=== PATIENT | female | born 1935 | race Caucasian/White ===

== ENCOUNTER 2017-08-22 09:41 | Emergency (ER) | payer MEDICARE, MEDICAID ==
[~2017-08-22] VITALS: Ht 167.6 cm; Wt 59.9 kg
[~2017-08-22 09:41] MED LIST: AZAT50TA PO; CALCIUM PO; CYCL30DR EACHEYE; ESCI10TA PO; LEVO88TA5 PO; OMEGA 3 PO; PRED2.5T PO; SIMV10TA6 PO; VITAMIN B12 PO
[2017-08-22] MEDS ORDERED: ACETAMINOPHEN ES 500 MG TABLET PO ONE (10:15)
[2017-08-22] MEDS ORDERED: IV NORMAL SALINE 1000 ML BAG IV ONE (10:15)
[2017-08-22] MEDS ORDERED: CEFTRIAXONE 1 G in IV DEXTROSE 5% 50 ML IV ONE (10:15)
[2017-08-22] MEDS ORDERED: ALBUTEROL SULFATE 2.5 MG/3 ML NEBU NEB ONE (10:15)
[2017-08-22] MEDS ORDERED: ALBUTEROL SULFATE 2.5 MG/3 ML NEBU ONE (10:31)
[2017-08-22 10:34] LABS: BASOPHILS % (AUTO) 0.8 % (0.0-2.0); EOSINOPHILS % (AUTO) 0.2 % (0.0-7.0); HEMOGLOBIN 13.2 g/dL (10.9-14.3); LYMPHOCYTES # (AUTO) 0.8 K/uL (20.0-40.0); LYMPHOCYTES % (AUTO) 13.6 % (20.5-51.5); MEAN CORPUSCULAR HEMOGLOBIN 31.9 uug (24.7-32.8); MEAN CORPUSCULAR HGB CONC 34 g/dL (32.3-35.6); MEAN CORPUSCULAR VOLUME 94.5 fL (75.5-95.3); MONOCYTES # (AUTO) 0.5 K/uL (2.0-10.0); MONOCYTES % (AUTO) 7.8 % (0.0-11.0); NEUTROPHILS # (AUTO) 4.7 K/uL (1.8-8.9); NEUTROPHILS % (AUTO) 77.6 % (38.5-71.5); PLATELET COUNT (AUTO) 195 K/uL (179-408); RED BLOOD CELL COUNT(AUTO) 4.12 MIL/uL (3.63-4.92)
[2017-08-22] MEDS ORDERED: CEFTRIAXONE 1 G VIAL ONE (10:48)
[2017-08-22] MEDS ORDERED: ACETAMINOPHEN ES 500 MG TABLET ONE (10:48)
[2017-08-22 10:50] LABS: CARBON DIOXIDE 25 mmol/L (21-32); CHLORIDE 107 mmol/L (98-107); CREATININE 1.4 mg/dL (0.6-1.3); GLUCOSE 103 mg/dL (74-106); POTASSIUM 4.1 mmol/L (3.5-5.1); UREA NITROGEN, BLOOD 24 mg/dL (7-18)
[2017-08-22 11:00] LABS: *BILIRUBIN,URIN NEGATIVE (NEGATIVE); *BLOOD, URINE 2+ (NEGATIVE); *COLOR,URINE YELLOW (YELLOW); *KETONES,URINE NEGATIVE (NEGATIVE); *PROTEIN,URINE NEGATIVE (NEGATIVE); *UROBILINOGEN,URINE 0.2 E.U./dl (NORMAL); LEUKOCYTE ESTERASE ,URINE NEGATIVE (NEGATIVE); NITRITE, URINE NEGATIVE (NEGATIVE); UGLUCOSE NEGATIVE (NEGATIVE)
[2017-08-22 11:03] LABS: ALANINE AMINOTRANSFERASE 16 U/L (14-59); ALKALINE PHOSPHATASE 52 U/L (50-136); ASPARTATE AMINOTRANSFERASE 17 U/L (15-37); BILIRUBIN,DIRECT 0.2 mg/dL (0.0-0.2); BILIRUBIN,TOTAL 0.7 mg/dL (0.2-1.0); TOTAL PROTEIN, SERUM 7.3 g/dL (6.4-8.2)
[2017-08-22 11:06] LABS: *CLARITY,URINE SLIGHTLY HAZY (CLEAR)
[2017-08-22 11:09] LABS: WBC,URINE 0-3 /HPF (0-3)
[2017-08-22 11:10] LABS: BACTERIA,URINE NONE SEEN /HPF (NONE SEEN); SQUAMOUS EPITHELIAL CELL,UR FEW /HPF (NONE SEEN)
[2017-08-22] MEDS ORDERED: LEVOFLOXACIN 500 MG TABLET PO ONE (13:30)
--- NOTE | 2017-08-22 13:40 | NUR ---
[facility] PROVIDED FOR PT AND PER PT REQUEST. PT EATING WITH GOOD APETITE.
[2017-08-22] MEDS ORDERED: LEVOFLOXACIN 500 MG TABLET ONE (13:44)
--- NOTE | 2017-08-22 14:26 | NUR ---
PT GRANDSON AT BEDSIDE TO TAKE THE PT HOME. PT SAYS FEELS BETTER.NO SIGN OF DISTRESS, BREATHING NORMALLY.
[2017-08-22 14:30] VITALS: BP 111/55
== END 2017-08-22 14:31 | disposition home or self-care (01) ==
LOC: ER 09:41
DX: R50.9 Fever, unspecified (principal); I10 Essential (primary) hypertension; I70.0 Atherosclerosis of aorta; E78.00 Pure hypercholesterolemia, unspecified; Z88.0 Allergy status to penicillin; Z88.2 Allergy status to sulfonamides; E03.9 Hypothyroidism, unspecified; M31.30 Wegener's granulomatosis without renal involvement
CPT/HCPCS: 36415; 70030-TC; 71045; 83605; 85025; 85730; 87040; 87086; 87400; 93005; A4663; J0696; J3490; J7030

== ENCOUNTER 2018-10-12 01:02 | Emergency (ER) | payer MEDICARE, MEDICAID ==
[~2018-10-12] VITALS: Ht 162.6 cm; Wt 54.4 kg
--- NOTE | 2018-10-12 01:14 | NUR ---
Pt bib [id number] from home with c/o intermittent cough x 6 months w weight loss. Pt placed to room 1B.
[2018-10-12 02:24] LABS: BASOPHILS # (AUTO) 0.1 K/uL (0.0-8.0); BASOPHILS % (AUTO) 1.2 % (0.0-2.0); EOSINOPHILS # (AUTO) 0.2 K/uL (0.0-0.7); EOSINOPHILS % (AUTO) 3.9 % (0.0-7.0); HEMATOCRIT 35.3 % (31.2-41.9); HEMOGLOBIN 12.1 g/dL (10.9-14.3); MEAN CORPUSCULAR HEMOGLOBIN 31.3 uug (24.7-32.8); MEAN CORPUSCULAR HGB CONC 34 g/dL (32.3-35.6); MEAN CORPUSCULAR VOLUME 91.4 fL (75.5-95.3); MONOCYTES # (AUTO) 0.4 K/uL (2.0-10.0); MONOCYTES % (AUTO) 7.5 % (0.0-11.0); NEUTROPHILS # (AUTO) 2.8 K/uL (1.8-8.9); NEUTROPHILS % (AUTO) 51.4 % (38.5-71.5); PLATELET COUNT (AUTO) 221 K/uL (179-408); RED BLOOD CELL COUNT(AUTO) 3.86 MIL/uL (3.63-4.92); WHITE BLOOD COUNT (AUTO) 5.5 K/uL (3.8-11.8)
--- NOTE | 2018-10-12 02:33 | NUR ---
Xray at bedside.
[2018-10-12 02:35] LABS: CARBON DIOXIDE 24 mmol/L (21-32); CHLORIDE 109 mmol/L (98-107); CREATININE 1.1 mg/dL (0.6-1.3); GLUCOSE 95 mg/dL (74-106); POTASSIUM 3.8 mmol/L (3.5-5.1); UREA NITROGEN, BLOOD 26 mg/dL (7-18)
[2018-10-12 02:41] LABS: ALANINE AMINOTRANSFERASE 8 U/L (14-59); ALKALINE PHOSPHATASE 45 U/L (50-136); ASPARTATE AMINOTRANSFERASE 14 U/L (15-37); BILIRUBIN,DIRECT 0.1 mg/dL (0.0-0.2); BILIRUBIN,TOTAL 0.5 mg/dL (0.2-1.0); TOTAL PROTEIN, SERUM 6.4 g/dL (6.4-8.2)
[2018-10-12 02:48] LABS: THYROID STIMULATING HORMONE 0.915 mIU/mL (0.358-3.740)
--- NOTE | 2018-10-12 03:30 | NUR ---
Placed multiple calls & left message to pt's emergency contact regarding pt pickup after discharge. Per pt, grandchild contact info ([facility]) [phone]
[2018-10-12] MEDS ORDERED: LORAZEPAM 2 MG/1 ML VIAL ONE (04:03)
[2018-10-12] MEDS ORDERED: LORAZEPAM 2 MG/1 ML VIAL IV ONE (04:15)
--- NOTE | 2018-10-12 04:26 | NUR ---
Pt is sleeping comfortably in bed. Pt is ready to be d/c per MD. Waiting for pickup by family member.
--- NOTE | 2018-10-12 06:26 | NUR ---
IV removed. Catheter intact and site benign. Pressure and 4x4 gauze applied to site. No bleeding noted.
--- NOTE | 2018-10-12 06:52 | NUR ---
Report given to day shift nurse.
--- NOTE | 2018-10-12 08:00 | NUR ---
called pt grandson at [phone], left a message.
--- NOTE | 2018-10-12 09:00 | NUR ---
pt awake, pt alert to name only. does not know the date and where she is and why she is here. pt provided name that is elizabeth echols.
--- NOTE | 2018-10-12 10:02 | NUR ---
left another message for grace tucker. pt awake, does not have another number to call and no lainez to enter the house.
--- NOTE | 2018-10-12 10:40 | NUR ---
called 2 numbers found in the previous visit and pt visit. [phone], disconnectd, [phone] belonged to some one else.
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
--- NOTE | 2018-10-12 12:00 | NUR ---
[facility] provided. pt eating with good apetite
--- NOTE | 2018-10-12 12:08 | NUR ---
APS report completed by this SW. Report ID # [id number].
--- NOTE | 2018-10-12 12:30 | NUR ---
pt caitlin edwards at bedside to take the pt home.Patient discharged to home in stable conditon. Written and verbal after care instructions given to grace.
[2018-10-12 12:52] VITALS: BP 131/70
[2018-11-09] MEDS ORDERED: FLUT1BLS INH (13:34)
[2018-11-09] MEDS ORDERED: IPRA0.2S6 NEB (13:34)
[2018-11-09] MEDS ORDERED: PANT40TA2 PO (13:34)
[2018-11-09] MEDS ORDERED: ALBU1.25 NEB (13:34)
[2018-11-09] MEDS ORDERED: Levofloxacin PO (13:34)
[2018-11-09] MEDS ORDERED: PRED20TA PO (13:34)
[2018-11-09] MEDS ORDERED: ALBU2.5V7 NEB (13:34)
[2018-11-09] MEDS ORDERED: LEVO100T10 PO (13:34)
[2018-11-09] MEDS ORDERED: ACET100V5 NEB (13:34)
[2018-11-09] MEDS ORDERED: QUET25TA PO (15:30)
== END 2018-10-12 12:30 | disposition home or self-care (01) ==
LOC: ER 01:04
DX: R63.4 Abnormal weight loss (principal); R05 Cough; I10 Essential (primary) hypertension; E78.00 Pure hypercholesterolemia, unspecified; G89.29 Other chronic pain; M54.9 Dorsalgia, unspecified; E03.9 Hypothyroidism, unspecified; Z88.0 Allergy status to penicillin; Z88.2 Allergy status to sulfonamides; Z88.8 Allergy status to other drugs, medicaments and biological substances; Z79.899 Other long term (current) drug therapy
CPT/HCPCS: 36415; 70450; 71045; 80048; 80076; 83605; 84443; 84484; 85025; 85730; 87040 ×2; 93005; 96374; 99284; J2060; 70030-TC; A4663

== ENCOUNTER 2019-02-15 14:34 | Inpatient (IN) | payer MEDICARE, MEDICAID ==
[~2019-02-15] VITALS: Ht 162.6 cm; Wt 59.0 kg
[~2019-02-15 14:34] MED LIST changes: +ACET100V5 NEB; +ALBU1.25 NEB; +ALBU2.5V7 NEB; -CALCIUM PO; +FLUT1BLS INH; +IPRA0.2S6 NEB; +LEVO100T10 PO; +Levofloxacin PO; +PANT40TA2 PO; -PRED2.5T PO; +PRED20TA PO; +QUET25TA PO
[2019-02-15] MEDS ORDERED: ONDA4TAB5 PO (14:58)
[2019-02-15] MEDS ORDERED: MULT-213 PO (14:58)
[2019-02-15] MEDS ORDERED: OMEG1CAP PO (14:58)
[2019-02-15 15:21] LABS: BASOPHILS # (AUTO) 0.1 K/uL (0.0-8.0); BASOPHILS % (AUTO) 1.4 % (0.0-2.0); EOSINOPHILS # (AUTO) 0.4 K/uL (0.0-0.7); EOSINOPHILS % (AUTO) 6.7 % (0.0-7.0); HEMATOCRIT 28.6 % (31.2-41.9); HEMOGLOBIN 9.5 g/dL (10.9-14.3); LYMPHOCYTES # (AUTO) 1.4 K/uL (20.0-40.0); LYMPHOCYTES % (AUTO) 24.9 % (20.5-51.5); MEAN CORPUSCULAR HGB CONC 33 g/dL (32.3-35.6); MEAN CORPUSCULAR VOLUME 90.4 fL (75.5-95.3); MONOCYTES # (AUTO) 0.5 K/uL (2.0-10.0); MONOCYTES % (AUTO) 8.3 % (0.0-11.0); NEUTROPHILS # (AUTO) 3.3 K/uL (1.8-8.9); NEUTROPHILS % (AUTO) 58.7 % (38.5-71.5); PLATELET COUNT (AUTO) 217 K/uL (179-408); RED BLOOD CELL COUNT(AUTO) 3.17 MIL/uL (3.63-4.92); WHITE BLOOD COUNT (AUTO) 5.6 K/uL (3.8-11.8)
[2019-02-15] MEDS ORDERED: DEXT15DR6 EACHEYE (15:26)
[2019-02-15] MEDS ORDERED: FLUT1BLS IH (15:26)
[2019-02-15] MEDS ORDERED: GUAI120L56 PO (15:26)
[2019-02-15] MEDS ORDERED: LACT-214 PO (15:26)
[2019-02-15 15:28] LABS: CARBON DIOXIDE 22 mmol/L (21-32); CHLORIDE 106 mmol/L (98-107); GLUCOSE 108 mg/dL (74-106); POTASSIUM 3.7 mmol/L (3.5-5.1); UREA NITROGEN, BLOOD 49 mg/dL (7-18)
[2019-02-15 15:41] LABS: ALANINE AMINOTRANSFERASE 15 U/L (14-59); ALKALINE PHOSPHATASE 49 U/L (50-136); ASPARTATE AMINOTRANSFERASE 14 U/L (15-37); BILIRUBIN,DIRECT 0.1 mg/dL (0.0-0.2); BILIRUBIN,TOTAL 0.2 mg/dL (0.2-1.0); TOTAL PROTEIN, SERUM 6.6 g/dL (6.4-8.2)
[2019-02-15 16:31] LABS: *BILIRUBIN,URIN NEGATIVE (NEGATIVE); *BLOOD, URINE 3+ (NEGATIVE); *COLOR,URINE YELLOW (YELLOW); *KETONES,URINE NEGATIVE (NEGATIVE); *UROBILINOGEN,URINE 0.2 E.U./dl (NORMAL); LEUKOCYTE ESTERASE ,URINE NEGATIVE (NEGATIVE); NITRITE, URINE NEGATIVE (NEGATIVE); UGLUCOSE NEGATIVE (NEGATIVE)
[2019-02-15 16:39] LABS: *CLARITY,URINE HAZY (CLEAR)
[2019-02-15 16:41] LABS: RBC,URINE 50-80 /HPF (0-3)
[2019-02-15 16:42] LABS: MUCUS,URINE MODERATE /LPF (0-FEW); SQUAMOUS EPITHELIAL CELL,UR FEW /HPF (NONE SEEN)
[2019-02-15 18:00] VITALS: BP 153/67
[2019-02-15] MEDS ORDERED: ALBUTEROL SULFATE 2.5 MG/ 0.5 ML NEBU NEB PRN (18:45)
[2019-02-15] MEDS ORDERED: TEMAZEPAM 15 MG CAPSULE PO PRN (18:45)
[2019-02-15 20:17] VITALS: BP 154/61
[2019-02-15] MEDS: SIMVASTATIN 10 MG TABLET PO SCH (20:29)
[2019-02-15] MEDS: DOCUSATE SODIUM 100 MG CAPSULE PO SCH (20:29)
[2019-02-15] MEDS: ACETAMINOPHEN 325 MG TABLET PO PRN (21:15)
[2019-02-16 00:05] VITALS: BP 140/71
[2019-02-16 04:35] VITALS: BP 153/71
[2019-02-16] MEDS: LEVOTHYROXINE SODIUM 88 MCG TABLET PO SCH (06:50)
[2019-02-16] MEDS: PANTOPRAZOLE SODIUM 40 MG TABLET.DR PO SCH (06:50)
[2019-02-16] MEDS ORDERED: LACTOSE FREE FOOD PO SCH (08:00)
[2019-02-16] MEDS ORDERED: TEMAZEPAM 7.5 MG CAPSULE PO PRN (08:30)
[2019-02-16] MEDS ORDERED: Medication Not On Formulary EA (Multivitamins W-Minerals (Multivitamin With Minerals) 1 PO SCH (09:00)
[2019-02-16] MEDS: FLUTICASONE/VILANTEROL 1 EACH BLST.W.DEV IH SCH (09:00)
[2019-02-16 09:06] LABS: ALANINE AMINOTRANSFERASE 13 U/L (14-59); ALKALINE PHOSPHATASE 48 U/L (50-136); ASPARTATE AMINOTRANSFERASE 16 U/L (15-37); BILIRUBIN,TOTAL 0.5 mg/dL (0.2-1.0); CARBON DIOXIDE 23 mmol/L (21-32); CHLORIDE 110 mmol/L (98-107); CHOLESTEROL 207 mg/dL (<200); CREATININE 1.9 mg/dL (0.6-1.3); GLUCOSE 123 mg/dL (74-106); HDL CHOLESTEROL 77 mg/dL (40-60); MAGNESIUM 1.8 mg/dL (1.8-2.4); PHOSPHOROUS 4.5 mg/dL (2.5-4.9); POTASSIUM 4.2 mmol/L (3.5-5.1); TOTAL PROTEIN, SERUM 6.6 g/dL (6.4-8.2); TRIGLYCERIDES 56 MG/DL (30-150); UREA NITROGEN, BLOOD 45 mg/dL (7-18)
[2019-02-16 09:07] LABS: IRON, SERUM 56 ug/dL (50-175)
[2019-02-16 09:16] LABS: BASOPHILS # (AUTO) 0.1 K/uL (0.0-8.0); BASOPHILS % (AUTO) 1.5 % (0.0-2.0); EOSINOPHILS # (AUTO) 0.3 K/uL (0.0-0.7); EOSINOPHILS % (AUTO) 7.7 % (0.0-7.0); HEMATOCRIT 29.5 % (31.2-41.9); HEMOGLOBIN 9.9 g/dL (10.9-14.3); LYMPHOCYTES # (AUTO) 1.4 K/uL (20.0-40.0); LYMPHOCYTES % (AUTO) 31.4 % (20.5-51.5); MEAN CORPUSCULAR HEMOGLOBIN 30.5 uug (24.7-32.8); MEAN CORPUSCULAR HGB CONC 34 g/dL (32.3-35.6); MEAN CORPUSCULAR VOLUME 90.5 fL (75.5-95.3); MONOCYTES # (AUTO) 0.3 K/uL (2.0-10.0); MONOCYTES % (AUTO) 6.4 % (0.0-11.0); NEUTROPHILS # (AUTO) 2.4 K/uL (1.8-8.9); PLATELET COUNT (AUTO) 251 K/uL (179-408); RED BLOOD CELL COUNT(AUTO) 3.26 MIL/uL (3.63-4.92); WHITE BLOOD COUNT (AUTO) 4.5 K/uL (3.8-11.8)
[2019-02-16] MEDS: MULTIVIT, IRON, MIN NO. 8, FA TABLET PO SCH (09:30)
[2019-02-16] MEDS: OMEGA-3 FATTY ACIDS/FISH OIL CAPSULE PO SCH (09:30)
[2019-02-16] MEDS: ESCITALOPRAM OXALATE 10 MG TABLET PO SCH (09:30)
[2019-02-16] MEDS: AZATHIOPRINE 50 MG TABLET PO SCH (09:32)
[2019-02-16] MEDS: BOOST GLUCOSE CONTROL 237 ML LIQUID (VANILLA) PO SCH ×3 (09:48→17:29)
[2019-02-16 11:16] LABS: *BILIRUBIN,URIN NEGATIVE (NEGATIVE); *BLOOD, URINE 3+ (NEGATIVE); *CLARITY,URINE CLEAR (CLEAR); *COLOR,URINE YELLOW (YELLOW); *KETONES,URINE NEGATIVE (NEGATIVE); *UROBILINOGEN,URINE 0.2 E.U./dl (NORMAL); LEUKOCYTE ESTERASE ,URINE NEGATIVE (NEGATIVE); NITRITE, URINE NEGATIVE (NEGATIVE); UGLUCOSE NEGATIVE (NEGATIVE)
[2019-02-16 11:19] LABS: *CREATININE,URINE 39.6 mg/dL (30-125); *URINE TOTAL PROTEIN RANDOM 69.4 mg/dL (<150/24HR)
[2019-02-16 11:28] LABS: RBC,URINE 20-50 /HPF (0-3)
[2019-02-16 11:30] VITALS: BP 143/63
[2019-02-16 11:30] LABS: BACTERIA,URINE NONE SEEN /HPF (NONE SEEN)
[2019-02-16 11:32] LABS: MUCUS,URINE FEW /LPF (0-FEW)
[2019-02-16] MEDS: ACETAMINOPHEN 325 MG TABLET PO PRN (11:46)
[2019-02-16] MEDS ORDERED: POLYVINYL ALCOHOL OPHT DROPS 15 ML BOTTLE EACHEYE PRN (14:00)
[2019-02-16 15:56] VITALS: BP 151/73
[2019-02-16 20:39] VITALS: BP 153/58
[2019-02-16] MEDS: DOCUSATE SODIUM 100 MG CAPSULE PO SCH (21:07)
[2019-02-16] MEDS: SIMVASTATIN 10 MG TABLET PO SCH (21:07)
[2019-02-17] MEDS ORDERED: CLONIDINE HCL 0.1 MG TABLET PO PRN
[2019-02-17 00:07] VITALS: BP 166/75
[2019-02-17 04:23] VITALS: BP 152/69
[2019-02-17] MEDS: LEVOTHYROXINE SODIUM 88 MCG TABLET PO SCH (06:49)
[2019-02-17] MEDS: PANTOPRAZOLE SODIUM 40 MG TABLET.DR PO SCH (06:50)
[2019-02-17 07:56] LABS: BASOPHILS # (AUTO) 0.1 K/uL (0.0-8.0); BASOPHILS % (AUTO) 1.4 % (0.0-2.0); EOSINOPHILS # (AUTO) 0.4 K/uL (0.0-0.7); EOSINOPHILS % (AUTO) 7.3 % (0.0-7.0); HEMATOCRIT 27.3 % (31.2-41.9); HEMOGLOBIN 9.4 g/dL (10.9-14.3); LYMPHOCYTES # (AUTO) 1.6 K/uL (20.0-40.0); LYMPHOCYTES % (AUTO) 29.5 % (20.5-51.5); MEAN CORPUSCULAR HEMOGLOBIN 30.6 uug (24.7-32.8); MEAN CORPUSCULAR HGB CONC 35 g/dL (32.3-35.6); MEAN CORPUSCULAR VOLUME 88.8 fL (75.5-95.3); MONOCYTES # (AUTO) 0.3 K/uL (2.0-10.0); MONOCYTES % (AUTO) 6.5 % (0.0-11.0); NEUTROPHILS # (AUTO) 2.9 K/uL (1.8-8.9); NEUTROPHILS % (AUTO) 55.3 % (38.5-71.5); PLATELET COUNT (AUTO) 258 K/uL (179-408); RED BLOOD CELL COUNT(AUTO) 3.08 MIL/uL (3.63-4.92); WHITE BLOOD COUNT (AUTO) 5.3 K/uL (3.8-11.8)
[2019-02-17 08:08] LABS: ALANINE AMINOTRANSFERASE 14 U/L (14-59); ALKALINE PHOSPHATASE 43 U/L (50-136); ASPARTATE AMINOTRANSFERASE 24 U/L (15-37); BILIRUBIN,TOTAL 0.5 mg/dL (0.2-1.0); CARBON DIOXIDE 26 mmol/L (21-32); CHLORIDE 107 mmol/L (98-107); CREATINE KINASE, TOTAL 65 U/L (26-192); CREATININE 1.8 mg/dL (0.6-1.3); GLUCOSE 87 mg/dL (74-106); MAGNESIUM 1.7 mg/dL (1.8-2.4); PHOSPHOROUS 3.5 mg/dL (2.5-4.9); POTASSIUM 4.5 mmol/L (3.5-5.1); TOTAL PROTEIN, SERUM 6.4 g/dL (6.4-8.2); UREA NITROGEN, BLOOD 48 mg/dL (7-18)
[2019-02-17] MEDS: OMEGA-3 FATTY ACIDS/FISH OIL CAPSULE PO SCH (08:37)
[2019-02-17] MEDS: FLUTICASONE/VILANTEROL 1 EACH BLST.W.DEV IH SCH (08:38)
[2019-02-17] MEDS: BOOST GLUCOSE CONTROL 237 ML LIQUID (VANILLA) PO SCH ×3 (08:38→17:46)
[2019-02-17] MEDS: ESCITALOPRAM OXALATE 10 MG TABLET PO SCH (08:38)
[2019-02-17] MEDS: MULTIVIT, IRON, MIN NO. 8, FA TABLET PO SCH (08:38)
[2019-02-17] MEDS: AZATHIOPRINE 50 MG TABLET PO SCH (08:38)
[2019-02-17] MEDS: ONDANSETRON 4 MG/2 ML VIAL IV PRN (10:17)
[2019-02-17 11:14] VITALS: BP 168/66
[2019-02-17] MEDS ORDERED: MAGNESIUM SULFATE/D5W 100 ML IV SCH (12:00)
[2019-02-17] MEDS: IV 1/2NS 1000 ML 1,000 ML IV PRN (14:41)
[2019-02-17 15:06] VITALS: BP 140/57
[2019-02-17 17:15] LABS: *BILIRUBIN,URIN NEGATIVE (NEGATIVE); *BLOOD, URINE 3+ (NEGATIVE); *COLOR,URINE YELLOW (YELLOW); *KETONES,URINE NEGATIVE (NEGATIVE); *UROBILINOGEN,URINE 0.2 E.U./dl (NORMAL); LEUKOCYTE ESTERASE ,URINE NEGATIVE (NEGATIVE); NITRITE, URINE NEGATIVE (NEGATIVE); UGLUCOSE NEGATIVE (NEGATIVE)
[2019-02-17 17:55] LABS: *CLARITY,URINE HAZY (CLEAR)
[2019-02-17 17:56] LABS: RBC,URINE 50-80 /HPF (0-3)
[2019-02-17 17:57] LABS: MUCUS,URINE MODERATE /LPF (0-FEW); SQUAMOUS EPITHELIAL CELL,UR FEW /HPF (NONE SEEN)
[2019-02-17] MEDS: SIMVASTATIN 10 MG TABLET PO SCH (20:22)
[2019-02-17] MEDS: DOCUSATE SODIUM 100 MG CAPSULE PO SCH (20:22)
[2019-02-17 20:23] VITALS: BP 139/61
[2019-02-18 04:59] VITALS: BP 145/66
[2019-02-18] MEDS: LEVOTHYROXINE SODIUM 88 MCG TABLET PO SCH (06:23)
[2019-02-18] MEDS: PANTOPRAZOLE SODIUM 40 MG TABLET.DR PO SCH (06:23)
[2019-02-18] MEDS: IV 1/2NS 1000 ML 1,000 ML IV PRN (06:24)
[2019-02-18] MEDS: BOOST GLUCOSE CONTROL 237 ML LIQUID (VANILLA) PO SCH ×3 (08:00→18:44)
[2019-02-18] MEDS: FLUTICASONE/VILANTEROL 1 EACH BLST.W.DEV IH SCH (09:00)
[2019-02-18] MEDS: AZATHIOPRINE 50 MG TABLET PO SCH (09:00)
[2019-02-18] MEDS: ESCITALOPRAM OXALATE 10 MG TABLET PO SCH (09:27)
[2019-02-18] MEDS: OMEGA-3 FATTY ACIDS/FISH OIL CAPSULE PO SCH (09:28)
[2019-02-18] MEDS: MULTIVIT, IRON, MIN NO. 8, FA TABLET PO SCH (09:29)
[2019-02-18] MEDS: ONDANSETRON 4 MG/2 ML VIAL IV PRN ×2 (09:39→10:53)
[2019-02-18 11:17] VITALS: BP 127/43
[2019-02-18] MEDS ORDERED: DOCU100C36 PO (14:47)
[2019-02-18] MEDS ORDERED: ACET325T53 PO (14:47)
[2019-02-18] MEDS ORDERED: TEMA7.5C PO (14:47)
[2019-02-18] MEDS ORDERED: METO25TA6 PO (14:47)
[2019-02-18] MEDS ORDERED: ALBU2.5V13 NEB (14:47)
[2019-02-18] MEDS ORDERED: MAG30ORA PO (14:59)
[2019-02-18 15:16] VITALS: BP 132/48
[2019-02-18 15:51] LABS: *CREATININE,URINE 52.3 mg/dL (30-125); *URINE TOTAL PROTEIN RANDOM 92.4 mg/dL (<150/24HR)
[2019-02-19 18:08] LABS: A/G RATIO 0.9 (0.7-1.7); ALBUMIN 2.9 g/dL (2.9-4.4); ALPHA-1-GLOBULIN 0.3 g/dL (0.0-0.4); ALPHA-2-GLOBULIN 0.7 g/dL (0.4-1.0); BETA GLOBULIN 0.8 g/dL (0.7-1.3); GAMMA GLOBULIN 1.3 g/dL (0.4-1.8); GLOBULIN, TOTAL 3.1 g/dL (2.2-3.9); M-SPIKE Not Observed g/dL (Not Observed)
== END 2019-02-18 18:45 | DRG 682 ==
LOC: ER 14:34 → TELE3 17:18 → MEDSURG3 02-17 16:24
PROVIDERS: ADMIT Internal Medicine; ATTEND Internal Medicine
PROC: 05HB33Z Insertion of Infusion Device into Right Basilic Vein, Percutaneous Approach (ICD-10-PCS; principal; 2019-02-16)
DX: N17.0 Acute kidney failure with tubular necrosis (principal); G92 Toxic encephalopathy; M31.31 Wegener's granulomatosis with renal involvement; I13.0 Hypertensive heart and chronic kidney disease with heart failure and stage 1 through stage 4 chronic kidney disease, or unspecified chronic kidney disease; I50.32 Chronic diastolic (congestive) heart failure; Z68.1 Body mass index [BMI] 19.9 or less, adult; E44.0 Moderate protein-calorie malnutrition; D68.59 Other primary thrombophilia; N18.9 Chronic kidney disease, unspecified; E03.9 Hypothyroidism, unspecified; Z79.890 Hormone replacement therapy; Z88.6 Allergy status to analgesic agent; Z88.0 Allergy status to penicillin; Z88.2 Allergy status to sulfonamides; Z79.899 Other long term (current) drug therapy; M89.8X9 Other specified disorders of bone, unspecified site; M19.90 Unspecified osteoarthritis, unspecified site; K73.9 Chronic hepatitis, unspecified; G20 Parkinson's disease; Z91.81 History of falling; Z87.81 Personal history of (healed) traumatic fracture; E78.5 Hyperlipidemia, unspecified; Z74.09 Other reduced mobility; D63.1 Anemia in chronic kidney disease; J45.909 Unspecified asthma, uncomplicated; Z79.51 Long term (current) use of inhaled steroids; F03.90 Unspecified dementia, unspecified severity, without behavioral disturbance, psychotic disturbance, mood disturbance, and anxiety; G89.29 Other chronic pain; M54.9 Dorsalgia, unspecified; F32.9 Major depressive disorder, single episode, unspecified; K29.00 Acute gastritis without bleeding
CPT/HCPCS: 36415; 36569; 70030-TC; 71045; 83550; 83605; 83735; 83970; 84100; 84155; 84156; 84165; 84300; 84443; 85025; 85730; 87040; 87086; 93005; 97116; 97530; A4663; G0378; J2405; J3475; J3490; J7500

== ENCOUNTER 2019-04-16 18:52 | Emergency (ER) | payer MEDICARE, MEDICAID ==
[~2019-04-16] VITALS: Ht 165.1 cm; Wt 65.8 kg
[~2019-04-16 18:52] MED LIST changes: -ACET100V5 NEB; +ACET325T53 PO; -ALBU1.25 NEB; +ALBU2.5V13 NEB; -ALBU2.5V7 NEB; +DEXT15DR6 EACHEYE; +DOCU100C36 PO; +FLUT1BLS IH; -FLUT1BLS INH; -IPRA0.2S6 NEB; +LACT-214 PO; -LEVO100T10 PO; -Levofloxacin PO; +MAG30ORA PO; +METO25TA6 PO; +MULT-213 PO; +OMEG1CAP PO; -OMEGA 3 PO; +ONDA4TAB5 PO; -PRED20TA PO; -QUET25TA PO; +TEMA7.5C PO; -VITAMIN B12 PO
--- NOTE | 2019-04-16 19:03 | NUR ---
in room 1a.
--- NOTE | 2019-04-16 19:12 | NUR ---
report given to Shaun
--- NOTE | 2019-04-16 19:15 | NUR ---
Report received. Patient BIB private ambulance for cough x 9 months.
[2019-04-16] MEDS ORDERED: BENZONATATE 100 MG CAPSULE PO ONE (19:30)
[2019-04-16] MEDS ORDERED: ALBUTEROL SULFATE 2.5 MG/3 ML NEBU NEB ONE (19:30)
[2019-04-16] MEDS ORDERED: ALBUTEROL SULFATE 2.5 MG/3 ML NEBU ONE (19:33)
[2019-04-16] MEDS ORDERED: ASCO250T23 PO (19:35)
[2019-04-16] MEDS ORDERED: SIMV10TA6 PO (19:35)
[2019-04-16] MEDS ORDERED: CHOL100045 PO (19:35)
[2019-04-16] MEDS ORDERED: BROM1.7D9 OP (19:35)
[2019-04-16] MEDS ORDERED: VIT1CAPS44 PO (19:35)
[2019-04-16] MEDS ORDERED: METO25TA6 PO (19:35)
[2019-04-16] MEDS ORDERED: DOCU100C36 PO (19:35)
[2019-04-16] MEDS ORDERED: CALC500T88 PO (19:35)
[2019-04-16 19:45] LABS: BASOPHILS # (AUTO) 0.1 K/uL (0.0-8.0); BASOPHILS % (AUTO) 1.2 % (0.0-2.0); EOSINOPHILS # (AUTO) 0.3 K/uL (0.0-0.7); EOSINOPHILS % (AUTO) 5.6 % (0.0-7.0); HEMATOCRIT 33.1 % (31.2-41.9); HEMOGLOBIN 11.1 g/dL (10.9-14.3); LYMPHOCYTES # (AUTO) 1.4 K/uL (20.0-40.0); LYMPHOCYTES % (AUTO) 23.1 % (20.5-51.5); MEAN CORPUSCULAR HGB CONC 33 g/dL (32.3-35.6); MEAN CORPUSCULAR VOLUME 89.8 fL (75.5-95.3); MONOCYTES # (AUTO) 0.6 K/uL (2.0-10.0); MONOCYTES % (AUTO) 9.3 % (0.0-11.0); NEUTROPHILS # (AUTO) 3.6 K/uL (1.8-8.9); NEUTROPHILS % (AUTO) 60.8 % (38.5-71.5); PLATELET COUNT (AUTO) 227 K/uL (179-408); RED BLOOD CELL COUNT(AUTO) 3.68 MIL/uL (3.63-4.92)
[2019-04-16 20:00] LABS: CARBON DIOXIDE 23 mmol/L (21-32); CHLORIDE 108 mmol/L (98-107); CREATININE 2.1 mg/dL (0.6-1.3); GLUCOSE 123 mg/dL (74-106); POTASSIUM 5.1 mmol/L (3.5-5.1); UREA NITROGEN, BLOOD 69 mg/dL (7-18)
[2019-04-16 20:12] LABS: ALANINE AMINOTRANSFERASE 18 U/L (14-59); ALKALINE PHOSPHATASE 63 U/L (50-136); ASPARTATE AMINOTRANSFERASE 16 U/L (15-37); BILIRUBIN,DIRECT 0.1 mg/dL (0.0-0.2); BILIRUBIN,TOTAL 0.4 mg/dL (0.2-1.0); TOTAL PROTEIN, SERUM 6.9 g/dL (6.4-8.2)
[2019-04-16] MEDS ORDERED: BENZONATATE 100 MG CAPSULE ONE (20:17)
[2019-04-16 20:35] LABS: *BILIRUBIN,URIN NEGATIVE (NEGATIVE); *BLOOD, URINE 2+ (NEGATIVE); *CLARITY,URINE CLEAR (CLEAR); *COLOR,URINE YELLOW (YELLOW); *KETONES,URINE NEGATIVE (NEGATIVE); *UROBILINOGEN,URINE 0.2 E.U./dl (NORMAL); LEUKOCYTE ESTERASE ,URINE 2+ (NEGATIVE); NITRITE, URINE NEGATIVE (NEGATIVE); UGLUCOSE TRACE (NEGATIVE)
[2019-04-16 20:47] LABS: BACTERIA,URINE FEW /HPF (NONE SEEN); SQUAMOUS EPITHELIAL CELL,UR FEW /HPF (NONE SEEN)
[2019-04-16] MEDS ORDERED: AZITHROMYCIN 250 MG TABLET PO ONE (21:00)
[2019-04-16] MEDS ORDERED: AZITHROMYCIN 250 MG TABLET ONE (21:02)
--- NOTE | 2019-04-16 21:32 | NUR ---
Called [facility] to transfer back patient to SNF. ETA is [phone] with trip # [id number].
[2019-04-16] MEDS ORDERED: GUAIFENESIN/DEXTROMETHORPHAN 5 ML UDC PO ONE (21:45)
[2019-04-16] MEDS ORDERED: GUAIFENESIN/DEXTROMETHORPHAN 5 ML UDC ONE (22:06)
--- NOTE | 2019-04-16 22:25 | NUR ---
Private ambulance here. Report given to Jordan FLORES at [facility].
--- NOTE | 2019-04-16 22:30 | NUR ---
Patient stable; NAD noted. Patient discharged to [facility]. Prescription and copy of CXR provided to transport ambulance personnel Chela.
[2019-04-16 23:04] VITALS: BP 130/66
== END 2019-04-16 22:35 | disposition home or self-care (01) ==
LOC: ER 19:00
DX: J20.9 Acute bronchitis, unspecified (principal); I10 Essential (primary) hypertension; E78.00 Pure hypercholesterolemia, unspecified; E03.9 Hypothyroidism, unspecified; Z88.0 Allergy status to penicillin; Z88.2 Allergy status to sulfonamides; Z88.6 Allergy status to analgesic agent; Z79.899 Other long term (current) drug therapy
CPT/HCPCS: 36415; 70030-TC; 71045; 83605; 85025; 85730; 87040; 87086; 93005; A4663; Q0144

== ENCOUNTER 2019-04-30 12:47 | Inpatient (IN) | payer MEDICARE, MEDICAID ==
[~2019-04-30] VITALS: Ht 165.1 cm; Wt 65.9 kg
[~2019-04-30 12:47] MED LIST changes: +ASCO250T23 PO; +BROM1.7D9 OP; +CALC500T88 PO; +CHOL100045 PO; -TEMA7.5C PO; +VIT1CAPS44 PO
[2019-04-30 13:59] LABS: BASOPHILS % (AUTO) 0.8 % (0.0-2.0); EOSINOPHILS # (AUTO) 0.3 K/uL (0.0-0.7); EOSINOPHILS % (AUTO) 5.1 % (0.0-7.0); HEMATOCRIT 37.6 % (31.2-41.9); HEMOGLOBIN 12.3 g/dL (10.9-14.3); LYMPHOCYTES # (AUTO) 1.8 K/uL (20.0-40.0); LYMPHOCYTES % (AUTO) 31.8 % (20.5-51.5); MEAN CORPUSCULAR HEMOGLOBIN 29.9 uug (24.7-32.8); MEAN CORPUSCULAR HGB CONC 33 g/dL (32.3-35.6); MEAN CORPUSCULAR VOLUME 91.5 fL (75.5-95.3); MONOCYTES # (AUTO) 0.5 K/uL (2.0-10.0); NEUTROPHILS % (AUTO) 53.3 % (38.5-71.5); PLATELET COUNT (AUTO) 238 K/uL (179-408); RED BLOOD CELL COUNT(AUTO) 4.11 MIL/uL (3.63-4.92); WHITE BLOOD COUNT (AUTO) 5.7 K/uL (3.8-11.8)
[2019-04-30 14:04] LABS: CARBON DIOXIDE 23 mmol/L (21-32); CHLORIDE 108 mmol/L (98-107); CREATININE 1.6 mg/dL (0.6-1.3); GLUCOSE 98 mg/dL (74-106); POTASSIUM 4.6 mmol/L (3.5-5.1); UREA NITROGEN, BLOOD 58 mg/dL (7-18)
[2019-04-30 14:06] LABS: *BILIRUBIN,URIN NEGATIVE (NEGATIVE); *BLOOD, URINE 2+ (NEGATIVE); *CLARITY,URINE CLEAR (CLEAR); *COLOR,URINE YELLOW (YELLOW); *KETONES,URINE NEGATIVE (NEGATIVE); *UROBILINOGEN,URINE 0.2 E.U./dl (NORMAL); LEUKOCYTE ESTERASE ,URINE NEGATIVE (NEGATIVE); NITRITE, URINE NEGATIVE (NEGATIVE); UGLUCOSE NEGATIVE (NEGATIVE)
[2019-04-30 14:10] LABS: BACTERIA,URINE NONE SEEN /HPF (NONE SEEN)
[2019-04-30 14:11] LABS: MUCUS,URINE FEW /LPF (0-FEW)
[2019-04-30 14:17] LABS: ALANINE AMINOTRANSFERASE 17 U/L (14-59); ALKALINE PHOSPHATASE 59 U/L (50-136); ASPARTATE AMINOTRANSFERASE 19 U/L (15-37); BILIRUBIN,DIRECT 0.1 mg/dL (0.0-0.2); BILIRUBIN,TOTAL 0.3 mg/dL (0.2-1.0); LIPASE 429 U/L (73-393); TOTAL PROTEIN, SERUM 7.4 g/dL (6.4-8.2)
--- NOTE | 2019-04-30 14:18 | NUR ---
[facility] PROVIDED FOR PT PER REQUEST NE MERA. PT EATING WITH GOOD APETITE.
[2019-04-30] MEDS ORDERED: ONDANSETRON HCL 4 MG TABLET PO PRN (15:45)
[2019-04-30] MEDS ORDERED: ACETAMINOPHEN 325 MG TABLET PO PRN ×2 (15:45→16:15)
[2019-04-30] MEDS ORDERED: MAG HYDROX/AL HYDROX/SIMETH 30 ML LIQUID UDC PO PRN (15:45)
[2019-04-30] MEDS ORDERED: ALBUTEROL SULFATE 2.5 MG/ 0.5 ML NEBU NEB PRN (15:45)
[2019-04-30] MEDS ORDERED: ALBUTEROL SULFATE 2.5 MG/3 ML NEBU NEB PRN (16:00)
--- NOTE | 2019-04-30 16:05 | NUR ---
PT TRANSFERED TO FLOOR IN STABLE CONDITION. PT REMAINED CALM THE WHOLE ER STAY
[2019-04-30] MEDS ORDERED: ZOLPIDEM 5 MG TABLET PO PRN (16:15)
[2019-04-30] MEDS ORDERED: MAGNESIUM HYDROXIDE 30 ML LIQUID UDC PO PRN (16:15)
[2019-04-30] MEDS ORDERED: Z GUARD REMEDY PASTE 57 GM TUBE TOP PRN (16:15)
[2019-04-30] MEDS ORDERED: ONDANSETRON 4 MG/2 ML VIAL IV PRN (16:15)
[2019-04-30] MEDS ORDERED: HYDROCODONE/APAP 5-325MG TABLET PO PRN (16:15)
[2019-04-30 16:29] VITALS: BP 148/67
--- NOTE | 2019-04-30 16:30 | NUR ---
Received this 84 yo female from ER per liliana, with the chief complaint of cough for months with vomiting with the diagnosis of Pancreatitis; cough. Transferred to bed comfortably. Routine admission care rendered. Placed on tele, SR 65. Awake, alert, oriented x 2, able to verbalized needs appropriately, able to move all extremities on purpose, ambulated to the bathroom with assistance. Dr. Roy aware of admission with orders.
[2019-04-30] MEDS ORDERED: CEFTRIAXONE 1 G in IV DEXTROSE 5% 50 ML IV SCH (17:00)
[2019-04-30] MEDS: ENSURE WITH FIBER 237 ML LIQUID (CHOCOLATE) PO SCH (17:00)
[2019-04-30] MEDS ORDERED: BOOST PLUS 237 ML LIQUID (VERY VANILLA) PO SCH (17:00)
[2019-04-30] MEDS: IV NS 1000 ML 1,000 ML IV PRN (17:03)
--- NOTE | 2019-04-30 17:25 | NUR ---
IVF started, IV antibiotics started, infusing well.
[2019-04-30 20:01] VITALS: BP 130/65
[2019-04-30] MEDS: SIMVASTATIN 10 MG TABLET PO SCH (21:39)
[2019-04-30] MEDS: ENOXAPARIN SODIUM 30 MG/0.3 ML DISP.SYRIN SQ SCH (21:40)
[2019-04-30] MEDS: METOPROLOL TARTRATE 25 MG TABLET PO SCH (21:44)
[2019-05-01 00:54] VITALS: BP 133/62
[2019-05-01] MEDS ORDERED: ALBUTEROL SULFATE 2.5 MG/3 ML NEBU NEB PRN (01:15)
[2019-05-01] MEDS ORDERED: IPRATROPIUM BROMIDE 0.5 MG/2.5 ML NEBU NEB PRN (01:15)
[2019-05-01 04:00] VITALS: BP 138/66
--- NOTE | 2019-05-01 05:35 | NUR ---
END OF SHIFT REPORT Patient rested well in between care; seen by Dr Cohen last night; no acute distress; denies any pain; continue to monitor; continue plan of care.
[2019-05-01] MEDS: IV NS 1000 ML 1,000 ML IV PRN ×2 (05:52→22:16)
[2019-05-01] MEDS: LEVOTHYROXINE SODIUM 88 MCG TABLET PO SCH (05:54)
[2019-05-01] MEDS: PANTOPRAZOLE SODIUM 40 MG TABLET.DR PO SCH (05:54)
--- NOTE | 2019-05-01 07:50 | NUR ---
Sleeping, appears comfortable. IVF infusing.
[2019-05-01] MEDS: ENSURE WITH FIBER 237 ML LIQUID (CHOCOLATE) PO SCH ×3 (08:00→17:51)
[2019-05-01] MEDS ORDERED: PANTOPRAZOLE SODIUM 40 MG VIAL IV SCH (09:00)
--- NOTE | 2019-05-01 09:00 | NUR ---
Patient is hungry and wants regular food. No nausea/vomiting noted. Called Dr. Carpenter with orders, diet advanced from clear liquid. Patient tolerated
[2019-05-01] MEDS: OMEGA-3 FATTY ACIDS/FISH OIL CAPSULE PO SCH (09:47)
[2019-05-01] MEDS: DOCUSATE SODIUM 100 MG CAPSULE PO SCH (09:47)
[2019-05-01] MEDS: AZATHIOPRINE 50 MG TABLET PO SCH (09:48)
[2019-05-01] MEDS: GUAIFENESIN LA 600 MG TABLET.SA PO SCH ×2 (09:48→20:23)
[2019-05-01] MEDS: METOPROLOL TARTRATE 25 MG TABLET PO SCH ×2 (09:48→20:24)
[2019-05-01] MEDS: ESCITALOPRAM OXALATE 10 MG TABLET PO SCH (09:48)
[2019-05-01] MEDS: FLUTICASONE/VILANTEROL 1 EACH BLST.W.DEV IH SCH (09:49)
[2019-05-01] MEDS: CHOLECALCIFEROL 1,000 UNIT TABLET PO SCH (09:49)
[2019-05-01] MEDS: CALCIUM CARBONATE 500 MG TABLET PO SCH (09:49)
[2019-05-01] MEDS: MULTIVITAMINS,THERAPEUTIC TABLET PO SCH (09:49)
[2019-05-01 11:00] VITALS: BP 129/59
[2019-05-01] MEDS ORDERED: HYDROCODONE BIT/HOMATROPINE 5 ML UDC PO PRN (12:30)
[2019-05-01] MEDS ORDERED: MULT-647 PO (12:36)
[2019-05-01 12:56] LABS: BASOPHILS % (AUTO) 0.7 % (0.0-2.0); EOSINOPHILS # (AUTO) 0.2 K/uL (0.0-0.7); EOSINOPHILS % (AUTO) 4.3 % (0.0-7.0); HEMATOCRIT 33.2 % (31.2-41.9); HEMOGLOBIN 11.1 g/dL (10.9-14.3); LYMPHOCYTES % (AUTO) 18.6 % (20.5-51.5); MEAN CORPUSCULAR HEMOGLOBIN 30.5 uug (24.7-32.8); MEAN CORPUSCULAR HGB CONC 33 g/dL (32.3-35.6); MEAN CORPUSCULAR VOLUME 91.6 fL (75.5-95.3); MONOCYTES # (AUTO) 0.5 K/uL (2.0-10.0); MONOCYTES % (AUTO) 8.9 % (0.0-11.0); NEUTROPHILS # (AUTO) 3.6 K/uL (1.8-8.9); NEUTROPHILS % (AUTO) 67.5 % (38.5-71.5); PLATELET COUNT (AUTO) 208 K/uL (179-408); RED BLOOD CELL COUNT(AUTO) 3.63 MIL/uL (3.63-4.92); WHITE BLOOD COUNT (AUTO) 5.3 K/uL (3.8-11.8)
[2019-05-01 12:58] LABS: ALANINE AMINOTRANSFERASE 12 U/L (14-59); ALKALINE PHOSPHATASE 49 U/L (50-136); ASPARTATE AMINOTRANSFERASE 15 U/L (15-37); BILIRUBIN,TOTAL 0.4 mg/dL (0.2-1.0); CARBON DIOXIDE 21 mmol/L (21-32); CHLORIDE 109 mmol/L (98-107); CREATININE 1.3 mg/dL (0.6-1.3); GLUCOSE 121 mg/dL (74-106); PHOSPHOROUS 3.1 mg/dL (2.5-4.9); POTASSIUM 4.1 mmol/L (3.5-5.1); TOTAL PROTEIN, SERUM 6.2 g/dL (6.4-8.2); UREA NITROGEN, BLOOD 41 mg/dL (7-18)
[2019-05-01 13:06] LABS: THYROID STIMULATING HORMONE 7.248 mIU/mL (0.358-3.740)
[2019-05-01 13:19] LABS: CHOLESTEROL 189 mg/dL (<200); HDL CHOLESTEROL 77 mg/dL (40-60); TRIGLYCERIDES 127 MG/DL (30-150)
--- NOTE | 2019-05-01 13:46 | NUR ---
CT chest and sinuses done
[2019-05-01] MEDS ORDERED: methylPREDNISolone SOD SUCC 125 MG/2 ML VIAL IV SCH (14:00)
--- NOTE | 2019-05-01 15:00 | NUR ---
With wheezing, Solumedrol and HHN started.
[2019-05-01] MEDS: ALBUTEROL SULFATE 2.5 MG/3 ML NEBU NEB SCH ×2 (15:13→20:44)
[2019-05-01] MEDS: IPRATROPIUM BROMIDE 0.5 MG/2.5 ML NEBU NEB SCH ×2 (15:13→20:44)
[2019-05-01 15:23] VITALS: BP 132/63
--- NOTE | 2019-05-01 19:30 | NUR ---
Received patient in bed. No signs of acute distress noted. No complaints of pain or SOB. IVF running on the left hand. Patient able to ambulate to restroom with assistance. Safety measures initiated. Bed is low and locked, call light within reach. Will continue to monitor.
[2019-05-01 20:11] VITALS: BP 142/68
[2019-05-01] MEDS: methylPREDNISolone SOD SUCC 40 MG/ML VIAL IV SCH (20:23)
[2019-05-01] MEDS: SIMVASTATIN 10 MG TABLET PO SCH (20:23)
[2019-05-01] MEDS: ENOXAPARIN SODIUM 30 MG/0.3 ML DISP.SYRIN SQ SCH (20:27)
[2019-05-02] VITALS: BP 140/63
--- NOTE | 2019-05-02 01:49 | NUR ---
Around 2229, IV on the left hand dislodged. Attempted to insert 3 times, even using US and was not successful. Notified clinical account liaison Dr. Menon and received order for Midline insertion in the AM. Notified control room supervisor.
[2019-05-02 04:00] VITALS: BP 133/62
[2019-05-02] MEDS: PANTOPRAZOLE SODIUM 40 MG TABLET.DR PO SCH (06:28)
[2019-05-02] MEDS: LEVOTHYROXINE SODIUM 88 MCG TABLET PO SCH (06:28)
[2019-05-02] MEDS: ALBUTEROL SULFATE 2.5 MG/3 ML NEBU NEB SCH ×4 (07:54→19:22)
[2019-05-02] MEDS: IPRATROPIUM BROMIDE 0.5 MG/2.5 ML NEBU NEB SCH ×4 (07:54→19:22)
[2019-05-02] MEDS: ENSURE WITH FIBER 237 ML LIQUID (CHOCOLATE) PO SCH ×3 (09:25→18:51)
[2019-05-02] MEDS: DOCUSATE SODIUM 100 MG CAPSULE PO SCH (09:41)
[2019-05-02] MEDS: FLUTICASONE/VILANTEROL 1 EACH BLST.W.DEV IH SCH (09:41)
[2019-05-02] MEDS: GUAIFENESIN LA 600 MG TABLET.SA PO SCH ×2 (09:41→20:52)
[2019-05-02] MEDS: CHOLECALCIFEROL 1,000 UNIT TABLET PO SCH (09:41)
[2019-05-02] MEDS: OMEGA-3 FATTY ACIDS/FISH OIL CAPSULE PO SCH (09:41)
[2019-05-02] MEDS: MULTIVITAMINS,THERAPEUTIC TABLET PO SCH (09:41)
[2019-05-02] MEDS: CALCIUM CARBONATE 500 MG TABLET PO SCH (09:41)
[2019-05-02] MEDS: ESCITALOPRAM OXALATE 10 MG TABLET PO SCH (09:41)
[2019-05-02] MEDS: METOPROLOL TARTRATE 25 MG TABLET PO SCH ×2 (09:44→20:53)
[2019-05-02] MEDS: AZATHIOPRINE 50 MG TABLET PO SCH (09:46)
[2019-05-02] MEDS ORDERED: ALBUTEROL SULFATE 2.5 MG/3 ML NEBU NEB PRN (10:30)
[2019-05-02 11:11] VITALS: BP 133/61
[2019-05-02] MEDS: methylPREDNISolone SOD SUCC 40 MG/ML VIAL IV SCH ×2 (12:29→20:50)
[2019-05-02 13:00] LABS: BASOPHILS % (AUTO) 0.2 % (0.0-2.0); HEMATOCRIT 31.4 % (31.2-41.9); HEMOGLOBIN 10.3 g/dL (10.9-14.3); LYMPHOCYTES # (AUTO) 0.5 K/uL (20.0-40.0); LYMPHOCYTES % (AUTO) 4.8 % (20.5-51.5); MEAN CORPUSCULAR HEMOGLOBIN 30.2 uug (24.7-32.8); MEAN CORPUSCULAR HGB CONC 33 g/dL (32.3-35.6); MEAN CORPUSCULAR VOLUME 91.9 fL (75.5-95.3); MONOCYTES # (AUTO) 0.8 K/uL (2.0-10.0); MONOCYTES % (AUTO) 7.5 % (0.0-11.0); NEUTROPHILS # (AUTO) 9.1 K/uL (1.8-8.9); NEUTROPHILS % (AUTO) 87.5 % (38.5-71.5); PLATELET COUNT (AUTO) 197 K/uL (179-408); RED BLOOD CELL COUNT(AUTO) 3.42 MIL/uL (3.63-4.92); WHITE BLOOD COUNT (AUTO) 10.4 K/uL (3.8-11.8)
[2019-05-02 13:10] LABS: ALANINE AMINOTRANSFERASE 11 U/L (14-59); ALKALINE PHOSPHATASE 53 U/L (50-136); ASPARTATE AMINOTRANSFERASE 16 U/L (15-37); BILIRUBIN,TOTAL 0.4 mg/dL (0.2-1.0); CARBON DIOXIDE 22 mmol/L (21-32); CHLORIDE 107 mmol/L (98-107); CREATININE 1.6 mg/dL (0.6-1.3); GLUCOSE 183 mg/dL (74-106); MAGNESIUM 1.9 mg/dL (1.8-2.4); PHOSPHOROUS 1.8 mg/dL (2.5-4.9); POTASSIUM 4.1 mmol/L (3.5-5.1); TOTAL PROTEIN, SERUM 6.1 g/dL (6.4-8.2); UREA NITROGEN, BLOOD 55 mg/dL (7-18)
[2019-05-02] MEDS ORDERED: NEUTRA PHOS PACKET PO ONE (16:00)
--- NOTE | 2019-05-02 18:55 | NUR ---
patient in bed resting, midline intact and patent, no c/o pain at this time. no s/s of acute distress noted will continue to monitor call light within reached. all needs attended.
--- NOTE | 2019-05-02 19:00 | NUR ---
patient received in bed alert and awake. she is very cooperative, in no distress at this time. patient appears comfortable,. midline in place, intact and patent. bed is locked with bed alarm on, call light within reach. patient requesting for sleep aid for tonight. will continue to monitor.
[2019-05-02] MEDS ORDERED: GUAIFENESIN/CODEINE 5 ML LIQUID UDC PO PRN (19:15)
[2019-05-02 20:12] VITALS: BP 134/68
[2019-05-02] MEDS: SIMVASTATIN 10 MG TABLET PO SCH (20:52)
[2019-05-02] MEDS: ENOXAPARIN SODIUM 30 MG/0.3 ML DISP.SYRIN SQ SCH (20:55)
[2019-05-02] MEDS: MUPIROCIN 2% OINT 22 GM TUBE NS SCH (20:57)
[2019-05-03 05:15] VITALS: BP 145/71
[2019-05-03] MEDS: IV NS 1000 ML 1,000 ML IV PRN (05:20)
[2019-05-03] MEDS: LEVOTHYROXINE SODIUM 88 MCG TABLET PO SCH (06:04)
[2019-05-03] MEDS: PANTOPRAZOLE SODIUM 40 MG TABLET.DR PO SCH (06:04)
[2019-05-03 06:44] LABS: CARBON DIOXIDE 22 mmol/L (21-32); CHLORIDE 108 mmol/L (98-107); CREATININE 1.7 mg/dL (0.6-1.3); GLUCOSE 141 mg/dL (74-106); PHOSPHOROUS 3.5 mg/dL (2.5-4.9); POTASSIUM 5.4 mmol/L (3.5-5.1); UREA NITROGEN, BLOOD 60 mg/dL (7-18)
--- NOTE | 2019-05-03 07:10 | NUR ---
RECEIVED PATIENT LAYING IN BED SLEEPING. NO ACUTE DISTRESS NOTED AT THIS TIME. BED IN LOWEST POSITION, SIDE RAILS UP X2, CALL LIGHT WITHIN REACH. WILL CONTINUE TO MONITOR.
[2019-05-03] MEDS: IPRATROPIUM BROMIDE 0.5 MG/2.5 ML NEBU NEB SCH ×4 (07:46→19:12)
[2019-05-03] MEDS: ALBUTEROL SULFATE 2.5 MG/3 ML NEBU NEB SCH ×4 (07:46→19:12)
[2019-05-03] MEDS: MUPIROCIN 2% OINT 22 GM TUBE NS SCH (08:18)
[2019-05-03] MEDS: methylPREDNISolone SOD SUCC 40 MG/ML VIAL IV SCH (08:18)
[2019-05-03] MEDS: FLUTICASONE/VILANTEROL 1 EACH BLST.W.DEV IH SCH (08:18)
[2019-05-03] MEDS: CHOLECALCIFEROL 1,000 UNIT TABLET PO SCH (08:19)
[2019-05-03] MEDS: CALCIUM CARBONATE 500 MG TABLET PO SCH (08:19)
[2019-05-03] MEDS: MULTIVITAMINS,THERAPEUTIC TABLET PO SCH (08:19)
[2019-05-03] MEDS: DOCUSATE SODIUM 100 MG CAPSULE PO SCH (08:19)
[2019-05-03] MEDS: GUAIFENESIN LA 600 MG TABLET.SA PO SCH (08:19)
[2019-05-03] MEDS: ESCITALOPRAM OXALATE 10 MG TABLET PO SCH (08:20)
[2019-05-03] MEDS: AZATHIOPRINE 50 MG TABLET PO SCH (08:20)
[2019-05-03] MEDS: OMEGA-3 FATTY ACIDS/FISH OIL CAPSULE PO SCH (08:26)
[2019-05-03] MEDS: ENSURE WITH FIBER 237 ML LIQUID (CHOCOLATE) PO SCH ×3 (08:28→17:32)
[2019-05-03] MEDS: METOPROLOL TARTRATE 25 MG TABLET PO SCH (08:29)
[2019-05-03 09:09] LABS: COMPLEMENT, C3 SERUM 87 mg/dL (82-167); COMPLEMENT, C4 SERUM 22 mg/dL (14-44)
[2019-05-03] MEDS ORDERED: SODIUM POLYSTYRENE SULFONATE 15 G/60 ML LIQUID UDC PO ONE (09:15)
[2019-05-03 11:57] VITALS: BP 138/66
[2019-05-03 15:41] VITALS: BP 135/64
[2019-05-03] MEDS ORDERED: GUAI600T53 PO (18:07)
[2019-05-03] MEDS ORDERED: METH4TAB3 PO (18:07)
[2019-05-03] MEDS ORDERED: GUAI5SYR4 PO (18:07)
[2019-05-03] MEDS ORDERED: ZOLP5TAB8 PO (18:07)
--- NOTE | 2019-05-03 18:13 | NUR ---
PATIENT SLEPT INTERMITTENTLY THROUGHOUT DAY. NO ACUTE DISTRESS NOTED. PATIENT DENIES PAIN AND DISCOMFORT. PATIENT ALERT AND ORIENTED X2-3. BED IN LOWEST POSITION, CALL LIGHT WITHIN REACH. PATIENT SAFETY MONITORED.
--- NOTE | 2019-05-03 18:39 | NUR ---
PATIENT BEING DISCHARGED TO [facility]. REPORT GIVING TO NURSE AWILDA.
--- NOTE | 2019-05-03 19:20 | NUR ---
Received pt awake, alert and orientedx3. Pt shows no signs of acute distress. Safety and comfort provided. Awaiting for Ambulanz. Will continue to monitor.
--- NOTE | 2019-05-03 20:15 | NUR ---
PT WAS WHEELED OUT BY Grace ALMAGUER BY [facility] [address] UN[address]. REPORT GIVEN TO GRECIA Perdomo. DISCHARGE INSTRUCTIONS GIVEN. PT UNDERSTAND IT WELL. DISCHARGE PAPERS GIVEN TO GRECIA. PT VITAL JOVANA SIGNS WITHIN NORMAL LIMIT. PT STABLE AND IN NO ACUTE DISTRESS.BELONGINGS GIVEN. ID BRACELET AND IV TAKEN OFF .
[2019-05-03 20:22] VITALS: BP 121/56
[2019-05-03] MEDS ORDERED: methylPREDNISolone SOD SUCC 40 MG/ML VIAL IV SCH (21:00)
== END 2019-05-03 20:48 | DRG 438 ==
LOC: ER 12:47 → TELE3 15:51 → MEDSURG3 05-02 11:30
PROC: 05HC33Z Insertion of Infusion Device into Left Basilic Vein, Percutaneous Approach (ICD-10-PCS; principal; 2019-05-02)
DX: K85.90 Acute pancreatitis without necrosis or infection, unspecified (principal); N17.0 Acute kidney failure with tubular necrosis; I13.0 Hypertensive heart and chronic kidney disease with heart failure and stage 1 through stage 4 chronic kidney disease, or unspecified chronic kidney disease; N39.0 Urinary tract infection, site not specified; M31.31 Wegener's granulomatosis with renal involvement; I50.32 Chronic diastolic (congestive) heart failure; J45.901 Unspecified asthma with (acute) exacerbation; D68.59 Other primary thrombophilia; M48.54XA Collapsed vertebra, not elsewhere classified, thoracic region, initial encounter for fracture; E03.9 Hypothyroidism, unspecified; K21.9 Gastro-esophageal reflux disease without esophagitis; Z88.6 Allergy status to analgesic agent; Z88.0 Allergy status to penicillin; Z88.2 Allergy status to sulfonamides; Z79.899 Other long term (current) drug therapy; E78.5 Hyperlipidemia, unspecified; G89.29 Other chronic pain; R91.8 Other nonspecific abnormal finding of lung field; K80.20 Calculus of gallbladder without cholecystitis without obstruction; M19.90 Unspecified osteoarthritis, unspecified site; Z74.09 Other reduced mobility; G20 Parkinson's disease; F02.80 Dementia in other diseases classified elsewhere, unspecified severity, without behavioral disturbance, psychotic disturbance, mood disturbance, and anxiety; E78.00 Pure hypercholesterolemia, unspecified; K57.30 Diverticulosis of large intestine without perforation or abscess without bleeding; K42.9 Umbilical hernia without obstruction or gangrene; J32.0 Chronic maxillary sinusitis; I70.0 Atherosclerosis of aorta; F41.9 Anxiety disorder, unspecified; Z91.81 History of falling; Z79.890 Hormone replacement therapy; Z79.51 Long term (current) use of inhaled steroids
CPT/HCPCS: 36415; 70030-TC; 70486; 71045; 71250; 82785; 83520; 83605; 83690; 83735; 84100; 84443; 85025; 85651; 86160; 86256; 87086; 93005; 94640; 94664; A4663; G0378; J0696; J1650; J2920; J2930; J3590; J7030; J7060; J7500

== ENCOUNTER 2019-07-11 11:56 | Inpatient (IN) | payer MEDICARE, MEDICAID ==
[~2019-07-11] VITALS: Ht 165.1 cm; Wt 65.8 kg
[~2019-07-11 11:56] MED LIST changes: +BROM1.7D9 EACHEYE; -BROM1.7D9 OP; +GUAI5SYR4 PO; +GUAI600T53 PO; +METH4TAB3 PO; -MULT-213 PO; +MULT-647 PO; -SIMV10TA6 PO; +SIMV10TA98 PO; +ZOLP5TAB8 PO
[2019-07-11] MEDS ORDERED: NA P133E RC (12:13)
[2019-07-11] MEDS ORDERED: SENN-168 PO (12:13)
[2019-07-11] MEDS ORDERED: BISA10SU61 RC (12:13)
[2019-07-11] MEDS ORDERED: LEVO100T10 PO (12:13)
[2019-07-11] MEDS ORDERED: OMEP40CA13 PO (12:13)
[2019-07-11] MEDS ORDERED: MAGN400O6 PO (12:13)
[2019-07-11 12:44] LABS: BASOPHILS # (AUTO) 0.1 K/uL (0.0-8.0); BASOPHILS % (AUTO) 1.1 % (0.0-2.0); EOSINOPHILS # (AUTO) 0.3 K/uL (0.0-0.7); HEMATOCRIT 37.5 % (31.2-41.9); HEMOGLOBIN 12.5 g/dL (10.9-14.3); LYMPHOCYTES # (AUTO) 1.3 K/uL (20.0-40.0); LYMPHOCYTES % (AUTO) 19.2 % (20.5-51.5); MEAN CORPUSCULAR HEMOGLOBIN 30.5 uug (24.7-32.8); MEAN CORPUSCULAR HGB CONC 33 g/dL (32.3-35.6); MEAN CORPUSCULAR VOLUME 91.7 fL (75.5-95.3); MONOCYTES # (AUTO) 0.6 K/uL (2.0-10.0); MONOCYTES % (AUTO) 8.7 % (0.0-11.0); NEUTROPHILS # (AUTO) 4.6 K/uL (1.8-8.9); PLATELET COUNT (AUTO) 228 K/uL (179-408); RED BLOOD CELL COUNT(AUTO) 4.09 MIL/uL (3.63-4.92)
[2019-07-11 12:50] LABS: CARBON DIOXIDE 24 mmol/L (21-32); CHLORIDE 105 mmol/L (98-107); CREATININE 1.2 mg/dL (0.6-1.3); GLUCOSE 87 mg/dL (74-106); POTASSIUM 4.3 mmol/L (3.5-5.1); UREA NITROGEN, BLOOD 44 mg/dL (7-18)
[2019-07-11 13:01] LABS: ALANINE AMINOTRANSFERASE 13 U/L (14-59); ALKALINE PHOSPHATASE 65 U/L (50-136); ASPARTATE AMINOTRANSFERASE 14 U/L (15-37); BILIRUBIN,DIRECT 0.1 mg/dL (0.0-0.2); BILIRUBIN,TOTAL 0.4 mg/dL (0.2-1.0); TOTAL PROTEIN, SERUM 6.8 g/dL (6.4-8.2)
[2019-07-11] MEDS ORDERED: LEVOFLOXACIN 750 MG TABLET PO ONE (13:15)
[2019-07-11] MEDS ORDERED: LORAZEPAM 2 MG/1 ML VIAL ONE (14:14)
[2019-07-11] MEDS ORDERED: LORAZEPAM 2 MG/1 ML VIAL IV ONE (14:15)
[2019-07-11] MEDS ORDERED: ACETAMINOPHEN 325 MG TABLET PO PRN (15:00)
[2019-07-11] MEDS ORDERED: ONDANSETRON 4 MG/2 ML VIAL IV PRN (15:00)
[2019-07-11] MEDS ORDERED: MAGNESIUM HYDROXIDE 30 ML LIQUID UDC PO PRN (15:00)
[2019-07-11] MEDS ORDERED: Z GUARD REMEDY PASTE 57 GM TUBE TOP PRN (15:00)
[2019-07-11] MEDS ORDERED: HYDROCODONE/APAP 5-325MG TABLET PO PRN (15:00)
[2019-07-11] MEDS ORDERED: BISACODYL 10 MG SUPP.RECT RC PRN (15:00)
[2019-07-11 15:29] VITALS: BP 135/63
[2019-07-11] MEDS: methylPREDNISolone SOD SUCC 40 MG/ML VIAL IV SCH ×2 (15:53→21:30)
[2019-07-11] MEDS: BETA CAROTENE/VIT C & E/MIN TABLET PO SCH (16:01)
[2019-07-11] MEDS ORDERED: Medication Not On Formulary EA (Vit C/E/Zn/Coppr/Lutein/Zeaxan (Preservision Areds 2 Sof PO SCH (17:00)
[2019-07-11] MEDS: ALBUTEROL SULFATE 2.5 MG/ 0.5 ML NEBU NEB SCH (19:09)
[2019-07-11] MEDS: IPRATROPIUM BROMIDE 0.5 MG/2.5 ML NEBU NEB SCH (19:09)
[2019-07-11] MEDS: SIMVASTATIN 10 MG TABLET PO SCH (20:21)
[2019-07-11] MEDS: SENNOSIDES 1 TABLET PO SCH (20:21)
[2019-07-11 20:47] VITALS: BP 157/81
[2019-07-11] MEDS ORDERED: ENOXAPARIN SODIUM 40 MG/0.4 ML DISP.SYRIN SQ SCH (21:00)
[2019-07-12 00:25] VITALS: BP 155/71
[2019-07-12 05:04] VITALS: BP 150/73
[2019-07-12] MEDS: methylPREDNISolone SOD SUCC 40 MG/ML VIAL IV SCH ×3 (05:28→21:22)
[2019-07-12 06:17] LABS: BASOPHILS % (AUTO) 0.2 % (0.0-2.0); HEMATOCRIT 37.9 % (31.2-41.9); HEMOGLOBIN 12.7 g/dL (10.9-14.3); LYMPHOCYTES # (AUTO) 0.6 K/uL (20.0-40.0); LYMPHOCYTES % (AUTO) 14.9 % (20.5-51.5); MEAN CORPUSCULAR HEMOGLOBIN 29.9 uug (24.7-32.8); MEAN CORPUSCULAR HGB CONC 33 g/dL (32.3-35.6); MEAN CORPUSCULAR VOLUME 89.7 fL (75.5-95.3); MONOCYTES % (AUTO) 0.9 % (0.0-11.0); NEUTROPHILS # (AUTO) 3.3 K/uL (1.8-8.9); PLATELET COUNT (AUTO) 244 K/uL (179-408); RED BLOOD CELL COUNT(AUTO) 4.23 MIL/uL (3.63-4.92)
[2019-07-12] MEDS: LEVOTHYROXINE SODIUM 100 MCG TABLET PO SCH (06:24)
[2019-07-12] MEDS: PANTOPRAZOLE SODIUM 40 MG TABLET.DR PO SCH (06:24)
[2019-07-12 06:40] LABS: CREATININE 1.3 mg/dL (0.6-1.3); MAGNESIUM 2.1 mg/dL (1.8-2.4); POTASSIUM 4.4 mmol/L (3.5-5.1)
[2019-07-12 07:16] LABS: THYROID STIMULATING HORMONE 1.363 mIU/mL (0.358-3.740)
[2019-07-12] MEDS: IPRATROPIUM BROMIDE 0.5 MG/2.5 ML NEBU NEB SCH ×3 (08:10→19:18)
[2019-07-12] MEDS: ALBUTEROL SULFATE 2.5 MG/ 0.5 ML NEBU NEB SCH ×3 (08:10→19:18)
[2019-07-12] MEDS ORDERED: ASCORBIC ACID 250 MG PO SCH (09:00)
[2019-07-12] MEDS ORDERED: MULTIVITAMINS THERAPEUTIC PO SCH (09:00)
[2019-07-12] MEDS ORDERED: Medication Not On Formulary EA (Omeprazole 40 MG) PO SCH (09:00)
[2019-07-12] MEDS: AZATHIOPRINE 50 MG TABLET PO SCH (09:11)
[2019-07-12] MEDS: DOCUSATE SODIUM 100 MG CAPSULE PO SCH (09:11)
[2019-07-12] MEDS: OMEGA-3 FATTY ACIDS/FISH OIL CAPSULE PO SCH (09:11)
[2019-07-12] MEDS: CHOLECALCIFEROL 1,000 UNIT TABLET PO SCH (09:12)
[2019-07-12] MEDS: MULTIVITAMINS,THERAPEUTIC TABLET PO SCH (09:12)
[2019-07-12] MEDS: CALCIUM CARBONATE 500 MG TABLET PO SCH (09:12)
[2019-07-12] MEDS: ESCITALOPRAM OXALATE 10 MG TABLET PO SCH (09:12)
[2019-07-12] MEDS: ASCORBIC ACID 250 MG TABLET PO SCH (09:12)
[2019-07-12] MEDS: BETA CAROTENE/VIT C & E/MIN TABLET PO SCH ×2 (09:12→16:50)
[2019-07-12 12:05] VITALS: BP 143/61
[2019-07-12] MEDS ORDERED: LEVOFLOXACIN 500 MG/D5W 500 MG in PREMIXED 1 EACH IV SCH (13:30)
[2019-07-12] MEDS: POLYVINYL ALCOHOL OPHT DROPS 15 ML BOTTLE EACHEYE SCH ×2 (14:38→16:51)
[2019-07-12] MEDS: LEVOFLOXACIN/D5W 250 MG in PREMIX 1 EA IV SCH ×2 (14:38→15:19)
[2019-07-12 16:10] VITALS: BP 132/56
[2019-07-12 20:03] VITALS: BP 123/56
[2019-07-12] MEDS: SENNOSIDES 1 TABLET PO SCH (20:15)
[2019-07-12] MEDS: MUPIROCIN 2% OINT 22 GM TUBE NS SCH (20:16)
[2019-07-12] MEDS: SIMVASTATIN 10 MG TABLET PO SCH (20:16)
[2019-07-12] MEDS: ENOXAPARIN SODIUM 30 MG/0.3 ML DISP.SYRIN SUBCUT SCH (20:25)
[2019-07-13] VITALS: BP 125/62
[2019-07-13 04:43] VITALS: BP 130/72
[2019-07-13] MEDS: methylPREDNISolone SOD SUCC 40 MG/ML VIAL IV SCH ×3 (06:22→21:04)
[2019-07-13] MEDS: LEVOTHYROXINE SODIUM 100 MCG TABLET PO SCH (06:23)
[2019-07-13] MEDS: PANTOPRAZOLE SODIUM 40 MG TABLET.DR PO SCH (06:23)
[2019-07-13 06:45] LABS: CHLORIDE 106 mmol/L (98-107); CREATININE 1.8 mg/dL (0.6-1.3); POTASSIUM 4.4 mmol/L (3.5-5.1)
[2019-07-13 06:46] LABS: CARBON DIOXIDE 23 mmol/L (21-32); GLUCOSE 131 mg/dL (74-106)
[2019-07-13 06:47] LABS: UREA NITROGEN, BLOOD 57 mg/dL (7-18)
[2019-07-13] MEDS: IPRATROPIUM BROMIDE 0.5 MG/2.5 ML NEBU NEB SCH ×3 (07:36→23:15)
[2019-07-13] MEDS: ALBUTEROL SULFATE 2.5 MG/ 0.5 ML NEBU NEB SCH ×3 (07:36→23:15)
[2019-07-13 08:41] LABS: HEMATOCRIT 36.8 % (37-47); HEMOGLOBIN 12.1 G/DL (12.0-16.0); RED BLOOD CELL COUNT(AUTO) 4.01 MIL/UL (4.2-5.4); WHITE BLOOD COUNT (AUTO) 7.9 K/UL (4.0-11.2)
[2019-07-13 08:42] LABS: LYMPHOCYTES # (AUTO) 0.6 K/UL (0.8-4.8); LYMPHOCYTES % (AUTO) 7.8 % (20.5-51.5); MEAN CORPUSCULAR HEMOGLOBIN 30.1 UUG (27.0-31.0); MEAN CORPUSCULAR HGB CONC 33 g/dL (32.0-37.0); MEAN CORPUSCULAR VOLUME 91.7 FL (81.0-99.0); MONOCYTES % (AUTO) 3.4 % (0.0-11.0); NEUTROPHILS % (AUTO) 88.8 % (38.5-71.5); PLATELET COUNT (AUTO) 234 K/UL (150-450)
[2019-07-13 08:43] LABS: MONOCYTES # (AUTO) 0.3 K/UL (0.1-1.30)
[2019-07-13] MEDS: DOCUSATE SODIUM 100 MG CAPSULE PO SCH (09:00)
[2019-07-13] MEDS: OMEGA-3 FATTY ACIDS/FISH OIL CAPSULE PO SCH (09:07)
[2019-07-13] MEDS: ESCITALOPRAM OXALATE 10 MG TABLET PO SCH (09:07)
[2019-07-13] MEDS: CHOLECALCIFEROL 1,000 UNIT TABLET PO SCH (09:07)
[2019-07-13] MEDS: CALCIUM CARBONATE 500 MG TABLET PO SCH (09:07)
[2019-07-13] MEDS: MULTIVITAMINS,THERAPEUTIC TABLET PO SCH (09:07)
[2019-07-13] MEDS: BETA CAROTENE/VIT C & E/MIN TABLET PO SCH ×2 (09:07→17:47)
[2019-07-13] MEDS: ASCORBIC ACID 250 MG TABLET PO SCH (09:07)
[2019-07-13] MEDS: MUPIROCIN 2% OINT 22 GM TUBE NS SCH ×2 (09:08→20:02)
[2019-07-13] MEDS: POLYVINYL ALCOHOL OPHT DROPS 15 ML BOTTLE EACHEYE SCH ×3 (09:08→17:48)
[2019-07-13] MEDS: AZATHIOPRINE 50 MG TABLET PO SCH (09:09)
[2019-07-13 11:04] VITALS: BP 132/51
[2019-07-13] MEDS: LEVOFLOXACIN/D5W 250 MG in PREMIX 1 EA IV SCH (14:50)
[2019-07-13 15:14] VITALS: BP 131/58
[2019-07-13 18:21] LABS: *CREATININE,URINE 70.2 mg/dL (30-125); *URINE TOTAL PROTEIN RANDOM 29.2 mg/dL (<150/24HR)
[2019-07-13 18:33] LABS: *BILIRUBIN,URIN NEGATIVE (NEGATIVE); *BLOOD, URINE 1+ (NEGATIVE); *CLARITY,URINE CLEAR (CLEAR); *COLOR,URINE YELLOW (YELLOW); *KETONES,URINE NEGATIVE (NEGATIVE); *UROBILINOGEN,URINE 0.2 E.U./dl (NORMAL); LEUKOCYTE ESTERASE ,URINE NEGATIVE (NEGATIVE); NITRITE, URINE NEGATIVE (NEGATIVE); PH,URINE 5.5 (5.0-8.0); UGLUCOSE NEGATIVE (NEGATIVE)
[2019-07-13 18:34] LABS: MUCUS,URINE MODERATE /LPF (0-FEW); SQUAMOUS EPITHELIAL CELL,UR FEW /HPF (NONE SEEN)
[2019-07-13] MEDS: SIMVASTATIN 10 MG TABLET PO SCH (20:00)
[2019-07-13] MEDS: SENNOSIDES 1 TABLET PO SCH (20:00)
[2019-07-13] MEDS: ENOXAPARIN SODIUM 30 MG/0.3 ML DISP.SYRIN SUBCUT SCH (20:01)
[2019-07-13 20:05] VITALS: BP 136/64
[2019-07-14 00:22] VITALS: BP 124/63
[2019-07-14 04:23] VITALS: BP 147/71
[2019-07-14] MEDS: methylPREDNISolone SOD SUCC 40 MG/ML VIAL IV SCH ×3 (05:45→21:05)
[2019-07-14] MEDS: PANTOPRAZOLE SODIUM 40 MG TABLET.DR PO SCH (06:05)
[2019-07-14] MEDS: LEVOTHYROXINE SODIUM 100 MCG TABLET PO SCH (06:05)
[2019-07-14] MEDS: ALBUTEROL SULFATE 2.5 MG/ 0.5 ML NEBU NEB SCH ×4 (07:36→21:20)
[2019-07-14] MEDS: IPRATROPIUM BROMIDE 0.5 MG/2.5 ML NEBU NEB SCH ×4 (07:36→21:20)
[2019-07-14] MEDS: POLYVINYL ALCOHOL OPHT DROPS 15 ML BOTTLE EACHEYE SCH ×3 (08:18→16:54)
[2019-07-14] MEDS: MUPIROCIN 2% OINT 22 GM TUBE NS SCH ×2 (08:18→20:53)
[2019-07-14] MEDS: DOCUSATE SODIUM 100 MG CAPSULE PO SCH (08:18)
[2019-07-14] MEDS: ESCITALOPRAM OXALATE 10 MG TABLET PO SCH (08:19)
[2019-07-14] MEDS: AZATHIOPRINE 50 MG TABLET PO SCH (08:19)
[2019-07-14] MEDS: ASCORBIC ACID 250 MG TABLET PO SCH (08:19)
[2019-07-14] MEDS: CALCIUM CARBONATE 500 MG TABLET PO SCH (08:19)
[2019-07-14] MEDS: MULTIVITAMINS,THERAPEUTIC TABLET PO SCH (08:19)
[2019-07-14] MEDS: BETA CAROTENE/VIT C & E/MIN TABLET PO SCH ×2 (08:19→16:56)
[2019-07-14] MEDS: CHOLECALCIFEROL 1,000 UNIT TABLET PO SCH (08:19)
[2019-07-14] MEDS: OMEGA-3 FATTY ACIDS/FISH OIL CAPSULE PO SCH (08:34)
[2019-07-14 10:49] LABS: LYMPHOCYTES # (AUTO) 0.2 K/uL (20.0-40.0); MONOCYTES # (AUTO) 0.2 K/uL (2.0-10.0)
[2019-07-14 10:50] LABS: BASOPHILS % (AUTO) 0.1 % (0.0-2.0); HEMATOCRIT 35.5 % (31.2-41.9); HEMOGLOBIN 11.8 g/dL (10.9-14.3); LYMPHOCYTES % (AUTO) 2.7 % (20.5-51.5); MEAN CORPUSCULAR HEMOGLOBIN 30.4 uug (24.7-32.8); MEAN CORPUSCULAR HGB CONC 33 g/dL (32.3-35.6); MEAN CORPUSCULAR VOLUME 91.6 fL (75.5-95.3); MONOCYTES % (AUTO) 2.5 % (0.0-11.0); NEUTROPHILS # (AUTO) 6.3 K/uL (1.8-8.9); NEUTROPHILS % (AUTO) 94.7 % (38.5-71.5); PLATELET COUNT (AUTO) 220 K/uL (179-408); RED BLOOD CELL COUNT(AUTO) 3.87 MIL/uL (3.63-4.92); WHITE BLOOD COUNT (AUTO) 6.7 K/uL (3.8-11.8)
[2019-07-14 10:52] LABS: CARBON DIOXIDE 23 mmol/L (21-32); CHLORIDE 105 mmol/L (98-107); GLUCOSE 211 mg/dL (74-106); POTASSIUM 3.8 mmol/L (3.5-5.1); UREA NITROGEN, BLOOD 58 mg/dL (7-18)
[2019-07-14 10:53] LABS: CREATININE 1.6 mg/dL (0.6-1.3)
[2019-07-14 11:08] VITALS: BP 144/66
[2019-07-14 15:11] VITALS: BP 134/62
[2019-07-14 20:43] VITALS: BP 147/71
[2019-07-14] MEDS: SENNOSIDES 1 TABLET PO SCH (20:53)
[2019-07-14] MEDS: SIMVASTATIN 10 MG TABLET PO SCH (20:53)
[2019-07-14] MEDS: ENOXAPARIN SODIUM 30 MG/0.3 ML DISP.SYRIN SUBCUT SCH (20:57)
[2019-07-15 01:09] VITALS: BP 155/60
[2019-07-15] MEDS: methylPREDNISolone SOD SUCC 40 MG/ML VIAL IV SCH ×2 (06:06→13:38)
[2019-07-15 06:14] VITALS: BP 97/40
[2019-07-15] MEDS: PANTOPRAZOLE SODIUM 40 MG TABLET.DR PO SCH (06:24)
[2019-07-15] MEDS: LEVOTHYROXINE SODIUM 100 MCG TABLET PO SCH (06:28)
[2019-07-15 07:19] LABS: CARBON DIOXIDE 27 mmol/L (21-32); CHLORIDE 108 mmol/L (98-107); CREATININE 1.4 mg/dL (0.6-1.3); GLUCOSE 114 mg/dL (74-106); POTASSIUM 4.3 mmol/L (3.5-5.1); UREA NITROGEN, BLOOD 49 mg/dL (7-20)
[2019-07-15 07:21] LABS: MAGNESIUM 2.5 mg/dL (1.8-2.4)
[2019-07-15] MEDS: IPRATROPIUM BROMIDE 0.5 MG/2.5 ML NEBU NEB SCH ×2 (07:53→13:24)
[2019-07-15] MEDS: ALBUTEROL SULFATE 2.5 MG/ 0.5 ML NEBU NEB SCH ×2 (07:53→13:24)
[2019-07-15 08:08] LABS: HEMATOCRIT 36.9 % (37-47); HEMOGLOBIN 12.2 G/DL (12.0-16.0); MEAN CORPUSCULAR HEMOGLOBIN 30.4 UUG (27.0-31.0); MEAN CORPUSCULAR HGB CONC 33 g/dL (32.0-37.0); MEAN CORPUSCULAR VOLUME 91.7 FL (81.0-99.0); PLATELET COUNT (AUTO) 225 K/UL (150-450); RED BLOOD CELL COUNT(AUTO) 4.02 MIL/UL (4.2-5.4); WHITE BLOOD COUNT (AUTO) 5.8 K/UL (4.0-11.2)
[2019-07-15 08:09] LABS: BASOPHILS % (AUTO) 0.2 % (0.0-2.0); LYMPHOCYTES # (AUTO) 0.6 K/UL (0.8-4.8); LYMPHOCYTES % (AUTO) 10.4 % (20.5-51.5); MONOCYTES # (AUTO) 0.2 K/UL (0.1-1.30); MONOCYTES % (AUTO) 3.2 % (0.0-11.0); NEUTROPHILS % (AUTO) 86.2 % (38.5-71.5)
[2019-07-15] MEDS: MUPIROCIN 2% OINT 22 GM TUBE NS SCH (08:40)
[2019-07-15] MEDS: POLYVINYL ALCOHOL OPHT DROPS 15 ML BOTTLE EACHEYE SCH ×2 (08:40→13:32)
[2019-07-15] MEDS: DOCUSATE SODIUM 100 MG CAPSULE PO SCH (08:41)
[2019-07-15] MEDS: BETA CAROTENE/VIT C & E/MIN TABLET PO SCH (08:41)
[2019-07-15] MEDS: ASCORBIC ACID 250 MG TABLET PO SCH (08:41)
[2019-07-15] MEDS: MULTIVITAMINS,THERAPEUTIC TABLET PO SCH (08:41)
[2019-07-15] MEDS: OMEGA-3 FATTY ACIDS/FISH OIL CAPSULE PO SCH (08:41)
[2019-07-15] MEDS: ESCITALOPRAM OXALATE 10 MG TABLET PO SCH (08:41)
[2019-07-15] MEDS: CALCIUM CARBONATE 500 MG TABLET PO SCH (08:41)
[2019-07-15] MEDS: AZATHIOPRINE 50 MG TABLET PO SCH (08:41)
[2019-07-15] MEDS: CHOLECALCIFEROL 1,000 UNIT TABLET PO SCH (08:41)
[2019-07-15 10:07] LABS: COMPLEMENT, C3 SERUM 107 mg/dL (82-167); COMPLEMENT, C4 SERUM 26 mg/dL (14-44)
[2019-07-15 11:02] VITALS: BP 155/72
[2019-07-15] MEDS ORDERED: METH4TAB3 PO (12:00)
[2019-07-17 18:10] LABS: *ANTI-SCLERODERMA-70 AB <0.2 AI (0.0-0.9); *SJOGREN'S ANTI-SS-A 0.6 AI (0.0-0.9); *SJOGREN'S ANTI-SS-B <0.2 AI (0.0-0.9); *SMITH ANTIBODIES 0.2 AI (0.0-0.9); ANTI-DNA(DS) AB, QN 1 IU/mL (0-9)
== END 2019-07-15 16:00 | DRG 202 ==
LOC: ER 11:56 → TELE3 13:45
PROVIDERS: ADMIT Nurse Practitioner Acute Care; ATTEND Nurse Practitioner Acute Care
DX: J20.9 Acute bronchitis, unspecified (principal); N17.0 Acute kidney failure with tubular necrosis; J45.901 Unspecified asthma with (acute) exacerbation; I13.0 Hypertensive heart and chronic kidney disease with heart failure and stage 1 through stage 4 chronic kidney disease, or unspecified chronic kidney disease; M31.31 Wegener's granulomatosis with renal involvement; E44.0 Moderate protein-calorie malnutrition; I50.32 Chronic diastolic (congestive) heart failure; N18.9 Chronic kidney disease, unspecified; G89.29 Other chronic pain; F03.90 Unspecified dementia, unspecified severity, without behavioral disturbance, psychotic disturbance, mood disturbance, and anxiety; E78.5 Hyperlipidemia, unspecified; E03.9 Hypothyroidism, unspecified; Z79.890 Hormone replacement therapy; Z68.24 Body mass index [BMI] 24.0-24.9, adult; Z88.2 Allergy status to sulfonamides; Z88.0 Allergy status to penicillin; Z22.322 Carrier or suspected carrier of Methicillin resistant Staphylococcus aureus; Z79.899 Other long term (current) drug therapy; F32.9 Major depressive disorder, single episode, unspecified; I70.0 Atherosclerosis of aorta
CPT/HCPCS: 36415; 70030-TC; 71045; 83520; 83605; 83735; 84100; 84156; 84300; 84443; 85025; 85651; 86038; 86160; 86256; 87040; 87400; 93005; 94640; 94664; A4663; C1758; G0378; J1650; J1956; J2060; J2920; J3590; J7030; J7040; J7500

== ENCOUNTER 2020-03-26 12:05 | Inpatient (IN) | payer MEDICARE, OTHER ==
[~2020-03-26] VITALS: Ht 177.8 cm; Wt 63.6 kg
[~2020-03-26 12:05] MED LIST changes: +BISA10SU61 RC; -FLUT1BLS IH; -GUAI5SYR4 PO; -GUAI600T53 PO; -LACT-214 PO; +LEVO100T10 PO; -LEVO88TA5 PO; +MAGN400O6 PO; +NA P133E RC; +OMEP40CA13 PO; -PANT40TA2 PO; +SENN-261 PO; -ZOLP5TAB8 PO
[2020-03-26] MEDS ORDERED: IV NORMAL SALINE 1000 ML BAG IV ONE (12:15)
--- NOTE | 2020-03-26 12:30 | NUR ---
Per [place] nurse to nurse report, Pt had 2 neg COVID 19 test last test on 02/17/20.
[2020-03-26] MEDS ORDERED: MIRT15TA PO (12:49)
[2020-03-26 12:57] LABS: BILIRUBIN,DIRECT 0.1 mg/dL (0.0-0.2); BILIRUBIN,TOTAL 0.3 mg/dL (0.2-1.0); TOTAL PROTEIN, SERUM 7.6 g/dL (6.4-8.2)
[2020-03-26 13:13] LABS: *BILIRUBIN,URIN NEGATIVE (NEGATIVE); *BLOOD, URINE 3+ (NEGATIVE); *CLARITY,URINE CLOUDY (CLEAR); *COLOR,URINE YELLOW (YELLOW); *KETONES,URINE NEGATIVE (NEGATIVE); *UROBILINOGEN,URINE 0.2 E.U./dl (NORMAL); LEUKOCYTE ESTERASE ,URINE 3+ (NEGATIVE); NITRITE, URINE NEGATIVE (NEGATIVE); UGLUCOSE NEGATIVE (NEGATIVE)
[2020-03-26 13:56] LABS: BASOPHILS % (AUTO) 0.6 % (0.0-2.0); EOSINOPHILS # (AUTO) 0.3 K/uL (0.0-0.7); EOSINOPHILS % (AUTO) 3.2 % (0.0-7.0); HEMATOCRIT 25.9 % (31.2-41.9); HEMOGLOBIN 8.8 g/dL (10.9-14.3); LYMPHOCYTES # (AUTO) 0.9 K/uL (20.0-40.0); LYMPHOCYTES % (AUTO) 11.8 % (20.5-51.5); MEAN CORPUSCULAR HEMOGLOBIN 31.7 uug (24.7-32.8); MEAN CORPUSCULAR HGB CONC 34 g/dL (32.3-35.6); MEAN CORPUSCULAR VOLUME 93.7 fL (75.5-95.3); MONOCYTES # (AUTO) 0.4 K/uL (2.0-10.0); MONOCYTES % (AUTO) 5.8 % (0.0-11.0); NEUTROPHILS # (AUTO) 6.1 K/uL (1.8-8.9); NEUTROPHILS % (AUTO) 78.6 % (38.5-71.5); PLATELET COUNT (AUTO) 368 K/uL (179-408); RED BLOOD CELL COUNT(AUTO) 2.77 MIL/uL (3.63-4.92); WHITE BLOOD COUNT (AUTO) 7.7 K/uL (3.8-11.8)
[2020-03-26 14:03] LABS: CARBON DIOXIDE 18 mmol/L (21-32); CHLORIDE 106 mmol/L (98-107); CREATININE 5.2 mg/dL (0.6-1.3); GLUCOSE 168 mg/dL (74-106)
[2020-03-26 14:09] LABS: UREA NITROGEN, BLOOD 133 mg/dL (7-18)
[2020-03-26] MEDS ORDERED: levoFLOXacin 500 MG/D5W 100ML PIGGYBACK IV ONE (14:15)
--- NOTE | 2020-03-26 14:15 | NUR ---
called [facility] for panel placement
[2020-03-26] MEDS ORDERED: levoFLOXacin 500 MG/D5W 100 ML ONE (14:23)
[2020-03-26 14:38] LABS: BACTERIA,URINE MODERATE /HPF (NONE SEEN); RBC,URINE 80-100 /HPF (0-3); SQUAMOUS EPITHELIAL CELL,UR FEW /HPF (NONE SEEN); WBC,URINE TNTC /HPF (0-3)
[2020-03-26] MEDS ORDERED: BISACODYL 10 MG SUPP.RECT RC PRN (14:45)
[2020-03-26] MEDS ORDERED: MAGNESIUM HYDROXIDE 30 ML LIQUID UDC PO PRN (14:45)
[2020-03-26] MEDS ORDERED: ONDANSETRON 4 MG/2 ML VIAL IV PRN (14:45)
[2020-03-26] MEDS ORDERED: Z GUARD REMEDY PASTE 57 GM TUBE TOP PRN (14:45)
[2020-03-26] MEDS ORDERED: ALBUTEROL SULFATE 2.5 MG/ 0.5 ML NEBU NEB PRN (14:45)
[2020-03-26] MEDS: IV NS 1000 ML 1,000 ML IV PRN (15:57)
[2020-03-26 16:17] VITALS: BP 96/57
[2020-03-26] MEDS: BETA CAROTENE/VIT C & E/MIN TABLET PO SCH (16:53)
[2020-03-26] MEDS: METOPROLOL TARTRATE 25 MG TABLET PO SCH (16:54)
--- NOTE | 2020-03-26 17:00 | NUR ---
levaquin, and IV hydration once given in ER. continue hydration and other meds as ordered
--- NOTE | 2020-03-26 18:20 | NUR ---
patient admitted from ER, alert to self only, history of dementia, no sob, resp even nonlabored,skin warm and dry to touch, upon skin assessment, no skin issues found, patient tries to get up constantly without calling for executive sales assistant, monitored closely for safety, safety precautions are in place, bed exist alarm is on, bed is in locked and low position, no edema noted, lungs clear upon auscultation, oriented patient to call light, call light with in reach, patient noted noncompliant at times with care, on droplet precautions for now. no distress noted at this time.
--- NOTE | 2020-03-26 19:20 | NUR ---
PATIENT ALERT BUT FORGETFUL, NO SOB NO CHEST PAIN, TELE MONITOR SINUS RHYTHM AT TIME. PATIENT SPEAK FARSI BUT UNDERSTAND SOME ARMENIAN. PATIENT HAS NO S/S OF PAIN. PATIENT IS HARD TO START IV LINE, PREVIOUS IV LINE WAS RED, AND NOT WORKING ANYMORE. AM RN TRIED TO RESTART IV LINE BUT UNSUCCESSFUL, PATIENT WAS YELLING AND SCREAMING UNCOOPERATIVE, WILL TRY AGAIN WITH JAVA WEB APPLICATION DEVELOPERAIR HOSE COUPLER. PATIENT DRINK WATER ADEQUATELY, CONT TO MONITOR.
[2020-03-26 20:09] VITALS: BP 100/58
[2020-03-26] MEDS: ASCORBIC ACID 250 MG TABLET PO SCH (21:24)
[2020-03-26] MEDS: SENNOSIDES 1 TABLET PO SCH (21:24)
[2020-03-26] MEDS: SIMVASTATIN 10 MG TABLET PO SCH (21:24)
[2020-03-26] MEDS: MIRTAZAPINE 15 MG TABLET PO SCH (21:24)
--- NOTE | 2020-03-26 22:10 | NUR ---
DUST BRUSH ASSEMBLERSTEAM FITTER HELPER TRIED TO REINSERT IV LINE BUT UNSUCCESSFUL, WILL GET AN ORDER FOR MIDLINE. IV FLUIDS ON HOLD AT THIS TIME.
--- NOTE | 2020-03-26 23:00 | NUR ---
PATIENT IS HARD STICK, ATTEMPT MULTIPLE TIMES UNSUCCESSFUL, OBTAIN AN ORDER FOR MIDLINE FROM DR. LANDON SZYMANSKI.
[2020-03-27] VITALS: BP 120/58
[2020-03-27 00:08] LABS: ABG BASE EXCESS -10.9 mmol/L; ABG HCO3 13.4 mmol/L; ABG PCO2 24.8 mmHg (35.0-45.0); ABG PO2 94.6 mmHg (75.0-100.0); ABG SITE RIGHT RADIAL; ABG TOTAL HEMOGLOBIN 9.1 G/dL (12.0-16.0); COHb 0.5 % (0.5-1.5); MetHb 0.3 % (0.0-1.5); O2Hb 96.6 % (94.0-97.0); VENT MODE room air
[2020-03-27 04:00] VITALS: BP 119/41
[2020-03-27] MEDS: IV NS 1000 ML 1,000 ML IV PRN ×2 (04:00→23:52)
[2020-03-27] MEDS: PANTOPRAZOLE SODIUM 40 MG TABLET.DR PO SCH (06:03)
--- NOTE | 2020-03-27 06:26 | NUR ---
PATIENT SLEPT MOST OF THE NIGHT NO SOB NO CHEST PAIN. PATIENT ON TELE MONITOR SINUS RHYTHM, RENDERED GOOD MARVIN CARE DUE BLADDER INCONTINENT. PATIENT HAS EPISODE OF RESISTIVE TO CARE, AND EASILY REDIRECTABLE. PATIENT REMAIN ON DROPLET PRECAUTION, CONT TO MONITOR.
--- NOTE | 2020-03-27 08:00 | NUR ---
Received patient in bed, Farsi Speaking. No signs of distress noted. Afebrile. No signs of Pain or discomfort. awaiting for midline Insertion. kept clean and comfortable. Will continue to monitor.
[2020-03-27] MEDS: DOCUSATE SODIUM 100 MG CAPSULE PO SCH (08:54)
[2020-03-27] MEDS: CHOLECALCIFEROL 1,000 UNIT TABLET PO SCH (08:54)
[2020-03-27] MEDS: BETA CAROTENE/VIT C & E/MIN TABLET PO SCH ×2 (08:54→16:40)
[2020-03-27] MEDS: METOPROLOL TARTRATE 25 MG TABLET PO SCH ×2 (08:54→16:41)
[2020-03-27] MEDS: OMEGA-3 FATTY ACIDS/FISH OIL CAPSULE PO SCH (08:54)
[2020-03-27] MEDS: CALCIUM CARBONATE 500 MG TABLET PO SCH (08:54)
[2020-03-27] MEDS: ASCORBIC ACID 250 MG TABLET PO SCH ×2 (08:54→20:46)
[2020-03-27] MEDS: AZATHIOPRINE 50 MG TABLET PO SCH (09:17)
[2020-03-27] MEDS: LEVOTHYROXINE SODIUM 100 MCG TABLET PO SCH (09:25)
[2020-03-27 11:40] VITALS: BP 135/60
--- NOTE | 2020-03-27 12:30 | NUR ---
Called [facility]IN[facility] Holley and got a phone consent for CT Biopsy Renal.
[2020-03-27] MEDS: CITRIC ACID/SODIUM CITRATE 30 ML SOLUTION PO SCH ×2 (13:32→16:40)
[2020-03-27 16:00] VITALS: BP 130/36
--- NOTE | 2020-03-27 17:28 | NUR ---
Called radiology, they said CT Biopsy will be Schedule on Tuesday.
--- NOTE | 2020-03-27 18:22 | NUR ---
Patient in bed. No signs of distress noted. No SOB. No signs of Pain or discomfort. MACY PICC intact and patent. IVF infusing well. Kept clean and comfortable. Kept the call light within easy reach. Will endorse to Oncoming Nurse.
--- NOTE | 2020-03-27 18:35 | NUR ---
jovanny gomes np notified of patients covid negative results. Addendum: 03/27/20 at 2227 by MARIS FLYNN RN correction on time. 2034
--- NOTE | 2020-03-27 19:30 | NUR ---
patient received in bed sleeping. PIV intact and patent. NSR on tele monitor running at 79bpm. on RA sat at 96%. v/s stable. no s/s of acute distress at this time. safety measures in place. will administer due medications and continue to monitor and assess.
[2020-03-27 20:14] VITALS: BP 128/54
[2020-03-27] MEDS: SIMVASTATIN 10 MG TABLET PO SCH (20:46)
[2020-03-27] MEDS: SENNOSIDES 1 TABLET PO SCH (20:46)
[2020-03-27] MEDS: ACETAMINOPHEN 325 MG TABLET PO PRN (20:47)
[2020-03-27] MEDS: MIRTAZAPINE 15 MG TABLET PO SCH (20:47)
--- NOTE | 2020-03-27 22:27 | NUR ---
patient administered all due medications. sleeping in bed. all needs attended to.
[2020-03-28 00:08] VITALS: BP 132/75
[2020-03-28 04:08] VITALS: BP 141/65
--- NOTE | 2020-03-28 04:12 | NUR ---
patient resting comfortably with soft music playing. no s/s of acute distress. v/s stable. IVF NS running. safety measures in place. all medications administered with no ASE. Mid line in tact and patent. safety measures in place. all needs attended to. will continue to monitor and assess.
[2020-03-28] MEDS: PANTOPRAZOLE SODIUM 40 MG TABLET.DR PO SCH (06:08)
[2020-03-28 07:34] LABS: *OCCULT BLOOD STOOL NEGATIVE (NEGATIVE)
--- NOTE | 2020-03-28 08:00 | NUR ---
Patient in bed, awake. No signs of distress noted. afebrile. No complain of Pain or discomfort. IVf infusing well on MACY midline. Patient was covid19 Negative, will be moved to Regular Room. Kept clean and comfortable. Will continue to monitor.
[2020-03-28] MEDS: AZATHIOPRINE 50 MG TABLET PO SCH (08:16)
[2020-03-28] MEDS: CHOLECALCIFEROL 1,000 UNIT TABLET PO SCH (08:16)
[2020-03-28] MEDS: METOPROLOL TARTRATE 25 MG TABLET PO SCH ×2 (08:16→17:07)
[2020-03-28] MEDS: BETA CAROTENE/VIT C & E/MIN TABLET PO SCH ×2 (08:16→17:07)
[2020-03-28] MEDS: ASCORBIC ACID 250 MG TABLET PO SCH ×2 (08:16→20:44)
[2020-03-28] MEDS: CALCIUM CARBONATE 500 MG TABLET PO SCH (08:16)
[2020-03-28] MEDS: OMEGA-3 FATTY ACIDS/FISH OIL CAPSULE PO SCH (08:16)
[2020-03-28] MEDS: DOCUSATE SODIUM 100 MG CAPSULE PO SCH (08:16)
[2020-03-28] MEDS: CITRIC ACID/SODIUM CITRATE 30 ML SOLUTION PO SCH ×3 (08:17→17:07)
[2020-03-28] MEDS: LEVOTHYROXINE SODIUM 100 MCG TABLET PO SCH (08:17)
[2020-03-28] MEDS: HEPARIN SODIUM,PORCINE 5,000 UNITS/ML VIAL SQ SCH ×2 (08:34→20:46)
[2020-03-28 09:25] LABS: BASOPHILS % (AUTO) 0.6 % (0.0-2.0); EOSINOPHILS # (AUTO) 0.1 K/uL (0.0-0.7); EOSINOPHILS % (AUTO) 0.9 % (0.0-7.0); HEMOGLOBIN 8.7 g/dL (10.9-14.3); LYMPHOCYTES # (AUTO) 0.7 K/uL (20.0-40.0); LYMPHOCYTES % (AUTO) 9.2 % (20.5-51.5); MEAN CORPUSCULAR HEMOGLOBIN 32.3 uug (24.7-32.8); MEAN CORPUSCULAR HGB CONC 35 g/dL (32.3-35.6); MEAN CORPUSCULAR VOLUME 93.1 fL (75.5-95.3); MONOCYTES # (AUTO) 0.4 K/uL (2.0-10.0); MONOCYTES % (AUTO) 4.4 % (0.0-11.0); NEUTROPHILS # (AUTO) 6.8 K/uL (1.8-8.9); NEUTROPHILS % (AUTO) 84.9 % (38.5-71.5); PLATELET COUNT (AUTO) 327 K/uL (179-408); RED BLOOD CELL COUNT(AUTO) 2.69 MIL/uL (3.63-4.92); WHITE BLOOD COUNT (AUTO) 8.1 K/uL (3.8-11.8)
[2020-03-28 09:34] LABS: ALANINE AMINOTRANSFERASE 8 U/L (14-59); ALKALINE PHOSPHATASE 53 U/L (50-136); ASPARTATE AMINOTRANSFERASE 12 U/L (15-37); BILIRUBIN,TOTAL 0.4 mg/dL (0.2-1.0); CARBON DIOXIDE 14 mmol/L (21-32); CHLORIDE 112 mmol/L (98-107); CREATINE KINASE, TOTAL 73 U/L (26-192); CREATININE 5.4 mg/dL (0.6-1.3); GLUCOSE 130 mg/dL (74-106); LIPASE 455 U/L (73-393); MAGNESIUM 2.5 mg/dL (1.8-2.4); PHOSPHOROUS 4.8 mg/dL (2.5-4.9); POTASSIUM 4.6 mmol/L (3.5-5.1); TOTAL PROTEIN, SERUM 6.9 g/dL (6.4-8.2)
[2020-03-28 09:43] LABS: UREA NITROGEN, BLOOD 117 mg/dL (7-18)
[2020-03-28 10:18] LABS: IRON, SERUM 24 ug/dL (50-175)
[2020-03-28 11:07] LABS: FERRITIN 814 ng/mL (8-252)
[2020-03-28 11:30] VITALS: BP 123/54
[2020-03-28] MEDS ORDERED: methylPREDNISolone SOD SUCC 125 MG/2 ML VIAL IV SCH (11:45)
[2020-03-28] MEDS: METHYLPREDNISOLONE SOD SUCC IV SCH (12:35)
[2020-03-28] MEDS: DEXTROSE 5% IV SCH (12:35)
[2020-03-28 16:28] VITALS: BP 131/65
--- NOTE | 2020-03-28 18:04 | NUR ---
Patient in bed. No signs of distress noted. No cough. No SOB. Afebrile. No complain of Pain or discomfort. IVF infusing well on MACY midline. kept clean and comfortable. Will endorse to Oncoming Nurse.
--- NOTE | 2020-03-28 19:30 | NUR ---
Received patient in bed, sleeping, easy to arouse. Pt has no s/s of acute distress or pain at this time. NSR 73 on tele monitor. V/S stable, on room air. Afebrile, no cough. MACY midline is patent with NS running at 50cc. Safety measures in place, bed low and locked in position. Call light within reach. Will continue with the plan of care.
[2020-03-28 20:27] VITALS: BP 127/60
[2020-03-28] MEDS: SENNOSIDES 1 TABLET PO SCH (20:44)
[2020-03-28] MEDS: SIMVASTATIN 10 MG TABLET PO SCH (20:44)
[2020-03-28] MEDS: MIRTAZAPINE 15 MG TABLET PO SCH (20:44)
[2020-03-29 00:20] VITALS: BP 130/70
[2020-03-29 05:34] VITALS: BP 128/70
--- NOTE | 2020-03-29 06:34 | NUR ---
Pt slept throughout the night. Pt has no s/s of acute distress or pain at this time. V/S stable, on room air. NSR 77 on tele monitor. Comfort care and needs attended. Incontinence care provided. Safety measures in place. Bed low and locked in position. Call light within reach. Will endorse to the oncoming nurse accordingly.
[2020-03-29 06:36] LABS: ALANINE AMINOTRANSFERASE 9 U/L (14-59); ALKALINE PHOSPHATASE 54 U/L (50-136); ASPARTATE AMINOTRANSFERASE 14 U/L (15-37); BILIRUBIN,TOTAL 0.3 mg/dL (0.2-1.0); CARBON DIOXIDE 12 mmol/L (21-32); CHLORIDE 113 mmol/L (98-107); CREATININE 5.2 mg/dL (0.6-1.3); GLUCOSE 140 mg/dL (74-106); MAGNESIUM 2.3 mg/dL (1.8-2.4); PHOSPHOROUS 4.5 mg/dL (2.5-4.9); POTASSIUM 4.7 mmol/L (3.5-5.1); TOTAL PROTEIN, SERUM 6.5 g/dL (6.4-8.2)
[2020-03-29] MEDS: PANTOPRAZOLE SODIUM 40 MG TABLET.DR PO SCH (06:51)
[2020-03-29] MEDS: IV NS 1000 ML 1,000 ML IV PRN (06:51)
[2020-03-29 06:52] LABS: UREA NITROGEN, BLOOD 107 mg/dL (7-18)
[2020-03-29] MEDS: CHOLECALCIFEROL 1,000 UNIT TABLET PO SCH (08:04)
[2020-03-29] MEDS: CITRIC ACID/SODIUM CITRATE 30 ML SOLUTION PO SCH ×5 (08:04→20:12)
[2020-03-29] MEDS: DOCUSATE SODIUM 100 MG CAPSULE PO SCH (08:04)
[2020-03-29] MEDS: ASCORBIC ACID 250 MG TABLET PO SCH ×2 (08:04→20:12)
[2020-03-29] MEDS: AZATHIOPRINE 50 MG TABLET PO SCH (08:04)
[2020-03-29] MEDS: LEVOTHYROXINE SODIUM 100 MCG TABLET PO SCH (08:05)
[2020-03-29] MEDS: METOPROLOL TARTRATE 25 MG TABLET PO SCH ×2 (08:08→17:00)
[2020-03-29] MEDS: HEPARIN SODIUM,PORCINE 5,000 UNITS/ML VIAL SQ SCH ×2 (08:18→20:14)
[2020-03-29 08:22] LABS: COMPLEMENT, C3 SERUM 109 mg/dL (82-167); COMPLEMENT, C4 SERUM 29 mg/dL (14-44); HEPATITIS B SURFACE AB Reactive (.); HEPATITIS B SURFACE AG Negative (Negative)
[2020-03-29] MEDS: OMEGA-3 FATTY ACIDS/FISH OIL CAPSULE PO SCH (08:25)
[2020-03-29] MEDS: BETA CAROTENE/VIT C & E/MIN TABLET PO SCH ×2 (08:25→17:00)
[2020-03-29] MEDS: CALCIUM CARBONATE 500 MG TABLET PO SCH (08:25)
--- NOTE | 2020-03-29 08:30 | NUR ---
Patient in bed, awake. No signs of distress noted. No SOB. No complain of Pain or discomfort. Poor PO intake, Lime Kiln Operator Chopra made aware. Refused some of AM medications. kept clean and comfortable. Will continue to monitor.
[2020-03-29 12:03] VITALS: BP 146/70
[2020-03-29] MEDS: METHYLPREDNISOLONE SOD SUCC IV SCH (12:14)
[2020-03-29] MEDS: DEXTROSE 5% IV SCH (12:14)
[2020-03-29 14:40] LABS: *BILIRUBIN,URIN NEGATIVE (NEGATIVE); *BLOOD, URINE 3+ (NEGATIVE); *CLARITY,URINE TURBID (CLEAR); *COLOR,URINE LIGHT YELLOW (YELLOW); *KETONES,URINE NEGATIVE (NEGATIVE); *UROBILINOGEN,URINE 0.2 E.U./dl (NORMAL); LEUKOCYTE ESTERASE ,URINE 3+ (NEGATIVE); NITRITE, URINE NEGATIVE (NEGATIVE); UGLUCOSE NEGATIVE (NEGATIVE)
[2020-03-29 17:00] VITALS: BP 137/64
--- NOTE | 2020-03-29 17:10 | NUR ---
Patient refused all 5PM medications.
[2020-03-29 17:18] LABS: *ANTI-SCLERODERMA-70 AB <0.2 AI (0.0-0.9); *SJOGREN'S ANTI-SS-A 0.4 AI (0.0-0.9); *SJOGREN'S ANTI-SS-B <0.2 AI (0.0-0.9); *SMITH ANTIBODIES <0.2 AI (0.0-0.9); ANTI-DNA(DS) AB, QN <1 IU/mL (0-9)
--- NOTE | 2020-03-29 18:04 | NUR ---
Patient in bed, awake and verbally responsive. Farsi Speaking. No signs of distress noted. Afebrile. No complain of pain or discomfort. Refused 5PM medications. Poor PO Intake, Nav PHOTOLETTERING MACHINE OPERATOR and Dr. Gonzales is aware. IVF infusing well on MACY midline. Kept clean and comfortable. Will endorse to Oncoming Nurse.
[2020-03-29 18:27] LABS: BACTERIA,URINE MANY /HPF (NONE SEEN); RBC,URINE 20-50 /HPF (0-3); SQUAMOUS EPITHELIAL CELL,UR FEW /HPF (NONE SEEN); WBC,URINE TNTC /HPF (0-3)
[2020-03-29 19:02] LABS: *CREATININE,URINE 46.3 mg/dL (30-125); *URINE TOTAL PROTEIN RANDOM 82.3 mg/dL (<150/24HR)
--- NOTE | 2020-03-29 19:15 | NUR ---
Patient in bed, sleeping, easy to arouse. Pt. has no s/s of acute distress or pain at this time. V/S stable on room air. NSR 88 on tele monitor. MACY midline is intact with NS running at 50cc. Safety measures in place. Call light within reach. Will continue with the plan of care.
[2020-03-29 19:31] LABS: BASOPHILS % (AUTO) 0.1 % (0.0-2.0); MEAN CORPUSCULAR HGB CONC 34 g/dL (32.3-35.6); MONOCYTES % (AUTO) 0.7 % (0.0-11.0); NEUTROPHILS # (AUTO) 4.1 K/uL (1.8-8.9); WHITE BLOOD COUNT (AUTO) 4.5 K/uL (3.8-11.8)
[2020-03-29 19:43] LABS: HEMATOCRIT 22.1 % (31.2-41.9); HEMOGLOBIN 7.5 g/dL (10.9-14.3); MEAN CORPUSCULAR HEMOGLOBIN 31.7 uug (24.7-32.8); MEAN CORPUSCULAR VOLUME 92.9 fL (75.5-95.3); NEUTROPHILS % (AUTO) 91.2 % (38.5-71.5); PLATELET COUNT (AUTO) 275 K/uL (179-408); RED BLOOD CELL COUNT(AUTO) 2.38 MIL/uL (3.63-4.92)
[2020-03-29 19:44] LABS: LYMPHOCYTES # (AUTO) 0.4 K/uL (20.0-40.0)
[2020-03-29] MEDS: MIRTAZAPINE 15 MG TABLET PO SCH (20:12)
[2020-03-29] MEDS: SENNOSIDES 1 TABLET PO SCH (20:12)
[2020-03-29] MEDS: SIMVASTATIN 10 MG TABLET PO SCH (20:12)
[2020-03-29 20:16] VITALS: BP 145/67
--- NOTE | 2020-03-29 20:24 | NUR ---
Patient refused 2100 medications except Heparin. Charge nurse aware.
[2020-03-30 00:04] VITALS: BP 145/60
[2020-03-30] MEDS: IV NS 1000 ML 1,000 ML IV PRN (03:23)
[2020-03-30 04:44] VITALS: BP 146/70
[2020-03-30 06:07] LABS: BASOPHILS % (AUTO) 0.1 % (0.0-2.0); HEMATOCRIT 21.4 % (31.2-41.9); LYMPHOCYTES # (AUTO) 0.4 K/uL (20.0-40.0); LYMPHOCYTES % (AUTO) 9.8 % (20.5-51.5); MEAN CORPUSCULAR HEMOGLOBIN 32.2 uug (24.7-32.8); MEAN CORPUSCULAR HGB CONC 35 g/dL (32.3-35.6); MEAN CORPUSCULAR VOLUME 93.4 fL (75.5-95.3); MONOCYTES # (AUTO) 0.1 K/uL (2.0-10.0); MONOCYTES % (AUTO) 1.3 % (0.0-11.0); NEUTROPHILS % (AUTO) 88.8 % (38.5-71.5); PLATELET COUNT (AUTO) 261 K/uL (179-408); WHITE BLOOD COUNT (AUTO) 4.5 K/uL (3.8-11.8)
[2020-03-30 06:14] LABS: CARBON DIOXIDE 16 mmol/L (21-32); CHLORIDE 111 mmol/L (98-107); CREATININE 4.7 mg/dL (0.6-1.3); GLUCOSE 143 mg/dL (74-106); POTASSIUM 4.2 mmol/L (3.5-5.1)
[2020-03-30] MEDS: PANTOPRAZOLE SODIUM 40 MG TABLET.DR PO SCH (06:18)
[2020-03-30 06:34] LABS: UREA NITROGEN, BLOOD 101 mg/dL (7-18)
[2020-03-30 06:35] LABS: RED BLOOD CELL COUNT(AUTO) 2.29 MIL/uL (3.63-4.92)
[2020-03-30 06:36] LABS: HEMOGLOBIN 7.4 g/dL (10.9-14.3)
--- NOTE | 2020-03-30 06:39 | NUR ---
Patient slept through the night. Patient in bed, sleeping, easy to arouse. Pt has no s/s of acute distress or pain at this time. V/S stable, on room air. NSR 65 on tele monitor. Patient refused her 0700 medication. Comfort care and needs attended. Incontinence care provided. Fall precaution maintained. Safety measures in place. Bed low and locked in position. Call light within reach. Will endorse to the oncoming nurse accordingly.
[2020-03-30] MEDS: METOPROLOL TARTRATE 25 MG TABLET PO SCH ×2 (07:43→16:27)
[2020-03-30] MEDS: LEVOTHYROXINE SODIUM 100 MCG TABLET PO SCH (07:43)
[2020-03-30] MEDS: HEPARIN SODIUM,PORCINE 5,000 UNITS/ML VIAL SQ SCH (08:00)
[2020-03-30] MEDS: CALCIUM CARBONATE 500 MG TABLET PO SCH (08:03)
[2020-03-30] MEDS: ASCORBIC ACID 250 MG TABLET PO SCH ×3 (08:03→21:13)
[2020-03-30] MEDS: CHOLECALCIFEROL 1,000 UNIT TABLET PO SCH (08:03)
[2020-03-30] MEDS: BETA CAROTENE/VIT C & E/MIN TABLET PO SCH ×2 (08:03→16:35)
[2020-03-30] MEDS: DOCUSATE SODIUM 100 MG CAPSULE PO SCH (08:03)
[2020-03-30] MEDS: OMEGA-3 FATTY ACIDS/FISH OIL CAPSULE PO SCH (08:03)
[2020-03-30] MEDS: AZATHIOPRINE 50 MG TABLET PO SCH (08:05)
[2020-03-30] MEDS: CITRIC ACID/SODIUM CITRATE 30 ML SOLUTION PO SCH ×5 (08:10→21:13)
[2020-03-30 12:00] VITALS: BP 158/70
[2020-03-30] MEDS: METHYLPREDNISOLONE SOD SUCC IV SCH (12:42)
[2020-03-30] MEDS: DEXTROSE 5% IV SCH (12:42)
[2020-03-30] MEDS: CALCITRIOL 0.25 MCG CAPSULE PO SCH (12:47)
[2020-03-30] MEDS: SOD FERRIC GLUC COMPLX/SUCROSE 125 MG in IV NORMAL SALINE 100 ML IV SCH (14:02)
[2020-03-30 16:30] VITALS: BP 145/67
--- NOTE | 2020-03-30 20:00 | NUR ---
Received patient asleep. Patient shows no signs or symptoms of distress at this time. Vital signs stable. NSR on tele monitor. Patient will be NPO after midnight tonight. Bed set to lowest position. Call light within reach. Side rails x2 are up. Will continue to monitor patient.
[2020-03-30 20:09] VITALS: BP 146/67
[2020-03-30] MEDS: MIRTAZAPINE 15 MG TABLET PO SCH ×2 (21:00→21:13)
[2020-03-30] MEDS: SENNOSIDES 1 TABLET PO SCH ×2 (21:00→21:13)
[2020-03-30] MEDS: SIMVASTATIN 10 MG TABLET PO SCH ×2 (21:00→21:13)
--- NOTE | 2020-03-30 22:49 | NUR ---
Attempted multiple times to administer medication but patient strongly refuses at this time. Will continue to monitor patient.
[2020-03-31] VITALS: BP 140/60
[2020-03-31] MEDS: IV NS 1000 ML 1,000 ML IV PRN (02:10)
[2020-03-31 04:00] VITALS: BP 140/68
[2020-03-31] MEDS: PANTOPRAZOLE SODIUM 40 MG TABLET.DR PO SCH (06:07)
--- NOTE | 2020-03-31 06:29 | NUR ---
Patient shows no signs or symptoms of distress at this time. Vital signs stable. Sinus rhythm on tele monitor. Pt has been NPO since midnight. Will endorse patient to day shift nurse in stable condition.
[2020-03-31 07:26] LABS: BASOPHILS % (AUTO) 0.1 % (0.0-2.0); LYMPHOCYTES # (AUTO) 0.4 K/uL (20.0-40.0); LYMPHOCYTES % (AUTO) 9.2 % (20.5-51.5); MEAN CORPUSCULAR HEMOGLOBIN 31.7 uug (24.7-32.8); MEAN CORPUSCULAR HGB CONC 34 g/dL (32.3-35.6); MEAN CORPUSCULAR VOLUME 92.2 fL (75.5-95.3); MONOCYTES # (AUTO) 0.1 K/uL (2.0-10.0); MONOCYTES % (AUTO) 1.7 % (0.0-11.0); NEUTROPHILS # (AUTO) 3.9 K/uL (1.8-8.9); PLATELET COUNT (AUTO) 267 K/uL (179-408); WHITE BLOOD COUNT (AUTO) 4.4 K/uL (3.8-11.8)
[2020-03-31 07:34] LABS: RED BLOOD CELL COUNT(AUTO) 2.23 MIL/uL (3.63-4.92)
[2020-03-31 07:35] LABS: HEMATOCRIT 20.5 % (31.2-41.9); HEMOGLOBIN 7.1 g/dL (10.9-14.3)
[2020-03-31 07:42] LABS: ALANINE AMINOTRANSFERASE 8 U/L (14-59); ALKALINE PHOSPHATASE 48 U/L (50-136); ASPARTATE AMINOTRANSFERASE 15 U/L (15-37); BILIRUBIN,TOTAL 0.3 mg/dL (0.2-1.0); CARBON DIOXIDE 15 mmol/L (21-32); CHLORIDE 111 mmol/L (98-107); CREATININE 4.1 mg/dL (0.6-1.3); GLUCOSE 141 mg/dL (74-106); POTASSIUM 3.8 mmol/L (3.5-5.1)
[2020-03-31 07:57] LABS: UREA NITROGEN, BLOOD 95 mg/dL (7-18)
[2020-03-31] MEDS: METOPROLOL TARTRATE 25 MG TABLET PO SCH ×2 (08:25→16:37)
[2020-03-31] MEDS: CITRIC ACID/SODIUM CITRATE 30 ML SOLUTION PO SCH ×4 (08:26→20:40)
[2020-03-31] MEDS: AZATHIOPRINE 50 MG TABLET PO SCH (08:26)
[2020-03-31] MEDS: DOCUSATE SODIUM 100 MG CAPSULE PO SCH (08:26)
[2020-03-31] MEDS: LEVOTHYROXINE SODIUM 100 MCG TABLET PO SCH (08:26)
[2020-03-31] MEDS: OMEGA-3 FATTY ACIDS/FISH OIL CAPSULE PO SCH (08:26)
[2020-03-31] MEDS: BETA CAROTENE/VIT C & E/MIN TABLET PO SCH ×2 (08:35→16:37)
[2020-03-31] MEDS: CALCIUM CARBONATE 500 MG TABLET PO SCH (08:35)
[2020-03-31] MEDS: CALCITRIOL 0.25 MCG CAPSULE PO SCH (08:36)
[2020-03-31] MEDS: CHOLECALCIFEROL 1,000 UNIT TABLET PO SCH (08:36)
[2020-03-31] MEDS: ASCORBIC ACID 250 MG TABLET PO SCH ×2 (08:36→20:37)
[2020-03-31] MEDS ORDERED: NALOXONE 2 MG/2 ML SYRINGE IV PRN (10:30)
[2020-03-31] MEDS ORDERED: MIDAZOLAM HCL 10 MG/2 ML VIAL IV PRN (10:30)
[2020-03-31] MEDS ORDERED: FENTANYL CITRATE 250 MCG/5 ML AMPUL IV PRN (10:30)
[2020-03-31 11:44] VITALS: BP 151/71
[2020-03-31] MEDS: DEXTROSE 5% IV SCH (12:06)
[2020-03-31] MEDS: METHYLPREDNISOLONE SOD SUCC IV SCH (12:06)
[2020-03-31] MEDS ORDERED: LIDOCAINE HCL 1% 20 ML VIAL ONE (12:29)
[2020-03-31] MEDS ORDERED: LORAZEPAM 2 MG/1 ML VIAL IV ONE (13:00)
[2020-03-31] MEDS: SOD FERRIC GLUC COMPLX/SUCROSE 125 MG in IV NORMAL SALINE 100 ML IV SCH (13:07)
[2020-03-31 16:00] VITALS: BP 134/86
--- NOTE | 2020-03-31 16:00 | NUR ---
pt received from recovery room via bed in stable condition
[2020-03-31] MEDS: MEROPENEM 500 MG in IV NORMAL SALINE 50 ML IV SCH (16:07)
[2020-03-31 18:54] LABS: HEMATOCRIT 22.5 % (31.2-41.9); HEMOGLOBIN 7.6 g/dL (10.9-14.3)
--- NOTE | 2020-03-31 19:45 | NUR ---
Received patient awake but confused. Patient shows no signs or symptoms of distress at this time. Vital signs stable. NSR on tele monitor. No bleeding noted from Biopsy site. Bed set to lowest position. Bed set to lowest position. Call light within reach. Side rails X2 are up. Will continue to monitor patient.
[2020-03-31 20:23] VITALS: BP 127/63
[2020-03-31] MEDS: MIRTAZAPINE 15 MG TABLET PO SCH (20:33)
[2020-03-31] MEDS: SIMVASTATIN 10 MG TABLET PO SCH (20:33)
[2020-03-31] MEDS: SENNOSIDES 1 TABLET PO SCH (20:37)
[2020-03-31] MEDS: HEPARIN SODIUM,PORCINE 5,000 UNITS/ML VIAL SQ SCH (21:16)
[2020-04-01] VITALS (7 sets, daily range): BP systolic 130–164; BP diastolic 58–83
[2020-04-01] MEDS: IV NS 1000 ML 1,000 ML IV PRN (02:00)
[2020-04-01] MEDS: PANTOPRAZOLE SODIUM 40 MG TABLET.DR PO SCH (06:27)
--- NOTE | 2020-04-01 06:30 | NUR ---
Patient shows no signs or symptoms of distress at this time. NSR on tele monitor. Vital signs stable. No bleeding noted from biopsy site. Will endorse patient to day shift nurse in stable condition
[2020-04-01 06:35] LABS: CARBON DIOXIDE 19 mmol/L (21-32); CHLORIDE 115 mmol/L (98-107); CREATININE 3.9 mg/dL (0.6-1.3); GLUCOSE 138 mg/dL (74-106); POTASSIUM 3.8 mmol/L (3.5-5.1)
[2020-04-01 06:53] LABS: UREA NITROGEN, BLOOD 91 mg/dL (7-18)
[2020-04-01 07:16] LABS: LYMPHOCYTES # (AUTO) 0.3 K/uL (20.0-40.0); LYMPHOCYTES % (AUTO) 7.8 % (20.5-51.5); MONOCYTES # (AUTO) 0.1 K/uL (2.0-10.0); NEUTROPHILS # (AUTO) 3.5 K/uL (1.8-8.9); WHITE BLOOD COUNT (AUTO) 3.9 K/uL (3.8-11.8)
[2020-04-01 07:18] LABS: MEAN CORPUSCULAR HEMOGLOBIN 31.9 uug (24.7-32.8); MEAN CORPUSCULAR HGB CONC 35 g/dL (32.3-35.6); MEAN CORPUSCULAR VOLUME 92.5 fL (75.5-95.3); MONOCYTES % (AUTO) 3.2 % (0.0-11.0); PLATELET COUNT (AUTO) 231 K/uL (179-408)
[2020-04-01 07:21] LABS: HEMATOCRIT 20.4 % (31.2-41.9); HEMOGLOBIN 7.1 g/dL (10.9-14.3); RED BLOOD CELL COUNT(AUTO) 2.21 MIL/uL (3.63-4.92)
--- NOTE | 2020-04-01 07:30 | NUR ---
Received patient resting in bed. No sign of respiratory distress noted at this time, patient is saturating well on room air. Patient speaks only Farsi but tries to make request known. IV is left upper arm midline that is patent and intact. Safety precautions in place, bed in lowest position, and locked with alarm activated. Patient call light and personal belongings are within reach. Will continue to monitor and observe.
[2020-04-01] MEDS: CITRIC ACID/SODIUM CITRATE 30 ML SOLUTION PO SCH ×5 (08:25→21:00)
[2020-04-01] MEDS: ASCORBIC ACID 250 MG TABLET PO SCH ×3 (08:26→21:08)
[2020-04-01] MEDS: OMEGA-3 FATTY ACIDS/FISH OIL CAPSULE PO SCH (08:26)
[2020-04-01] MEDS: DOCUSATE SODIUM 100 MG CAPSULE PO SCH (08:26)
[2020-04-01] MEDS: CHOLECALCIFEROL 1,000 UNIT TABLET PO SCH (08:26)
[2020-04-01] MEDS: BETA CAROTENE/VIT C & E/MIN TABLET PO SCH ×3 (08:26→17:31)
[2020-04-01] MEDS: CALCIUM CARBONATE 500 MG TABLET PO SCH (08:27)
[2020-04-01] MEDS: CALCITRIOL 0.25 MCG CAPSULE PO SCH (08:27)
[2020-04-01] MEDS: AZATHIOPRINE 50 MG TABLET PO SCH (08:27)
[2020-04-01] MEDS: METOPROLOL TARTRATE 25 MG TABLET PO SCH ×3 (08:31→17:32)
[2020-04-01] MEDS: HEPARIN SODIUM,PORCINE 5,000 UNITS/ML VIAL SQ SCH ×2 (08:37→21:12)
[2020-04-01] MEDS ORDERED: LEVOTHYROXINE SODIUM 88 MCG TABLET PO SCH (09:00)
--- NOTE | 2020-04-01 09:40 | NUR ---
Patient had a hard time taking liquid medication Bacitra, she kept repeating no and says it was "salty". Will continue to monitor.
[2020-04-01] MEDS: DEXTROSE 5% IV SCH (13:08)
[2020-04-01] MEDS: METHYLPREDNISOLONE SOD SUCC IV SCH (13:08)
--- NOTE | 2020-04-01 14:00 | NUR ---
Informed consent signed and placed in patient's file awaiting physicians signature. Spoke with [facility] and he gave consent over the phone.
[2020-04-01] MEDS: SOD FERRIC GLUC COMPLX/SUCROSE 125 MG in IV NORMAL SALINE 100 ML IV SCH (14:20)
[2020-04-01] MEDS: MEROPENEM 500 MG in IV NORMAL SALINE 50 ML IV SCH (16:05)
[2020-04-01] MEDS: ACETAMINOPHEN 325 MG TABLET PO PRN (16:58)
--- NOTE | 2020-04-01 18:30 | NUR ---
Patient is resting comfortably in bed. There is no sign of respiratory distress at this time, patient is saturating well on room air. Patient has not been compliant with all medication and i have reinforced education on each medication. IV is left upper arm midline that is intact and patent running NS at 50 ml/hr. Informed consent sign and in patient's file awaiting MD signature. Safety precautions are in place. Will endorse to the oncoming nurse
--- NOTE | 2020-04-01 19:45 | NUR ---
Received patient asleep. Patient shows no signs or symptoms of distress at this time. BP elevated but patient refuses to take PO meds. Dr. Dotson notified. Sinus rhythm on tele monitor. Bed set to lowest position. Call light within reach. Side rails x2 are up. Will continue to monitor patient.
[2020-04-01] MEDS ORDERED: CLONIDINE-TTS 1 PATCH TD SCH (21:00)
[2020-04-01] MEDS: SENNOSIDES 1 TABLET PO SCH ×2 (21:00→21:09)
[2020-04-01] MEDS: SIMVASTATIN 10 MG TABLET PO SCH (21:08)
[2020-04-01] MEDS: MIRTAZAPINE 15 MG TABLET PO SCH (21:08)
[2020-04-01] MEDS ORDERED: CLONIDINE-TTS 1 PATCH TD ONE (21:31)
--- NOTE | 2020-04-01 21:45 | NUR ---
Blood transfusion ordered initially during day shift. Followed up this evening and unable to place orders for blood transfusion. Spoke to Wiliam from Lab. Bypass form sent to lab to request for 1 unit of blood.
--- NOTE | 2020-04-01 23:24 | NUR ---
Received blood from lab. Patient verified with Dimitrios Charge Nurse. Blood started. Will continue to monitor patient.
[2020-04-02] VITALS (10 sets, daily range): BP systolic 154–176; BP diastolic 74–89
--- NOTE | 2020-04-02 02:39 | NUR ---
Blood transfusion completed. Patient shows no signs or symptoms of an allergic reaction. NSR on tele monitor. Will continue to monitor patient.
[2020-04-02] MEDS: IV NS 1000 ML 1,000 ML IV PRN (04:32)
[2020-04-02 05:22] LABS: A/G RATIO 0.7 (0.7-1.7); ALBUMIN 2.4 g/dL (2.9-4.4); ALPHA-1-GLOBULIN 0.4 g/dL (0.0-0.4); ALPHA-2-GLOBULIN 1.4 g/dL (0.4-1.0); BETA GLOBULIN 0.7 g/dL (0.7-1.3); GAMMA GLOBULIN 0.8 g/dL (0.4-1.8); GLOBULIN, TOTAL 3.3 g/dL (2.2-3.9); M-SPIKE Not Observed g/dL (Not Observed)
[2020-04-02] MEDS: LEVOTHYROXINE SODIUM 50 MCG TABLET PO SCH (06:17)
[2020-04-02] MEDS: PANTOPRAZOLE SODIUM 40 MG TABLET.DR PO SCH (06:17)
--- NOTE | 2020-04-02 06:41 | NUR ---
Patient shows no signs or symptoms of distress at this time. NSR / Sinus Aristides on tele monitor. Will endorse patient to day shift nurse in stable condition.
[2020-04-02 07:12] LABS: BASOPHILS % (AUTO) 0.2 % (0.0-2.0); HEMATOCRIT 28.4 % (31.2-41.9); HEMOGLOBIN 9.9 g/dL (10.9-14.3); LYMPHOCYTES # (AUTO) 0.4 K/uL (20.0-40.0); LYMPHOCYTES % (AUTO) 5.3 % (20.5-51.5); MEAN CORPUSCULAR HEMOGLOBIN 31.6 uug (24.7-32.8); MEAN CORPUSCULAR HGB CONC 35 g/dL (32.3-35.6); MEAN CORPUSCULAR VOLUME 90.8 fL (75.5-95.3); MONOCYTES # (AUTO) 0.3 K/uL (2.0-10.0); MONOCYTES % (AUTO) 4.7 % (0.0-11.0); NEUTROPHILS # (AUTO) 6.1 K/uL (1.8-8.9); NEUTROPHILS % (AUTO) 89.8 % (38.5-71.5); PLATELET COUNT (AUTO) 217 K/uL (179-408); RED BLOOD CELL COUNT(AUTO) 3.12 MIL/uL (3.63-4.92); WHITE BLOOD COUNT (AUTO) 6.8 K/uL (3.8-11.8)
[2020-04-02 07:25] LABS: ALANINE AMINOTRANSFERASE 11 U/L (14-59); ALKALINE PHOSPHATASE 49 U/L (50-136); ASPARTATE AMINOTRANSFERASE 10 U/L (15-37); BILIRUBIN,TOTAL 0.7 mg/dL (0.2-1.0); CARBON DIOXIDE 18 mmol/L (21-32); CHLORIDE 114 mmol/L (98-107); CHOLESTEROL 187 mg/dL (<200); CREATININE 3.5 mg/dL (0.6-1.3); GLUCOSE 157 mg/dL (74-106); HDL CHOLESTEROL 35 mg/dL (40-60); MAGNESIUM 1.8 mg/dL (1.8-2.4); PHOSPHOROUS 4.3 mg/dL (2.5-4.9); POTASSIUM 3.8 mmol/L (3.5-5.1); TRIGLYCERIDES 138 MG/DL (30-150)
[2020-04-02 07:36] LABS: UREA NITROGEN, BLOOD 93 mg/dL (7-18)
--- NOTE | 2020-04-02 08:00 | NUR ---
Received patient in bed, no sign of respiratory distress noted, patient saturating well on room air. IV is left upper arm midline running NS at 50 ml/hr. Safety precautions in place, bed in the lowest position and locked with alarm activated. Will continue to monitor.
[2020-04-02] MEDS: HEPARIN SODIUM,PORCINE 5,000 UNITS/ML VIAL SQ SCH ×2 (08:11→20:12)
[2020-04-02] MEDS: METOPROLOL TARTRATE 25 MG TABLET PO SCH ×2 (08:20→17:17)
[2020-04-02] MEDS: ASCORBIC ACID 250 MG TABLET PO SCH ×2 (09:00→20:17)
[2020-04-02] MEDS: CALCITRIOL 0.25 MCG CAPSULE PO SCH (09:00)
[2020-04-02] MEDS: AZATHIOPRINE 50 MG TABLET PO SCH (09:00)
[2020-04-02] MEDS: OMEGA-3 FATTY ACIDS/FISH OIL CAPSULE PO SCH (09:00)
[2020-04-02] MEDS: DOCUSATE SODIUM 100 MG CAPSULE PO SCH (09:00)
[2020-04-02] MEDS: BETA CAROTENE/VIT C & E/MIN TABLET PO SCH ×2 (09:00→17:00)
[2020-04-02] MEDS: CALCIUM CARBONATE 500 MG TABLET PO SCH (09:00)
[2020-04-02] MEDS: CITRIC ACID/SODIUM CITRATE 30 ML SOLUTION PO SCH ×4 (09:00→20:17)
[2020-04-02] MEDS: CHOLECALCIFEROL 1,000 UNIT TABLET PO SCH (09:00)
[2020-04-02] MEDS ORDERED: CLONIDINE TTS 2 PATCH TD SCH (09:30)
--- NOTE | 2020-04-02 12:29 | NUR ---
Patient's blood pressure is elevated BP is 176/88. Retook BP several times. Will make MD aware
--- NOTE | 2020-04-02 12:31 | NUR ---
Dr Dotson made aware of patient elevated blood pressure. Requesting an order for PRN blood pressure medication.
--- NOTE | 2020-04-02 13:25 | NUR ---
Order given by Dr Dotson for Hydralazin 25mg PO PRN for SBP over 150. Will administer and continue to monitor.
[2020-04-02] MEDS: hydrALAZINE HCL 25 MG TABLET PO PRN ×2 (13:43→20:10)
[2020-04-02] MEDS: MEROPENEM 500 MG in IV NORMAL SALINE 50 ML IV SCH (16:12)
--- NOTE | 2020-04-02 16:13 | NUR ---
Patient's blood pressure still elevated. BP taken on both arms R: 175/87 L:173/89. Will make MD aware
--- NOTE | 2020-04-02 16:24 | NUR ---
MD made aware awaiting response, will continue to monitor.
[2020-04-02] MEDS: NEPRO (VANILLA) 237 ML CAN PO SCH (17:11)
--- NOTE | 2020-04-02 18:16 | NUR ---
Patient is resting comfortably in bed. There is no sign of respiratory distress at this time, patient is saturating well on room air. Patient has not been compliant with all medication and i have reinforced education on each medication. . IV is left upper arm midline that is intact and patent running NS at 50 ml/hr. Patient's intact has been less than adequate and is being supplemented with Nephro Vanilla. Patient' BUN is still elevated. Patients blood pressure as been elevated through out shift, gave BP medications as ordered. Safety precautions are in place. Will endorse to the oncoming nurse
--- NOTE | 2020-04-02 19:30 | NUR ---
Received patient lying in bed asleep. In no acute distress. No signs or symptoms of pain or SOB. NSR on tele at 84/min. Left upper arm midline intact and patent. IVF infusing. Safety measure initiated and call zuniga within reached.
[2020-04-02] MEDS: MIRTAZAPINE 15 MG TABLET PO SCH (20:09)
[2020-04-02] MEDS: ACETAMINOPHEN 325 MG TABLET PO PRN (20:10)
[2020-04-02] MEDS: SENNOSIDES 1 TABLET PO SCH (20:17)
[2020-04-02] MEDS: SIMVASTATIN 10 MG TABLET PO SCH (20:17)
[2020-04-03 00:03] VITALS: BP 153/87
[2020-04-03] MEDS: IV NS 1000 ML 1,000 ML IV PRN (01:46)
[2020-04-03 04:06] VITALS: BP 177/89
[2020-04-03] MEDS: hydrALAZINE HCL 25 MG TABLET PO PRN ×2 (05:12→11:39)
[2020-04-03] MEDS: LEVOTHYROXINE SODIUM 50 MCG TABLET PO SCH (06:11)
[2020-04-03] MEDS: PANTOPRAZOLE SODIUM 40 MG TABLET.DR PO SCH (06:11)
--- NOTE | 2020-04-03 06:40 | NUR ---
AOx1-2. In no acute distress. No signs or symptoms of pain or SOB. NSR on tele at 91/min. Left upper arm midline intact and patent. IVF infusing. Needs assessed and attended to. Safety measure maintained and call zuniga within reached.
[2020-04-03 07:10] LABS: BASOPHILS % (AUTO) 0.3 % (0.0-2.0); EOSINOPHILS % (AUTO) 0.1 % (0.0-7.0); HEMATOCRIT 32.3 % (31.2-41.9); HEMOGLOBIN 11.1 g/dL (10.9-14.3); LYMPHOCYTES # (AUTO) 0.7 K/uL (20.0-40.0); LYMPHOCYTES % (AUTO) 5.9 % (20.5-51.5); MEAN CORPUSCULAR HEMOGLOBIN 30.8 uug (24.7-32.8); MEAN CORPUSCULAR HGB CONC 34 g/dL (32.3-35.6); MEAN CORPUSCULAR VOLUME 89.5 fL (75.5-95.3); MONOCYTES # (AUTO) 0.6 K/uL (2.0-10.0); MONOCYTES % (AUTO) 5.5 % (0.0-11.0); NEUTROPHILS # (AUTO) 10.5 K/uL (1.8-8.9); NEUTROPHILS % (AUTO) 88.2 % (38.5-71.5); PLATELET COUNT (AUTO) 203 K/uL (179-408); RED BLOOD CELL COUNT(AUTO) 3.61 MIL/uL (3.63-4.92); WHITE BLOOD COUNT (AUTO) 11.9 K/uL (3.8-11.8)
[2020-04-03 07:29] LABS: ALANINE AMINOTRANSFERASE 11 U/L (14-59); ALKALINE PHOSPHATASE 56 U/L (50-136); ASPARTATE AMINOTRANSFERASE 12 U/L (15-37); BILIRUBIN,TOTAL 0.8 mg/dL (0.2-1.0); CARBON DIOXIDE 19 mmol/L (21-32); CHLORIDE 115 mmol/L (98-107); GLUCOSE 123 mg/dL (74-106); MAGNESIUM 1.8 mg/dL (1.8-2.4); PHOSPHOROUS 3.9 mg/dL (2.5-4.9); POTASSIUM 3.2 mmol/L (3.5-5.1); TOTAL PROTEIN, SERUM 5.7 g/dL (6.4-8.2)
[2020-04-03 07:51] LABS: UREA NITROGEN, BLOOD 93 mg/dL (7-18)
[2020-04-03] MEDS: AZATHIOPRINE 50 MG TABLET PO SCH (08:21)
[2020-04-03] MEDS: CALCIUM CARBONATE 500 MG TABLET PO SCH (08:22)
[2020-04-03] MEDS: ASCORBIC ACID 250 MG TABLET PO SCH (08:22)
[2020-04-03] MEDS: BETA CAROTENE/VIT C & E/MIN TABLET PO SCH (08:22)
[2020-04-03] MEDS: CHOLECALCIFEROL 1,000 UNIT TABLET PO SCH (08:22)
[2020-04-03] MEDS: CALCITRIOL 0.25 MCG CAPSULE PO SCH (08:22)
[2020-04-03] MEDS: METOPROLOL TARTRATE 25 MG TABLET PO SCH (08:23)
[2020-04-03] MEDS: NEPRO (VANILLA) 237 ML CAN PO SCH (08:23)
[2020-04-03] MEDS: DOCUSATE SODIUM 100 MG CAPSULE PO SCH (08:33)
[2020-04-03] MEDS: OMEGA-3 FATTY ACIDS/FISH OIL CAPSULE PO SCH (08:33)
[2020-04-03] MEDS: HEPARIN SODIUM,PORCINE 5,000 UNITS/ML VIAL SQ SCH (08:35)
[2020-04-03] MEDS: CITRIC ACID/SODIUM CITRATE 30 ML SOLUTION PO SCH ×2 (08:36→13:00)
--- NOTE | 2020-04-03 09:00 | NUR ---
Received patient in bed, awake, farsi Speaking. No signs of distress noted. No SOB. saturating 95% on Room air. No complain of Pain or discomfort, able to take some medications, refused Fish Oil and Stool Softener this AM. Explained benefits and consequences by a tool maintenance worker, still refused. kept clean and comfortable. Will continue to monitor.
[2020-04-03] MEDS ORDERED: CLONIDINE-TTS 3 PATCH TD SCH (09:30)
[2020-04-03 12:00] VITALS: BP 169/76
[2020-04-03] MEDS ORDERED: LEVO50TA8 PO (12:56)
[2020-04-03] MEDS ORDERED: CALC0.254 PO (12:56)
[2020-04-03] MEDS ORDERED: MENT71OI TOP (12:56)
[2020-04-03] MEDS ORDERED: MERO500V21 IV (12:56)
[2020-04-03] MEDS ORDERED: HYDR-894 PO (12:56)
[2020-04-03] MEDS ORDERED: Citric Acid/Sodium Citrate PO (12:56)
[2020-04-03] MEDS ORDERED: CLON0.3P TD (12:56)
[2020-04-03] MEDS ORDERED: Nepro PO (12:56)
[2020-04-03] MEDS ORDERED: METOPROLOL TARTRATE 25 MG TABLET PO ONE (13:28)
[2020-04-03] MEDS ORDERED: POTASSIUM CHLORIDE 20 MEQ POWDER PACKET PO ONE (13:30)
[2020-04-03] MEDS: MEROPENEM 500 MG in IV NORMAL SALINE 50 ML IV SCH (15:03)
[2020-04-03 16:00] VITALS: BP 162/89
--- NOTE | 2020-04-03 16:15 | NUR ---
Patient in bed, awake. No signs of distress noted. No SOB. No complain of Pain or discomfort noted. Patient with Order to be discharge back to [facility], Called [facility] spoke with TAVO FLORES and endorsed accordingly. All belongings was sent with Patient. Removed Wrist Band, will be discharge with MACY ramsey. Patient was picked up by [facility] via gurney in stable condition.
== END 2020-04-03 16:20 | DRG 682 ==
LOC: ER 12:09 → TELE3 15:13 → MEDSURG3 04-03 08:43
PROVIDERS: ADMIT Nurse Practitioner Acute Care; ATTEND Internal Medicine
PROC: 05HY33Z Insertion of Infusion Device into Upper Vein, Percutaneous Approach (ICD-10-PCS; principal; 2020-03-27)
PROC: 0TB13ZX Excision of Left Kidney, Percutaneous Approach, Diagnostic (ICD-10-PCS; 2020-03-31)
PROC: 30233N1 Transfusion of Nonautologous Red Blood Cells into Peripheral Vein, Percutaneous Approach (ICD-10-PCS; 2020-04-01)
DX: N17.0 Acute kidney failure with tubular necrosis (principal); K85.90 Acute pancreatitis without necrosis or infection, unspecified; G92 Toxic encephalopathy; I13.0 Hypertensive heart and chronic kidney disease with heart failure and stage 1 through stage 4 chronic kidney disease, or unspecified chronic kidney disease; I50.32 Chronic diastolic (congestive) heart failure; M31.31 Wegener's granulomatosis with renal involvement; D68.69 Other thrombophilia; E87.2 Acidosis; N39.0 Urinary tract infection, site not specified; Z16.12 Extended spectrum beta lactamase (ESBL) resistance; E87.0 Hyperosmolality and hypernatremia; K86.1 Other chronic pancreatitis; D63.8 Anemia in other chronic diseases classified elsewhere; B96.20 Unspecified Escherichia coli [E. coli] as the cause of diseases classified elsewhere; E03.9 Hypothyroidism, unspecified; E78.5 Hyperlipidemia, unspecified; G89.29 Other chronic pain; K21.9 Gastro-esophageal reflux disease without esophagitis; J44.9 Chronic obstructive pulmonary disease, unspecified; N18.9 Chronic kidney disease, unspecified; M19.90 Unspecified osteoarthritis, unspecified site; Z88.0 Allergy status to penicillin; Z88.2 Allergy status to sulfonamides; F32.9 Major depressive disorder, single episode, unspecified; F03.90 Unspecified dementia, unspecified severity, without behavioral disturbance, psychotic disturbance, mood disturbance, and anxiety; N25.0 Renal osteodystrophy; E05.90 Thyrotoxicosis, unspecified without thyrotoxic crisis or storm; N05.1 Unspecified nephritic syndrome with focal and segmental glomerular lesions; Z91.81 History of falling
CPT/HCPCS: 36415; 36600; 70030-TC; 71045; 74150; 76700; 83520; 83550; 83605; 83690; 83735; 83970; 84100; 84155; 84156; 84165; 84300; 84443; 85018; 85025; 85651; 85730; 86038; 86160; 86256; 86706; 86803; 86850; 86900; 86901; 86920; 87040; 87077; 87086; 87340; 93005; A4663; G0378; J1644; J1956; J2060; J2185; J2250; J2310; J2916; J2930; J3010; J3490; J7030; J7040; J7060; J7500; P9016-BL; P9021; U0003-CS

== ENCOUNTER 2020-04-22 20:44 | Emergency (ER) | payer MEDICARE, OTHER ==
[~2020-04-22] VITALS: Ht 165.1 cm; Wt 63.5 kg
[~2020-04-22 20:44] MED LIST changes: +CALC0.254 PO; +CLON0.3P TD; +Citric Acid/Sodium Citrate PO; -ESCI10TA PO; +HYDR-894 PO; -LEVO100T10 PO; +LEVO50TA8 PO; -MAG30ORA PO; -MAGN400O6 PO; +MENT71OI TOP; +MERO500V21 IV; -METH4TAB3 PO; +MIRT15TA PO; -MULT-647 PO; +Nepro PO
--- NOTE | 2020-04-22 20:54 | NUR ---
Dr. Hinkle at bedside for MSE
[2020-04-22] MEDS ORDERED: DEXAMETHASONE SOD PHOSPHATE 10 MG INJ ONE (21:05)
[2020-04-22] MEDS: DEXAMETHASONE SOD PHOSPHATE 4 MG INJ IM ONE (21:08)
--- NOTE | 2020-04-22 21:16 | NUR ---
Called [facility], spoke with Chayito. ETA [id number]
--- NOTE | 2020-04-22 22:25 | NUR ---
Patient discharged to [facility] in stable condition. Written and verbal after care instructions given. aa/ox2. respirations even and unlabored no s/s of distress all belongings with pt Report given to MARK Beth from [facility] pt picked up by [facility] [address]. Report given to Vamsi Seals
[2020-04-22 22:33] VITALS: BP 141/82
== END 2020-04-22 22:27 ==
LOC: ER 20:47
DX: T78.1XXA Other adverse food reactions, not elsewhere classified, initial encounter (principal); T78.3XXA Angioneurotic edema, initial encounter; X58.XXXA Exposure to other specified factors, initial encounter; G89.29 Other chronic pain; M54.9 Dorsalgia, unspecified; E03.9 Hypothyroidism, unspecified; Z88.6 Allergy status to analgesic agent; Z88.0 Allergy status to penicillin; Z88.2 Allergy status to sulfonamides; J44.9 Chronic obstructive pulmonary disease, unspecified; I13.0 Hypertensive heart and chronic kidney disease with heart failure and stage 1 through stage 4 chronic kidney disease, or unspecified chronic kidney disease; N18.9 Chronic kidney disease, unspecified; I50.9 Heart failure, unspecified; M31.31 Wegener's granulomatosis with renal involvement; E78.00 Pure hypercholesterolemia, unspecified; F03.90 Unspecified dementia, unspecified severity, without behavioral disturbance, psychotic disturbance, mood disturbance, and anxiety; E78.5 Hyperlipidemia, unspecified
CPT/HCPCS: 96372; 99283; J1100; A4663

== ENCOUNTER 2020-04-27 20:31 | Inpatient (IN) | payer MEDICARE, OTHER ==
[~2020-04-27] VITALS: Ht 165.1 cm; Wt 59.4 kg
--- NOTE | 2020-04-27 20:35 | NUR ---
at bedside for MSE
--- NOTE | 2020-04-27 21:00 | NUR ---
EKG taken, IV placed in left forearm, 1 liter of NS being given, tylenol rectal suppository given
[2020-04-27] MEDS ORDERED: PANTOPRAZOLE SODIUM 40 MG VIAL IV ONE (21:15)
[2020-04-27] MEDS ORDERED: ONDANSETRON 4 MG/2 ML VIAL IV ONE (21:15)
[2020-04-27] MEDS ORDERED: MORPHINE SULFATE 2 MG/1 ML DISP.SYRIN IV ONE (21:15)
[2020-04-27] MEDS ORDERED: IV NORMAL SALINE 1000 ML BAG IV ONE (21:15)
[2020-04-27] MEDS ORDERED: ACETAMINOPHEN 650 MG SUPP.RECT RC ONE ×2 (21:15→21:31)
[2020-04-27] MEDS ORDERED: ACETAMINOPHEN 325 MG SUPP RC ONE (21:15)
[2020-04-27] MEDS ORDERED: levoFLOXacin 750 MG/D5W 150 ML PIGGYBACK IV ONE (21:15)
[2020-04-27] MEDS ORDERED: PANTOPRAZOLE SODIUM 40 MG VIAL ONE (21:31)
[2020-04-27] MEDS ORDERED: ONDANSETRON 4 MG/2 ML VIAL ONE (21:31)
[2020-04-27] MEDS ORDERED: levoFLOXacin 750MG/D5W 150 ML IV ONE (21:32)
[2020-04-27 21:35] LABS: BASOPHILS # (AUTO) 0.1 K/uL (0.0-8.0); BASOPHILS % (AUTO) 1.1 % (0.0-2.0); EOSINOPHILS # (AUTO) 0.3 K/uL (0.0-0.7); EOSINOPHILS % (AUTO) 2.8 % (0.0-7.0); HEMATOCRIT 22.8 % (31.2-41.9); HEMOGLOBIN 7.7 g/dL (10.9-14.3); LYMPHOCYTES # (AUTO) 1.6 K/uL (20.0-40.0); LYMPHOCYTES % (AUTO) 14.5 % (20.5-51.5); MEAN CORPUSCULAR HEMOGLOBIN 30.6 uug (24.7-32.8); MEAN CORPUSCULAR HGB CONC 34 g/dL (32.3-35.6); MEAN CORPUSCULAR VOLUME 90.7 fL (75.5-95.3); MONOCYTES # (AUTO) 0.6 K/uL (2.0-10.0); MONOCYTES % (AUTO) 5.7 % (0.0-11.0); NEUTROPHILS # (AUTO) 8.5 K/uL (1.8-8.9); NEUTROPHILS % (AUTO) 75.9 % (38.5-71.5); PLATELET COUNT (AUTO) 270 K/uL (179-408); RED BLOOD CELL COUNT(AUTO) 2.52 MIL/uL (3.63-4.92); WHITE BLOOD COUNT (AUTO) 11.1 K/uL (3.8-11.8)
[2020-04-27] MEDS ORDERED: MORPHINE SULFATE 2 MG/1 ML DISP.SYRIN ONE (21:35)
[2020-04-27 21:43] LABS: CARBON DIOXIDE 19 mmol/L (21-32); CHLORIDE 105 mmol/L (98-107); CREATININE 4.4 mg/dL (0.6-1.3); GLUCOSE 109 mg/dL (74-106); POTASSIUM 4.5 mmol/L (3.5-5.1); UREA NITROGEN, BLOOD 74 mg/dL (7-18)
[2020-04-27 21:51] LABS: CREATINE KINASE, TOTAL 48 U/L (26-192)
[2020-04-27 21:58] LABS: *BILIRUBIN,URIN NEGATIVE (NEGATIVE); *BLOOD, URINE 3+ (NEGATIVE); *CLARITY,URINE CLOUDY (CLEAR); *COLOR,URINE YELLOW (YELLOW); *KETONES,URINE NEGATIVE (NEGATIVE); *UROBILINOGEN,URINE 0.2 E.U./dl (NORMAL); LEUKOCYTE ESTERASE ,URINE TRACE (NEGATIVE); NITRITE, URINE NEGATIVE (NEGATIVE); UGLUCOSE NEGATIVE (NEGATIVE)
[2020-04-27 22:01] LABS: ALANINE AMINOTRANSFERASE 9 U/L (14-59); ALKALINE PHOSPHATASE 53 U/L (50-136); ASPARTATE AMINOTRANSFERASE 13 U/L (15-37); BILIRUBIN,TOTAL 0.4 mg/dL (0.2-1.0)
[2020-04-27 22:02] LABS: LACTATE DEHYDROGENASE 242 U/L (81-234); TOTAL PROTEIN, SERUM 6.9 g/dL (6.4-8.2)
[2020-04-27 22:21] LABS: FERRITIN 1828 ng/mL (8-252)
[2020-04-27 22:29] LABS: RBC,URINE 80-100 /HPF (0-3)
[2020-04-27 22:30] LABS: BACTERIA,URINE MODERATE /HPF (NONE SEEN); SQUAMOUS EPITHELIAL CELL,UR MANY /HPF (NONE SEEN); URINE AMORPHOUS URATE MANY /HPF
--- NOTE | 2020-04-27 23:28 | NUR ---
Patient noted resting in bed, easily arouses, no signs of distress, no compalints of pain at this time
--- NOTE | 2020-04-28 01:34 | NUR ---
Patient noted resing in bed, no signs of distress at this time
[2020-04-28] MEDS ORDERED: HYDR-894 PO (01:42)
--- NOTE | 2020-04-28 01:53 | NUR ---
DR Anderson spoke to Gideon Vasquez NP hematologist oncologist for [facility] panel for inpatient admission.
[2020-04-28] MEDS ORDERED: ONDANSETRON 4 MG/2 ML VIAL IV PRN (02:00)
[2020-04-28] MEDS ORDERED: ONDANSETRON HCL 4 MG TABLET PO PRN (02:00)
[2020-04-28] MEDS ORDERED: Z GUARD REMEDY PASTE 57 GM TUBE TOP PRN ×2 (02:00)
[2020-04-28] MEDS ORDERED: MORPHINE SULFATE 2 MG/1 ML DISP.SYRIN IV PRN (02:00)
[2020-04-28] MEDS ORDERED: ACETAMINOPHEN 325 MG TABLET PO PRN (02:00)
[2020-04-28] MEDS ORDERED: hydrALAZINE HCL 25 MG TABLET PO PRN (02:00)
[2020-04-28] MEDS ORDERED: CLONIDINE-TTS 3 PATCH TD SCH (02:00)
[2020-04-28] MEDS ORDERED: BISACODYL 10 MG SUPP.RECT RC PRN (02:00)
--- NOTE | 2020-04-28 03:01 | NUR ---
Patient noted resting in bed, no signs of distress, vitals are stable, all needs met at this time
--- NOTE | 2020-04-28 04:42 | NUR ---
Pt. admitted to [facility] , under care of GUILLERMINA Wadsworth Belongs List completed and sent with patient, receiving nurse Dimitrios FLORES
[2020-04-28] MEDS ORDERED: CLONIDINE-TTS 3 PATCH TD ONE (05:45)
[2020-04-28] MEDS: LEVOTHYROXINE SODIUM 50 MCG TABLET PO SCH (05:50)
[2020-04-28 06:10] VITALS: BP 130/75
--- NOTE | 2020-04-28 07:04 | NUR ---
PT PLACED IN ROOM 314 PUI; ADMISSION PROCEDURES DONE IVF STARTED; KEPT NPO; SAFETY MAINTAINED; REPORT GIVEN TO AM RN.
--- NOTE | 2020-04-28 07:30 | NUR ---
on bed , sleeping comfortable. no distress noted
--- NOTE | 2020-04-28 09:00 | NUR ---
sleeping comfortable. no distress noted
[2020-04-28] MEDS: DOCUSATE SODIUM 100 MG CAPSULE PO SCH (10:16)
[2020-04-28] MEDS: OMEGA-3 FATTY ACIDS/FISH OIL CAPSULE PO SCH (10:16)
[2020-04-28] MEDS: PANTOPRAZOLE SODIUM 40 MG VIAL IV SCH ×2 (10:16→20:53)
[2020-04-28] MEDS: CALCIUM CARBONATE 500 MG TABLET PO SCH (10:16)
[2020-04-28] MEDS: AZATHIOPRINE 50 MG TABLET PO SCH (10:16)
[2020-04-28] MEDS: CALCITRIOL 0.25 MCG CAPSULE PO SCH (10:17)
[2020-04-28] MEDS: METOPROLOL TARTRATE 25 MG TABLET PO SCH ×2 (10:41→18:03)
[2020-04-28 11:40] VITALS: BP 158/74
--- NOTE | 2020-04-28 12:00 | NUR ---
resting well, no respiratory distress noted , afebrile, no cough.
[2020-04-28 16:00] VITALS: BP 142/67
--- NOTE | 2020-04-28 18:06 | NUR ---
no distress noted. npo maintained, ivf infusing well
--- NOTE | 2020-04-28 18:08 | NUR ---
unable to obtain am blood draw, will try again in am
--- NOTE | 2020-04-28 18:58 | NUR ---
quiet, no distress noted. afebrile.
--- NOTE | 2020-04-28 19:30 | NUR ---
Received patient calm and lying in bed. No signs or symptoms of acute distress noted at this time. Patient is on RA and denies SOB at this time. NPO is maintained. Bed locked and in low position. Bed alarm on and safety measures in place. Will continue to monitor.
[2020-04-28] MEDS: MEROPENEM 500 MG in IV NORMAL SALINE 50 ML IV SCH (20:00)
[2020-04-28 20:25] VITALS: BP 140/60
[2020-04-28] MEDS: SENNOSIDES 1 TABLET PO SCH (20:53)
[2020-04-28] MEDS: SIMVASTATIN 10 MG TABLET PO SCH (20:53)
[2020-04-28] MEDS: MIRTAZAPINE 15 MG TABLET PO SCH (20:54)
--- NOTE | 2020-04-28 21:00 | NUR ---
16fr Stein placed per order. Patient tolerated it well. Stein draining via gravity.
--- NOTE | 2020-04-28 21:00 | NUR ---
Patient IV infiltrated. Attempted to replace IV twice and was unsuccessful. Will notify ED RN for assistance.
[2020-04-28] MEDS ORDERED: MEROPENEM 500MG/NS 50ML PB ***ER PYXIS ONLY IV ONE (22:02)
--- NOTE | 2020-04-29 01:32 | NUR ---
ED RN attempted IV placement. Unsuccessful, will notify .
--- NOTE | 2020-04-29 01:40 | NUR ---
Notified Dr. Wadsworth that the pt currently has no IV access. Made aware of missed Merrem infusion and NS fluids. Per Ananth placed order for midline insertion in the morning.
[2020-04-29 05:24] VITALS: BP 134/58
[2020-04-29] MEDS: LEVOTHYROXINE SODIUM 50 MCG TABLET PO SCH (06:12)
[2020-04-29] MEDS: PANTOPRAZOLE SODIUM 40 MG VIAL IV SCH (09:00)
[2020-04-29] MEDS: CALCIUM CARBONATE 500 MG TABLET PO SCH (09:03)
[2020-04-29] MEDS: METOPROLOL TARTRATE 25 MG TABLET PO SCH ×2 (09:04→16:58)
[2020-04-29] MEDS: OMEGA-3 FATTY ACIDS/FISH OIL CAPSULE PO SCH (09:04)
[2020-04-29] MEDS: AZATHIOPRINE 50 MG TABLET PO SCH (09:05)
[2020-04-29] MEDS: CALCITRIOL 0.25 MCG CAPSULE PO SCH (09:05)
[2020-04-29] MEDS: DOCUSATE SODIUM 100 MG CAPSULE PO SCH (09:05)
[2020-04-29] MEDS: PANTOPRAZOLE ORAL SUSPENSION 40 MG SUSPDR.PKT PO SCH ×2 (10:38→20:15)
[2020-04-29 11:40] VITALS: BP 119/79
--- NOTE | 2020-04-29 13:54 | NUR ---
Received patient awake in bed in stable condition. Patient seen and examined by NANCY Marmolejo with order clear liquid diet. tolerated well. not in distress. no complaint of pain/discomfort noted. Patient for US of kidney as per MD Diaz order. Patient ongoing with gomez catheter for monitoring of intake and output. Patient for stool collection for occult blood. will continue monitor
--- NOTE | 2020-04-29 14:17 | NUR ---
Patient vomited yellowish fluid. DNP Oneil notified. will continue monitor
[2020-04-29 16:00] VITALS: BP 151/82
[2020-04-29] MEDS: IV NS 1000 ML 1,000 ML IV PRN (17:09)
[2020-04-29 19:08] LABS: *BILIRUBIN,URIN NEGATIVE (NEGATIVE); *BLOOD, URINE 3+ (NEGATIVE); *CLARITY,URINE CLEAR (CLEAR); *COLOR,URINE YELLOW (YELLOW); *KETONES,URINE NEGATIVE (NEGATIVE); *UROBILINOGEN,URINE 0.2 E.U./dl (NORMAL); LEUKOCYTE ESTERASE ,URINE 1+ (NEGATIVE); NITRITE, URINE POSITIVE (NEGATIVE); UGLUCOSE NEGATIVE (NEGATIVE)
[2020-04-29 19:25] LABS: BACTERIA,URINE 2+ /HPF (NONE SEEN); RBC,URINE TNTC /HPF (0-3); SQUAMOUS EPITHELIAL CELL,UR MODERATE /HPF (NONE SEEN); WBC,URINE 20-50 /HPF (0-3)
[2020-04-29 19:37] LABS: *CREATININE,URINE 63.8 mg/dL (30-125); *URINE TOTAL PROTEIN RANDOM 147.5 mg/dL (<150/24HR)
[2020-04-29 20:11] VITALS: BP 134/76
[2020-04-29] MEDS: MEROPENEM 500 MG in IV NORMAL SALINE 50 ML IV SCH (20:15)
[2020-04-29] MEDS: SIMVASTATIN 10 MG TABLET PO SCH (20:15)
[2020-04-29] MEDS: MIRTAZAPINE 15 MG TABLET PO SCH (20:15)
[2020-04-29] MEDS: SENNOSIDES 1 TABLET PO SCH (20:16)
[2020-04-30] VITALS (10 sets, daily range): BP systolic 120–158; BP diastolic 58–80
[2020-04-30] MEDS: LEVOTHYROXINE SODIUM 50 MCG TABLET PO SCH (06:06)
[2020-04-30] MEDS: IV NS 1000 ML 1,000 ML IV PRN ×2 (06:12→19:30)
--- NOTE | 2020-04-30 07:02 | NUR ---
Patient is resting in bed. Patient is in stable condition with no sign of distress. Gave all medications as ordered. Safety precautions in place, bed is locked and in the lowest position with call light and belongings within reach. Will endorse to oncoming nurse.
[2020-04-30 07:56] LABS: ALANINE AMINOTRANSFERASE 10 U/L (14-59); ALKALINE PHOSPHATASE 46 U/L (50-136); ASPARTATE AMINOTRANSFERASE 9 U/L (15-37); BILIRUBIN,TOTAL 0.4 mg/dL (0.2-1.0); CARBON DIOXIDE 19 mmol/L (21-32); CHLORIDE 112 mmol/L (98-107); CREATININE 4.2 mg/dL (0.6-1.3); GLUCOSE 86 mg/dL (74-106); MAGNESIUM 1.3 mg/dL (1.8-2.4); PHOSPHOROUS 4.2 mg/dL (2.5-4.9); POTASSIUM 4.1 mmol/L (3.5-5.1); TOTAL PROTEIN, SERUM 5.7 g/dL (6.4-8.2); UREA NITROGEN, BLOOD 58 mg/dL (7-18)
[2020-04-30 08:27] LABS: BASOPHILS # (AUTO) 0.1 K/uL (0.0-8.0); BASOPHILS % (AUTO) 1.2 % (0.0-2.0); EOSINOPHILS # (AUTO) 0.3 K/uL (0.0-0.7); EOSINOPHILS % (AUTO) 3.5 % (0.0-7.0); LYMPHOCYTES % (AUTO) 12.9 % (20.5-51.5); MEAN CORPUSCULAR HEMOGLOBIN 31.5 uug (24.7-32.8); MEAN CORPUSCULAR HGB CONC 35 g/dL (32.3-35.6); MONOCYTES # (AUTO) 0.5 K/uL (2.0-10.0); MONOCYTES % (AUTO) 6.1 % (0.0-11.0); NEUTROPHILS % (AUTO) 76.3 % (38.5-71.5); PLATELET COUNT (AUTO) 169 K/uL (179-408); WHITE BLOOD COUNT (AUTO) 7.8 K/uL (3.8-11.8)
[2020-04-30 08:47] LABS: RED BLOOD CELL COUNT(AUTO) 2.15 MIL/uL (3.63-4.92)
[2020-04-30 08:48] LABS: HEMATOCRIT 19.6 % (31.2-41.9); HEMOGLOBIN 6.8 g/dL (10.9-14.3)
--- NOTE | 2020-04-30 10:30 | NUR ---
Received patient in bed, patient is AAO x 1, Farsi speaking. patient noted to be confused, trying to get out of bed at times. Able to communicate in Turkish at times. Bed alarm on for safety. Vital signs stable for patient. IV mid line on Left upper arm intact and patent. IV NS running at 75cc/hr at this time Patient was able to take due medications after trying several times. Patient labs reviewed by MD and with an order for patient to be transfused. . Safety needs in place and will continue with care.
[2020-04-30] MEDS: OMEGA-3 FATTY ACIDS/FISH OIL CAPSULE PO SCH (10:38)
[2020-04-30] MEDS: DOCUSATE SODIUM 100 MG CAPSULE PO SCH (10:38)
[2020-04-30] MEDS: CALCIUM CARBONATE 500 MG TABLET PO SCH (10:39)
[2020-04-30] MEDS: PANTOPRAZOLE ORAL SUSPENSION 40 MG SUSPDR.PKT PO SCH ×2 (10:39→20:02)
[2020-04-30] MEDS: CALCITRIOL 0.25 MCG CAPSULE PO SCH (10:39)
[2020-04-30] MEDS: AZATHIOPRINE 50 MG TABLET PO SCH (10:40)
[2020-04-30] MEDS: METOPROLOL TARTRATE 25 MG TABLET PO SCH ×2 (10:48→17:41)
[2020-04-30] MEDS: PROTEIN SUPPLEMENT (PROSTAT) 30 ML LIQUID PO SCH (10:49)
[2020-04-30] MEDS: MAGNESIUM SULFATE/D5W 100 ML IV SCH ×2 (10:54→12:15)
--- NOTE | 2020-04-30 13:50 | NUR ---
Patient in bed sitting up right, being transfused at this time, tolerating well. NO SOB noted. Vital signs stable. NO c/o pain. Write at bed side and monitoring will continue with care.
--- NOTE | 2020-04-30 14:35 | NUR ---
Tolerating blood transfusion. VS stable and will continue with care.
[2020-04-30 16:46] LABS: EOSINOPHILS % (MANUAL) 5 % (0-8); LYMPHOCYTES % (MANUAL) 9 % (20-40); MONOCYTES % (MANUAL) 6 % (2-10); NEUTROPHILS % (MANUAL) 80 % (42-75)
--- NOTE | 2020-04-30 16:50 | NUR ---
Vital signs stable. Transfusion tolerated. will continue with care.
--- NOTE | 2020-04-30 18:33 | NUR ---
Patient noted wheezing during assessment, all other VS stable. MD made aware with an order to give Lasix IV 20mg x 1. F/C draining well. Repositioned for comfort, HOB elevated, needs attended and will continue with care.
[2020-04-30] MEDS: MEROPENEM 500 MG in IV NORMAL SALINE 50 ML IV SCH (19:29)
--- NOTE | 2020-04-30 19:30 | NUR ---
RECEIVED PT AWAKE, ALERT AND ORIENTEDX2. PT IN NO ACUTE DISTRESS. OBSERVED WHEEZING ON THE PT. PT HAD TUTTLE CATHETER AND DRAINING WELL. IV INTACT. SAFETY AND COMFORT PROVIDED. WILL CONTINUE TO MONITOR.
--- NOTE | 2020-04-30 19:44 | NUR ---
Endorsed to PM nurse to f/up with med orders.
[2020-04-30] MEDS ORDERED: FUROSEMIDE 20 MG/2 ML VIAL IV ONE (19:45)
[2020-04-30] MEDS: SENNOSIDES 1 TABLET PO SCH (20:02)
[2020-04-30] MEDS: SIMVASTATIN 10 MG TABLET PO SCH (20:02)
[2020-04-30] MEDS: MIRTAZAPINE 15 MG TABLET PO SCH (20:02)
[2020-04-30] MEDS ORDERED: LORAZEPAM 2 MG/1 ML VIAL IV PRN (21:30)
--- NOTE | 2020-04-30 21:49 | NUR ---
PT OBSERVED SCREAMING AND TRYING TO GET OUT OF THE BED. SAFETY AND COMFORT PROVIDED. WILL CONTINUE TO MONITOR.
--- NOTE | 2020-05-01 00:44 | NUR ---
PT GIVEN ATIVAN AT 2314H FOR PT RESTLESSNESS, SCREAMING AND TRYING TO GET OUT OF THE BED. AFTER AN HOUR PT CALM. SAFETY AND COMFORT PROVIDED. WILL CONTINUE TO MONITOR.
[2020-05-01 04:00] VITALS: BP 148/66
[2020-05-01] MEDS: LEVOTHYROXINE SODIUM 50 MCG TABLET PO SCH (06:52)
--- NOTE | 2020-05-01 06:53 | NUR ---
PT SLEPT COMFORTABLY PT IN NO ACUTE DISTRESS. IV INTACT. TUTTLE INTACT AND DRAINING WELL. PRESCRIBED MEDICATION GIVEN AND PT TOLERATED IT WELL. MINIMAL WHEEZING NOTED. DOCTOR AWARE. SAFETY AND COMFORT PROVIDED. WILL ENDORSE TO INCOMING NURSE FOR CONTINUITY OF CARE.
[2020-05-01 07:29] LABS: BASOPHILS # (AUTO) 0.1 K/uL (0.0-8.0); BASOPHILS % (AUTO) 0.9 % (0.0-2.0); EOSINOPHILS # (AUTO) 0.2 K/uL (0.0-0.7); EOSINOPHILS % (AUTO) 1.6 % (0.0-7.0); HEMATOCRIT 26.3 % (31.2-41.9); HEMOGLOBIN 8.8 g/dL (10.9-14.3); LYMPHOCYTES # (AUTO) 0.8 K/uL (20.0-40.0); LYMPHOCYTES % (AUTO) 5.6 % (20.5-51.5); MEAN CORPUSCULAR HEMOGLOBIN 30.8 uug (24.7-32.8); MEAN CORPUSCULAR HGB CONC 34 g/dL (32.3-35.6); MONOCYTES # (AUTO) 0.8 K/uL (2.0-10.0); MONOCYTES % (AUTO) 5.5 % (0.0-11.0); NEUTROPHILS # (AUTO) 12.6 K/uL (1.8-8.9); NEUTROPHILS % (AUTO) 86.4 % (38.5-71.5); PLATELET COUNT (AUTO) 177 K/uL (179-408); RED BLOOD CELL COUNT(AUTO) 2.85 MIL/uL (3.63-4.92); WHITE BLOOD COUNT (AUTO) 14.6 K/uL (3.8-11.8)
[2020-05-01 07:30] LABS: ALANINE AMINOTRANSFERASE 6 U/L (14-59); ALKALINE PHOSPHATASE 47 U/L (50-136); ASPARTATE AMINOTRANSFERASE 12 U/L (15-37); BILIRUBIN,TOTAL 0.4 mg/dL (0.2-1.0); CARBON DIOXIDE 18 mmol/L (21-32); CHLORIDE 115 mmol/L (98-107); CREATININE 4.1 mg/dL (0.6-1.3); GLUCOSE 105 mg/dL (74-106); MAGNESIUM 2.2 mg/dL (1.8-2.4); PHOSPHOROUS 4.4 mg/dL (2.5-4.9); POTASSIUM 4.1 mmol/L (3.5-5.1); UREA NITROGEN, BLOOD 52 mg/dL (7-18)
[2020-05-01] MEDS: CALCITRIOL 0.25 MCG CAPSULE PO SCH (08:30)
[2020-05-01] MEDS: DOCUSATE SODIUM 100 MG CAPSULE PO SCH (08:30)
[2020-05-01] MEDS: OMEGA-3 FATTY ACIDS/FISH OIL CAPSULE PO SCH (08:30)
[2020-05-01] MEDS: PROTEIN SUPPLEMENT (PROSTAT) 30 ML LIQUID PO SCH (08:30)
[2020-05-01] MEDS: CALCIUM CARBONATE 500 MG TABLET PO SCH (08:30)
[2020-05-01] MEDS: AZATHIOPRINE 50 MG TABLET PO SCH (08:30)
[2020-05-01] MEDS: PANTOPRAZOLE ORAL SUSPENSION 40 MG SUSPDR.PKT PO SCH ×2 (08:30→22:03)
[2020-05-01] MEDS: METOPROLOL TARTRATE 25 MG TABLET PO SCH ×2 (08:31→17:14)
[2020-05-01 11:28] VITALS: BP 139/80
[2020-05-01] MEDS: MUPIROCIN 2% OINT 22 GM TUBE NS SCH ×2 (11:35→22:03)
[2020-05-01] MEDS ORDERED: FUROSEMIDE 20 MG/2 ML VIAL IV ONE (13:45)
[2020-05-01] MEDS ORDERED: methylPREDNISolone SOD SUCC 125 MG/2 ML VIAL IV ONE (14:00)
[2020-05-01 15:37] VITALS: BP 147/90
--- NOTE | 2020-05-01 17:09 | NUR ---
Patient resting comfortably in bed, skin precautions maintained throughout shift. Patient received scheduled meds and tolerated well. Patient wheezing, lasix and solumedrol given x1. Stein catheter remains in place. IV fluids infusing left upper arm. Continues on clear liquid diet. Will endorse care to oncoming shift.
[2020-05-01] MEDS: IV NS 1000 ML 1,000 ML IV PRN (17:24)
--- NOTE | 2020-05-01 19:30 | NUR ---
RECEIVED PT AWAKE, ALERT AN ORIENTEDX1. PT IN NO ACUTE DISTRESS. IV INTACT. TUTTLE CATHETER INTACT. PT OBSERVED WITH MINIMAL WHEEZING. SAFETY AND COMFORT PROVIDED. WILL CONTINUE TO MONITOR.
[2020-05-01] MEDS: MEROPENEM 500 MG in IV NORMAL SALINE 50 ML IV SCH (19:46)
[2020-05-01 20:00] VITALS: BP 139/98
--- NOTE | 2020-05-01 20:00 | NUR ---
DR. KELSEY DISCONTINUED THE IV FLUID OF THE PT. PT HAD MINIMAL WHEEZING. DR AWARE. PT IN NO ACUTE DISTRESS. WILL CONTINUE TO MONITOR.
[2020-05-01] MEDS: MIRTAZAPINE 15 MG TABLET PO SCH (22:02)
[2020-05-01] MEDS: SIMVASTATIN 10 MG TABLET PO SCH (22:03)
[2020-05-01] MEDS: SENNOSIDES 1 TABLET PO SCH (22:03)
[2020-05-02 04:00] VITALS: BP 144/98
--- NOTE | 2020-05-02 06:04 | NUR ---
PT SLEPT COMFORTABLY. PT IN NO ACUTE DISTRESS. PRESCRIBED MEDICATION GIVEN AND PT TOLERATED IT WELL. PT STILL CONFUSED BUT PLEASANT. IV INTACT. TUTTLE INTACT AND DRAINING WELL. PT TURNED AND REPOSITIONED. SAFETY AND COMFORT PROVIDED. WILL ENDORSE TO INCOMING NURSE FOR CONTINUITY OF CARE.
[2020-05-02] MEDS: LEVOTHYROXINE SODIUM 50 MCG TABLET PO SCH (06:15)
[2020-05-02 07:31] LABS: CARBON DIOXIDE 17 mmol/L (21-32); CHLORIDE 114 mmol/L (98-107); CREATININE 4.1 mg/dL (0.6-1.3); GLUCOSE 120 mg/dL (74-106); MAGNESIUM 2.1 mg/dL (1.8-2.4); POTASSIUM 4.6 mmol/L (3.5-5.1); UREA NITROGEN, BLOOD 60 mg/dL (7-18)
[2020-05-02 07:34] LABS: BASOPHILS % (AUTO) 0.4 % (0.0-2.0); HEMATOCRIT 29.8 % (31.2-41.9); HEMOGLOBIN 10.1 g/dL (10.9-14.3); LYMPHOCYTES # (AUTO) 0.7 K/uL (20.0-40.0); LYMPHOCYTES % (AUTO) 6.7 % (20.5-51.5); MEAN CORPUSCULAR HEMOGLOBIN 31.2 uug (24.7-32.8); MEAN CORPUSCULAR HGB CONC 34 g/dL (32.3-35.6); MEAN CORPUSCULAR VOLUME 92.6 fL (75.5-95.3); MONOCYTES # (AUTO) 0.1 K/uL (2.0-10.0); NEUTROPHILS # (AUTO) 9.6 K/uL (1.8-8.9); NEUTROPHILS % (AUTO) 91.9 % (38.5-71.5); PLATELET COUNT (AUTO) 189 K/uL (179-408); RED BLOOD CELL COUNT(AUTO) 3.22 MIL/uL (3.63-4.92); WHITE BLOOD COUNT (AUTO) 10.4 K/uL (3.8-11.8)
[2020-05-02] MEDS: PROTEIN SUPPLEMENT (PROSTAT) 30 ML LIQUID PO SCH (08:00)
[2020-05-02] MEDS: OMEGA-3 FATTY ACIDS/FISH OIL CAPSULE PO SCH (09:00)
[2020-05-02] MEDS: DOCUSATE SODIUM 100 MG CAPSULE PO SCH (09:00)
[2020-05-02] MEDS: CALCIUM CARBONATE 500 MG TABLET PO SCH (09:00)
[2020-05-02] MEDS: AZATHIOPRINE 50 MG TABLET PO SCH (09:00)
[2020-05-02] MEDS: PANTOPRAZOLE ORAL SUSPENSION 40 MG SUSPDR.PKT PO SCH (09:00)
[2020-05-02] MEDS: CALCITRIOL 0.25 MCG CAPSULE PO SCH (09:00)
[2020-05-02] MEDS: MUPIROCIN 2% OINT 22 GM TUBE NS SCH (09:41)
[2020-05-02] MEDS: METOPROLOL TARTRATE 25 MG TABLET PO SCH (09:52)
--- NOTE | 2020-05-02 10:14 | NUR ---
Pt confused. Pt noncompliant with routine morning medications, except BP medication crushed in applesauce. Stein catheter in place, draining clear yellow urine. No acute discomfort noted. Plan of care discussed with Dr. Dotson, including possible discharge. Call light within reach. Will continue to monitor and follow up accordingly.
[2020-05-02] MEDS ORDERED: MUPI22OI2 NS (11:11)
[2020-05-02] MEDS ORDERED: PROT30LI PO (11:11)
[2020-05-02] MEDS ORDERED: MERO500V21 IV (11:11)
[2020-05-02 11:32] VITALS: BP 154/81
--- NOTE | 2020-05-02 15:53 | NUR ---
Discharge order received. Discharge paperwork completed. Pt unable to sign for self due to advanced AMS from Dementia, 2 nurses signed paperwork, copies placed in chart. Report given to Brandi FLORES at [facility]. VSS, no acute distress. No belongings or home medications to return to Pt. Stein catheter removed. Pt refused skin integrity photos. ID bands removed. Pt self removed midline IV, tip intact, minimal bleeding, controlled. Report and paperwork given to preliminary school psychologist. Pt safely transferred to [facility] and escorted out of hospital. Will remove Pt from system shortly
== END 2020-05-02 15:30 | DRG 871 ==
LOC: ER 20:34 → MEDSURG3 04-28 04:03
PROVIDERS: ADMIT Registered Nurse; ATTEND Internal Medicine
PROC: 05HY33Z Insertion of Infusion Device into Upper Vein, Percutaneous Approach (ICD-10-PCS; 2020-04-29)
PROC: 30233N1 Transfusion of Nonautologous Red Blood Cells into Peripheral Vein, Percutaneous Approach (ICD-10-PCS; principal; 2020-04-30)
DX: A41.9 Sepsis, unspecified organism (principal); G92 Toxic encephalopathy; N17.0 Acute kidney failure with tubular necrosis; K85.90 Acute pancreatitis without necrosis or infection, unspecified; J69.0 Pneumonitis due to inhalation of food and vomit; N39.0 Urinary tract infection, site not specified; D68.69 Other thrombophilia; I13.0 Hypertensive heart and chronic kidney disease with heart failure and stage 1 through stage 4 chronic kidney disease, or unspecified chronic kidney disease; K86.1 Other chronic pancreatitis; I50.32 Chronic diastolic (congestive) heart failure; K92.2 Gastrointestinal hemorrhage, unspecified; M31.31 Wegener's granulomatosis with renal involvement; B96.20 Unspecified Escherichia coli [E. coli] as the cause of diseases classified elsewhere; E03.9 Hypothyroidism, unspecified; E78.5 Hyperlipidemia, unspecified; H35.30 Unspecified macular degeneration; J44.9 Chronic obstructive pulmonary disease, unspecified; N20.0 Calculus of kidney; N18.9 Chronic kidney disease, unspecified; Z88.0 Allergy status to penicillin; Z88.2 Allergy status to sulfonamides; N28.1 Cyst of kidney, acquired; K57.30 Diverticulosis of large intestine without perforation or abscess without bleeding; K21.9 Gastro-esophageal reflux disease without esophagitis; Z91.81 History of falling; F32.9 Major depressive disorder, single episode, unspecified; F41.9 Anxiety disorder, unspecified; K80.20 Calculus of gallbladder without cholecystitis without obstruction; N25.0 Renal osteodystrophy; Z22.322 Carrier or suspected carrier of Methicillin resistant Staphylococcus aureus; J45.909 Unspecified asthma, uncomplicated; D89.9 Disorder involving the immune mechanism, unspecified; M13.0 Polyarthritis, unspecified; R13.10 Dysphagia, unspecified; Z86.19 Personal history of other infectious and parasitic diseases; D63.8 Anemia in other chronic diseases classified elsewhere
CPT/HCPCS: 36415; 70030-TC; 71045; 76770; 83605; 83615; 83690; 83735; 84100; 84156; 84300; 85025; 85730; 86140; 86850; 86900; 86901; 86920; 87040; 87077; 87086; 93005; C9113; G0378; J1940; J1956; J2060; J2185; J2270; J2405; J2930; J3475; J3490; J7030; J7040; J7500; P9016-BL; P9021; U0003-CS

== ENCOUNTER 2020-05-13 13:41 | Inpatient (IN) | payer MEDICARE, OTHER ==
[~2020-05-13] VITALS: Ht 165.1 cm; Wt 62.1 kg
[~2020-05-13 13:41] MED LIST changes: -ASCO250T23 PO; +MUPI22OI2 NS; -NA P133E RC; +PROT30LI PO
--- NOTE | 2020-05-13 14:05 | NUR ---
PT IS IN ROOM #1A. DR BERNARD EVALUATED THE PT.
--- NOTE | 2020-05-13 15:13 | NUR ---
PT IS IN ROOM #1A. DR BERNARD EVALUATED THE PT.
[2020-05-13] MEDS ORDERED: ASCO500T10 PO (15:18)
[2020-05-13 15:25] LABS: BASOPHILS # (AUTO) 0.1 K/uL (0.0-8.0); BASOPHILS % (AUTO) 0.7 % (0.0-2.0); EOSINOPHILS # (AUTO) 0.6 K/uL (0.0-0.7); EOSINOPHILS % (AUTO) 8.4 % (0.0-7.0); HEMATOCRIT 25.8 % (31.2-41.9); HEMOGLOBIN 8.8 g/dL (10.9-14.3); LYMPHOCYTES # (AUTO) 1.3 K/uL (20.0-40.0); LYMPHOCYTES % (AUTO) 17.1 % (20.5-51.5); MEAN CORPUSCULAR HEMOGLOBIN 31.4 uug (24.7-32.8); MEAN CORPUSCULAR HGB CONC 34 g/dL (32.3-35.6); MEAN CORPUSCULAR VOLUME 92.1 fL (75.5-95.3); MONOCYTES # (AUTO) 0.4 K/uL (2.0-10.0); NEUTROPHILS % (AUTO) 67.8 % (38.5-71.5); PLATELET COUNT (AUTO) 284 K/uL (179-408); WHITE BLOOD COUNT (AUTO) 7.4 K/uL (3.8-11.8)
[2020-05-13 15:34] LABS: CARBON DIOXIDE 21 mmol/L (21-32); CHLORIDE 110 mmol/L (98-107); CREATININE 2.5 mg/dL (0.6-1.3); GLUCOSE 102 mg/dL (74-106); POTASSIUM 5.2 mmol/L (3.5-5.1); UREA NITROGEN, BLOOD 59 mg/dL (7-18)
[2020-05-13 15:45] LABS: ALANINE AMINOTRANSFERASE 11 U/L (14-59); ALKALINE PHOSPHATASE 57 U/L (50-136); ASPARTATE AMINOTRANSFERASE 13 U/L (15-37); BILIRUBIN,TOTAL 0.4 mg/dL (0.2-1.0); CREATINE KINASE, TOTAL 12 U/L (26-192); LACTATE DEHYDROGENASE 197 U/L (81-234); TOTAL PROTEIN, SERUM 6.6 g/dL (6.4-8.2)
[2020-05-13] MEDS ORDERED: CEFTRIAXONE 1 G in IV DEXTROSE 5% 50 ML IV ONE (15:45)
--- NOTE | 2020-05-13 15:45 | NUR ---
pt refusing foey cath, perineal hygiene provided, diaper rash on genitalia area and groin area noticed.
[2020-05-13] MEDS ORDERED: CEFTRIAXONE /D5W 50ML IVPB **ER PYXIS IV ONE (15:57)
--- NOTE | 2020-05-13 16:10 | NUR ---
PICC LINE RN WAS CALLED BY NURSING ACCIDENT EXAMINER. ROSEANNA IS 2 HRS.
[2020-05-13 16:33] LABS: FERRITIN 1739 ng/mL (8-252)
[2020-05-13] MEDS ORDERED: ALBUTEROL SULFATE 2.5 MG/ 0.5 ML NEBU NEB PRN (17:30)
[2020-05-13] MEDS ORDERED: ACETAMINOPHEN 325 MG TABLET PO PRN (17:30)
[2020-05-13] MEDS ORDERED: Z GUARD REMEDY PASTE 57 GM TUBE TOP PRN (17:30)
[2020-05-13] MEDS ORDERED: hydrALAZINE HCL 25 MG TABLET PO PRN (17:30)
[2020-05-13] MEDS ORDERED: BISACODYL 10 MG SUPP.RECT RC PRN (17:30)
--- NOTE | 2020-05-13 17:39 | NUR ---
REPORT WAS GIVEN TO LATHMAKER. PT WAS TRANSFERED TO ROOM #306.
--- NOTE | 2020-05-13 17:48 | NUR ---
Received patient from ER via stretcher in stable condition. Patient AOx1-2, Farsi speaking, Admitted to telemetry around 530pm. EKG monitoring started. Patient DX: Anemia, Renal Failure and Failure to thrive. Patient skin intact. Patient on room air with right AC G20 heplock. Incontinent to bowel and bladder. no signs/complaint of pain/discomfort noted. MD Dotson aware of admission. will continue monitor
[2020-05-13 18:15] VITALS: BP 155/79
[2020-05-13 20:06] VITALS: BP 133/85
[2020-05-13] MEDS ORDERED: CITRIC ACID/SODIUM CITRATE 30 ML SOLUTION PO SCH (21:00)
--- NOTE | 2020-05-13 21:00 | NUR ---
seen by PICC line Nurse; assisted with insertion; right upper arm midline gauge 20 inserted
[2020-05-13] MEDS: MIRTAZAPINE 15 MG TABLET PO SCH (21:49)
[2020-05-13] MEDS: SENNOSIDES 1 TABLET PO SCH (21:49)
[2020-05-13] MEDS: SIMVASTATIN 10 MG TABLET PO SCH (21:52)
[2020-05-13 23:21] LABS: *BILIRUBIN,URIN NEGATIVE (NEGATIVE); *BLOOD, URINE 3+ (NEGATIVE); *CLARITY,URINE CLOUDY (CLEAR); *COLOR,URINE YELLOW (YELLOW); *KETONES,URINE NEGATIVE (NEGATIVE); *UROBILINOGEN,URINE 0.2 E.U./dl (NORMAL); LEUKOCYTE ESTERASE ,URINE NEGATIVE (NEGATIVE); NITRITE, URINE NEGATIVE (NEGATIVE); UGLUCOSE NEGATIVE (NEGATIVE)
[2020-05-13 23:41] LABS: RBC,URINE 20-50 /HPF (0-3)
[2020-05-13 23:42] LABS: BACTERIA,URINE MANY /HPF (NONE SEEN); SQUAMOUS EPITHELIAL CELL,UR MODERATE /HPF (NONE SEEN); URINE AMORPHOUS URATE MANY /HPF
[2020-05-14] VITALS: BP 139/75
[2020-05-14 04:03] VITALS: BP 131/77
--- NOTE | 2020-05-14 04:22 | NUR ---
Pt rested well in between care; no acute distress; remains confused; anxious when care administered; reassurance given; safety maintained; passed bedside swallow; continue to monitor; continue plan of care
[2020-05-14] MEDS: LEVOTHYROXINE SODIUM 50 MCG TABLET PO SCH (06:47)
[2020-05-14 07:04] LABS: CARBON DIOXIDE 19 mmol/L (21-32); CHLORIDE 112 mmol/L (98-107); CREATININE 2.4 mg/dL (0.6-1.3); GLUCOSE 85 mg/dL (74-106); POTASSIUM 5.1 mmol/L (3.5-5.1); UREA NITROGEN, BLOOD 55 mg/dL (7-18)
[2020-05-14 07:05] LABS: ALANINE AMINOTRANSFERASE 10 U/L (14-59); ALKALINE PHOSPHATASE 54 U/L (50-136); ASPARTATE AMINOTRANSFERASE 13 U/L (15-37); BILIRUBIN,TOTAL 0.4 mg/dL (0.2-1.0); MAGNESIUM 1.7 mg/dL (1.8-2.4); TOTAL PROTEIN, SERUM 5.9 g/dL (6.4-8.2)
[2020-05-14 07:21] LABS: BASOPHILS # (AUTO) 0.1 K/uL (0.0-8.0); BASOPHILS % (AUTO) 1.2 % (0.0-2.0); EOSINOPHILS # (AUTO) 0.8 K/uL (0.0-0.7); EOSINOPHILS % (AUTO) 12.7 % (0.0-7.0); HEMATOCRIT 24.1 % (31.2-41.9); HEMOGLOBIN 8.2 g/dL (10.9-14.3); LYMPHOCYTES # (AUTO) 1.1 K/uL (20.0-40.0); LYMPHOCYTES % (AUTO) 17.3 % (20.5-51.5); MEAN CORPUSCULAR HEMOGLOBIN 31.4 uug (24.7-32.8); MEAN CORPUSCULAR HGB CONC 34 g/dL (32.3-35.6); MEAN CORPUSCULAR VOLUME 92.1 fL (75.5-95.3); MONOCYTES # (AUTO) 0.4 K/uL (2.0-10.0); MONOCYTES % (AUTO) 6.8 % (0.0-11.0); NEUTROPHILS # (AUTO) 3.9 K/uL (1.8-8.9); PLATELET COUNT (AUTO) 282 K/uL (179-408); RED BLOOD CELL COUNT(AUTO) 2.62 MIL/uL (3.63-4.92); WHITE BLOOD COUNT (AUTO) 6.3 K/uL (3.8-11.8)
--- NOTE | 2020-05-14 07:30 | NUR ---
Received patient resting in bed. No sign of respiratory distress noted at this time. Patient is Farsi speaking but is able to make some needs known. IV is left upper midline and right hand hep lock. Patient denies any pain at this time. Safety precautions are in place, bed in the lowest position, with alarm activated. Call light and belongings are within reach. Will continue to monitor.
[2020-05-14] MEDS: PROTEIN SUPPLEMENT (PROSTAT) 30 ML LIQUID PO SCH (08:00)
[2020-05-14] MEDS: METOPROLOL TARTRATE 25 MG TABLET PO SCH ×4 (08:49→18:00)
[2020-05-14] MEDS: DOCUSATE SODIUM 100 MG CAPSULE PO SCH (08:50)
[2020-05-14] MEDS: AZATHIOPRINE 50 MG TABLET PO SCH (08:50)
[2020-05-14] MEDS: ASCORBIC ACID 500 MG TABLET PO SCH (08:50)
[2020-05-14] MEDS: CALCITRIOL 0.25 MCG CAPSULE PO SCH (09:00)
[2020-05-14] MEDS: CALCIUM CARBONATE 500 MG TABLET PO SCH (09:00)
[2020-05-14] MEDS: NEPRO (VANILLA) 237 ML CAN PO SCH ×2 (09:00→17:00)
[2020-05-14] MEDS: OMEGA-3 FATTY ACIDS/FISH OIL CAPSULE PO SCH (09:00)
[2020-05-14] MEDS: CHOLECALCIFEROL 1,000 UNIT TABLET PO SCH (09:00)
[2020-05-14] MEDS ORDERED: MAGNESIUM SULFATE/D5W 100 ML IV SCH (09:59)
[2020-05-14 12:00] VITALS: BP 158/67
[2020-05-14 16:03] VITALS: BP 143/79
[2020-05-14] MEDS ORDERED: CLONIDINE-TTS 1 PATCH TD SCH (18:00)
--- NOTE | 2020-05-14 18:01 | NUR ---
Tried giving patient her BP medication and patient spat it at me. She is refusing to take her medications. Tried patient teaching but patient still refuses. Made MD aware and asked for a replacement BP medication that is not PO. Will continue to monitor.
[2020-05-14] MEDS: CEFTRIAXONE 1 G in IV DEXTROSE 5% 50 ML IV SCH (18:39)
--- NOTE | 2020-05-14 19:10 | NUR ---
received report from isha , patient is awake , confused on RA , mid line intact and hl on right upper arm and lower arm , incontinent , dr soares is here to see patient updates given
--- NOTE | 2020-05-14 19:33 | NUR ---
Patient is resting in bed. No sign of distress at this time. Gave all medications as ordered. Will endorse to oncoming nurse.
[2020-05-14 20:00] VITALS: BP 149/70
[2020-05-14] MEDS: SIMVASTATIN 10 MG TABLET PO SCH (20:51)
[2020-05-14] MEDS: SENNOSIDES 1 TABLET PO SCH (20:52)
[2020-05-14] MEDS: MIRTAZAPINE 15 MG TABLET PO SCH (20:52)
[2020-05-15] VITALS: BP 134/102
[2020-05-15 04:00] VITALS: BP 125/84
[2020-05-15] MEDS: LEVOTHYROXINE SODIUM 50 MCG TABLET PO SCH (06:08)
[2020-05-15 06:37] LABS: BASOPHILS # (AUTO) 0.1 K/uL (0.0-8.0); BASOPHILS % (AUTO) 1.7 % (0.0-2.0); EOSINOPHILS # (AUTO) 0.8 K/uL (0.0-0.7); EOSINOPHILS % (AUTO) 12.7 % (0.0-7.0); HEMATOCRIT 24.8 % (31.2-41.9); HEMOGLOBIN 8.5 g/dL (10.9-14.3); LYMPHOCYTES # (AUTO) 1.4 K/uL (20.0-40.0); LYMPHOCYTES % (AUTO) 21.7 % (20.5-51.5); MEAN CORPUSCULAR HEMOGLOBIN 31.7 uug (24.7-32.8); MEAN CORPUSCULAR HGB CONC 34 g/dL (32.3-35.6); MEAN CORPUSCULAR VOLUME 92.1 fL (75.5-95.3); MONOCYTES # (AUTO) 0.5 K/uL (2.0-10.0); MONOCYTES % (AUTO) 7.6 % (0.0-11.0); NEUTROPHILS # (AUTO) 3.7 K/uL (1.8-8.9); NEUTROPHILS % (AUTO) 56.3 % (38.5-71.5); PLATELET COUNT (AUTO) 292 K/uL (179-408); WHITE BLOOD COUNT (AUTO) 6.5 K/uL (3.8-11.8)
[2020-05-15 06:49] LABS: ALANINE AMINOTRANSFERASE 9 U/L (14-59); ALKALINE PHOSPHATASE 52 U/L (50-136); ASPARTATE AMINOTRANSFERASE 14 U/L (15-37); BILIRUBIN,TOTAL 0.3 mg/dL (0.2-1.0); CARBON DIOXIDE 21 mmol/L (21-32); CHLORIDE 112 mmol/L (98-107); CREATINE KINASE, TOTAL 14 U/L (26-192); CREATININE 2.4 mg/dL (0.6-1.3); GLUCOSE 88 mg/dL (74-106); LIPASE 1458 U/L (73-393); MAGNESIUM 2.3 mg/dL (1.8-2.4); PHOSPHOROUS 4.2 mg/dL (2.5-4.9); POTASSIUM 5.1 mmol/L (3.5-5.1); TOTAL PROTEIN, SERUM 6.1 g/dL (6.4-8.2); UREA NITROGEN, BLOOD 52 mg/dL (7-18)
[2020-05-15] MEDS ORDERED: SEVOFLURANE 250 ML BOTTLE IH ONE (07:35)
--- NOTE | 2020-05-15 08:00 | NUR ---
RECEIVED PATIENT IN BED, AWAKE AND ALERT BUT REMAINS VERY CONFUSE, RESTLESS. NO S/S OF RESPIRATORY DISTRESS - 98% ON RA. SR ON MONITOR.
[2020-05-15] MEDS: CALCIUM CARBONATE 500 MG TABLET PO SCH (09:02)
[2020-05-15] MEDS: ASCORBIC ACID 500 MG TABLET PO SCH (09:02)
[2020-05-15] MEDS: CHOLECALCIFEROL 1,000 UNIT TABLET PO SCH (09:02)
[2020-05-15] MEDS: CALCITRIOL 0.25 MCG CAPSULE PO SCH (09:03)
[2020-05-15] MEDS: AZATHIOPRINE 50 MG TABLET PO SCH (09:03)
[2020-05-15] MEDS: DOCUSATE SODIUM 100 MG CAPSULE PO SCH (09:03)
[2020-05-15] MEDS: OMEGA-3 FATTY ACIDS/FISH OIL CAPSULE PO SCH (09:03)
[2020-05-15] MEDS: METOPROLOL TARTRATE 25 MG TABLET PO SCH (09:08)
[2020-05-15] MEDS: NEPRO (VANILLA) 237 ML CAN PO SCH (09:12)
[2020-05-15] MEDS: PROTEIN SUPPLEMENT (PROSTAT) 30 ML LIQUID PO SCH (09:13)
--- NOTE | 2020-05-15 10:00 | NUR ---
SEEN BY CEO NA. CHANGES STATUS TO [facility]. ALSO SEEN BY DR. MERCHANT WITH ORDER FOR HEMODIALYSIS, PER DR. MERCHANT FOR DR. Andreina CRUM TO PLACE PERMACATH FOR DIALYSIS.
[2020-05-15] MEDS: ENALAPRILAT DIHYDRATE 1.25 MG/1 ML VIAL IV PRN ×2 (11:29→20:49)
[2020-05-15 12:00] VITALS: BP 156/65
[2020-05-15] MEDS: IV D5 1/2 NS 1000 ML 1,000 ML IV PRN (12:50)
--- NOTE | 2020-05-15 14:00 | NUR ---
DR KELSEY IN, NOTED ELEVATED LIPASE. GAVE ORDER FOR NPO AND D5W 1000 ML AT 60 ML/HR.
[2020-05-15 16:00] VITALS: BP 111/70
[2020-05-15] MEDS: MORPHINE SULFATE 2 MG/1 ML DISP.SYRIN IV PRN (16:22)
[2020-05-15] MEDS: CEFTRIAXONE 1 G in IV DEXTROSE 5% 50 ML IV SCH (17:37)
--- NOTE | 2020-05-15 18:16 | NUR ---
SEEN BY GARFIELD VALIDATION SOFTWARE FACILITATOR REGARDING LORENA CATH INSERTION. SEE VALIDATION SOFTWARE FACILITATOR NOTES.
[2020-05-15 20:03] VITALS: BP 121/56
--- NOTE | 2020-05-15 20:40 | NUR ---
adilson roth RN from surgery came and picked up patient for surgery.
[2020-05-15 21:01] VITALS: BP 153/47
[2020-05-15] MEDS ORDERED: BUPIVACAINE 0.25% 30 ML VIAL ONE (21:06)
[2020-05-15] MEDS ORDERED: HEPARIN SODIUM,PORCINE 1,000 UNITS/ML VIAL ONE (21:06)
[2020-05-15] MEDS ORDERED: HEPARIN/NS 500 ML ONE (21:06)
[2020-05-15] MEDS ORDERED: LIDOCAINE HCL 1% 20 ML VIAL ONE (21:06)
--- NOTE | 2020-05-15 21:13 | NUR ---
BP rechecked before administration of vasotec. different than PROPERTY MANAGEMENT SPECIALIST measurement. BP 153/43. vasotec wasted due. will continue to monitor. Addendum: 05/16/20 at 0037 by MARIS FLYNN RN incorrect notes. wrong patient.
[2020-05-15] MEDS ORDERED: HEPARIN SODIUM,PORCINE 5,000 UNITS/ML VIAL ONE (21:14)
--- NOTE | 2020-05-15 23:00 | NUR ---
Report received from Bouchra Cortez . Pt not yet on the floor still in PACU.
[2020-05-15] MEDS ORDERED: EPHEDRINE SULFATE 50 MG/ML AMPUL ONE (23:12)
--- NOTE | 2020-05-15 23:45 | NUR ---
care rendered to overnight babysitter nurse, MARK. patient still in surgery. Addendum: 05/16/20 at 0039 by MARIS FLYNN RN report given only. Addendum: 05/16/20 at 0322 by MARIS FLYNN RN correction on time: 0000
--- NOTE | 2020-05-16 00:05 | NUR ---
Received pt in no acute distress. Iv intact. Safety and comfort provided. will continue to monitor.
[2020-05-16 04:06] VITALS: BP 108/61
--- NOTE | 2020-05-16 06:04 | NUR ---
PT SLEPT COMFORTABLY. PT IN NO ACUTE DISTRESS. IV INTACT. PT STABLE. SAFETY AND COMFORT PROVIDED. WILL ENDORSE TO INCOMING NURSE FOR CONTINUITY OF CARE.
[2020-05-16 07:37] LABS: CARBON DIOXIDE 15 mmol/L (21-32); CHLORIDE 112 mmol/L (98-107); CREATININE 2.7 mg/dL (0.6-1.3); GLUCOSE 154 mg/dL (74-106); LIPASE 676 U/L (73-393); MAGNESIUM 2.1 mg/dL (1.8-2.4); PHOSPHOROUS 5.3 mg/dL (2.5-4.9); POTASSIUM 5.3 mmol/L (3.5-5.1); UREA NITROGEN, BLOOD 50 mg/dL (7-18)
[2020-05-16 07:44] LABS: BASOPHILS % (AUTO) 0.2 % (0.0-2.0); EOSINOPHILS % (AUTO) 0.1 % (0.0-7.0); HEMATOCRIT 23.6 % (31.2-41.9); HEMOGLOBIN 8.1 g/dL (10.9-14.3); LYMPHOCYTES # (AUTO) 0.5 K/uL (20.0-40.0); LYMPHOCYTES % (AUTO) 4.9 % (20.5-51.5); MEAN CORPUSCULAR HEMOGLOBIN 31.8 uug (24.7-32.8); MEAN CORPUSCULAR HGB CONC 34 g/dL (32.3-35.6); MEAN CORPUSCULAR VOLUME 92.7 fL (75.5-95.3); MONOCYTES # (AUTO) 0.4 K/uL (2.0-10.0); MONOCYTES % (AUTO) 3.7 % (0.0-11.0); NEUTROPHILS # (AUTO) 9.9 K/uL (1.8-8.9); NEUTROPHILS % (AUTO) 91.1 % (38.5-71.5); PLATELET COUNT (AUTO) 292 K/uL (179-408); RED BLOOD CELL COUNT(AUTO) 2.55 MIL/uL (3.63-4.92); WHITE BLOOD COUNT (AUTO) 10.8 K/uL (3.8-11.8)
--- NOTE | 2020-05-16 07:45 | NUR ---
Received patient in bed, No signs of distress noted. No SOB. No complain of Pain or discomfort. remains NPO. Right Upper chest PermCath intact. kept clean and comfortable. Will continue to monitor.
[2020-05-16 08:06] LABS: HEPATITIS B SURFACE AB Reactive (.); HEPATITIS B SURFACE AG Negative (Negative)
[2020-05-16] MEDS: IV D5 1/2 NS 1000 ML 1,000 ML IV PRN (09:55)
[2020-05-16 12:00] VITALS: BP 137/75
[2020-05-16 15:36] LABS: A/G RATIO 0.9 (0.7-1.7); ALBUMIN 2.6 g/dL (2.9-4.4); ALPHA-1-GLOBULIN 0.3 g/dL (0.0-0.4); ALPHA-2-GLOBULIN 0.7 g/dL (0.4-1.0); BETA GLOBULIN 0.8 g/dL (0.7-1.3); GAMMA GLOBULIN 1.1 g/dL (0.4-1.8); GLOBULIN, TOTAL 2.8 g/dL (2.2-3.9); M-SPIKE Not Observed g/dL (Not Observed)
[2020-05-16 16:20] VITALS: BP 132/65
[2020-05-16] MEDS: CEFTRIAXONE 1 G in IV DEXTROSE 5% 50 ML IV SCH (18:03)
--- NOTE | 2020-05-16 18:04 | NUR ---
Patient in bed, awake, No signs of distress noted. No SOB. No signs of Pain or discomfort. Right chest PermCath intact. patient is having dialysis at this time. kept clean and comfortable. Will endorse to Oncoming Nurse.
--- NOTE | 2020-05-16 18:21 | NUR ---
patient just finished Dialysis with 0 output.
--- NOTE | 2020-05-16 19:50 | NUR ---
Received Patient in bed awake and confused.On room air.No s/s of distress noted.Midline noted on right upper arm with D5 1/2 NS running well @ 60 cc/ml.Perma cath in place on Rt upper chest .Dressing clean and dry.Voided x1.Changed and repositioned pt.Will continue to monitor.
[2020-05-16 20:52] VITALS: BP 135/75
[2020-05-16] MEDS: MORPHINE SULFATE 2 MG/1 ML DISP.SYRIN IV PRN (21:20)
[2020-05-17] VITALS (7 sets, daily range): BP systolic 132–168; BP diastolic 53–89
[2020-05-17] MEDS: IV D5 1/2 NS 1000 ML 1,000 ML IV PRN ×2 (03:02→18:39)
--- NOTE | 2020-05-17 06:00 | NUR ---
Patient slept intermittently,remains confused.Anxious when care provided.Re-assurance rendered.No s/s of distress noted.All needs anticipated and met accordingly.keep Patient clean and dry.Safety measures in place.Will endorse to incoming shift.
--- NOTE | 2020-05-17 07:30 | NUR ---
Received patient in bed, No signs of distress noted. No SOB. No complain of pain or discomfort at this time. kept clean and comfortable. Will continue to monitor.
[2020-05-17 07:42] LABS: ALANINE AMINOTRANSFERASE 24 U/L (14-59); ALKALINE PHOSPHATASE 56 U/L (50-136); ASPARTATE AMINOTRANSFERASE 26 U/L (15-37); BILIRUBIN,TOTAL 0.2 mg/dL (0.2-1.0); CARBON DIOXIDE 27 mmol/L (21-32); CHLORIDE 110 mmol/L (98-107); CREATININE 1.8 mg/dL (0.6-1.3); GLUCOSE 90 mg/dL (74-106); MAGNESIUM 1.8 mg/dL (1.8-2.4); PHOSPHOROUS 3.1 mg/dL (2.5-4.9); POTASSIUM 4.7 mmol/L (3.5-5.1); TOTAL PROTEIN, SERUM 5.5 g/dL (6.4-8.2); UREA NITROGEN, BLOOD 19 mg/dL (7-18)
--- NOTE | 2020-05-17 08:58 | NUR ---
gave report to Facundo FLORES.
[2020-05-17 09:23] LABS: BASOPHILS # (AUTO) 0.1 K/uL (0.0-8.0); BASOPHILS % (AUTO) 1.4 % (0.0-2.0); EOSINOPHILS # (AUTO) 0.5 K/uL (0.0-0.7); EOSINOPHILS % (AUTO) 6.8 % (0.0-7.0); LYMPHOCYTES # (AUTO) 1.5 K/uL (20.0-40.0); LYMPHOCYTES % (AUTO) 21.5 % (20.5-51.5); MEAN CORPUSCULAR HEMOGLOBIN 31.4 uug (24.7-32.8); MEAN CORPUSCULAR HGB CONC 34 g/dL (32.3-35.6); MEAN CORPUSCULAR VOLUME 92.2 fL (75.5-95.3); MONOCYTES # (AUTO) 0.8 K/uL (2.0-10.0); MONOCYTES % (AUTO) 12.1 % (0.0-11.0); NEUTROPHILS % (AUTO) 58.2 % (38.5-71.5); PLATELET COUNT (AUTO) 220 K/uL (179-408); WHITE BLOOD COUNT (AUTO) 6.8 K/uL (3.8-11.8)
[2020-05-17 09:31] LABS: HEMOGLOBIN 6.8 g/dL (10.9-14.3); RED BLOOD CELL COUNT(AUTO) 2.17 MIL/uL (3.63-4.92)
--- NOTE | 2020-05-17 09:40 | NUR ---
Received a CL hgb of 6.8, Dr. Dotson made aware with Order of 1PRBC.
[2020-05-17] MEDS: MORPHINE SULFATE 2 MG/1 ML DISP.SYRIN IV PRN ×2 (11:31→22:15)
--- NOTE | 2020-05-17 12:45 | NUR ---
Blood transfusion will be given with Dialysis.
--- NOTE | 2020-05-17 13:02 | NUR ---
Blood Transfusion was given with Dialysis. No ASE noted. Afebrile. Will continue to monitor.
--- NOTE | 2020-05-17 15:04 | NUR ---
dialysis was done with 500ml output.
[2020-05-17] MEDS ORDERED: EPOETIN ALFA 10,000 UNITS/ML VIAL SQ ONE (16:15)
[2020-05-17] MEDS: CEFTRIAXONE 1 G in IV DEXTROSE 5% 50 ML IV SCH (17:05)
--- NOTE | 2020-05-17 18:09 | NUR ---
Patient in bed, no signs of distress noted. Cough/SOB. No complain of Pain or discomfort. Dialyze today with 500ml output. 1PRBC given for hgb of 6.8. Kept clean and comfortable. Will endorse to Oncoming Nurse.
--- NOTE | 2020-05-17 19:30 | NUR ---
Received patient lying in bed awake and confused. No s/s of distress noted at this time. Pt is on RA and shows no signs of SOB. Right upper midline patent and intact infusing ordered fluids. Bed low and locked. Bed alarm on and safety measures in place, will continue to monitor.
[2020-05-17] MEDS: ENALAPRILAT DIHYDRATE 1.25 MG/1 ML VIAL IV PRN (20:58)
[2020-05-18 04:59] VITALS: BP 177/84
[2020-05-18] MEDS: ENALAPRILAT DIHYDRATE 1.25 MG/1 ML VIAL IV PRN ×3 (05:03→17:45)
[2020-05-18 05:56] VITALS: BP 172/62
[2020-05-18 06:55] LABS: ALANINE AMINOTRANSFERASE 22 U/L (14-59); ALKALINE PHOSPHATASE 65 U/L (50-136); ASPARTATE AMINOTRANSFERASE 23 U/L (15-37); BILIRUBIN,TOTAL 0.5 mg/dL (0.2-1.0); CARBON DIOXIDE 27 mmol/L (21-32); CHLORIDE 109 mmol/L (98-107); CREATININE 1.8 mg/dL (0.6-1.3); GLUCOSE 89 mg/dL (74-106); MAGNESIUM 1.8 mg/dL (1.8-2.4); PHOSPHOROUS 2.5 mg/dL (2.5-4.9); POTASSIUM 4.1 mmol/L (3.5-5.1); TOTAL PROTEIN, SERUM 5.8 g/dL (6.4-8.2); UREA NITROGEN, BLOOD 11 mg/dL (7-18)
[2020-05-18 07:11] LABS: BASOPHILS # (AUTO) 0.1 K/uL (0.0-8.0); BASOPHILS % (AUTO) 1.5 % (0.0-2.0); EOSINOPHILS # (AUTO) 0.6 K/uL (0.0-0.7); EOSINOPHILS % (AUTO) 8.7 % (0.0-7.0); HEMATOCRIT 27.2 % (31.2-41.9); HEMOGLOBIN 9.5 g/dL (10.9-14.3); LYMPHOCYTES # (AUTO) 1.5 K/uL (20.0-40.0); LYMPHOCYTES % (AUTO) 20.3 % (20.5-51.5); MEAN CORPUSCULAR HEMOGLOBIN 31.4 uug (24.7-32.8); MEAN CORPUSCULAR HGB CONC 35 g/dL (32.3-35.6); MEAN CORPUSCULAR VOLUME 90.1 fL (75.5-95.3); MONOCYTES # (AUTO) 0.8 K/uL (2.0-10.0); MONOCYTES % (AUTO) 11.3 % (0.0-11.0); NEUTROPHILS # (AUTO) 4.2 K/uL (1.8-8.9); NEUTROPHILS % (AUTO) 58.2 % (38.5-71.5); PLATELET COUNT (AUTO) 188 K/uL (179-408); RED BLOOD CELL COUNT(AUTO) 3.02 MIL/uL (3.63-4.92); WHITE BLOOD COUNT (AUTO) 7.2 K/uL (3.8-11.8)
--- NOTE | 2020-05-18 07:15 | NUR ---
RECEIVED PATIENT AWAKE, ALERT BUT CONFUSED, FARSI SPEAKING. ON RA, NO S/S OF SOB OR DISTRESS. RIGHT UA MIDLINE, INFUSING D51/2NS @ 60CC/HR. PERMACATH IN PLACE ON RIGHT UPPER CHEST. BED RAILS X 3 UP. BED ALARM ON. WILL CONTINUE TO MONITOR.
[2020-05-18] MEDS ORDERED: AMLODIPINE 5 MG TABLET PO SCH (09:00)
[2020-05-18] MEDS: IV D5 1/2 NS 1000 ML 1,000 ML IV PRN (10:06)
[2020-05-18 11:19] VITALS: BP 157/71
[2020-05-18] MEDS ORDERED: AMLO5TAB9 PO (14:03)
[2020-05-18] MEDS ORDERED: CLONIDINE HCL 0.1 MG TABLET PO ONE (14:15)
[2020-05-18 15:04] VITALS: BP 156/73
[2020-05-18] MEDS: CEFTRIAXONE 1 G in IV DEXTROSE 5% 50 ML IV SCH (17:01)
[2020-05-18 18:15] VITALS: BP 163/87
--- NOTE | 2020-05-18 18:15 | NUR ---
PATIENT DISCHARGED VIA GURNEY. AWAKE AND CONFUSED. PATIENT COMBATIVE AND RESTLESS THROUGHOUT SHIFT. ENDORSEMENT GIVEN TO AWILDA FROM [facility]. BP WAS ELEVATED 166/79, ASYMPTOMATIC. PER SNF RN, PRN BP MED GIVEN BEFORE SCREEN PRINTING MACHINE LOADER UNLOADER. VASOTEC PRN 2.5 MG GIVEN. BP RECHECKED 163/87, REMAINS ASYMPTOMATIC. MARK [facility] MADE AWARE AND OKAYED FOR DISCHARGE. RIGHT UPPER MIDLINE DISCONTINUED. NO S/S OF BLEEDING, SOB. DISCHARGE INSTRUCTIONS GIVEN TO AMBULANCE PERSONNEL.
[2020-05-19] MEDS ORDERED: CLONIDINE-TTS 3 PATCH TD SCH (09:00)
== END 2020-05-18 18:15 | DRG 673 ==
LOC: ER 13:41 → TELE3 16:45 → MEDSURG3 05-15 08:13
PROVIDERS: ADMIT Internal Medicine; ATTEND Internal Medicine
PROC: 05H533Z Insertion of Infusion Device into Right Subclavian Vein, Percutaneous Approach (ICD-10-PCS; 2020-05-13)
PROC: B546ZZA Ultrasonography of Right Subclavian Vein, Guidance (ICD-10-PCS; 2020-05-13)
PROC: 02HV33Z Insertion of Infusion Device into Superior Vena Cava, Percutaneous Approach (ICD-10-PCS; principal; 2020-05-15)
PROC: 0JH63XZ Insertion of Tunneled Vascular Access Device into Chest Subcutaneous Tissue and Fascia, Percutaneous Approach (ICD-10-PCS; 2020-05-15)
PROC: B548ZZA Ultrasonography of Superior Vena Cava, Guidance (ICD-10-PCS; 2020-05-15)
PROC: 5A1D70Z Performance of Urinary Filtration, Intermittent, Less than 6 Hours Per Day (ICD-10-PCS; 2020-05-16)
PROC: 30233N1 Transfusion of Nonautologous Red Blood Cells into Peripheral Vein, Percutaneous Approach (ICD-10-PCS; 2020-05-17)
DX: N17.9 Acute kidney failure, unspecified (principal); G92 Toxic encephalopathy; K85.90 Acute pancreatitis without necrosis or infection, unspecified; M31.31 Wegener's granulomatosis with renal involvement; N39.0 Urinary tract infection, site not specified; D68.69 Other thrombophilia; I50.32 Chronic diastolic (congestive) heart failure; K86.1 Other chronic pancreatitis; I13.0 Hypertensive heart and chronic kidney disease with heart failure and stage 1 through stage 4 chronic kidney disease, or unspecified chronic kidney disease; R62.7 Adult failure to thrive; E87.5 Hyperkalemia; E03.9 Hypothyroidism, unspecified; F02.80 Dementia in other diseases classified elsewhere, unspecified severity, without behavioral disturbance, psychotic disturbance, mood disturbance, and anxiety; G20 Parkinson's disease; J44.9 Chronic obstructive pulmonary disease, unspecified; E78.5 Hyperlipidemia, unspecified; M19.90 Unspecified osteoarthritis, unspecified site; Z88.2 Allergy status to sulfonamides; Z88.0 Allergy status to penicillin; D63.1 Anemia in chronic kidney disease; F32.9 Major depressive disorder, single episode, unspecified; F41.9 Anxiety disorder, unspecified; N28.1 Cyst of kidney, acquired; E11.22 Type 2 diabetes mellitus with diabetic chronic kidney disease; N18.9 Chronic kidney disease, unspecified; Z68.22 Body mass index [BMI] 22.0-22.9, adult; N25.0 Renal osteodystrophy; J45.909 Unspecified asthma, uncomplicated; Z79.899 Other long term (current) drug therapy; Z91.81 History of falling; M84.48XS Pathological fracture, other site, sequela; K57.90 Diverticulosis of intestine, part unspecified, without perforation or abscess without bleeding; K80.20 Calculus of gallbladder without cholecystitis without obstruction
CPT/HCPCS: 36415; 70030-TC; 71045; 83605; 83615; 83690; 83735; 83970; 84100; 84155; 84165; 85025; 85730; 86140; 86706; 86850; 86900; 86901; 86920; 87040; 87086; 87340; 87400; 93005; 93307; A4649; A4663; C1758; G0378; J0696; J0885; J1644; J2270; J3475; J3490; J7030; J7040; J7050; J7060; J7500; P9016-BL; P9021; U0003-CS

== ENCOUNTER 2020-06-10 11:06 | Inpatient (IN) | payer MEDICARE, OTHER ==
[~2020-06-10] VITALS: Ht 162.6 cm; Wt 53.5 kg
[~2020-06-10 11:06] MED LIST changes: +AMLO5TAB9 PO; +ASCO500T10 PO; -DOCU100C36 PO; +DOCU100C36 PR; -MERO500V21 IV; -MUPI22OI2 NS
--- NOTE | 2020-06-10 11:13 | NUR ---
pt came via ambulance from [facility] facility, went to dialysis this morning and they reported that her chest port was clogged and could not complete dialysis. pt with dementia.
[2020-06-10 11:37] LABS: BASOPHILS % (AUTO) 0.4 % (0.0-2.0); EOSINOPHILS # (AUTO) 0.1 K/uL (0.0-0.7); EOSINOPHILS % (AUTO) 1.2 % (0.0-7.0); HEMATOCRIT 26.8 % (31.2-41.9); LYMPHOCYTES # (AUTO) 0.9 K/uL (20.0-40.0); LYMPHOCYTES % (AUTO) 14.8 % (20.5-51.5); MEAN CORPUSCULAR HEMOGLOBIN 31.5 uug (24.7-32.8); MEAN CORPUSCULAR HGB CONC 34 g/dL (32.3-35.6); MEAN CORPUSCULAR VOLUME 93.7 fL (75.5-95.3); MONOCYTES # (AUTO) 0.5 K/uL (2.0-10.0); MONOCYTES % (AUTO) 8.1 % (0.0-11.0); NEUTROPHILS # (AUTO) 4.7 K/uL (1.8-8.9); NEUTROPHILS % (AUTO) 75.5 % (38.5-71.5); PLATELET COUNT (AUTO) 231 K/uL (179-408); RED BLOOD CELL COUNT(AUTO) 2.86 MIL/uL (3.63-4.92); WHITE BLOOD COUNT (AUTO) 6.2 K/uL (3.8-11.8)
[2020-06-10 11:44] LABS: CARBON DIOXIDE 24 mmol/L (21-32); CHLORIDE 100 mmol/L (98-107); CREATININE 4.7 mg/dL (0.6-1.3); GLUCOSE 150 mg/dL (74-106); POTASSIUM 3.9 mmol/L (3.5-5.1); UREA NITROGEN, BLOOD 41 mg/dL (7-18)
[2020-06-10] MEDS ORDERED: AMLO2.5T4 PO (12:03)
[2020-06-10] MEDS ORDERED: vitamin D3 (12:03)
[2020-06-10] MEDS ORDERED: ALPR1TAB2 PO (12:14)
[2020-06-10] MEDS ORDERED: AMIN30LI24 PO (12:14)
[2020-06-10] MEDS ORDERED: ONDANSETRON 4 MG/2 ML VIAL IV PRN ×2 (13:15→14:15)
[2020-06-10] MEDS ORDERED: ALBUTEROL SULFATE 2.5 MG/ 0.5 ML NEBU NEB PRN ×2 (13:15→14:15)
[2020-06-10] MEDS ORDERED: CLONIDINE-TTS 3 PATCH TD SCH ×2 (13:15→15:30)
[2020-06-10] MEDS ORDERED: ONDANSETRON HCL 4 MG TABLET PO PRN ×2 (13:15→14:15)
[2020-06-10] MEDS ORDERED: DOCUSATE SODIUM 100 MG CAPSULE PO PRN ×2 (13:15→14:15)
[2020-06-10] MEDS ORDERED: HYDROCODONE/APAP 5-325MG TABLET PO PRN ×2 (13:15→14:15)
[2020-06-10] MEDS ORDERED: BISACODYL 10 MG SUPP.RECT RC PRN ×2 (13:15→14:15)
[2020-06-10] MEDS ORDERED: MAGNESIUM HYDROXIDE 30 ML LIQUID UDC PO PRN ×2 (13:15→14:15)
[2020-06-10] MEDS ORDERED: hydrALAZINE HCL 25 MG TABLET PO PRN ×2 (13:15→14:15)
[2020-06-10] MEDS ORDERED: ACETAMINOPHEN 325 MG TABLET PO PRN ×4 (13:15→14:15)
[2020-06-10] MEDS ORDERED: Z GUARD REMEDY PASTE 57 GM TUBE TOP PRN ×4 (13:15→14:15)
[2020-06-10 14:52] VITALS: BP 111/64
[2020-06-10 15:18] VITALS: BP 111/63
[2020-06-10] MEDS ORDERED: ALTEPLASE 2 MG VIAL XX ONE ×2 (15:30→20:30)
--- NOTE | 2020-06-10 16:26 | NUR ---
Patient is admitted to [facility] floor, transported by gurney by ER, no SOB, resp even nonlabored, skin warm and dry to touch, no skin issues noted, noted with pitting edema to both feet +2, patient is here for malfunction of port cath on her right chest.
[2020-06-10] MEDS: CITRIC ACID/SODIUM CITRATE 30 ML SOLUTION PO SCH ×2 (16:55→20:55)
[2020-06-10] MEDS: PROTEIN SUPPLEMENT (PROSTAT) 30 ML LIQUID PO SCH (16:58)
[2020-06-10] MEDS: NEPRO (VANILLA) 237 ML CAN PO SCH (16:58)
[2020-06-10] MEDS: METOPROLOL TARTRATE 25 MG TABLET PO SCH (16:58)
[2020-06-10] MEDS ORDERED: METOPROLOL TARTRATE 25 MG TABLET PO SCH (17:00)
[2020-06-10] MEDS ORDERED: Medication Not On Formulary EA (Vit C/E/Zn/Coppr/Lutein/Zeaxan (Preservision Areds 2 Sof PO SCH (17:00)
[2020-06-10] MEDS: MIRTAZAPINE 15 MG TABLET PO SCH (20:56)
[2020-06-10] MEDS: SIMVASTATIN 10 MG TABLET PO SCH (20:56)
[2020-06-10] MEDS: SENNOSIDES 1 TABLET PO SCH (20:56)
[2020-06-10] MEDS ORDERED: SIMVASTATIN 10 MG TABLET PO SCH (21:00)
[2020-06-10] MEDS ORDERED: SENNOSIDES 1 TABLET PO SCH (21:00)
[2020-06-10] MEDS ORDERED: MIRTAZAPINE 15 MG TABLET PO SCH (21:00)
[2020-06-10 21:04] VITALS: BP 116/46
--- NOTE | 2020-06-11 00:49 | NUR ---
Resting in bed upon initial rounds. AAOx 1. Confused and disoriented. VSS Needs attended. Fall precautions maintained. Call zuniga within reach. Incontinent of bowel and bladder. Kept clean and dry. No BM noted this shift. Will monitor patient.
[2020-06-11 04:20] VITALS: BP 129/45
[2020-06-11] MEDS: LEVOTHYROXINE SODIUM 50 MCG TABLET PO SCH (06:22)
--- NOTE | 2020-06-11 06:32 | NUR ---
End of shift notes: Slept most of the shift. Confused and disoriented. Tolerated po meds well. Incontinent of urine x2. Kept clean and dry. Right sided of the chest has double lumen portacath, flushed with Altiplase by active directory administrator. Will monitor patient.
[2020-06-11] MEDS ORDERED: LEVOTHYROXINE SODIUM 50 MCG TABLET PO SCH (07:00)
--- NOTE | 2020-06-11 07:30 | NUR ---
Receive patient resting in bed dozing off intermittently. Patient is confused at times and speech can be garbled. She reports being cold and i gave an extra warm blanket. IV is hep lock right AC 20 gauge. Patient is due for dialysis today. Safety precautions are in place with call light and belongings within reach. Will continue to monitor.
[2020-06-11] MEDS ORDERED: Medication Not On Formulary EA (Protein Supplement (Prosource) 30 ML) PO SCH (08:00)
[2020-06-11] MEDS: METOPROLOL TARTRATE 25 MG TABLET PO SCH ×2 (08:58→17:00)
[2020-06-11] MEDS: AMLODIPINE 2.5 MG TABLET PO SCH (08:59)
[2020-06-11] MEDS ORDERED: AMLODIPINE 2.5 MG TABLET PO SCH (09:00)
[2020-06-11] MEDS ORDERED: OMEGA-3 FATTY ACIDS/FISH OIL CAPSULE PO SCH (09:00)
[2020-06-11] MEDS ORDERED: CALCIUM CARBONATE 500 MG TABLET PO SCH (09:00)
[2020-06-11] MEDS: PROTEIN SUPPLEMENT (PROSTAT) 30 ML LIQUID PO SCH ×2 (09:00→17:00)
[2020-06-11] MEDS: PANTOPRAZOLE SODIUM 40 MG TABLET.DR PO SCH (09:00)
[2020-06-11] MEDS: AZATHIOPRINE 50 MG TABLET PO SCH (09:00)
[2020-06-11] MEDS: CALCIUM CARBONATE 500 MG TABLET PO SCH (09:00)
[2020-06-11] MEDS: CITRIC ACID/SODIUM CITRATE 30 ML SOLUTION PO SCH ×4 (09:00→20:21)
[2020-06-11] MEDS: OMEGA-3 FATTY ACIDS/FISH OIL CAPSULE PO SCH (09:00)
[2020-06-11] MEDS: CHOLECALCIFEROL 1,000 UNIT TABLET PO SCH (09:00)
[2020-06-11] MEDS ORDERED: ASCORBIC ACID 500 MG TABLET PO SCH (09:00)
[2020-06-11] MEDS: NEPRO (VANILLA) 237 ML CAN PO SCH ×2 (09:00→17:00)
[2020-06-11] MEDS ORDERED: CALCITRIOL 0.25 MCG CAPSULE PO SCH (09:00)
[2020-06-11] MEDS: CALCITRIOL 0.25 MCG CAPSULE PO SCH (09:00)
[2020-06-11] MEDS ORDERED: AZATHIOPRINE 50 MG TABLET PO SCH (09:00)
[2020-06-11] MEDS: ASCORBIC ACID 500 MG TABLET PO SCH (09:00)
[2020-06-11 09:20] LABS: HEPATITIS B SURFACE AB Reactive (.); HEPATITIS B SURFACE AG Negative (Negative)
--- NOTE | 2020-06-11 13:27 | NUR ---
Dialysis nurse just finished dialysis treatment. Patient tolerated well. 1L was taken out and blood pressure after the procedure was 112/57 with a HR of 76. Will continue to monitor.
[2020-06-11 15:25] VITALS: BP 124/60
--- NOTE | 2020-06-11 18:07 | NUR ---
Patient has slept most of the day but is easily arousable. She is non compliant refusing to take any of her medications. Patient is confused and combative at times. Made MD aware. Safety precautions are in place with call lights and belongings within reach. Will endorse to oncoming nurse.
[2020-06-11 20:10] VITALS: BP 101/61
--- NOTE | 2020-06-11 20:10 | NUR ---
Received patient in bed awake .ALOX1.ON RA.No s/s of distress at this time.Right upper chest CVC hemodialysis access intact.Dressing clean and dry.Patient c/o being cold.Extra blanket given.Denies pain or discomfort.Heplock on right AC [address]Due meds given.Call light with in reach.Continue safety measures.
[2020-06-11] MEDS: SIMVASTATIN 10 MG TABLET PO SCH (20:22)
[2020-06-11] MEDS: MIRTAZAPINE 15 MG TABLET PO SCH (20:22)
[2020-06-11] MEDS: SENNOSIDES 1 TABLET PO SCH (20:25)
[2020-06-11 22:51] LABS: BASOPHILS # (AUTO) 0.1 K/uL (0.0-8.0); BASOPHILS % (AUTO) 1.4 % (0.0-2.0); EOSINOPHILS # (AUTO) 0.1 K/uL (0.0-0.7); LYMPHOCYTES # (AUTO) 1.5 K/uL (20.0-40.0); LYMPHOCYTES % (AUTO) 15.1 % (20.5-51.5); MEAN CORPUSCULAR HGB CONC 34 g/dL (32.3-35.6); MONOCYTES # (AUTO) 0.6 K/uL (2.0-10.0); MONOCYTES % (AUTO) 6.3 % (0.0-11.0); NEUTROPHILS # (AUTO) 7.6 K/uL (1.8-8.9); NEUTROPHILS % (AUTO) 76.2 % (38.5-71.5); PLATELET COUNT (AUTO) 248 K/uL (179-408); RED BLOOD CELL COUNT(AUTO) 3.12 MIL/uL (3.63-4.92)
[2020-06-11 22:57] LABS: IRON, SERUM 30 ug/dL (50-175)
[2020-06-11 23:20] LABS: CARBON DIOXIDE 24 mmol/L (21-32); CHLORIDE 105 mmol/L (98-107); CREATININE 3.5 mg/dL (0.6-1.3); GLUCOSE 109 mg/dL (74-106); POTASSIUM 4.7 mmol/L (3.5-5.1); UREA NITROGEN, BLOOD 31 mg/dL (7-18)
[2020-06-11 23:21] LABS: ALANINE AMINOTRANSFERASE 12 U/L (14-59); ALKALINE PHOSPHATASE 68 U/L (50-136); ASPARTATE AMINOTRANSFERASE 28 U/L (15-37); BILIRUBIN,TOTAL < 0.1 mg/dL (0.2-1.0); MAGNESIUM 2.5 mg/dL (1.8-2.4); PHOSPHOROUS 4.2 mg/dL (2.5-4.9); TOTAL PROTEIN, SERUM 6.2 g/dL (6.4-8.2)
[2020-06-11 23:34] LABS: FERRITIN 1732 ng/mL (8-252)
[2020-06-12 04:30] VITALS: BP 139/78
--- NOTE | 2020-06-12 05:37 | NUR ---
Patient slept well .No s/s of distress noted at this time.Incontinent to both B&B.kept clean and dry. Right upper chest CVC with two lumen remain intact.Continue safety measures.All needs anticipated and met accordingly.
[2020-06-12] MEDS: LEVOTHYROXINE SODIUM 50 MCG TABLET PO SCH (06:05)
[2020-06-12 07:16] LABS: BASOPHILS # (AUTO) 0.1 K/uL (0.0-8.0); BASOPHILS % (AUTO) 1.5 % (0.0-2.0); EOSINOPHILS # (AUTO) 0.1 K/uL (0.0-0.7); EOSINOPHILS % (AUTO) 2.4 % (0.0-7.0); HEMATOCRIT 28.1 % (31.2-41.9); HEMOGLOBIN 9.6 g/dL (10.9-14.3); LYMPHOCYTES # (AUTO) 0.9 K/uL (20.0-40.0); LYMPHOCYTES % (AUTO) 15.6 % (20.5-51.5); MEAN CORPUSCULAR HGB CONC 34 g/dL (32.3-35.6); MONOCYTES # (AUTO) 0.5 K/uL (2.0-10.0); MONOCYTES % (AUTO) 9.4 % (0.0-11.0); NEUTROPHILS # (AUTO) 4.1 K/uL (1.8-8.9); NEUTROPHILS % (AUTO) 71.1 % (38.5-71.5); PLATELET COUNT (AUTO) 257 K/uL (179-408); RED BLOOD CELL COUNT(AUTO) 3.02 MIL/uL (3.63-4.92); WHITE BLOOD COUNT (AUTO) 5.7 K/uL (3.8-11.8)
[2020-06-12 07:30] VITALS: BP 129/68
[2020-06-12 07:30] LABS: CARBON DIOXIDE 28 mmol/L (21-32); CHLORIDE 107 mmol/L (98-107); CREATININE 3.7 mg/dL (0.6-1.3); GLUCOSE 90 mg/dL (74-106); UREA NITROGEN, BLOOD 32 mg/dL (7-18)
--- NOTE | 2020-06-12 07:30 | NUR ---
Receive patient resting in bed dozing off intermittently. Patient is confused at times and speech can be garbled. IV is hep lock Safety precautions are in place with call light and belongings within reach. Will continue to monitor.
[2020-06-12] MEDS: CITRIC ACID/SODIUM CITRATE 30 ML SOLUTION PO SCH ×4 (07:55→20:19)
[2020-06-12] MEDS: CHOLECALCIFEROL 1,000 UNIT TABLET PO SCH (07:55)
[2020-06-12] MEDS: OMEGA-3 FATTY ACIDS/FISH OIL CAPSULE PO SCH (07:55)
[2020-06-12] MEDS: METOPROLOL TARTRATE 25 MG TABLET PO SCH ×2 (07:55→16:05)
[2020-06-12] MEDS: AMLODIPINE 2.5 MG TABLET PO SCH (07:55)
[2020-06-12] MEDS: CALCIUM CARBONATE 500 MG TABLET PO SCH (07:55)
[2020-06-12] MEDS: PANTOPRAZOLE SODIUM 40 MG TABLET.DR PO SCH (07:55)
[2020-06-12] MEDS: ASCORBIC ACID 500 MG TABLET PO SCH (07:56)
[2020-06-12] MEDS: PROTEIN SUPPLEMENT (PROSTAT) 30 ML LIQUID PO SCH ×2 (08:42→16:06)
[2020-06-12] MEDS: AZATHIOPRINE 50 MG TABLET PO SCH (08:42)
[2020-06-12] MEDS: NEPRO (VANILLA) 237 ML CAN PO SCH ×2 (08:42→16:06)
[2020-06-12] MEDS: CALCITRIOL 0.25 MCG CAPSULE PO SCH (08:42)
[2020-06-12] MEDS ORDERED: ALPRAZOLAM 0.5 MG TABLET PO SCH (13:15)
[2020-06-12 16:13] VITALS: BP 123/51
--- NOTE | 2020-06-12 17:43 | NUR ---
dialysis done 0 out put removed
[2020-06-12 20:00] VITALS: BP 124/67
--- NOTE | 2020-06-12 20:00 | NUR ---
Patient alert and in bed. Does not appear to have any signs of respiratory distress or any discomfort. Had a BM and was sent to lab for stool OB. Safety precautions have been initiated and bed is in lowest position, locked, with call light within reach. Side rails up X 2. Will continue to monitor.
[2020-06-12] MEDS: MIRTAZAPINE 15 MG TABLET PO SCH (20:18)
[2020-06-12] MEDS: SIMVASTATIN 10 MG TABLET PO SCH (20:18)
[2020-06-12] MEDS: SENNOSIDES 1 TABLET PO SCH (20:18)
[2020-06-13 04:30] VITALS: BP 127/64
[2020-06-13] MEDS: LEVOTHYROXINE SODIUM 50 MCG TABLET PO SCH (06:18)
--- NOTE | 2020-06-13 06:21 | NUR ---
Patient in bed. Slept intermittently throughout the night. Tried to get out of bed once around 0145 and was confused. Patient was reoriented and turned and repositioned back in bed comfortably. Patient does not appear to be in any acute distress. Complained of minor discomfort and was given PRN Tylenol at 0154. No s/s of SOB or chest pain. Bed is locked and in lowest position. Call light is within reach. Will endorse to oncoming nurse.
[2020-06-13] MEDS: CITRIC ACID/SODIUM CITRATE 30 ML SOLUTION PO SCH ×4 (07:46→20:35)
[2020-06-13] MEDS: AZATHIOPRINE 50 MG TABLET PO SCH (07:47)
[2020-06-13] MEDS: PROTEIN SUPPLEMENT (PROSTAT) 30 ML LIQUID PO SCH ×2 (07:47→16:19)
[2020-06-13] MEDS: CHOLECALCIFEROL 1,000 UNIT TABLET PO SCH (07:47)
[2020-06-13] MEDS: METOPROLOL TARTRATE 25 MG TABLET PO SCH ×2 (07:47→16:25)
[2020-06-13] MEDS: OMEGA-3 FATTY ACIDS/FISH OIL CAPSULE PO SCH (07:47)
[2020-06-13] MEDS: NEPRO (VANILLA) 237 ML CAN PO SCH ×2 (07:47→16:19)
[2020-06-13] MEDS: PANTOPRAZOLE SODIUM 40 MG TABLET.DR PO SCH (07:47)
[2020-06-13] MEDS: AMLODIPINE 2.5 MG TABLET PO SCH (07:47)
[2020-06-13] MEDS: CALCIUM CARBONATE 500 MG TABLET PO SCH (07:47)
[2020-06-13] MEDS: ASCORBIC ACID 500 MG TABLET PO SCH (07:47)
[2020-06-13] MEDS: CALCITRIOL 0.25 MCG CAPSULE PO SCH (07:48)
[2020-06-13 07:50] LABS: BASOPHILS # (AUTO) 0.1 K/uL (0.0-8.0); BASOPHILS % (AUTO) 1.1 % (0.0-2.0); EOSINOPHILS # (AUTO) 0.1 K/uL (0.0-0.7); EOSINOPHILS % (AUTO) 1.7 % (0.0-7.0); HEMATOCRIT 26.6 % (31.2-41.9); HEMOGLOBIN 8.9 g/dL (10.9-14.3); LYMPHOCYTES % (AUTO) 18.9 % (20.5-51.5); MEAN CORPUSCULAR HEMOGLOBIN 31.3 uug (24.7-32.8); MEAN CORPUSCULAR HGB CONC 33 g/dL (32.3-35.6); MEAN CORPUSCULAR VOLUME 94.1 fL (75.5-95.3); MONOCYTES # (AUTO) 0.6 K/uL (2.0-10.0); MONOCYTES % (AUTO) 11.4 % (0.0-11.0); NEUTROPHILS # (AUTO) 3.6 K/uL (1.8-8.9); NEUTROPHILS % (AUTO) 66.9 % (38.5-71.5); PLATELET COUNT (AUTO) 229 K/uL (179-408); RED BLOOD CELL COUNT(AUTO) 2.83 MIL/uL (3.63-4.92); WHITE BLOOD COUNT (AUTO) 5.4 K/uL (3.8-11.8)
[2020-06-13 07:56] LABS: CARBON DIOXIDE 29 mmol/L (21-32); CHLORIDE 109 mmol/L (98-107); CREATININE 3.1 mg/dL (0.6-1.3); GLUCOSE 89 mg/dL (74-106); POTASSIUM 4.1 mmol/L (3.5-5.1); UREA NITROGEN, BLOOD 26 mg/dL (7-18)
[2020-06-13 09:57] VITALS: BP 109/49
[2020-06-13 15:04] VITALS: BP 118/49
[2020-06-13] MEDS: SIMVASTATIN 10 MG TABLET PO SCH (20:35)
[2020-06-13] MEDS: MIRTAZAPINE 15 MG TABLET PO SCH (20:35)
[2020-06-13] MEDS: SENNOSIDES 1 TABLET PO SCH (20:36)
[2020-06-13 21:39] VITALS: BP 127/70
--- NOTE | 2020-06-14 04:34 | NUR ---
in bed sleeping,vs are stable call light with in reach
[2020-06-14 05:30] VITALS: BP 107/59
[2020-06-14] MEDS: LEVOTHYROXINE SODIUM 50 MCG TABLET PO SCH (06:10)
--- NOTE | 2020-06-14 07:30 | NUR ---
Received patient resting in bed. No sign of distress noted at this time. Patient has a right AC 20 gauge hep lock. Skin is intact. Safety precautions are in place with call light and belongings within reach. Will continue to monitor.
[2020-06-14 08:00] VITALS: BP 112/57
[2020-06-14] MEDS: OMEGA-3 FATTY ACIDS/FISH OIL CAPSULE PO SCH (09:00)
[2020-06-14] MEDS: CITRIC ACID/SODIUM CITRATE 30 ML SOLUTION PO SCH (09:00)
[2020-06-14] MEDS: CALCIUM CARBONATE 500 MG TABLET PO SCH (09:00)
[2020-06-14] MEDS: AMLODIPINE 2.5 MG TABLET PO SCH (09:00)
[2020-06-14] MEDS: CHOLECALCIFEROL 1,000 UNIT TABLET PO SCH (09:00)
[2020-06-14] MEDS: AZATHIOPRINE 50 MG TABLET PO SCH (09:00)
[2020-06-14] MEDS: PROTEIN SUPPLEMENT (PROSTAT) 30 ML LIQUID PO SCH (09:00)
[2020-06-14] MEDS: CALCITRIOL 0.25 MCG CAPSULE PO SCH (09:07)
[2020-06-14] MEDS: PANTOPRAZOLE SODIUM 40 MG TABLET.DR PO SCH (09:07)
[2020-06-14] MEDS: ASCORBIC ACID 500 MG TABLET PO SCH (09:07)
[2020-06-14] MEDS: METOPROLOL TARTRATE 25 MG TABLET PO SCH (09:08)
[2020-06-14] MEDS: NEPRO (VANILLA) 237 ML CAN PO SCH (09:09)
--- NOTE | 2020-06-14 11:00 | NUR ---
Patient pulled out IV, cleaned, covered with gauze and tape. Patient is scheduled to be discharged today so will not try reinsertion. Will continue to monitor.
[2020-06-14 11:53] VITALS: BP 128/80
--- NOTE | 2020-06-14 13:05 | NUR ---
Patient was picked up by Kendra at 1250. All discharge paperwork and instructions sent with patient. Belongings list signed and sent with patient. Report was given to receiving facility [facility]. Report was take by Doris FLORES. All discharge instructions were endorse to the nurse at SNF.
[2020-06-16] MEDS ORDERED: CLONIDINE-TTS 3 PATCH TD SCH (15:30)
== END 2020-06-14 12:50 | DRG 698 ==
LOC: ER 11:06 → MEDSURG3 14:19
PROVIDERS: ADMIT Family Medicine; ATTEND Family Medicine
PROC: 5A1D70Z Performance of Urinary Filtration, Intermittent, Less than 6 Hours Per Day (ICD-10-PCS; principal; 2020-06-11)
DX: T82.41XA Breakdown (mechanical) of vascular dialysis catheter, initial encounter (principal); N18.6 End stage renal disease; E43 Unspecified severe protein-calorie malnutrition; I13.2 Hypertensive heart and chronic kidney disease with heart failure and with stage 5 chronic kidney disease, or end stage renal disease; E87.1 Hypo-osmolality and hyponatremia; M31.31 Wegener's granulomatosis with renal involvement; I50.32 Chronic diastolic (congestive) heart failure; Y92.128 Other place in nursing home as the place of occurrence of the external cause; N25.0 Renal osteodystrophy; Z99.2 Dependence on renal dialysis; E78.5 Hyperlipidemia, unspecified; G89.29 Other chronic pain; J44.9 Chronic obstructive pulmonary disease, unspecified; H35.30 Unspecified macular degeneration; E03.9 Hypothyroidism, unspecified; R73.9 Hyperglycemia, unspecified; F03.90 Unspecified dementia, unspecified severity, without behavioral disturbance, psychotic disturbance, mood disturbance, and anxiety; K21.9 Gastro-esophageal reflux disease without esophagitis; R53.1 Weakness; M13.0 Polyarthritis, unspecified; R13.10 Dysphagia, unspecified; Y84.8 Other medical procedures as the cause of abnormal reaction of the patient, or of later complication, without mention of misadventure at the time of the procedure; Y71.2 Prosthetic and other implants, materials and accessory cardiovascular devices associated with adverse incidents; E88.09 Other disorders of plasma-protein metabolism, not elsewhere classified; Z68.20 Body mass index [BMI] 20.0-20.9, adult
CPT/HCPCS: 36415; 71045; 83550; 83735; 84100; 85025; 85730; 86706; 87340; 93005; A4663; G0378; J2997; J7500

== ENCOUNTER 2020-06-26 20:59 | Inpatient (IN) | payer MEDICARE, OTHER ==
[~2020-06-26] VITALS: Ht 165.1 cm; Wt 56.7 kg
[~2020-06-26 20:59] MED LIST changes: +ALPR1TAB2 PO; +AMIN30LI24 PO; +AMLO2.5T4 PO; -AMLO5TAB9 PO; +MIRT-121 PO; -MIRT15TA PO; +vitamin D3
--- NOTE | 2020-06-26 22:30 | NUR ---
Patient BIB by EMS from [facility], for port a cath malfunction. Port a cath located on right upper chest area. Pt alert but confused and disoriented. In no acute distress.
--- NOTE | 2020-06-26 22:32 | NUR ---
Dr. Travis at bedside for MSE.
[2020-06-26 22:42] LABS: BASOPHILS % (AUTO) 0.3 % (0.0-2.0); EOSINOPHILS # (AUTO) 0.1 K/uL (0.0-0.7); EOSINOPHILS % (AUTO) 1.4 % (0.0-7.0); HEMATOCRIT 28.2 % (31.2-41.9); HEMOGLOBIN 9.4 g/dL (10.9-14.3); LYMPHOCYTES # (AUTO) 1.8 K/uL (20.0-40.0); MEAN CORPUSCULAR HEMOGLOBIN 31.4 uug (24.7-32.8); MEAN CORPUSCULAR HGB CONC 33 g/dL (32.3-35.6); MEAN CORPUSCULAR VOLUME 94.4 fL (75.5-95.3); MONOCYTES # (AUTO) 0.6 K/uL (2.0-10.0); MONOCYTES % (AUTO) 9.9 % (0.0-11.0); NEUTROPHILS # (AUTO) 3.5 K/uL (1.8-8.9); NEUTROPHILS % (AUTO) 58.4 % (38.5-71.5); PLATELET COUNT (AUTO) 358 K/uL (179-408); RED BLOOD CELL COUNT(AUTO) 2.98 MIL/uL (3.63-4.92); WHITE BLOOD COUNT (AUTO) 5.9 K/uL (3.8-11.8)
[2020-06-26 22:56] LABS: ALANINE AMINOTRANSFERASE 11 U/L (14-59); ALKALINE PHOSPHATASE 64 U/L (50-136); ASPARTATE AMINOTRANSFERASE 17 U/L (15-37); BILIRUBIN,DIRECT 0.1 mg/dL (0.0-0.2); BILIRUBIN,TOTAL 0.2 mg/dL (0.2-1.0); CARBON DIOXIDE 24 mmol/L (21-32); CHLORIDE 99 mmol/L (98-107); CREATININE 4.8 mg/dL (0.6-1.3); GLUCOSE 89 mg/dL (74-106); POTASSIUM 4.3 mmol/L (3.5-5.1); TOTAL PROTEIN, SERUM 6.1 g/dL (6.4-8.2); UREA NITROGEN, BLOOD 29 mg/dL (7-18)
[2020-06-26] MEDS ORDERED: ALBUTEROL SULFATE 2.5 MG/ 0.5 ML NEBU NEB PRN (23:15)
[2020-06-26] MEDS ORDERED: BISACODYL 10 MG SUPP.RECT RC PRN (23:15)
[2020-06-26] MEDS ORDERED: Z GUARD REMEDY PASTE 57 GM TUBE TOP PRN (23:15)
[2020-06-26] MEDS ORDERED: hydrALAZINE HCL 25 MG TABLET PO PRN (23:15)
--- NOTE | 2020-06-26 23:20 | NUR ---
Dr. Travis on panel call with Dr. Carpenter. Patient accepted for admission to [facility] unit, Dx Port a cath malfunction.
[2020-06-26] MEDS ORDERED: MORPHINE SULFATE 2 MG/1 ML DISP.SYRIN IV PRN (23:30)
--- NOTE | 2020-06-27 00:40 | NUR ---
Pt. admitted to [facility] unit, room 312, under care of Dr. Carpenter. Report given to MARK Puri. Belongings List completed and sent with patient.
--- NOTE | 2020-06-27 00:45 | NUR ---
Received patient via gurney from ED. Pt awake and confused. No s/s of acute distress noted at this time. Right hand 22g IV patent and intact. Safety measures in place. Bed locked, low, and alarm on. Will continue to monitor.
[2020-06-27 00:55] VITALS: BP 120/55
[2020-06-27] MEDS ORDERED: HALOPERIDOL LACTATE 5 MG/1 ML VIAL IM PRN (01:15)
[2020-06-27 05:10] VITALS: BP 124/64
[2020-06-27] MEDS: LEVOTHYROXINE SODIUM 50 MCG TABLET PO SCH (06:37)
[2020-06-27] MEDS: PANTOPRAZOLE SODIUM 40 MG TABLET.DR PO SCH (06:37)
[2020-06-27] MEDS ORDERED: ALBUTEROL SULFATE 2.5 MG/3 ML NEBU NEB PRN (07:15)
[2020-06-27 07:37] LABS: CARBON DIOXIDE 26 mmol/L (21-32); CHLORIDE 100 mmol/L (98-107); CREATININE 5.1 mg/dL (0.6-1.3); GLUCOSE 87 mg/dL (74-106); MAGNESIUM 2.2 mg/dL (1.8-2.4); PHOSPHOROUS 4.9 mg/dL (2.5-4.9); POTASSIUM 4.5 mmol/L (3.5-5.1); UREA NITROGEN, BLOOD 32 mg/dL (7-18)
[2020-06-27 07:46] LABS: ALANINE AMINOTRANSFERASE 14 U/L (14-59); ALKALINE PHOSPHATASE 66 U/L (50-136); ASPARTATE AMINOTRANSFERASE 20 U/L (15-37); BILIRUBIN,TOTAL 0.2 mg/dL (0.2-1.0); TOTAL PROTEIN, SERUM 6.3 g/dL (6.4-8.2)
[2020-06-27] MEDS ORDERED: PROTEIN SUPPLEMENT (PROSTAT) 30 ML LIQUID PO SCH ×2 (08:00)
[2020-06-27] MEDS ORDERED: Medication Not On Formulary EA (Protein Supplement (Prosource) 30 ML) PO SCH (08:00)
--- NOTE | 2020-06-27 08:00 | NUR ---
received pt. resting in bed alert oriented x2. pt appears in no distress, appears in no pain. pt. on room air saturating well. IV intact on R hand 22 gauge saline lock. safety measures in place. call light within reach. will continue to monitor pt.
[2020-06-27] MEDS: BETA CAROTENE/VIT C & E/MIN TABLET PO SCH ×2 (08:54→16:28)
[2020-06-27] MEDS: CALCIUM CARBONATE 500 MG TABLET PO SCH (08:54)
[2020-06-27] MEDS: ASCORBIC ACID 500 MG TABLET PO SCH (08:54)
[2020-06-27] MEDS: OMEGA-3 FATTY ACIDS/FISH OIL CAPSULE PO SCH (08:54)
[2020-06-27] MEDS: CHOLECALCIFEROL 1,000 UNIT TABLET PO SCH (08:54)
[2020-06-27] MEDS: AMLODIPINE 2.5 MG TABLET PO SCH (08:55)
[2020-06-27] MEDS ORDERED: Medication Not On Formulary EA (Vit C/E/Zn/Coppr/Lutein/Zeaxan (Preservision Areds 2 Sof PO SCH (09:00)
[2020-06-27] MEDS: CALCITRIOL 0.25 MCG CAPSULE PO SCH (09:02)
[2020-06-27] MEDS: PROTEIN SUPPLEMENT (PROSTAT) 30 ML LIQUID PO SCH ×2 (09:02→16:28)
[2020-06-27] MEDS: AZATHIOPRINE 50 MG TABLET PO SCH (09:03)
[2020-06-27] MEDS: CITRIC ACID/SODIUM CITRATE 30 ML SOLUTION PO SCH ×4 (09:57→20:33)
[2020-06-27] MEDS: NEPRO (VANILLA) 237 ML CAN PO SCH ×2 (09:58→17:49)
[2020-06-27 11:50] VITALS: BP 103/47
[2020-06-27 14:54] LABS: BASOPHILS # (AUTO) 0.1 K/uL (0.0-8.0); BASOPHILS % (AUTO) 0.9 % (0.0-2.0); EOSINOPHILS # (AUTO) 0.2 K/uL (0.0-0.7); EOSINOPHILS % (AUTO) 2.3 % (0.0-7.0); HEMATOCRIT 29.5 % (31.2-41.9); HEMOGLOBIN 10.2 g/dL (10.9-14.3); LYMPHOCYTES # (AUTO) 1.6 K/uL (20.0-40.0); LYMPHOCYTES % (AUTO) 24.5 % (20.5-51.5); MEAN CORPUSCULAR HEMOGLOBIN 32.4 uug (24.7-32.8); MEAN CORPUSCULAR HGB CONC 35 g/dL (32.3-35.6); MEAN CORPUSCULAR VOLUME 93.9 fL (75.5-95.3); MONOCYTES # (AUTO) 0.6 K/uL (2.0-10.0); MONOCYTES % (AUTO) 9.6 % (0.0-11.0); NEUTROPHILS # (AUTO) 4.1 K/uL (1.8-8.9); NEUTROPHILS % (AUTO) 62.7 % (38.5-71.5); PLATELET COUNT (AUTO) 392 K/uL (179-408); RED BLOOD CELL COUNT(AUTO) 3.14 MIL/uL (3.63-4.92); WHITE BLOOD COUNT (AUTO) 6.5 K/uL (3.8-11.8)
[2020-06-27 16:19] VITALS: BP 107/57
[2020-06-27 16:25] LABS: *BILIRUBIN,URIN NEGATIVE (NEGATIVE); *BLOOD, URINE 3+ (NEGATIVE); *CLARITY,URINE TURBID (CLEAR); *COLOR,URINE YELLOW (YELLOW); *KETONES,URINE TRACE (NEGATIVE); *UROBILINOGEN,URINE 0.2 E.U./dl (NORMAL); LEUKOCYTE ESTERASE ,URINE 3+ (NEGATIVE); NITRITE, URINE NEGATIVE (NEGATIVE); PH,URINE 5.5 (5.0-8.0); UGLUCOSE NEGATIVE (NEGATIVE)
[2020-06-27 19:30] VITALS: BP 139/55
[2020-06-27] MEDS: MIRTAZAPINE 15 MG TABLET PO SCH (20:33)
[2020-06-27] MEDS: SENNOSIDES 1 TABLET PO SCH (20:33)
[2020-06-27] MEDS: SIMVASTATIN 10 MG TABLET PO SCH (20:33)
[2020-06-27 21:51] LABS: RBC,URINE 20-50 /HPF (0-3)
--- NOTE | 2020-06-27 21:51 | NUR ---
received patient lying in bed no s/s of acute distress and v/s stable. all medication administered and tolerated well. will continue to monitor.
[2020-06-27 21:52] LABS: BACTERIA,URINE MANY /HPF (NONE SEEN); SQUAMOUS EPITHELIAL CELL,UR FEW /HPF (NONE SEEN); WBC,URINE TNTC /HPF (0-3)
[2020-06-28 05:00] VITALS: BP 123/45
[2020-06-28] MEDS: PANTOPRAZOLE SODIUM 40 MG TABLET.DR PO SCH (06:05)
[2020-06-28] MEDS: LEVOTHYROXINE SODIUM 50 MCG TABLET PO SCH (06:05)
[2020-06-28 08:00] LABS: CARBON DIOXIDE 29 mmol/L (21-32); CHLORIDE 103 mmol/L (98-107); CREATININE 5.4 mg/dL (0.6-1.3); GLUCOSE 92 mg/dL (74-106); MAGNESIUM 2.2 mg/dL (1.8-2.4); PHOSPHOROUS 4.5 mg/dL (2.5-4.9); POTASSIUM 4.1 mmol/L (3.5-5.1); UREA NITROGEN, BLOOD 36 mg/dL (7-18)
[2020-06-28 08:02] LABS: BASOPHILS % (AUTO) 0.6 % (0.0-2.0); EOSINOPHILS # (AUTO) 0.1 K/uL (0.0-0.7); EOSINOPHILS % (AUTO) 2.3 % (0.0-7.0); HEMOGLOBIN 9.8 g/dL (10.9-14.3); LYMPHOCYTES # (AUTO) 1.6 K/uL (20.0-40.0); LYMPHOCYTES % (AUTO) 27.4 % (20.5-51.5); MEAN CORPUSCULAR HEMOGLOBIN 32.8 uug (24.7-32.8); MEAN CORPUSCULAR HGB CONC 35 g/dL (32.3-35.6); MEAN CORPUSCULAR VOLUME 94.1 fL (75.5-95.3); MONOCYTES # (AUTO) 0.6 K/uL (2.0-10.0); MONOCYTES % (AUTO) 9.9 % (0.0-11.0); NEUTROPHILS # (AUTO) 3.6 K/uL (1.8-8.9); NEUTROPHILS % (AUTO) 59.8 % (38.5-71.5); PLATELET COUNT (AUTO) 362 K/uL (179-408); RED BLOOD CELL COUNT(AUTO) 2.98 MIL/uL (3.63-4.92)
[2020-06-28] MEDS ORDERED: CLONIDINE-TTS 3 PATCH TD SCH (09:00)
[2020-06-28] MEDS: CITRIC ACID/SODIUM CITRATE 30 ML SOLUTION PO SCH ×4 (09:28→22:47)
[2020-06-28] MEDS: AZATHIOPRINE 50 MG TABLET PO SCH (09:28)
[2020-06-28] MEDS: AMLODIPINE 2.5 MG TABLET PO SCH (09:29)
[2020-06-28] MEDS: CALCITRIOL 0.25 MCG CAPSULE PO SCH (09:29)
[2020-06-28] MEDS: BETA CAROTENE/VIT C & E/MIN TABLET PO SCH ×2 (09:29→17:17)
[2020-06-28] MEDS: CALCIUM CARBONATE 500 MG TABLET PO SCH (09:29)
[2020-06-28] MEDS: ASCORBIC ACID 500 MG TABLET PO SCH (09:29)
[2020-06-28] MEDS: OMEGA-3 FATTY ACIDS/FISH OIL CAPSULE PO SCH (09:29)
[2020-06-28] MEDS: CHOLECALCIFEROL 1,000 UNIT TABLET PO SCH (09:29)
[2020-06-28] MEDS: PROTEIN SUPPLEMENT (PROSTAT) 30 ML LIQUID PO SCH ×2 (09:30→17:18)
[2020-06-28] MEDS: NEPRO (VANILLA) 237 ML CAN PO SCH ×2 (09:30→17:17)
--- NOTE | 2020-06-28 10:00 | NUR ---
Took over care for patient part way through the shift. Patient received awake, alert and oriented times 1 in bed. Patient sometimes experiences some confusion. Patient denies any pain or discomfort at this time. No shortness of breath is noted, patient is saturating well. Patient is on room air . No acute distress at this time. Safety measures are in place with call light and belongings within reach. Will continue to monitor
[2020-06-28] MEDS ORDERED: ALTEPLASE 2 MG VIAL IVP ONE (10:58)
[2020-06-28 11:36] VITALS: BP 135/64
[2020-06-28] MEDS: CEphaleXIN 250 MG CAPSULE PO SCH (13:22)
[2020-06-28 16:00] VITALS: BP 153/69
--- NOTE | 2020-06-28 18:41 | NUR ---
Checked patient blood pressure to see if Clonidine patch may be needed. BP is 130/71 with a heart rate of 95. Will continue to monitor.
--- NOTE | 2020-06-28 18:43 | NUR ---
Patient is resting comfortably in bed. No sign of distress noted at this time. Patient denies any pain at this time. Safety precautions are in place bed in the lowest position, locked with alarm activated, call light and belongings are within reach. Will endorse to the oncoming nurse.
[2020-06-28 20:43] VITALS: BP 121/58
[2020-06-28] MEDS: MIRTAZAPINE 15 MG TABLET PO SCH ×2 (21:00→22:47)
--- NOTE | 2020-06-28 22:30 | NUR ---
Hemodialysis at bedside completed. Pt tolerated well. 500mL removed. Will continue to monitor
[2020-06-28] MEDS: SENNOSIDES 1 TABLET PO SCH ×2 (22:47→23:00)
[2020-06-28] MEDS: SIMVASTATIN 10 MG TABLET PO SCH ×2 (22:47→23:00)
--- NOTE | 2020-06-28 23:00 | NUR ---
PT refused evening medications after dialysis. Multiple attempts and route salesman used. Will continue to monitor
[2020-06-29] MEDS: PANTOPRAZOLE SODIUM 40 MG TABLET.DR PO SCH (06:16)
[2020-06-29] MEDS: LEVOTHYROXINE SODIUM 50 MCG TABLET PO SCH (06:16)
[2020-06-29 06:44] LABS: BASOPHILS # (AUTO) 0.1 K/uL (0.0-8.0); BASOPHILS % (AUTO) 1.3 % (0.0-2.0); EOSINOPHILS # (AUTO) 0.2 K/uL (0.0-0.7); EOSINOPHILS % (AUTO) 2.7 % (0.0-7.0); HEMATOCRIT 29.8 % (31.2-41.9); HEMOGLOBIN 10.3 g/dL (10.9-14.3); LYMPHOCYTES # (AUTO) 1.8 K/uL (20.0-40.0); LYMPHOCYTES % (AUTO) 26.2 % (20.5-51.5); MEAN CORPUSCULAR HEMOGLOBIN 32.9 uug (24.7-32.8); MEAN CORPUSCULAR HGB CONC 35 g/dL (32.3-35.6); MEAN CORPUSCULAR VOLUME 95.3 fL (75.5-95.3); MONOCYTES # (AUTO) 0.6 K/uL (2.0-10.0); MONOCYTES % (AUTO) 8.6 % (0.0-11.0); NEUTROPHILS # (AUTO) 4.2 K/uL (1.8-8.9); NEUTROPHILS % (AUTO) 61.2 % (38.5-71.5); PLATELET COUNT (AUTO) 334 K/uL (179-408); RED BLOOD CELL COUNT(AUTO) 3.13 MIL/uL (3.63-4.92); WHITE BLOOD COUNT (AUTO) 6.8 K/uL (3.8-11.8)
[2020-06-29 06:48] LABS: CARBON DIOXIDE 31 mmol/L (21-32); CHLORIDE 107 mmol/L (98-107); CREATININE 3.3 mg/dL (0.6-1.3); GLUCOSE 123 mg/dL (74-106); PHOSPHOROUS 2.4 mg/dL (2.5-4.9); UREA NITROGEN, BLOOD 19 mg/dL (7-18)
[2020-06-29] MEDS: CALCIUM CARBONATE 500 MG TABLET PO SCH (08:48)
[2020-06-29] MEDS: OMEGA-3 FATTY ACIDS/FISH OIL CAPSULE PO SCH (08:48)
[2020-06-29] MEDS: CITRIC ACID/SODIUM CITRATE 30 ML SOLUTION PO SCH ×4 (08:48→20:56)
[2020-06-29] MEDS: BETA CAROTENE/VIT C & E/MIN TABLET PO SCH ×2 (08:48→16:23)
[2020-06-29] MEDS: CHOLECALCIFEROL 1,000 UNIT TABLET PO SCH (08:48)
[2020-06-29] MEDS: ASCORBIC ACID 500 MG TABLET PO SCH (08:48)
[2020-06-29] MEDS: AMLODIPINE 2.5 MG TABLET PO SCH (08:49)
[2020-06-29] MEDS: CALCITRIOL 0.25 MCG CAPSULE PO SCH (08:49)
[2020-06-29] MEDS: PROTEIN SUPPLEMENT (PROSTAT) 30 ML LIQUID PO SCH ×2 (08:53→16:23)
[2020-06-29] MEDS: NEPRO (VANILLA) 237 ML CAN PO SCH ×2 (09:00→16:24)
[2020-06-29] MEDS: ONDANSETRON 4 MG/2 ML VIAL IV PRN ×2 (09:42→10:14)
[2020-06-29] MEDS: AZATHIOPRINE 50 MG TABLET PO SCH (10:04)
--- NOTE | 2020-06-29 11:00 | NUR ---
PATIENT RECEIVED IN BED, NO SOB, NO C/O PAIN NOTED, HEMODIALYSIS DONE = 1000ML REMOVED.
[2020-06-29] MEDS: ACETAMINOPHEN 325 MG TABLET PO PRN ×2 (11:31→12:34)
[2020-06-29] MEDS: CEphaleXIN 250 MG CAPSULE PO SCH (11:33)
[2020-06-29 12:00] VITALS: BP 119/59
[2020-06-29 15:58] VITALS: BP 135/56
--- NOTE | 2020-06-29 19:55 | NUR ---
Patient resting in bed awake alert and verbally responsive farsi speaking.No s/s of distress noted at this time.On RA.HD cath on right upper chest in place.Dressing clean and dry.Denies pain , no facial grimaces of discomfort.VSS. MEds given .No a/r noted.Safety measures in place.Call light with in reach.
[2020-06-29 20:26] VITALS: BP 120/60
[2020-06-29] MEDS: SIMVASTATIN 10 MG TABLET PO SCH (20:56)
[2020-06-29] MEDS: SENNOSIDES 1 TABLET PO SCH (20:56)
[2020-06-29] MEDS: MUPIROCIN 2% OINT 22 GM TUBE NS SCH (20:56)
[2020-06-29] MEDS: MIRTAZAPINE 15 MG TABLET PO SCH (20:56)
[2020-06-30 05:24] VITALS: BP 122/54
[2020-06-30 06:40] LABS: CARBON DIOXIDE 34 mmol/L (21-32); CHLORIDE 108 mmol/L (98-107); CREATININE 3.1 mg/dL (0.6-1.3); GLUCOSE 100 mg/dL (74-106); MAGNESIUM 2.1 mg/dL (1.8-2.4); PHOSPHOROUS 2.4 mg/dL (2.5-4.9); UREA NITROGEN, BLOOD 19 mg/dL (7-18)
[2020-06-30 06:41] LABS: BASOPHILS # (AUTO) 0.1 K/uL (0.0-8.0); BASOPHILS % (AUTO) 1.2 % (0.0-2.0); EOSINOPHILS # (AUTO) 0.3 K/uL (0.0-0.7); EOSINOPHILS % (AUTO) 4.2 % (0.0-7.0); HEMATOCRIT 27.7 % (31.2-41.9); HEMOGLOBIN 9.3 g/dL (10.9-14.3); LYMPHOCYTES # (AUTO) 1.5 K/uL (20.0-40.0); LYMPHOCYTES % (AUTO) 22.6 % (20.5-51.5); MEAN CORPUSCULAR HEMOGLOBIN 32.9 uug (24.7-32.8); MEAN CORPUSCULAR HGB CONC 34 g/dL (32.3-35.6); MEAN CORPUSCULAR VOLUME 97.9 fL (75.5-95.3); MONOCYTES # (AUTO) 0.6 K/uL (2.0-10.0); MONOCYTES % (AUTO) 9.6 % (0.0-11.0); NEUTROPHILS % (AUTO) 62.4 % (38.5-71.5); PLATELET COUNT (AUTO) 263 K/uL (179-408); RED BLOOD CELL COUNT(AUTO) 2.83 MIL/uL (3.63-4.92); WHITE BLOOD COUNT (AUTO) 6.5 K/uL (3.8-11.8)
[2020-06-30] MEDS: LEVOTHYROXINE SODIUM 50 MCG TABLET PO SCH (06:42)
[2020-06-30] MEDS: PANTOPRAZOLE SODIUM 40 MG TABLET.DR PO SCH (06:42)
--- NOTE | 2020-06-30 06:47 | NUR ---
Patient slept well.Denies pain.No respiratory distress noted.Changed and repositioned patient.VSS.All needs anticipated and met accordingly.
[2020-06-30] MEDS: OMEGA-3 FATTY ACIDS/FISH OIL CAPSULE PO SCH (09:00)
[2020-06-30] MEDS: CITRIC ACID/SODIUM CITRATE 30 ML SOLUTION PO SCH ×4 (09:00→20:14)
[2020-06-30] MEDS: ASCORBIC ACID 500 MG TABLET PO SCH (09:00)
[2020-06-30] MEDS: BETA CAROTENE/VIT C & E/MIN TABLET PO SCH ×2 (09:00→18:08)
[2020-06-30] MEDS: AZATHIOPRINE 50 MG TABLET PO SCH (09:00)
[2020-06-30] MEDS: CALCIUM CARBONATE 500 MG TABLET PO SCH (09:00)
[2020-06-30] MEDS: CHOLECALCIFEROL 1,000 UNIT TABLET PO SCH (09:00)
[2020-06-30] MEDS: CALCITRIOL 0.25 MCG CAPSULE PO SCH (09:00)
[2020-06-30] MEDS: NEPRO (VANILLA) 237 ML CAN PO SCH ×2 (09:14→17:39)
[2020-06-30] MEDS: AMLODIPINE 2.5 MG TABLET PO SCH (09:14)
[2020-06-30] MEDS: PROTEIN SUPPLEMENT (PROSTAT) 30 ML LIQUID PO SCH ×2 (09:15→17:40)
[2020-06-30] MEDS: MUPIROCIN 2% OINT 22 GM TUBE NS SCH ×2 (09:16→20:13)
[2020-06-30 11:33] VITALS: BP 134/62
[2020-06-30] MEDS: CEphaleXIN 250 MG CAPSULE PO SCH (12:24)
[2020-06-30 15:54] VITALS: BP 142/77
--- NOTE | 2020-06-30 15:54 | NUR ---
Pt received, assessed, no acute distress, or SOB noted. Pt noncompliant with certain PO medications, refusing all following one BP pill in chocolate pudding. All comfort and safety needs attended to promptly. Pt assisted to bathroom with walker. MEDICAL RECORD LIBRARIAN made aware of no chemical VTE prophylaxis due to need for HD cath replacement procedure and previous anemia concerns. New order received to start on Diflucan. Will continue to monitor and follow up.
[2020-06-30] MEDS: FLUCONAZOLE 200 MG/NS 100ML IV 200 MG in PREMIXED 1 EACH IV SCH (17:46)
--- NOTE | 2020-06-30 19:00 | NUR ---
Pt in bed, sleeping, easy to arouse. No s/s of acute distress noted. V/S stable on room air. RH 22G intact. HD cath on R upper chest in place and dressing is clean and dry. Safety measures in place. Call light within reach. Will continue with the plan of care.
[2020-06-30] MEDS: SENNOSIDES 1 TABLET PO SCH (20:14)
[2020-06-30] MEDS: SIMVASTATIN 10 MG TABLET PO SCH (20:14)
[2020-06-30] MEDS: MIRTAZAPINE 15 MG TABLET PO SCH (20:14)
[2020-06-30 20:44] VITALS: BP 147/64
[2020-07-01 04:00] VITALS: BP 134/52
[2020-07-01] MEDS: LEVOTHYROXINE SODIUM 50 MCG TABLET PO SCH (06:46)
[2020-07-01] MEDS: PANTOPRAZOLE SODIUM 40 MG TABLET.DR PO SCH (06:46)
--- NOTE | 2020-07-01 06:51 | NUR ---
Pt slept through the night. No apparent distress noted at this time. V/S stable on room air. All medications given, pt tolerated. Fall and aspiration precaution maintained. Repositioned for comfort. R upper chest permacath dressing remained dry and intact. Comfort care and needs attended. Safety measures in place. Will endorse to oncoming nurse.
[2020-07-01 07:14] LABS: BASOPHILS # (AUTO) 0.1 K/uL (0.0-8.0); BASOPHILS % (AUTO) 0.8 % (0.0-2.0); EOSINOPHILS # (AUTO) 0.3 K/uL (0.0-0.7); EOSINOPHILS % (AUTO) 4.7 % (0.0-7.0); HEMATOCRIT 28.5 % (31.2-41.9); HEMOGLOBIN 9.6 g/dL (10.9-14.3); LYMPHOCYTES # (AUTO) 1.7 K/uL (20.0-40.0); LYMPHOCYTES % (AUTO) 24.1 % (20.5-51.5); MEAN CORPUSCULAR HEMOGLOBIN 32.8 uug (24.7-32.8); MEAN CORPUSCULAR HGB CONC 34 g/dL (32.3-35.6); MEAN CORPUSCULAR VOLUME 97.7 fL (75.5-95.3); MONOCYTES # (AUTO) 0.6 K/uL (2.0-10.0); MONOCYTES % (AUTO) 8.6 % (0.0-11.0); NEUTROPHILS # (AUTO) 4.3 K/uL (1.8-8.9); NEUTROPHILS % (AUTO) 61.8 % (38.5-71.5); PLATELET COUNT (AUTO) 244 K/uL (179-408); RED BLOOD CELL COUNT(AUTO) 2.92 MIL/uL (3.63-4.92)
[2020-07-01 07:29] LABS: CARBON DIOXIDE 35 mmol/L (21-32); CHLORIDE 106 mmol/L (98-107); CREATININE 3.6 mg/dL (0.6-1.3); GLUCOSE 97 mg/dL (74-106); MAGNESIUM 2.4 mg/dL (1.8-2.4); PHOSPHOROUS 3.2 mg/dL (2.5-4.9); POTASSIUM 4.2 mmol/L (3.5-5.1); UREA NITROGEN, BLOOD 29 mg/dL (7-18)
--- NOTE | 2020-07-01 07:30 | NUR ---
Patient received awake, alert and oriented times 1 in bed. Patient sometimes experiences some confusion. Patient denies any pain or discomfort at this time. No shortness of breath is noted, patient is saturating well. Patient is on room air . No acute distress at this time. Safety measures are in place with call light and belongings within reach. Will continue to monitor.
[2020-07-01] MEDS: AMLODIPINE 2.5 MG TABLET PO SCH (09:00)
[2020-07-01] MEDS: NEPRO (VANILLA) 237 ML CAN PO SCH ×2 (09:00→17:42)
[2020-07-01] MEDS: PROTEIN SUPPLEMENT (PROSTAT) 30 ML LIQUID PO SCH ×2 (09:00→17:42)
--- NOTE | 2020-07-01 09:30 | NUR ---
Received telephone order from Dr Dusty Dodd to Keep patient NPO for surgery and get consent signed for revision of permacath. Read back done, will place orders. Will continue to monitor.
[2020-07-01] MEDS: BETA CAROTENE/VIT C & E/MIN TABLET PO SCH ×2 (09:39→17:41)
[2020-07-01] MEDS: CHOLECALCIFEROL 1,000 UNIT TABLET PO SCH (09:39)
[2020-07-01] MEDS: OMEGA-3 FATTY ACIDS/FISH OIL CAPSULE PO SCH (09:39)
[2020-07-01] MEDS: CITRIC ACID/SODIUM CITRATE 30 ML SOLUTION PO SCH ×5 (09:39→21:00)
[2020-07-01] MEDS: ASCORBIC ACID 500 MG TABLET PO SCH (09:39)
[2020-07-01] MEDS: CALCIUM CARBONATE 500 MG TABLET PO SCH (09:39)
[2020-07-01] MEDS: MUPIROCIN 2% OINT 22 GM TUBE NS SCH ×2 (09:44→20:01)
[2020-07-01] MEDS: AZATHIOPRINE 50 MG TABLET PO SCH (09:45)
[2020-07-01] MEDS: CALCITRIOL 0.25 MCG CAPSULE PO SCH (09:45)
--- NOTE | 2020-07-01 09:45 | NUR ---
Patient is now NPO except for medications. Will continue to monitor.
[2020-07-01 11:57] VITALS: BP 122/67
[2020-07-01] MEDS: CEphaleXIN 250 MG CAPSULE PO SCH (12:00)
--- NOTE | 2020-07-01 12:00 | NUR ---
Gave report to Paige from surgery.
--- NOTE | 2020-07-01 12:35 | NUR ---
Patient picked up for surgery. Will continue to monitor when patient is back on the floor.
[2020-07-01] MEDS ORDERED: HEPARIN SODIUM,PORCINE 1,000 UNITS/ML VIAL ONE (12:43)
[2020-07-01] MEDS ORDERED: HEPARIN/NS 500 ML ONE (12:43)
[2020-07-01] MEDS ORDERED: IOPAMIDOL 15 ML VIAL IT ONE (12:43)
[2020-07-01] MEDS ORDERED: CLINDAMYCIN PHOSPHATE 600 MG/4 ML VIAL ONE (13:03)
[2020-07-01] MEDS ORDERED: FENTANYL CITRATE 100 MCG/2 ML AMPUL ONE (13:04)
[2020-07-01] MEDS ORDERED: BUPIVACAINE 0.25% 30 ML VIAL ONE (13:52)
[2020-07-01] MEDS ORDERED: LIDOCAINE 1%-EPI 1:100,000 20 ML VIAL ONE (13:53)
[2020-07-01] MEDS ORDERED: LIDOCAINE HCL 1% 20 ML VIAL ONE ×2 (13:53→13:56)
--- NOTE | 2020-07-01 14:29 | NUR ---
Mitchell from Dialysis came to dialyze the patient but patient was still not back on the floor because she is not back from surgery. He is checking with his coordinator to see if patient dialysis can be changed to tomorrow. I gave him patient's most recent labs. Patient will be given dialysis tomorrow. Will endorse this to the oncoming nurse.
--- NOTE | 2020-07-01 15:10 | NUR ---
Received patient back on the floor from surgery. Patient is stable. Vital signs are within normal limits. BP is 120/59, HR 98, temperature is 97.5 and oxygen is 98%. Will continue to monitor.
[2020-07-01 16:10] VITALS: BP 120/69
[2020-07-01] MEDS: FLUCONAZOLE 200 MG/NS 100ML IV 200 MG in PREMIXED 1 EACH IV SCH (17:41)
--- NOTE | 2020-07-01 19:30 | NUR ---
Received pt alert to self awake in bed. No s/s of SOB or any acute distress at this time. Ordered medications given. Will continue to monitor.
[2020-07-01] MEDS: SENNOSIDES 1 TABLET PO SCH (20:00)
[2020-07-01] MEDS: MIRTAZAPINE 15 MG TABLET PO SCH (20:00)
[2020-07-01] MEDS: SIMVASTATIN 10 MG TABLET PO SCH (20:00)
[2020-07-01 20:27] VITALS: BP 162/80
[2020-07-02] MEDS: LEVOTHYROXINE SODIUM 50 MCG TABLET PO SCH (06:04)
[2020-07-02] MEDS: PANTOPRAZOLE SODIUM 40 MG TABLET.DR PO SCH (06:04)
--- NOTE | 2020-07-02 06:23 | NUR ---
Pt slept throughout the night with no complaints. Was checked on periodically and no acute distress noted. Morning meds given with no problem, patient tolerated all meds. Denies and SOB or pain. On 2L NC. Safety and comfort provided. Will endorse to day shift.
[2020-07-02 06:54] VITALS: BP 163/83
[2020-07-02 07:06] LABS: BASOPHILS # (AUTO) 0.1 K/uL (0.0-8.0); BASOPHILS % (AUTO) 0.7 % (0.0-2.0); EOSINOPHILS # (AUTO) 0.4 K/uL (0.0-0.7); EOSINOPHILS % (AUTO) 4.6 % (0.0-7.0); HEMATOCRIT 27.5 % (31.2-41.9); HEMOGLOBIN 9.3 g/dL (10.9-14.3); LYMPHOCYTES # (AUTO) 1.9 K/uL (20.0-40.0); LYMPHOCYTES % (AUTO) 20.8 % (20.5-51.5); MEAN CORPUSCULAR HEMOGLOBIN 32.9 uug (24.7-32.8); MEAN CORPUSCULAR HGB CONC 34 g/dL (32.3-35.6); MEAN CORPUSCULAR VOLUME 97.6 fL (75.5-95.3); MONOCYTES # (AUTO) 0.5 K/uL (2.0-10.0); MONOCYTES % (AUTO) 5.6 % (0.0-11.0); NEUTROPHILS # (AUTO) 6.3 K/uL (1.8-8.9); NEUTROPHILS % (AUTO) 68.3 % (38.5-71.5); PLATELET COUNT (AUTO) 197 K/uL (179-408); RED BLOOD CELL COUNT(AUTO) 2.82 MIL/uL (3.63-4.92); WHITE BLOOD COUNT (AUTO) 9.3 K/uL (3.8-11.8)
[2020-07-02 07:14] LABS: CARBON DIOXIDE 31 mmol/L (21-32); CHLORIDE 107 mmol/L (98-107); CREATININE 2.7 mg/dL (0.6-1.3); GLUCOSE 91 mg/dL (74-106); MAGNESIUM 2.2 mg/dL (1.8-2.4); PHOSPHOROUS 3.2 mg/dL (2.5-4.9); POTASSIUM 4.5 mmol/L (3.5-5.1); UREA NITROGEN, BLOOD 21 mg/dL (7-18)
--- NOTE | 2020-07-02 07:30 | NUR ---
Patient received awake, alert and oriented times 1 in bed. Patient sometimes experiences some confusion. Patient denies any pain or discomfort at this time. No shortness of breath noted, patient is saturating well on 2L of oxygen. . No acute distress noted at this time. Will try titrating later to see how patient does on room air. Safety measures are in place with call light and belongings within reach. Will continue to monitor.
[2020-07-02] MEDS: ASCORBIC ACID 500 MG TABLET PO SCH (09:00)
[2020-07-02] MEDS: OMEGA-3 FATTY ACIDS/FISH OIL CAPSULE PO SCH (09:00)
[2020-07-02] MEDS: CHOLECALCIFEROL 1,000 UNIT TABLET PO SCH (09:00)
[2020-07-02] MEDS: CALCIUM CARBONATE 500 MG TABLET PO SCH (09:00)
[2020-07-02] MEDS: BETA CAROTENE/VIT C & E/MIN TABLET PO SCH ×2 (09:00→17:55)
[2020-07-02] MEDS: PROTEIN SUPPLEMENT (PROSTAT) 30 ML LIQUID PO SCH ×2 (09:00→17:00)
[2020-07-02] MEDS: CITRIC ACID/SODIUM CITRATE 30 ML SOLUTION PO SCH ×4 (09:39→21:40)
[2020-07-02] MEDS: CALCITRIOL 0.25 MCG CAPSULE PO SCH (09:39)
[2020-07-02] MEDS: AZATHIOPRINE 50 MG TABLET PO SCH (09:40)
[2020-07-02] MEDS: AMLODIPINE 2.5 MG TABLET PO SCH (09:44)
[2020-07-02] MEDS: MUPIROCIN 2% OINT 22 GM TUBE NS SCH ×2 (09:44→21:00)
[2020-07-02] MEDS: NEPRO (VANILLA) 237 ML CAN PO SCH ×2 (09:45→17:00)
--- NOTE | 2020-07-02 11:00 | NUR ---
Made ELECTRICAL ACCESSORIES ASSEMBLER SHAHIDA aware of report given to me by the night nurse that patient permacath was not fully functional. ELECTRICAL ACCESSORIES ASSEMBLER made ELECTRICAL ACCESSORIES ASSEMBLER Ponce from [facility] know to follow up with tax examining technician to find out what the issue is. Will continue to monitor.
[2020-07-02 12:00] VITALS: BP 120/49
[2020-07-02] MEDS: CEphaleXIN 250 MG CAPSULE PO SCH (12:02)
[2020-07-02] MEDS: ACETAMINOPHEN 325 MG TABLET PO PRN (14:06)
[2020-07-02 20:06] VITALS: BP 117/57
[2020-07-02] MEDS: MIRTAZAPINE 15 MG TABLET PO SCH (21:40)
[2020-07-02] MEDS: SIMVASTATIN 10 MG TABLET PO SCH (21:40)
[2020-07-02] MEDS: SENNOSIDES 1 TABLET PO SCH (21:40)
[2020-07-03] MEDS: ACETAMINOPHEN 325 MG TABLET PO PRN ×2 (03:38→20:39)
[2020-07-03 04:06] VITALS: BP 122/87
[2020-07-03] MEDS: PANTOPRAZOLE SODIUM 40 MG TABLET.DR PO SCH (06:49)
[2020-07-03] MEDS: LEVOTHYROXINE SODIUM 50 MCG TABLET PO SCH (06:49)
[2020-07-03] MEDS: CHOLECALCIFEROL 1,000 UNIT TABLET PO SCH (08:08)
[2020-07-03] MEDS: BETA CAROTENE/VIT C & E/MIN TABLET PO SCH ×2 (08:08→16:19)
[2020-07-03] MEDS: ASCORBIC ACID 500 MG TABLET PO SCH (08:08)
[2020-07-03] MEDS: CALCIUM CARBONATE 500 MG TABLET PO SCH (08:08)
[2020-07-03] MEDS: OMEGA-3 FATTY ACIDS/FISH OIL CAPSULE PO SCH (08:08)
[2020-07-03] MEDS: AMLODIPINE 2.5 MG TABLET PO SCH (08:08)
[2020-07-03] MEDS: CALCITRIOL 0.25 MCG CAPSULE PO SCH (08:09)
[2020-07-03] MEDS: AZATHIOPRINE 50 MG TABLET PO SCH (08:09)
[2020-07-03] MEDS: PROTEIN SUPPLEMENT (PROSTAT) 30 ML LIQUID PO SCH ×2 (08:09→16:20)
[2020-07-03] MEDS: CITRIC ACID/SODIUM CITRATE 30 ML SOLUTION PO SCH ×4 (08:10→20:06)
[2020-07-03] MEDS: MUPIROCIN 2% OINT 22 GM TUBE NS SCH ×2 (08:10→20:47)
[2020-07-03] MEDS: NEPRO (VANILLA) 237 ML CAN PO SCH ×2 (08:33→16:19)
[2020-07-03 12:00] VITALS: BP 147/73
[2020-07-03 15:20] VITALS: BP 132/71
--- NOTE | 2020-07-03 16:37 | NUR ---
dialysis done 1500 ml removed .no adr noted
--- NOTE | 2020-07-03 19:45 | NUR ---
Patient alert speak Farsi, no complain of pain, no sob no chest pain, call light within reach. Patient has episode of agitation, calling out for staff, patient kept clean dry and comfortable, frequent visual check done, cont to monitor.
[2020-07-03 20:06] VITALS: BP 134/76
[2020-07-03] MEDS: SENNOSIDES 1 TABLET PO SCH (20:06)
[2020-07-03] MEDS: MIRTAZAPINE 15 MG TABLET PO SCH (20:06)
[2020-07-03] MEDS: SIMVASTATIN 10 MG TABLET PO SCH (20:07)
--- NOTE | 2020-07-03 22:00 | NUR ---
PATIENT AWAKE BUT FORGETFUL, PATIENT HAS EPISODE OF AGITATION, CONSTANTLY CALLING OUT, KEPT CLEAN DRY, AND REPOSITION, REORIENTED BUT NOT EFFECTIVE, WILL MEDICATED FOR AGITATION ORDERED. CONT TO MONITOR.
[2020-07-04 04:12] VITALS: BP 142/67
[2020-07-04] MEDS: PANTOPRAZOLE SODIUM 40 MG TABLET.DR PO SCH (06:12)
[2020-07-04] MEDS: LEVOTHYROXINE SODIUM 50 MCG TABLET PO SCH (06:12)
--- NOTE | 2020-07-04 06:12 | NUR ---
Patient awake but with confusion, no sob no chest pain, r chest perma cath dressing intact. Patient has no complain of pain at this time, patient speak Farsi but understand Welsh, and Farsi speaking staff available to interpret. Patient has episode of climbing out of bed, frequent visual check done, bed alarm is on, cont to monitor.
--- NOTE | 2020-07-04 07:30 | NUR ---
RECEIVED PT. IN BAD AWAKE, CONFUSED. NO VISIBLE DISCOMFORT NOTES. PERMA CATH IN PLACE TO CHEST AREA. SAFETY AND FALL PREVENTION IN PLACE. CALL LIGHT IN REACH, BED IN LOW AND LOCKED POSITION. ALL NEEDS MET. WILL CONTINUE TO MONITOR.
[2020-07-04] MEDS: MUPIROCIN 2% OINT 22 GM TUBE NS SCH (08:34)
[2020-07-04] MEDS: AZATHIOPRINE 50 MG TABLET PO SCH (08:34)
[2020-07-04] MEDS: ASCORBIC ACID 500 MG TABLET PO SCH (08:37)
[2020-07-04] MEDS: BETA CAROTENE/VIT C & E/MIN TABLET PO SCH (08:37)
[2020-07-04] MEDS: OMEGA-3 FATTY ACIDS/FISH OIL CAPSULE PO SCH (08:37)
[2020-07-04] MEDS: CALCIUM CARBONATE 500 MG TABLET PO SCH (08:37)
[2020-07-04] MEDS: CHOLECALCIFEROL 1,000 UNIT TABLET PO SCH (08:37)
[2020-07-04] MEDS: AMLODIPINE 2.5 MG TABLET PO SCH (08:38)
[2020-07-04] MEDS: CITRIC ACID/SODIUM CITRATE 30 ML SOLUTION PO SCH ×2 (08:39→13:27)
[2020-07-04] MEDS: CALCITRIOL 0.25 MCG CAPSULE PO SCH (08:39)
[2020-07-04] MEDS: NEPRO (VANILLA) 237 ML CAN PO SCH (08:39)
[2020-07-04] MEDS: PROTEIN SUPPLEMENT (PROSTAT) 30 ML LIQUID PO SCH (08:39)
[2020-07-04] MEDS ORDERED: HALO5VIA9 IM (11:34)
[2020-07-04] MEDS ORDERED: PANT40TA2 PO (11:34)
[2020-07-04] MEDS ORDERED: ALBU18HF2 INH (11:34)
[2020-07-04] MEDS ORDERED: BETA1TAB19 PO (11:34)
[2020-07-04 12:00] VITALS: BP 138/67
[2020-07-04 16:09] VITALS: BP 154/83
[2020-07-04] MEDS ORDERED: IV NORMAL SALINE 1000 ML BAG IV ONE (16:44)
[2020-07-04] MEDS ORDERED: PROPOFOL 200 MG/20 ML BOTTLE IV ONE (16:44)
--- NOTE | 2020-07-04 16:44 | NUR ---
DISCHARGED TO SNF. [facility] [phone]. DISCHARGE INSTRUCTIONS DONE AND SENT WITH PATIENT. BELONGINGS SENT WITH PATIENT. REPORT GIVEN TO NURSE IN [facility]. PATENT IN STABLE CONDITION. VS STABLE. PATIENT DOES NOT SHOW S/S OF DISTRESS. LEFT VIA GURNEY.
[2020-07-08] MEDS ORDERED: ALPR1TAB7 PO (11:28)
[2020-07-08] MEDS ORDERED: CHOL10005 PO (11:28)
[2020-07-08] MEDS ORDERED: DOCU100C36 PO (11:28)
== END 2020-07-04 16:45 | DRG 698 ==
LOC: ER 21:01 → MEDSURG3 23:55
PROVIDERS: ADMIT Registered Nurse; ATTEND Registered Nurse
PROC: 5A1D70Z Performance of Urinary Filtration, Intermittent, Less than 6 Hours Per Day (ICD-10-PCS; principal; 2020-06-28)
PROC: 0J2SXYZ Change Other Device in Head and Neck Subcutaneous Tissue and Fascia, External Approach (ICD-10-PCS; 2020-07-01)
DX: T82.41XA Breakdown (mechanical) of vascular dialysis catheter, initial encounter (principal); N18.6 End stage renal disease; I13.2 Hypertensive heart and chronic kidney disease with heart failure and with stage 5 chronic kidney disease, or end stage renal disease; B37.49 Other urogenital candidiasis; M31.31 Wegener's granulomatosis with renal involvement; G93.40 Encephalopathy, unspecified; I50.32 Chronic diastolic (congestive) heart failure; Z99.2 Dependence on renal dialysis; Z22.322 Carrier or suspected carrier of Methicillin resistant Staphylococcus aureus; D63.1 Anemia in chronic kidney disease; E03.9 Hypothyroidism, unspecified; E78.5 Hyperlipidemia, unspecified; F03.90 Unspecified dementia, unspecified severity, without behavioral disturbance, psychotic disturbance, mood disturbance, and anxiety; J44.9 Chronic obstructive pulmonary disease, unspecified; Z87.440 Personal history of urinary (tract) infections; R13.10 Dysphagia, unspecified; K21.9 Gastro-esophageal reflux disease without esophagitis; G89.29 Other chronic pain; Z86.19 Personal history of other infectious and parasitic diseases; Z88.0 Allergy status to penicillin; Z88.2 Allergy status to sulfonamides; R53.1 Weakness; N25.0 Renal osteodystrophy; Y83.8 Other surgical procedures as the cause of abnormal reaction of the patient, or of later complication, without mention of misadventure at the time of the procedure; Y92.129 Unspecified place in nursing home as the place of occurrence of the external cause
CPT/HCPCS: 36415; 70030-TC; 71045; 83735; 84100; 85025; 87086; 90937; 93005; A4649; A4663; C1758; G0378; J1450; J1630; J1644; J2405; J2997; J3010; J3490; J7030; J7040; J7050; J7500; Q9967

== ENCOUNTER 2020-08-03 12:40 | Inpatient (IN) | payer MEDICARE, OTHER ==
[~2020-08-03] VITALS: Ht 165.1 cm; Wt 74.9 kg
[~2020-08-03 12:40] MED LIST changes: -ALPR1TAB2 PO; +ALPR1TAB7 PO; -ASCO500T10 PO; -CALC0.254 PO; -CHOL100045 PO; +CHOL10005 PO; -CYCL30DR EACHEYE; +DOCU100C36 PO; -DOCU100C36 PR; -METO25TA6 PO; -ONDA4TAB5 PO; -PROT30LI PO; -SIMV10TA98 PO; -VIT1CAPS44 PO; -vitamin D3
[2020-08-03 13:37] LABS: BASOPHILS # (AUTO) 0.1 K/uL (0.0-8.0); EOSINOPHILS # (AUTO) 0.3 K/uL (0.0-0.7); HEMATOCRIT 32.2 % (31.2-41.9); HEMOGLOBIN 10.6 g/dL (10.9-14.3); LYMPHOCYTES # (AUTO) 1.6 K/uL (20.0-40.0); LYMPHOCYTES % (AUTO) 21.3 % (20.5-51.5); MEAN CORPUSCULAR HEMOGLOBIN 31.2 uug (24.7-32.8); MEAN CORPUSCULAR HGB CONC 33 g/dL (32.3-35.6); MEAN CORPUSCULAR VOLUME 94.5 fL (75.5-95.3); MONOCYTES # (AUTO) 0.6 K/uL (2.0-10.0); MONOCYTES % (AUTO) 8.1 % (0.0-11.0); NEUTROPHILS # (AUTO) 5.1 K/uL (1.8-8.9); NEUTROPHILS % (AUTO) 65.6 % (38.5-71.5); PLATELET COUNT (AUTO) 344 K/uL (179-408); RED BLOOD CELL COUNT(AUTO) 3.41 MIL/uL (3.63-4.92); WHITE BLOOD COUNT (AUTO) 7.7 K/uL (3.8-11.8)
[2020-08-03 13:43] LABS: CARBON DIOXIDE 24 mmol/L (21-32); CHLORIDE 98 mmol/L (98-107); CREATININE 3.5 mg/dL (0.6-1.3); GLUCOSE 123 mg/dL (74-106); POTASSIUM 4.8 mmol/L (3.5-5.1); UREA NITROGEN, BLOOD 45 mg/dL (7-18)
[2020-08-03 13:57] LABS: ALANINE AMINOTRANSFERASE 12 U/L (14-59); ALKALINE PHOSPHATASE 59 U/L (50-136); ASPARTATE AMINOTRANSFERASE 15 U/L (15-37); BILIRUBIN,DIRECT 0.1 mg/dL (0.0-0.2); BILIRUBIN,TOTAL 0.2 mg/dL (0.2-1.0); TOTAL PROTEIN, SERUM 6.7 g/dL (6.4-8.2)
[2020-08-03] MEDS ORDERED: DEXT15DR6 EACHEYE (14:46)
[2020-08-03] MEDS ORDERED: FOLI0.8T2 PO (14:54)
[2020-08-03] MEDS ORDERED: NUTR100037 FOOD (14:54)
[2020-08-03] MEDS ORDERED: ACETAMINOPHEN 325 MG TABLET PO PRN (17:15)
[2020-08-03] MEDS ORDERED: HYDROCODONE/APAP 5-325MG TABLET PO PRN (17:15)
[2020-08-03] MEDS ORDERED: ONDANSETRON 4 MG/2 ML VIAL IV PRN (17:15)
[2020-08-03] MEDS ORDERED: Z GUARD REMEDY PASTE 57 GM TUBE TOP PRN (17:15)
[2020-08-03] MEDS ORDERED: NORMAL SALINE IVP ONE ×2 (17:15→22:45)
[2020-08-03] MEDS ORDERED: ALTEPLASE IVP ONE ×2 (17:15→22:45)
[2020-08-03] MEDS ORDERED: MAGNESIUM HYDROXIDE 30 ML LIQUID UDC PO PRN (17:15)
--- NOTE | 2020-08-03 17:26 | NUR ---
Dr. Plunkett called and said that the pt will going to surgery for dialysis cath replacement tomorrow [id number].. pt should remain npo after midnight.
--- NOTE | 2020-08-03 19:35 | NUR ---
Patient will be going to 301B
--- NOTE | 2020-08-03 20:49 | NUR ---
Patient will be going to 301B TELE
--- NOTE | 2020-08-03 21:13 | NUR ---
Report given to MARK Alejandra for tele admission.
--- NOTE | 2020-08-03 22:12 | NUR ---
Patient transported to [facility] in stable condition. Patient went into room 301B.
[2020-08-03 23:20] VITALS: BP 136/67
--- NOTE | 2020-08-03 23:25 | NUR ---
Admitted patient to Tele unit from ER via [facility] by staff nurse.D/x of malfunction HD cath .Patient alert x1 farsi speaking .On RA.No acute distress noted .Iv on left AC 20 g patent and intact.HD cath on right upper chest in place.Dressing clean and dry.NPO after midnight.Head to toe assessment done.No skin breakdown.Safety measures in place.Call light with in reach.
--- NOTE | 2020-08-03 23:45 | NUR ---
Per report from Er patient might have HD cath replacement tomorrow.Received call from the pharmacy regarding the dosage of Alteplase (to be given by surgeon in OR).Clarified order with and changed order to 2 mg IVP .
[2020-08-04 00:41] VITALS: BP 124/69
[2020-08-04 06:45] VITALS: BP 113/53
[2020-08-04] MEDS ORDERED: ALTEPLASE 2 MG VIAL IVP ONE (09:00)
[2020-08-04 11:56] VITALS: BP 117/62
--- NOTE | 2020-08-04 14:00 | NUR ---
Spoke with Dr. Colon regarding Alteplase IVP HD and per MD she will talk to Dr. Hwang to have dialysis nurse administer during hemodialysis. Also informed Dr. Colon regarding patient's refusal of blood draw with no new order at this time.
[2020-08-04 16:00] VITALS: BP 118/59
--- NOTE | 2020-08-04 17:06 | NUR ---
PT refused upper arterial dopp and upper vein mapping. She wants me to do tmrw AM. Notified Dana Castaneda I will be here at 8am to attempt ultrasounds again.
[2020-08-04 21:01] VITALS: BP 107/58
--- NOTE | 2020-08-04 22:20 | NUR ---
Patient in bed.Awake farsi speaking.No s/s of acute distress noted. On RA.Iv on left AC 20 g patent and intact.No s/s of infiltration.PAtient stated room is cold. Provided warm blanket. NPO post midnight.Continue safety measures.Will continue to monitor.
[2020-08-05 04:38] VITALS: BP 127/67
--- NOTE | 2020-08-05 07:40 | NUR ---
RECEIVED PATIENT IN BED, ASLEEP, EASY TO WAKE UP TO NAME. AOX1. NO SIGNS OF DISTRESSED NOTED. LEFT AC INTACT. SAFETY AND FALL PRECAUTIONS IN PLACE. WILL CONTINUE TO MONITOR.
[2020-08-05] MEDS ORDERED: HEPARIN/NS 500 ML ONE (10:08)
[2020-08-05] MEDS ORDERED: LIDOCAINE HCL 1% 20 ML VIAL ONE (10:08)
[2020-08-05] MEDS ORDERED: HEPARIN SODIUM,PORCINE 1,000 UNITS/ML VIAL ONE ×2 (10:08→10:34)
[2020-08-05] MEDS ORDERED: IOPAMIDOL 15 ML VIAL IT ONE (10:35)
[2020-08-05 11:36] VITALS: BP 133/60
[2020-08-05 12:55] LABS: BASOPHILS # (AUTO) 0.1 K/uL (0.0-8.0); BASOPHILS % (AUTO) 1.4 % (0.0-2.0); EOSINOPHILS # (AUTO) 0.2 K/uL (0.0-0.7); EOSINOPHILS % (AUTO) 2.9 % (0.0-7.0); HEMATOCRIT 32.6 % (31.2-41.9); HEMOGLOBIN 10.7 g/dL (10.9-14.3); LYMPHOCYTES # (AUTO) 1.8 K/uL (20.0-40.0); LYMPHOCYTES % (AUTO) 23.4 % (20.5-51.5); MEAN CORPUSCULAR HEMOGLOBIN 30.9 uug (24.7-32.8); MEAN CORPUSCULAR HGB CONC 33 g/dL (32.3-35.6); MEAN CORPUSCULAR VOLUME 94.4 fL (75.5-95.3); MONOCYTES # (AUTO) 0.5 K/uL (2.0-10.0); NEUTROPHILS # (AUTO) 5.1 K/uL (1.8-8.9); NEUTROPHILS % (AUTO) 65.3 % (38.5-71.5); PLATELET COUNT (AUTO) 395 K/uL (179-408); RED BLOOD CELL COUNT(AUTO) 3.45 MIL/uL (3.63-4.92); WHITE BLOOD COUNT (AUTO) 7.8 K/uL (3.8-11.8)
[2020-08-05 13:12] LABS: CARBON DIOXIDE 19 mmol/L (21-32); CHLORIDE 104 mmol/L (98-107); CREATININE 3.9 mg/dL (0.6-1.3); GLUCOSE 86 mg/dL (74-106); MAGNESIUM 2.8 mg/dL (1.8-2.4); PHOSPHOROUS 5.6 mg/dL (2.5-4.9); POTASSIUM 4.9 mmol/L (3.5-5.1); UREA NITROGEN, BLOOD 54 mg/dL (7-18)
[2020-08-05 13:20] LABS: POTASSIUM 4.6 mmol/L (3.5-5.1)
[2020-08-05] MEDS ORDERED: CLINDAMYCIN PHOSPHATE 900 MG/6 ML VIAL IV ONE (13:27)
[2020-08-05] MEDS: APIXABAN 2.5 MG TABLET PO SCH ×2 (14:00→20:19)
[2020-08-05 16:02] VITALS: BP 136/61
[2020-08-05] MEDS ORDERED: LORAZEPAM 2 MG/1 ML VIAL IV STA (16:03)
--- NOTE | 2020-08-05 19:30 | NUR ---
RECEIVED PT AWAKE. PT RESTLESS, SHOUTING, DISTURBING OTHER PT , AGITATED. SAFETY AND COMFORT PROVIDED. WILL CONTINUE TO MONITOR.
[2020-08-05 20:00] VITALS: BP 162/79
[2020-08-05 21:00] VITALS: BP 145/82
--- NOTE | 2020-08-05 21:19 | NUR ---
PT GIVEN ATIVAN AT 2019H 0.5MG ONE TIME FOR PT RESTLESSNESS AND AGITATED. AFET AN HOUR PT CALM. RESTING WELL. PT TOLERATED IT WELL. SAFETY PROVIDED. WILL CONTINUE TO MONITOR.
[2020-08-06 04:41] VITALS: BP 136/58
--- NOTE | 2020-08-06 06:04 | NUR ---
PT SLEPT COMFORTABLY. PT IN NO ACUTE DISTRESS. IV INTACT. PT ON BILATERAL MITTEN. PT TURNED AND REPOSITIONED. SAFETY AND COMFORT PROVIDED. WILL ENDORSE TO INCOMING NURSE FOR CONTINUITY OF CARE.
[2020-08-06] MEDS: APIXABAN 2.5 MG TABLET PO SCH (08:27)
[2020-08-06] MEDS ORDERED: AMLODIPINE 2.5 MG TABLET PO SCH (09:45)
[2020-08-06 12:07] VITALS: BP 129/89
--- NOTE | 2020-08-06 12:51 | NUR ---
DC ORDERS RECEIVED NOTED AND CARRIED OUT,DC INSTRUCTION AND RN REPORT GIVEN TO THE [facility] GARCIA FLORES PER MD ORDERS PT LEFT THE FACILITY VIA AMBULANCES IN STABLE CONDITION
[2020-08-06] MEDS ORDERED: SEVOFLURANE 250 ML BOTTLE IH ONE (12:54)
[2020-08-06] MEDS ORDERED: CLINDAMYCIN PHOSPHATE 900 MG/6 ML VIAL IM ONE (12:54)
[2020-08-06] MEDS ORDERED: PROPOFOL 200 MG/20 ML BOTTLE IV ONE (12:54)
== END 2020-08-06 12:55 | DRG 673 ==
LOC: ER 12:42 → MEDSURG3 21:32 → TELE3 21:34 → MEDSURG3 08-04 09:35
PROVIDERS: ADMIT Student in an Organized Health Care Education/Training Program; ATTEND Internal Medicine
PROC: 0JH63XZ Insertion of Tunneled Vascular Access Device into Chest Subcutaneous Tissue and Fascia, Percutaneous Approach (ICD-10-PCS; principal; 2020-08-05)
PROC: 02HV33Z Insertion of Infusion Device into Superior Vena Cava, Percutaneous Approach (ICD-10-PCS; 2020-08-05)
PROC: B518YZA Fluoroscopy of Superior Vena Cava using Other Contrast, Guidance (ICD-10-PCS; 2020-08-05)
PROC: 5A1D70Z Performance of Urinary Filtration, Intermittent, Less than 6 Hours Per Day (ICD-10-PCS; 2020-08-05)
PROC: 05PY33Z Removal of Infusion Device from Upper Vein, Percutaneous Approach (ICD-10-PCS; 2020-08-05)
DX: T82.41XA Breakdown (mechanical) of vascular dialysis catheter, initial encounter (principal); N18.6 End stage renal disease; G93.41 Metabolic encephalopathy; I13.2 Hypertensive heart and chronic kidney disease with heart failure and with stage 5 chronic kidney disease, or end stage renal disease; D68.69 Other thrombophilia; E44.0 Moderate protein-calorie malnutrition; E87.1 Hypo-osmolality and hyponatremia; I50.32 Chronic diastolic (congestive) heart failure; K86.1 Other chronic pancreatitis; M31.31 Wegener's granulomatosis with renal involvement; I82.621 Acute embolism and thrombosis of deep veins of right upper extremity; E03.9 Hypothyroidism, unspecified; Z99.2 Dependence on renal dialysis; D63.1 Anemia in chronic kidney disease; E78.5 Hyperlipidemia, unspecified; G20 Parkinson's disease; F02.80 Dementia in other diseases classified elsewhere, unspecified severity, without behavioral disturbance, psychotic disturbance, mood disturbance, and anxiety; N28.1 Cyst of kidney, acquired; Z88.2 Allergy status to sulfonamides; Z91.81 History of falling; Z88.0 Allergy status to penicillin; K57.90 Diverticulosis of intestine, part unspecified, without perforation or abscess without bleeding; K80.20 Calculus of gallbladder without cholecystitis without obstruction; M19.90 Unspecified osteoarthritis, unspecified site; D50.0 Iron deficiency anemia secondary to blood loss (chronic); J45.909 Unspecified asthma, uncomplicated; Y83.8 Other surgical procedures as the cause of abnormal reaction of the patient, or of later complication, without mention of misadventure at the time of the procedure; Y92.129 Unspecified place in nursing home as the place of occurrence of the external cause; Y71.2 Prosthetic and other implants, materials and accessory cardiovascular devices associated with adverse incidents; Z68.27 Body mass index [BMI] 27.0-27.9, adult
CPT/HCPCS: 36415; 70030-TC; 71045; 83735; 84100; 84132; 85025; 85730; 90937; 93005; A4649; A4663; G0378; J1644; J2060; J2997; J3490; Q9967

== ENCOUNTER 2020-10-15 11:39 | Inpatient (IN) | payer MEDICARE, OTHER ==
[~2020-10-15] VITALS: Ht 167.6 cm; Wt 55.0 kg
[~2020-10-15 11:39] MED LIST changes: +FOLI0.8T2 PO; +NUTR100037 FOOD
[2020-10-15] MEDS ORDERED: LEVO125T8 PO (12:02)
[2020-10-15 12:12] LABS: BASOPHILS # (AUTO) 0.1 K/uL (0.0-8.0); BASOPHILS % (AUTO) 1.3 % (0.0-2.0); EOSINOPHILS # (AUTO) 0.2 K/uL (0.0-0.7); EOSINOPHILS % (AUTO) 2.8 % (0.0-7.0); HEMATOCRIT 27.9 % (31.2-41.9); HEMOGLOBIN 9.2 g/dL (10.9-14.3); LYMPHOCYTES # (AUTO) 1.3 K/uL (20.0-40.0); MEAN CORPUSCULAR HEMOGLOBIN 28.7 uug (24.7-32.8); MEAN CORPUSCULAR HGB CONC 33 g/dL (32.3-35.6); MEAN CORPUSCULAR VOLUME 87.3 fL (75.5-95.3); MONOCYTES # (AUTO) 0.5 K/uL (2.0-10.0); NEUTROPHILS % (AUTO) 65.9 % (38.5-71.5); PLATELET COUNT (AUTO) 371 K/uL (179-408); WHITE BLOOD COUNT (AUTO) 6.1 K/uL (3.8-11.8)
[2020-10-15 12:22] LABS: ALANINE AMINOTRANSFERASE 10 U/L (14-59); ALKALINE PHOSPHATASE 60 U/L (50-136); ASPARTATE AMINOTRANSFERASE 14 U/L (15-37); BILIRUBIN,DIRECT 0.1 mg/dL (0.0-0.2); BILIRUBIN,TOTAL 0.3 mg/dL (0.2-1.0); CARBON DIOXIDE 25 mmol/L (21-32); CHLORIDE 100 mmol/L (98-107); CREATININE 4.7 mg/dL (0.6-1.3); GLUCOSE 102 mg/dL (74-106); POTASSIUM 4.3 mmol/L (3.5-5.1); TOTAL PROTEIN, SERUM 6.9 g/dL (6.4-8.2); UREA NITROGEN, BLOOD 29 mg/dL (7-18)
[2020-10-15] MEDS ORDERED: ONDANSETRON 4 MG/2 ML VIAL IV PRN (14:00)
[2020-10-15] MEDS ORDERED: Z GUARD REMEDY PASTE 57 GM TUBE TOP PRN (14:00)
[2020-10-15] MEDS ORDERED: HYDROCODONE/APAP 5-325MG TABLET PO PRN (14:00)
[2020-10-15 15:30] VITALS: BP 104/59
[2020-10-15] MEDS: PROTEIN SUPPLEMENT (PROSTAT) 30 ML LIQUID PO SCH (18:30)
[2020-10-15] MEDS ORDERED: POLYVINYL ALCOHOL OPHT DROPS 15 ML BOTTLE EACHEYE PRN (18:30)
[2020-10-15] MEDS: NOVASOURCE RENAL 237 ML LIQUID PO SCH (18:49)
[2020-10-15 20:00] VITALS: BP 111/56
[2020-10-15] MEDS: SENNOSIDES 1 TABLET PO SCH (21:37)
[2020-10-15] MEDS: MIRTAZAPINE 15 MG TABLET PO SCH (21:38)
[2020-10-16 04:00] VITALS: BP 117/62
[2020-10-16 06:18] LABS: BASOPHILS # (AUTO) 0.2 K/uL (0.0-8.0); BASOPHILS % (AUTO) 3.3 % (0.0-2.0); EOSINOPHILS # (AUTO) 0.1 K/uL (0.0-0.7); EOSINOPHILS % (AUTO) 1.7 % (0.0-7.0); HEMATOCRIT 27.3 % (31.2-41.9); HEMOGLOBIN 9.1 g/dL (10.9-14.3); LYMPHOCYTES # (AUTO) 1.2 K/uL (20.0-40.0); LYMPHOCYTES % (AUTO) 17.5 % (20.5-51.5); MEAN CORPUSCULAR HEMOGLOBIN 28.9 uug (24.7-32.8); MEAN CORPUSCULAR HGB CONC 33 g/dL (32.3-35.6); MEAN CORPUSCULAR VOLUME 86.7 fL (75.5-95.3); MONOCYTES # (AUTO) 0.5 K/uL (2.0-10.0); MONOCYTES % (AUTO) 6.6 % (0.0-11.0); NEUTROPHILS # (AUTO) 4.8 K/uL (1.8-8.9); NEUTROPHILS % (AUTO) 70.9 % (38.5-71.5); PLATELET COUNT (AUTO) 398 K/uL (179-408); RED BLOOD CELL COUNT(AUTO) 3.15 MIL/uL (3.63-4.92); WHITE BLOOD COUNT (AUTO) 6.8 K/uL (3.8-11.8)
[2020-10-16] MEDS: PANTOPRAZOLE SODIUM 40 MG TABLET.DR PO SCH (06:45)
[2020-10-16 07:04] LABS: CARBON DIOXIDE 26 mmol/L (21-32); CHLORIDE 101 mmol/L (98-107); CREATININE 5.1 mg/dL (0.6-1.3); GLUCOSE 88 mg/dL (74-106); PHOSPHOROUS 4.4 mg/dL (2.5-4.9); POTASSIUM 4.5 mmol/L (3.5-5.1); UREA NITROGEN, BLOOD 33 mg/dL (7-18)
[2020-10-16 07:12] LABS: MAGNESIUM 2.4 mg/dL (1.8-2.4)
[2020-10-16 07:35] LABS: CHOLESTEROL 231 mg/dL (<200); HDL CHOLESTEROL 44 mg/dL (40-60); TRIGLYCERIDES 169 MG/DL (30-150)
[2020-10-16] MEDS: CHOLECALCIFEROL 1,000 UNIT TABLET PO SCH (08:03)
[2020-10-16] MEDS: DOCUSATE SODIUM 100 MG CAPSULE PO SCH (08:03)
[2020-10-16] MEDS: OMEGA-3 FATTY ACIDS/FISH OIL CAPSULE PO SCH (08:03)
[2020-10-16] MEDS: FOLIC ACID/VITAMIN B COMP W-C TABLET PO SCH (08:03)
[2020-10-16] MEDS: AMLODIPINE 2.5 MG TABLET PO SCH (08:04)
[2020-10-16] MEDS: AZATHIOPRINE 50 MG TABLET PO SCH (08:05)
[2020-10-16] MEDS: NOVASOURCE RENAL 237 ML LIQUID PO SCH ×2 (08:06→17:58)
[2020-10-16] MEDS: PROTEIN SUPPLEMENT (PROSTAT) 30 ML LIQUID PO SCH ×2 (08:07→17:58)
[2020-10-16] MEDS ORDERED: LEVOTHYROXINE SODIUM 125 MCG TABLET PO SCH (09:00)
[2020-10-16] MEDS ORDERED: ALTEPLASE 2 MG VIAL XX ONE (12:00)
[2020-10-16 16:08] VITALS: BP 115/55
[2020-10-16 20:00] VITALS: BP 110/53
[2020-10-16] MEDS: MIRTAZAPINE 15 MG TABLET PO SCH (20:14)
[2020-10-16] MEDS: SENNOSIDES 1 TABLET PO SCH (20:14)
[2020-10-17 04:03] VITALS: BP 109/66
[2020-10-17] MEDS: LEVOTHYROXINE SODIUM 125 MCG TABLET PO SCH (06:11)
[2020-10-17] MEDS: PANTOPRAZOLE SODIUM 40 MG TABLET.DR PO SCH (06:11)
[2020-10-17] MEDS: AMLODIPINE 2.5 MG TABLET PO SCH (08:01)
[2020-10-17] MEDS: FOLIC ACID/VITAMIN B COMP W-C TABLET PO SCH (08:01)
[2020-10-17] MEDS: DOCUSATE SODIUM 100 MG CAPSULE PO SCH (08:01)
[2020-10-17] MEDS: OMEGA-3 FATTY ACIDS/FISH OIL CAPSULE PO SCH (08:01)
[2020-10-17] MEDS: CHOLECALCIFEROL 1,000 UNIT TABLET PO SCH (08:01)
[2020-10-17] MEDS: NOVASOURCE RENAL 237 ML LIQUID PO SCH ×2 (08:02→16:11)
[2020-10-17] MEDS: PROTEIN SUPPLEMENT (PROSTAT) 30 ML LIQUID PO SCH ×2 (08:02→16:11)
[2020-10-17] MEDS: AZATHIOPRINE 50 MG TABLET PO SCH (08:03)
[2020-10-17] MEDS ORDERED: LEVO137T2 PO (09:48)
[2020-10-17 12:00] VITALS: BP 110/52
[2020-10-17 16:07] VITALS: BP 122/78
[2020-10-17 20:16] VITALS: BP 123/63
[2020-10-17] MEDS: MIRTAZAPINE 15 MG TABLET PO SCH (21:18)
[2020-10-17] MEDS: SENNOSIDES 1 TABLET PO SCH (21:18)
[2020-10-18 05:11] VITALS: BP 114/72
[2020-10-18] MEDS: PANTOPRAZOLE SODIUM 40 MG TABLET.DR PO SCH (06:21)
[2020-10-18] MEDS: LEVOTHYROXINE SODIUM 125 MCG TABLET PO SCH (06:21)
[2020-10-18 07:08] LABS: BASOPHILS # (AUTO) 0.1 K/uL (0.0-8.0); BASOPHILS % (AUTO) 1.3 % (0.0-2.0); EOSINOPHILS # (AUTO) 0.1 K/uL (0.0-0.7); EOSINOPHILS % (AUTO) 1.8 % (0.0-7.0); HEMATOCRIT 26.4 % (31.2-41.9); LYMPHOCYTES # (AUTO) 1.1 K/uL (20.0-40.0); LYMPHOCYTES % (AUTO) 16.6 % (20.5-51.5); MEAN CORPUSCULAR HEMOGLOBIN 29.7 uug (24.7-32.8); MEAN CORPUSCULAR HGB CONC 34 g/dL (32.3-35.6); MEAN CORPUSCULAR VOLUME 87.1 fL (75.5-95.3); MONOCYTES # (AUTO) 0.4 K/uL (2.0-10.0); MONOCYTES % (AUTO) 6.2 % (0.0-11.0); NEUTROPHILS # (AUTO) 5.1 K/uL (1.8-8.9); NEUTROPHILS % (AUTO) 74.1 % (38.5-71.5); PLATELET COUNT (AUTO) 335 K/uL (179-408); RED BLOOD CELL COUNT(AUTO) 3.03 MIL/uL (3.63-4.92); WHITE BLOOD COUNT (AUTO) 6.9 K/uL (3.8-11.8)
[2020-10-18 07:19] LABS: CARBON DIOXIDE 29 mmol/L (21-32); CHLORIDE 107 mmol/L (98-107); CREATININE 4.4 mg/dL (0.6-1.3); GLUCOSE 97 mg/dL (74-106); MAGNESIUM 2.3 mg/dL (1.8-2.4); PHOSPHOROUS 3.4 mg/dL (2.5-4.9); POTASSIUM 4.2 mmol/L (3.5-5.1); UREA NITROGEN, BLOOD 25 mg/dL (7-18)
[2020-10-18] MEDS: NOVASOURCE RENAL 237 ML LIQUID PO SCH ×2 (08:00→16:45)
[2020-10-18] MEDS: FOLIC ACID/VITAMIN B COMP W-C TABLET PO SCH (08:21)
[2020-10-18] MEDS: OMEGA-3 FATTY ACIDS/FISH OIL CAPSULE PO SCH (08:21)
[2020-10-18] MEDS: DOCUSATE SODIUM 100 MG CAPSULE PO SCH (08:21)
[2020-10-18] MEDS: AZATHIOPRINE 50 MG TABLET PO SCH (08:21)
[2020-10-18] MEDS: AMLODIPINE 2.5 MG TABLET PO SCH (08:21)
[2020-10-18] MEDS: CHOLECALCIFEROL 1,000 UNIT TABLET PO SCH (08:22)
[2020-10-18] MEDS: PROTEIN SUPPLEMENT (PROSTAT) 30 ML LIQUID PO SCH ×2 (08:22→16:45)
[2020-10-18] MEDS ORDERED: CLINDAMYCIN PHOSPHATE 600 MG/4 ML VIAL ONE (08:34)
[2020-10-18] MEDS ORDERED: LIDOCAINE HCL 2% 20 ML VIAL ONE (08:37)
[2020-10-18] MEDS ORDERED: IOPAMIDOL 15 ML VIAL IT ONE (08:38)
[2020-10-18] MEDS ORDERED: HEPARIN SODIUM,PORCINE 1,000 UNITS/ML VIAL ONE ×2 (08:39→08:49)
[2020-10-18] MEDS ORDERED: HEPARIN/NS 500 ML ONE (08:40)
[2020-10-18] MEDS ORDERED: PROPOFOL 200 MG/20 ML BOTTLE ONE (10:15)
[2020-10-18] MEDS ORDERED: LIDOCAINE-MPF 2% 5 ML VIAL ONE (10:15)
[2020-10-18 11:48] VITALS: BP 129/58
[2020-10-18 16:01] VITALS: BP 146/65
[2020-10-18] MEDS: MIRTAZAPINE 15 MG TABLET PO SCH (20:15)
[2020-10-18] MEDS: SENNOSIDES 1 TABLET PO SCH (20:15)
[2020-10-18 20:26] VITALS: BP 140/73
[2020-10-19 05:54] VITALS: BP 137/95
[2020-10-19] MEDS: LEVOTHYROXINE SODIUM 125 MCG TABLET PO SCH (06:42)
[2020-10-19] MEDS: PANTOPRAZOLE SODIUM 40 MG TABLET.DR PO SCH (06:42)
[2020-10-19 07:18] LABS: CARBON DIOXIDE 26 mmol/L (21-32); CHLORIDE 105 mmol/L (98-107); GLUCOSE 90 mg/dL (74-106); MAGNESIUM 2.1 mg/dL (1.8-2.4); PHOSPHOROUS 3.6 mg/dL (2.5-4.9); POTASSIUM 4.5 mmol/L (3.5-5.1); UREA NITROGEN, BLOOD 29 mg/dL (7-18)
[2020-10-19 07:40] LABS: BASOPHILS # (AUTO) 0.1 K/uL (0.0-8.0); BASOPHILS % (AUTO) 1.4 % (0.0-2.0); EOSINOPHILS # (AUTO) 0.3 K/uL (0.0-0.7); EOSINOPHILS % (AUTO) 4.7 % (0.0-7.0); HEMATOCRIT 25.8 % (31.2-41.9); HEMOGLOBIN 8.6 g/dL (10.9-14.3); LYMPHOCYTES # (AUTO) 0.8 K/uL (20.0-40.0); LYMPHOCYTES % (AUTO) 13.5 % (20.5-51.5); MEAN CORPUSCULAR HEMOGLOBIN 28.9 uug (24.7-32.8); MEAN CORPUSCULAR HGB CONC 33 g/dL (32.3-35.6); MEAN CORPUSCULAR VOLUME 87.1 fL (75.5-95.3); MONOCYTES # (AUTO) 0.3 K/uL (2.0-10.0); MONOCYTES % (AUTO) 5.6 % (0.0-11.0); NEUTROPHILS # (AUTO) 4.2 K/uL (1.8-8.9); NEUTROPHILS % (AUTO) 74.8 % (38.5-71.5); PLATELET COUNT (AUTO) 301 K/uL (179-408); RED BLOOD CELL COUNT(AUTO) 2.97 MIL/uL (3.63-4.92); WHITE BLOOD COUNT (AUTO) 5.7 K/uL (3.8-11.8)
[2020-10-19] MEDS: DOCUSATE SODIUM 100 MG CAPSULE PO SCH (08:14)
[2020-10-19] MEDS: OMEGA-3 FATTY ACIDS/FISH OIL CAPSULE PO SCH (08:14)
[2020-10-19] MEDS: CHOLECALCIFEROL 1,000 UNIT TABLET PO SCH (08:15)
[2020-10-19] MEDS: AMLODIPINE 2.5 MG TABLET PO SCH (08:15)
[2020-10-19] MEDS: AZATHIOPRINE 50 MG TABLET PO SCH (08:15)
[2020-10-19] MEDS: FOLIC ACID/VITAMIN B COMP W-C TABLET PO SCH (08:15)
[2020-10-19] MEDS: PROTEIN SUPPLEMENT (PROSTAT) 30 ML LIQUID PO SCH (08:22)
[2020-10-19] MEDS: NOVASOURCE RENAL 237 ML LIQUID PO SCH (08:22)
[2020-10-19 11:11] VITALS: BP 92/42
== END 2020-10-19 15:16 | DRG 698 ==
LOC: ER 11:39 → TELE3 14:14 → MEDSURG3 15:09
PROVIDERS: ADMIT Nurse Practitioner Acute Care; ATTEND Nurse Practitioner Acute Care
PROC: 0J2SXYZ Change Other Device in Head and Neck Subcutaneous Tissue and Fascia, External Approach (ICD-10-PCS; principal; 2020-10-18)
PROC: 02HV33Z Insertion of Infusion Device into Superior Vena Cava, Percutaneous Approach (ICD-10-PCS; 2020-10-18)
PROC: B518YZA Fluoroscopy of Superior Vena Cava using Other Contrast, Guidance (ICD-10-PCS; 2020-10-18)
PROC: 5A1D70Z Performance of Urinary Filtration, Intermittent, Less than 6 Hours Per Day (ICD-10-PCS; 2020-10-18)
DX: T82.41XA Breakdown (mechanical) of vascular dialysis catheter, initial encounter (principal); N18.6 End stage renal disease; M31.31 Wegener's granulomatosis with renal involvement; E44.0 Moderate protein-calorie malnutrition; I50.32 Chronic diastolic (congestive) heart failure; Z68.1 Body mass index [BMI] 19.9 or less, adult; I13.2 Hypertensive heart and chronic kidney disease with heart failure and with stage 5 chronic kidney disease, or end stage renal disease; Z99.2 Dependence on renal dialysis; E03.9 Hypothyroidism, unspecified; E78.5 Hyperlipidemia, unspecified; F03.90 Unspecified dementia, unspecified severity, without behavioral disturbance, psychotic disturbance, mood disturbance, and anxiety; J44.9 Chronic obstructive pulmonary disease, unspecified; Z88.2 Allergy status to sulfonamides; Z88.0 Allergy status to penicillin; Z20.822 Contact with and (suspected) exposure to COVID-19; D63.1 Anemia in chronic kidney disease; E88.09 Other disorders of plasma-protein metabolism, not elsewhere classified; G89.29 Other chronic pain; M13.0 Polyarthritis, unspecified; K21.9 Gastro-esophageal reflux disease without esophagitis; Y83.8 Other surgical procedures as the cause of abnormal reaction of the patient, or of later complication, without mention of misadventure at the time of the procedure; H35.30 Unspecified macular degeneration; Y71.2 Prosthetic and other implants, materials and accessory cardiovascular devices associated with adverse incidents; Z79.890 Hormone replacement therapy; Y92.129 Unspecified place in nursing home as the place of occurrence of the external cause
CPT/HCPCS: 36415; 71045; 83735; 84100; 84443; 85025; 85610; 85730; 93005; A4649; A4663; G0378; J1644; J2997; J3490; J7500; Q9967

== ENCOUNTER 2020-11-29 21:13 | Inpatient (IN) | payer MEDICARE, OTHER ==
[~2020-11-29] VITALS: Ht 167.6 cm; Wt 54.4 kg
[~2020-11-29 21:13] MED LIST changes: -BROM1.7D9 EACHEYE; -CALC500T88 PO; +LEVO137T2 PO; -LEVO50TA8 PO; -Nepro PO
[2020-11-29 22:51] LABS: BASOPHILS # (AUTO) 0.1 K/uL (0.0-8.0); BASOPHILS % (AUTO) 1.3 % (0.0-2.0); EOSINOPHILS # (AUTO) 0.1 K/uL (0.0-0.7); EOSINOPHILS % (AUTO) 1.5 % (0.0-7.0); HEMATOCRIT 36.2 % (31.2-41.9); HEMOGLOBIN 11.3 g/dL (10.9-14.3); LYMPHOCYTES # (AUTO) 1.3 K/uL (20.0-40.0); LYMPHOCYTES % (AUTO) 27.5 % (20.5-51.5); MEAN CORPUSCULAR HEMOGLOBIN 29.3 uug (24.7-32.8); MEAN CORPUSCULAR HGB CONC 31 g/dL (32.3-35.6); MEAN CORPUSCULAR VOLUME 93.7 fL (75.5-95.3); MONOCYTES # (AUTO) 0.8 K/uL (2.0-10.0); MONOCYTES % (AUTO) 16.4 % (0.0-11.0); NEUTROPHILS # (AUTO) 2.6 K/uL (1.8-8.9); NEUTROPHILS % (AUTO) 53.3 % (38.5-71.5); PLATELET COUNT (AUTO) 178 K/uL (179-408); RED BLOOD CELL COUNT(AUTO) 3.86 MIL/uL (3.63-4.92); WHITE BLOOD COUNT (AUTO) 4.8 K/uL (3.8-11.8)
[2020-11-29 22:56] LABS: CARBON DIOXIDE 25 mmol/L (21-32); CHLORIDE 103 mmol/L (98-107); GLUCOSE 109 mg/dL (74-106); POTASSIUM 3.4 mmol/L (3.5-5.1); UREA NITROGEN, BLOOD 26 mg/dL (7-18)
[2020-11-30 00:30] LABS: BAND % (MANUAL) 4 % (0-10); LYMPHOCYTES % (MANUAL) 32 % (20-40); MONOCYTES % (MANUAL) 5 % (2-10); NEUTROPHILS % (MANUAL) 59 % (42-75)
--- NOTE | 2020-11-30 01:06 | NUR ---
Received report from Sandra FLORES. #20SL RW intact,dressing dry intack.Awake ,alert to verbal.All belongings with patient.ED MD states able to flush ,draw from Right chest dialysis port,admiting MD notified of results, that MD advised admission. Addendum: 11/30/20 at 0111 by [email or web address] Received report from Sandra FLORES. Awake ,alert responds to touch.#20 angio SL RW dressing dry intact. Right chest dialysis post was accessed by ED MD,able to draw blood,flush. Admiting notified,aware advised to admit pt . Report to Rome FLORES.
[2020-11-30] MEDS ORDERED: POTASSIUM CHLORIDE 20 MEQ TAB.PRT.SR PO ONE (01:45)
[2020-11-30 01:58] VITALS: BP 146/85
[2020-11-30] MEDS ORDERED: ALBUTEROL SULFATE 2.5 MG/3 ML NEBU NEB PRN (02:15)
[2020-11-30] MEDS ORDERED: ONDANSETRON 4 MG/2 ML VIAL IV PRN (02:15)
--- NOTE | 2020-11-30 02:20 | NUR ---
Pt arrived at 0130 via gurney from the ER. AAO x1, Farsi speaking. No acute distress noted. Dialysis pt with malfunctioning dialysis cath located in the right chest wall. IV on right wrist #20 heplock, patent and intact. Turned and repositioned. Both heels offloaded. Safety measures maintained. Call light and personal items within reach. Will continue to monitor.
[2020-11-30 04:55] VITALS: BP 147/76
[2020-11-30] MEDS: PANTOPRAZOLE SODIUM 40 MG TABLET.DR PO SCH (06:11)
[2020-11-30 07:06] LABS: BASOPHILS # (AUTO) 0.1 K/uL (0.0-8.0); BASOPHILS % (AUTO) 1.4 % (0.0-2.0); EOSINOPHILS # (AUTO) 0.1 K/uL (0.0-0.7); EOSINOPHILS % (AUTO) 3.3 % (0.0-7.0); HEMATOCRIT 34.8 % (31.2-41.9); HEMOGLOBIN 11.2 g/dL (10.9-14.3); LYMPHOCYTES # (AUTO) 1.2 K/uL (20.0-40.0); LYMPHOCYTES % (AUTO) 27.4 % (20.5-51.5); MEAN CORPUSCULAR HEMOGLOBIN 29.5 uug (24.7-32.8); MEAN CORPUSCULAR HGB CONC 32 g/dL (32.3-35.6); MEAN CORPUSCULAR VOLUME 91.2 fL (75.5-95.3); MONOCYTES # (AUTO) 0.7 K/uL (2.0-10.0); MONOCYTES % (AUTO) 17.4 % (0.0-11.0); NEUTROPHILS # (AUTO) 2.2 K/uL (1.8-8.9); NEUTROPHILS % (AUTO) 50.5 % (38.5-71.5); PLATELET COUNT (AUTO) 173 K/uL (179-408); RED BLOOD CELL COUNT(AUTO) 3.81 MIL/uL (3.63-4.92); WHITE BLOOD COUNT (AUTO) 4.3 K/uL (3.8-11.8)
[2020-11-30 07:34] LABS: ALKALINE PHOSPHATASE 61 U/L (50-136); ASPARTATE AMINOTRANSFERASE 9 U/L (15-37); BILIRUBIN,TOTAL 0.5 mg/dL (0.2-1.0); CARBON DIOXIDE 28 mmol/L (21-32); CHLORIDE 104 mmol/L (98-107); CREATININE 4.1 mg/dL (0.6-1.3); GLUCOSE 80 mg/dL (74-106); MAGNESIUM 1.9 mg/dL (1.8-2.4); PHOSPHOROUS 3.1 mg/dL (2.5-4.9); POTASSIUM 3.3 mmol/L (3.5-5.1); TOTAL PROTEIN, SERUM 5.7 g/dL (6.4-8.2); UREA NITROGEN, BLOOD 26 mg/dL (7-18)
[2020-11-30 07:53] LABS: ALANINE AMINOTRANSFERASE < 6 U/L (14-59)
--- NOTE | 2020-11-30 08:37 | NUR ---
RECEIVED PATIENT ASLEEP BUT IS EASILY AROUSABLE. VSS. NOTIFIED MD HOME MEDICATIONS INPUTTED AND TO BE RECONCILED. SAFETY PRECAUTIONS IN PLACE. WILL CONTINUE TO MONITOR.
[2020-11-30 08:48] VITALS: BP 150/70
[2020-11-30 09:11] LABS: BAND % (MANUAL) 1 % (0-10); EOSINOPHILS % (MANUAL) 2 % (0-8); LYMPHOCYTES % (MANUAL) 31 % (20-40); MONOCYTES % (MANUAL) 6 % (2-10); NEUTROPHILS % (MANUAL) 60 % (42-75)
[2020-11-30 16:21] VITALS: BP 147/85
[2020-11-30] MEDS ORDERED: POLYVINYL ALCOHOL OPHT DROPS 15 ML BOTTLE EACHEYE PRN (17:45)
[2020-11-30] MEDS ORDERED: BISACODYL 10 MG SUPP.RECT RC PRN (17:45)
--- NOTE | 2020-11-30 19:30 | NUR ---
RECEIVED PT AWAKE,ALERT AND ORIENTEDX2. PT IN NO ACUTE DISTRESS. IV INTACT. SAFETY AND COMFORT PROVIDED. WILL CONTINUE TO MONITOR.
[2020-11-30 20:17] VITALS: BP 159/54
[2020-11-30] MEDS: CITRIC ACID PO SCH (20:49)
[2020-11-30] MEDS: SENNOSIDES 1 TABLET PO SCH (20:49)
[2020-11-30] MEDS: SODIUM CITRATE PO SCH (20:49)
[2020-11-30] MEDS: ACETAMINOPHEN 325 MG TABLET PO PRN (20:49)
[2020-11-30] MEDS: MIRTAZAPINE 15 MG TABLET PO SCH (20:50)
[2020-11-30] MEDS: HEPARIN SODIUM,PORCINE 5,000 UNITS/ML VIAL SQ SCH (20:52)
[2020-12-01 00:17] VITALS: BP 174/95
[2020-12-01] MEDS: hydrALAZINE HCL 25 MG TABLET PO PRN (03:00)
[2020-12-01] MEDS: Z GUARD REMEDY PASTE 57 GM TUBE TOP PRN ×2 (04:18→08:37)
[2020-12-01 04:28] VITALS: BP 163/84
[2020-12-01] MEDS: PANTOPRAZOLE SODIUM 40 MG TABLET.DR PO SCH (06:02)
[2020-12-01] MEDS: LEVOTHYROXINE SODIUM 137 MCG TABLET PO SCH (06:03)
--- NOTE | 2020-12-01 06:15 | NUR ---
PT SLEPT INTERMITTENTLY. PRESCRIBED MEDICATION GIVEN AND PT TOLERATED IT WELL. IV INTACT. PRN APRESOLINE GIVEN FOR BP MORE THAN 160. PT ASYMPTOMATIC. NO SIGNS OF DISTRESS NOTED. SAFETY AND COMFORT PROVIDED. ALL NEEDS ARE MET. WILL ENDORSE TO INCOMING NURSE FOR CONTINUITY OF CARE.
[2020-12-01 06:35] VITALS: BP 132/70
[2020-12-01 06:51] LABS: BASOPHILS # (AUTO) 0.1 K/uL (0.0-8.0); EOSINOPHILS # (AUTO) 0.2 K/uL (0.0-0.7); EOSINOPHILS % (AUTO) 4.4 % (0.0-7.0); HEMATOCRIT 35.3 % (31.2-41.9); HEMOGLOBIN 11.4 g/dL (10.9-14.3); LYMPHOCYTES # (AUTO) 1.2 K/uL (20.0-40.0); LYMPHOCYTES % (AUTO) 22.2 % (20.5-51.5); MEAN CORPUSCULAR HEMOGLOBIN 29.3 uug (24.7-32.8); MEAN CORPUSCULAR HGB CONC 32 g/dL (32.3-35.6); MEAN CORPUSCULAR VOLUME 90.7 fL (75.5-95.3); MONOCYTES # (AUTO) 0.8 K/uL (2.0-10.0); MONOCYTES % (AUTO) 13.7 % (0.0-11.0); NEUTROPHILS # (AUTO) 3.3 K/uL (1.8-8.9); NEUTROPHILS % (AUTO) 58.7 % (38.5-71.5); PLATELET COUNT (AUTO) 198 K/uL (179-408)
[2020-12-01 07:03] LABS: WHITE BLOOD COUNT (AUTO) 5.6 K/uL (3.8-11.8)
[2020-12-01 07:04] LABS: CARBON DIOXIDE 27 mmol/L (21-32); CHLORIDE 105 mmol/L (98-107); CREATININE 4.5 mg/dL (0.6-1.3); GLUCOSE 70 mg/dL (74-106); PHOSPHOROUS 3.3 mg/dL (2.5-4.9); POTASSIUM 3.5 mmol/L (3.5-5.1); UREA NITROGEN, BLOOD 31 mg/dL (7-18)
[2020-12-01 08:00] VITALS: BP 141/69
[2020-12-01] MEDS: CITRIC ACID PO SCH ×4 (08:29→21:14)
[2020-12-01] MEDS: SODIUM CITRATE PO SCH ×4 (08:29→21:14)
[2020-12-01] MEDS: OMEGA-3 FATTY ACIDS/FISH OIL CAPSULE PO SCH (08:30)
[2020-12-01] MEDS: FOLIC ACID/VITAMIN B COMP W-C TABLET PO SCH (08:30)
[2020-12-01] MEDS: DOCUSATE SODIUM 100 MG CAPSULE PO SCH (08:30)
[2020-12-01] MEDS: CHOLECALCIFEROL 1,000 UNIT TABLET PO SCH (08:30)
[2020-12-01] MEDS: PROTEIN SUPPLEMENT (PROSTAT) 30 ML LIQUID PO SCH ×2 (08:31→17:32)
[2020-12-01] MEDS: AMLODIPINE 2.5 MG TABLET PO SCH (08:31)
[2020-12-01] MEDS: AZATHIOPRINE 50 MG TABLET PO SCH (08:33)
[2020-12-01] MEDS: HEPARIN SODIUM,PORCINE 5,000 UNITS/ML VIAL SQ SCH ×2 (08:33→21:43)
[2020-12-01] MEDS: NOVASOURCE RENAL 237 ML LIQUID PO SCH ×2 (08:50→17:32)
--- NOTE | 2020-12-01 10:45 | NUR ---
Received pt in assigned room in bed, alert to self, no s/s of acute distress noted. Due medications given per order, pt tolerated well, no a/r noted. R wrist IV patent and intact. Needs met at this time, pt kept clean and dry. Safety measures, fall precautions, aspiration precautions in place. Pt to receive HD today. This grant writer and GUILLERMINA Boyle attempted to contact family member listed in chart, Kishan, no answer, message left. Consent signed per provider. GUILLERMINA Boyle at bedside this am, report given, new orders in place. Will carry out and continue to monitor.
[2020-12-01 16:20] VITALS: BP 147/90
[2020-12-01] MEDS: LORAZEPAM 1 MG TABLET PO ONE ×2 (18:45→18:54)
--- NOTE | 2020-12-01 18:54 | NUR ---
EOSS: Pt in bed in assigned room. Pt noted with agitation, attempting to get OOB, HR 125 on Tele monitor. INSTALLATION TECHNICIAN Albin Boyle notified, new orders in place. Ativan one time PO ordered, pt refused. Pt kept clean and dry, needs met promptly. Safety measures, fall precautions, aspiration precautions maintained. Will endorse care to night time babysitter nurse.
[2020-12-01 19:27] LABS: *BLOOD, URINE 3+ (NEGATIVE); *CLARITY,URINE CLOUDY (CLEAR); *COLOR,URINE AMBER (YELLOW); *KETONES,URINE NEGATIVE (NEGATIVE); *UROBILINOGEN,URINE 0.2 E.U./dl (NORMAL); LEUKOCYTE ESTERASE ,URINE 3+ (NEGATIVE); NITRITE, URINE NEGATIVE (NEGATIVE); PH,URINE 7.5 (5.0-8.0); UGLUCOSE NEGATIVE (NEGATIVE)
[2020-12-01 19:30] LABS: *BILIRUBIN,URIN 1+ (NEGATIVE)
--- NOTE | 2020-12-01 19:30 | NUR ---
RECEIVED PT AWAKE,ALERT AND ORIENTEDX2. PT IN NO ACUTE DISTRESS. IV INTACT. SAFETY AND COMFORT PROVIDED. WILL CONTINUE TO MONITOR.
[2020-12-01] MEDS: ACETAMINOPHEN 325 MG TABLET PO PRN (19:44)
[2020-12-01 20:22] VITALS: BP 144/87
--- NOTE | 2020-12-01 20:41 | NUR ---
PT RESTLESS, TRYING TO GET OUT OF THE BED AND AGITATED. NOTIFY CAR SALES REPRESENTATIVE REGARDING PT BEHAVIOR. DR. KELSEY ORDERED ATIVAN 0.5MG IV Q8H PRN.
[2020-12-01 20:42] LABS: BACTERIA,URINE MANY /HPF (NONE SEEN); RBC,URINE TNTC /HPF (0-3); SQUAMOUS EPITHELIAL CELL,UR FEW /HPF (NONE SEEN); WBC,URINE TNTC /HPF (0-3)
[2020-12-01 20:43] LABS: URINE AMORPHOUS PHOSPHATES MODERATE /HPF
[2020-12-01] MEDS ORDERED: LORAZEPAM 0.5 MG TABLET PO PRN (21:00)
[2020-12-01] MEDS: MIRTAZAPINE 15 MG TABLET PO SCH (21:14)
[2020-12-01] MEDS: SENNOSIDES 1 TABLET PO SCH (21:15)
[2020-12-01] MEDS: LORAZEPAM 2 MG/1 ML VIAL IV PRN (21:25)
--- NOTE | 2020-12-01 22:30 | NUR ---
ATIVAN IV 0.5MG PRN GIVEN TO PT AT 2125H. PT TOLERATED IT WELL. PT VITAL SIGNS STABLE. PT CALMER. WILL COTNINUE TO MONITOR.
[2020-12-02 00:18] VITALS: BP 167/91
[2020-12-02 04:28] VITALS: BP 147/67
[2020-12-02] MEDS: PANTOPRAZOLE SODIUM 40 MG TABLET.DR PO SCH (06:08)
[2020-12-02] MEDS: LEVOTHYROXINE SODIUM 137 MCG TABLET PO SCH (06:08)
--- NOTE | 2020-12-02 06:17 | NUR ---
PT SLEPT INTERMITTENTLY. PRESCRIBED MEDICATION GIVEN AND PT TOLERATED IT WELL. TYLENOL PRN GIVEN AT 1944H. PT TOLERATED IT WELL. PT VITAL SIGNS WNL. PT IN NO ACUTE DISTRESS. PT CONFUSED NEEDS REDIRECTION. SAFETY AND COMFORT PROVIDED. ALL NEEDS ARE MET. WILL ENDORSE TO INCOMING NURSE FOR CONTINUITY OF CARE.
[2020-12-02 06:30] LABS: BASOPHILS # (AUTO) 0.1 K/uL (0.0-8.0); BASOPHILS % (AUTO) 1.4 % (0.0-2.0); EOSINOPHILS # (AUTO) 0.2 K/uL (0.0-0.7); EOSINOPHILS % (AUTO) 3.8 % (0.0-7.0); HEMATOCRIT 34.3 % (31.2-41.9); LYMPHOCYTES # (AUTO) 1.1 K/uL (20.0-40.0); LYMPHOCYTES % (AUTO) 22.6 % (20.5-51.5); MEAN CORPUSCULAR HEMOGLOBIN 29.5 uug (24.7-32.8); MEAN CORPUSCULAR HGB CONC 32 g/dL (32.3-35.6); MEAN CORPUSCULAR VOLUME 92.2 fL (75.5-95.3); MONOCYTES # (AUTO) 0.7 K/uL (2.0-10.0); MONOCYTES % (AUTO) 12.9 % (0.0-11.0); NEUTROPHILS % (AUTO) 59.3 % (38.5-71.5); PLATELET COUNT (AUTO) 166 K/uL (179-408); RED BLOOD CELL COUNT(AUTO) 3.72 MIL/uL (3.63-4.92)
[2020-12-02 06:39] LABS: CARBON DIOXIDE 34 mmol/L (21-32); CHLORIDE 106 mmol/L (98-107); GLUCOSE 80 mg/dL (74-106); MAGNESIUM 1.9 mg/dL (1.8-2.4); POTASSIUM 3.4 mmol/L (3.5-5.1); UREA NITROGEN, BLOOD 27 mg/dL (7-18)
--- NOTE | 2020-12-02 07:34 | NUR ---
Received sleeping but easily arousable. No respiratory distress. Permacath on right chest intact. No facial grimacing noted. Bed is low and locked. Safety measures maintained. Will continue to monitor.
[2020-12-02] MEDS: NOVASOURCE RENAL 237 ML LIQUID PO SCH ×2 (08:56→17:05)
[2020-12-02] MEDS: SODIUM CITRATE PO SCH ×4 (08:57→20:48)
[2020-12-02] MEDS: AZATHIOPRINE 50 MG TABLET PO SCH (08:57)
[2020-12-02] MEDS: FOLIC ACID/VITAMIN B COMP W-C TABLET PO SCH (08:57)
[2020-12-02] MEDS: AMLODIPINE 2.5 MG TABLET PO SCH (08:57)
[2020-12-02] MEDS: OMEGA-3 FATTY ACIDS/FISH OIL CAPSULE PO SCH (08:57)
[2020-12-02] MEDS: DOCUSATE SODIUM 100 MG CAPSULE PO SCH (08:57)
[2020-12-02] MEDS: CHOLECALCIFEROL 1,000 UNIT TABLET PO SCH (08:57)
[2020-12-02] MEDS: CITRIC ACID PO SCH ×4 (08:57→20:48)
[2020-12-02] MEDS: HEPARIN SODIUM,PORCINE 5,000 UNITS/ML VIAL SQ SCH ×2 (08:58→20:50)
[2020-12-02] MEDS: PROTEIN SUPPLEMENT (PROSTAT) 30 ML LIQUID PO SCH ×2 (08:58→17:05)
[2020-12-02] MEDS: MUPIROCIN 2% OINT 22 GM TUBE NS SCH ×2 (09:26→21:04)
[2020-12-02 11:28] VITALS: BP 146/83
--- NOTE | 2020-12-02 11:37 | NUR ---
WOUND CARE CONSULT: PT PRESENTS WITH INCONTINENCE, RASH TO BUTTOCKS, GROIN FOLDS AND PERINEUM, PRESENT ON ADMISSION. SOME EDEMA NOTED TO LOWER EXTREMITIES WITH PLANTAR DISCOLORATION. RECOMMENDATIONS MADE FOR SKIN PROTECTION. DISCUSSED WITH NURSING STAFF. IN AGREEMENT WITH PLAN OF CARE. Addendum: 12/02/20 at 1138 by PAOLA SEO RN Amended: Links added.
[2020-12-02] MEDS ORDERED: ALTEPLASE 2 MG VIAL IVP ONE (12:00)
--- NOTE | 2020-12-02 13:35 | NUR ---
Received a call from grandson Kishan Simmons and gave consent for fistula placement surgery, witnessed by charge nurse Chaz.
--- NOTE | 2020-12-02 13:45 | NUR ---
Flex RN here to dialyze the pt but permacath kept collapsing. Unable to continue, no output. Alteplase administered by Flex.
[2020-12-02] MEDS ORDERED: ALPRAZOLAM 0.5 MG TABLET PO PRN (14:00)
[2020-12-02 15:06] VITALS: BP 146/90
[2020-12-02] MEDS: CLOTRIMAZOLE 1% CREAM 30 GM TUBE TOP SCH (17:05)
--- NOTE | 2020-12-02 19:04 | NUR ---
Alert and responsive watching tv. In no acute distress. NSR on tele. HD site on right permacath intact. Bed low and locked. Safety measures in place. Needs attended. Endorsed.
--- NOTE | 2020-12-02 20:01 | NUR ---
Patient in bed .Alert x1, confused Farsi speaking.No s/s of distress noted. Dialysis cath on right upper chest with dressing intact. Incontinent to both B &B. Due meds given. Safey measures in place.Will continue to monitor.
[2020-12-02 20:10] VITALS: BP 136/85
[2020-12-02] MEDS: MIRTAZAPINE 15 MG TABLET PO SCH (20:49)
[2020-12-02] MEDS: SENNOSIDES 1 TABLET PO SCH (20:49)
[2020-12-03] VITALS: BP 154/79
[2020-12-03 04:10] VITALS: BP 151/72
[2020-12-03] MEDS: PANTOPRAZOLE SODIUM 40 MG TABLET.DR PO SCH (06:05)
[2020-12-03] MEDS: LEVOTHYROXINE SODIUM 137 MCG TABLET PO SCH (06:05)
[2020-12-03 07:11] LABS: BASOPHILS # (AUTO) 0.1 K/uL (0.0-8.0); BASOPHILS % (AUTO) 1.1 % (0.0-2.0); EOSINOPHILS # (AUTO) 0.2 K/uL (0.0-0.7); EOSINOPHILS % (AUTO) 3.3 % (0.0-7.0); HEMOGLOBIN 10.5 g/dL (10.9-14.3); LYMPHOCYTES # (AUTO) 1.3 K/uL (20.0-40.0); LYMPHOCYTES % (AUTO) 19.1 % (20.5-51.5); MEAN CORPUSCULAR HEMOGLOBIN 29.7 uug (24.7-32.8); MEAN CORPUSCULAR HGB CONC 33 g/dL (32.3-35.6); MEAN CORPUSCULAR VOLUME 90.6 fL (75.5-95.3); MONOCYTES # (AUTO) 0.6 K/uL (2.0-10.0); MONOCYTES % (AUTO) 8.5 % (0.0-11.0); NEUTROPHILS # (AUTO) 4.6 K/uL (1.8-8.9); PLATELET COUNT (AUTO) 140 K/uL (179-408); RED BLOOD CELL COUNT(AUTO) 3.54 MIL/uL (3.63-4.92); WHITE BLOOD COUNT (AUTO) 6.8 K/uL (3.8-11.8)
[2020-12-03 07:22] LABS: CARBON DIOXIDE 32 mmol/L (21-32); CHLORIDE 108 mmol/L (98-107); CREATININE 4.2 mg/dL (0.6-1.3); GLUCOSE 90 mg/dL (74-106); MAGNESIUM 1.8 mg/dL (1.8-2.4); PHOSPHOROUS 3.1 mg/dL (2.5-4.9); UREA NITROGEN, BLOOD 28 mg/dL (7-18)
--- NOTE | 2020-12-03 07:30 | NUR ---
received change of shift report on pt, A/Ox1, pt has sacral redness, bilateral heel redness, on tele monitor, NSR, pt on room air, no signs of distress, no reports of pain. pt on bedrest, pt on renal diet, meds are crushed, pt voids via diaper. pt has IV access on the right hand 22g, saline lock. bed in low and locked position, call light within reach, fall and safety precautions in place, will continue to monitor.
[2020-12-03 08:00] VITALS: BP_SYST 134; BP_SYST 139; BP_DIAS 121; BP_DIAS 90
[2020-12-03] MEDS: MUPIROCIN 2% OINT 22 GM TUBE NS SCH ×2 (09:19→20:49)
[2020-12-03] MEDS: NOVASOURCE RENAL 237 ML LIQUID PO SCH ×2 (09:19→17:10)
[2020-12-03] MEDS: CHOLECALCIFEROL 1,000 UNIT TABLET PO SCH (09:24)
[2020-12-03] MEDS: HEPARIN SODIUM,PORCINE 5,000 UNITS/ML VIAL SQ SCH ×2 (09:24→21:00)
[2020-12-03] MEDS: OMEGA-3 FATTY ACIDS/FISH OIL CAPSULE PO SCH (09:24)
[2020-12-03] MEDS: FOLIC ACID/VITAMIN B COMP W-C TABLET PO SCH (09:24)
[2020-12-03] MEDS: DOCUSATE SODIUM 100 MG CAPSULE PO SCH (09:24)
[2020-12-03] MEDS: AZATHIOPRINE 50 MG TABLET PO SCH (09:25)
[2020-12-03] MEDS: CITRIC ACID PO SCH ×4 (09:29→20:49)
[2020-12-03] MEDS: SODIUM CITRATE PO SCH ×4 (09:29→20:49)
[2020-12-03] MEDS: CLOTRIMAZOLE 1% CREAM 30 GM TUBE TOP SCH ×2 (09:40→17:08)
[2020-12-03] MEDS: AMLODIPINE 2.5 MG TABLET PO SCH (09:49)
--- NOTE | 2020-12-03 10:00 | NUR ---
Attempted to obtain consent for fistula placement for 12/04/2020, grace was called but no answer, voicemail was left. Dr. Plunkett, vascular was notified, message was left, no reply from MD. Previous nursing notes state consent was obtained but no documentation was done in writing on consent form. will try again to contact Kishan edwards.
[2020-12-03] MEDS: PROTEIN SUPPLEMENT (PROSTAT) 30 ML LIQUID PO SCH ×2 (10:10→17:08)
[2020-12-03] MEDS ORDERED: POTASSIUM CHLORIDE 20 MEQ TAB.PRT.SR PO ONE (12:15)
[2020-12-03 13:56] VITALS: BP 133/84
[2020-12-03 16:11] VITALS: BP 144/48
--- NOTE | 2020-12-03 16:30 | NUR ---
pt started dialysis, will continue to monitor. dialysis, RN in room with pt
--- NOTE | 2020-12-03 18:28 | NUR ---
Pt finished with dialysis, pt tolerated well, MARK Mccord stated she was on a 250 flow due to weak fistula, Ponce GOLD LETTERER made aware. 1100 output, pt BP 118/70, HR 81. Tele monitor NSR, on room air, no signs of distress, no reports of pain at this time. pt bedrest, pt incontinent, voids via diaper. IV access on the right hand 22g saline lock. pt to be NPO after midnight for fistula placement (Left vs Right AV access) on 12/04/2020 at 1130, no IV or blood draws on the left arm per Dr. Plunkett. call light within reach, safety and fall precautions in place, will endorse to oncoming nurse.
[2020-12-03 20:10] VITALS: BP 136/61
--- NOTE | 2020-12-03 20:25 | NUR ---
Patient in bed awake talking in farsi speaking.No s/s of distress noted. On RA.No facial grimaces of discomfort. On tele monitor NSR.Perma cath on right upper chest with dressing intact.IV on right hand 22g in place. Will place patient on NPO after midnight for anticipated fistula placement tomorrow.Still awaiting call back from grandson for consent.VSS.Will continue to follow up grandson for consent.
[2020-12-03] MEDS: SENNOSIDES 1 TABLET PO SCH (20:50)
[2020-12-03] MEDS: MIRTAZAPINE 15 MG TABLET PO SCH (20:50)
[2020-12-04] VITALS: BP 155/90
[2020-12-04 04:10] VITALS: BP_SYST 140; BP_SYST 170; BP_DIAS 88
[2020-12-04] MEDS: PANTOPRAZOLE SODIUM 40 MG TABLET.DR PO SCH (06:03)
[2020-12-04] MEDS: LEVOTHYROXINE SODIUM 137 MCG TABLET PO SCH (06:03)
--- NOTE | 2020-12-04 06:14 | NUR ---
Patient in bed awake in no acute distress noted. On tele NSR .Remain NPO.Placed a call to grace Simmons [phone] and was able to obtained consent for fistula placement.Witnessed by other RN Simon endorsed to oncoming shift.
[2020-12-04] MEDS: PROTEIN SUPPLEMENT (PROSTAT) 30 ML LIQUID PO SCH ×2 (07:54→17:00)
[2020-12-04] MEDS: NOVASOURCE RENAL 237 ML LIQUID PO SCH ×3 (07:54→17:00)
[2020-12-04] MEDS: AMLODIPINE 2.5 MG TABLET PO SCH (07:56)
[2020-12-04] MEDS: hydrALAZINE HCL 25 MG TABLET PO PRN (07:56)
[2020-12-04] MEDS: MUPIROCIN 2% OINT 22 GM TUBE NS SCH ×2 (07:57→21:11)
[2020-12-04 08:34] VITALS: BP 191/93
[2020-12-04] MEDS: CITRIC ACID PO SCH ×4 (09:00→21:12)
[2020-12-04] MEDS: CHOLECALCIFEROL 1,000 UNIT TABLET PO SCH (09:00)
[2020-12-04] MEDS: HEPARIN SODIUM,PORCINE 5,000 UNITS/ML VIAL SQ SCH ×2 (09:00→21:13)
[2020-12-04] MEDS: DOCUSATE SODIUM 100 MG CAPSULE PO SCH (09:00)
[2020-12-04] MEDS: AZATHIOPRINE 50 MG TABLET PO SCH (09:00)
[2020-12-04] MEDS: OMEGA-3 FATTY ACIDS/FISH OIL CAPSULE PO SCH (09:00)
[2020-12-04] MEDS: FOLIC ACID/VITAMIN B COMP W-C TABLET PO SCH (09:00)
[2020-12-04] MEDS: SODIUM CITRATE PO SCH ×4 (09:00→21:12)
[2020-12-04 09:16] LABS: BASOPHILS # (AUTO) 0.1 K/uL (0.0-8.0); BASOPHILS % (AUTO) 1.4 % (0.0-2.0); EOSINOPHILS # (AUTO) 0.1 K/uL (0.0-0.7); EOSINOPHILS % (AUTO) 1.6 % (0.0-7.0); HEMOGLOBIN 11.8 g/dL (10.9-14.3); LYMPHOCYTES # (AUTO) 1.6 K/uL (20.0-40.0); LYMPHOCYTES % (AUTO) 23.2 % (20.5-51.5); MEAN CORPUSCULAR HGB CONC 32 g/dL (32.3-35.6); MEAN CORPUSCULAR VOLUME 91.1 fL (75.5-95.3); MONOCYTES # (AUTO) 0.4 K/uL (2.0-10.0); NEUTROPHILS # (AUTO) 4.7 K/uL (1.8-8.9); NEUTROPHILS % (AUTO) 67.8 % (38.5-71.5); PLATELET COUNT (AUTO) 125 K/uL (179-408); RED BLOOD CELL COUNT(AUTO) 4.06 MIL/uL (3.63-4.92)
[2020-12-04 09:36] VITALS: BP 147/79
[2020-12-04] MEDS: CLOTRIMAZOLE 1% CREAM 30 GM TUBE TOP SCH ×2 (09:38→18:24)
[2020-12-04 10:29] LABS: CARBON DIOXIDE 32 mmol/L (21-32); CHLORIDE 106 mmol/L (98-107); CREATININE 3.7 mg/dL (0.6-1.3); GLUCOSE 96 mg/dL (74-106); MAGNESIUM 1.9 mg/dL (1.8-2.4); PHOSPHOROUS 2.6 mg/dL (2.5-4.9); POTASSIUM 3.4 mmol/L (3.5-5.1); UREA NITROGEN, BLOOD 22 mg/dL (7-18)
[2020-12-04] MEDS ORDERED: POLYMYXIN B SULFATE 500,000 UNITS, BACITRACIN 50,000 UNITS, NORMAL SALINE 20 ML MC ONE (10:45)
[2020-12-04 10:54] LABS: ALANINE AMINOTRANSFERASE 10 U/L (14-59); ALKALINE PHOSPHATASE 78 U/L (50-136); ASPARTATE AMINOTRANSFERASE 16 U/L (15-37); BILIRUBIN,TOTAL 0.5 mg/dL (0.2-1.0); TOTAL PROTEIN, SERUM 6.1 g/dL (6.4-8.2)
[2020-12-04] MEDS ORDERED: FENTANYL CITRATE 100 MCG/2 ML AMPUL ONE ×2 (11:10→11:48)
[2020-12-04] MEDS ORDERED: LIDOCAINE HCL 1% 20 ML VIAL ONE (11:52)
[2020-12-04] MEDS ORDERED: HEPARIN SODIUM,PORCINE 5,000 UNITS/ML VIAL ONE (11:52)
[2020-12-04] MEDS ORDERED: THROMBIN (BOVINE) 5,000 UNITS VIAL ONE (11:53)
[2020-12-04] MEDS ORDERED: CLINDAMYCIN PHOSPHATE 600 MG/4 ML VIAL ONE (12:16)
[2020-12-04] MEDS ORDERED: hydrALAZINE HCL 20 MG/1 ML VIAL ONE (13:57)
[2020-12-04 15:28] VITALS: BP 116/58
--- NOTE | 2020-12-04 19:35 | NUR ---
Received pt in bed, awake and verbally responsive. No s/s of respiratory distress, denies any pain or discomfort. NSR on tele at 82/min. Safety measures in place, call light within reach, will continue to monitor.
[2020-12-04 20:10] VITALS: BP 123/71
[2020-12-04] MEDS: SENNOSIDES 1 TABLET PO SCH (21:12)
[2020-12-04] MEDS: MIRTAZAPINE 15 MG TABLET PO SCH (21:12)
[2020-12-05] VITALS: BP 138/74
[2020-12-05 04:10] VITALS: BP 136/79
[2020-12-05] MEDS: LEVOTHYROXINE SODIUM 137 MCG TABLET PO SCH (06:30)
[2020-12-05] MEDS: PANTOPRAZOLE SODIUM 40 MG TABLET.DR PO SCH (06:30)
--- NOTE | 2020-12-05 06:33 | NUR ---
Pt asleep in bed, easily arousable, tolerated medications well, no s/s of respiratory distress, no pain reported. Safety measures maintained at all times, call light within reach, all needs attended.
--- NOTE | 2020-12-05 06:35 | NUR ---
NSR on tele at 72/min. Requires frequent redirection but obeys simple commands. will endorse to incoming nurse.
[2020-12-05 07:51] VITALS: BP 122/69
[2020-12-05] MEDS: PROTEIN SUPPLEMENT (PROSTAT) 30 ML LIQUID PO SCH ×2 (09:00→16:45)
[2020-12-05] MEDS: CHOLECALCIFEROL 1,000 UNIT TABLET PO SCH (09:54)
[2020-12-05] MEDS: FOLIC ACID/VITAMIN B COMP W-C TABLET PO SCH (09:54)
[2020-12-05] MEDS: SODIUM CITRATE PO SCH ×4 (09:54→21:20)
[2020-12-05] MEDS: CITRIC ACID PO SCH ×4 (09:54→21:20)
[2020-12-05] MEDS: DOCUSATE SODIUM 100 MG CAPSULE PO SCH (09:55)
[2020-12-05] MEDS: OMEGA-3 FATTY ACIDS/FISH OIL CAPSULE PO SCH (09:55)
[2020-12-05] MEDS: AMLODIPINE 2.5 MG TABLET PO SCH (09:55)
[2020-12-05] MEDS: AZATHIOPRINE 50 MG TABLET PO SCH (09:55)
[2020-12-05] MEDS: MUPIROCIN 2% OINT 22 GM TUBE NS SCH ×2 (09:56→21:21)
[2020-12-05] MEDS: HEPARIN SODIUM,PORCINE 5,000 UNITS/ML VIAL SQ SCH ×2 (09:59→21:35)
[2020-12-05] MEDS: CLOTRIMAZOLE 1% CREAM 30 GM TUBE TOP SCH ×2 (10:01→16:44)
[2020-12-05] MEDS: Z GUARD REMEDY PASTE 57 GM TUBE TOP PRN (10:02)
[2020-12-05] MEDS: NOVASOURCE RENAL 237 ML LIQUID PO SCH ×3 (10:04→16:45)
[2020-12-05 10:14] LABS: BASOPHILS # (AUTO) 0.1 K/uL (0.0-8.0); BASOPHILS % (AUTO) 1.1 % (0.0-2.0); EOSINOPHILS # (AUTO) 0.1 K/uL (0.0-0.7); EOSINOPHILS % (AUTO) 0.7 % (0.0-7.0); HEMATOCRIT 34.1 % (31.2-41.9); HEMOGLOBIN 10.8 g/dL (10.9-14.3); LYMPHOCYTES # (AUTO) 1.3 K/uL (20.0-40.0); LYMPHOCYTES % (AUTO) 16.5 % (20.5-51.5); MEAN CORPUSCULAR HGB CONC 32 g/dL (32.3-35.6); MEAN CORPUSCULAR VOLUME 91.5 fL (75.5-95.3); MONOCYTES # (AUTO) 0.5 K/uL (2.0-10.0); MONOCYTES % (AUTO) 6.4 % (0.0-11.0); NEUTROPHILS % (AUTO) 75.3 % (38.5-71.5); PLATELET COUNT (AUTO) 138 K/uL (179-408); RED BLOOD CELL COUNT(AUTO) 3.73 MIL/uL (3.63-4.92)
[2020-12-05 10:50] LABS: CARBON DIOXIDE 32 mmol/L (21-32); CHLORIDE 104 mmol/L (98-107); CREATININE 4.6 mg/dL (0.6-1.3); GLUCOSE 114 mg/dL (74-106); POTASSIUM 3.3 mmol/L (3.5-5.1); UREA NITROGEN, BLOOD 26 mg/dL (7-18)
[2020-12-05] MEDS ORDERED: FLUCONAZOLE 400MG /NS 200ML IV 400 MG in PREMIXED 1 EACH IV SCH (13:00)
[2020-12-05] MEDS: FLUCONAZOLE 200 MG/NS 100ML IV 100 MG in PREMIXED 1 EACH IV SCH (14:26)
[2020-12-05] MEDS ORDERED: DEXAMETHASONE SOD PHOSPHATE 4 MG INJ IV ONE (14:56)
[2020-12-05] MEDS ORDERED: HEPARIN SODIUM,PORCINE 1,000 UNITS/ML VIAL IV ONE (14:56)
[2020-12-05] MEDS ORDERED: PHENYLEPHRINE 10 MG/1 ML VIAL MC ONE (14:56)
[2020-12-05] MEDS ORDERED: PROPOFOL 200 MG/20 ML BOTTLE IV ONE (14:56)
[2020-12-05] MEDS ORDERED: ONDANSETRON 4 MG/2 ML VIAL IV ONE (14:56)
[2020-12-05] MEDS ORDERED: POTASSIUM CHLORIDE 50 ML IV SCH (16:00)
--- NOTE | 2020-12-05 19:00 | NUR ---
PATIENT AWAKE BUT WITH CONFUSION, NO SOB NO CHEST PAIN, PATIENT HAS NO S/S OF PAIN AT THIS TIME, CONT TO MONITOR.
[2020-12-05 19:43] VITALS: BP 122/62
[2020-12-05] MEDS: SENNOSIDES 1 TABLET PO SCH (21:21)
[2020-12-05] MEDS: MIRTAZAPINE 15 MG TABLET PO SCH (21:21)
[2020-12-05] MEDS: LORAZEPAM 2 MG/1 ML VIAL IV PRN (23:34)
--- NOTE | 2020-12-05 23:43 | NUR ---
PATIENT AGITATED, CONSTANTLY TALKING, KEPT CLEAN AND DRY. PATIENT DENIES PAIN AT THIS TIME, REFUSED TO TAKE PO PRN, ATIVAN IV GIVEN FOR AGITATION, CONSTANTLY TALKING, AND YELLING, CONT TO MONITOR.
[2020-12-06 04:45] VITALS: BP 136/70
[2020-12-06] MEDS: PANTOPRAZOLE SODIUM 40 MG TABLET.DR PO SCH (06:08)
[2020-12-06] MEDS: LEVOTHYROXINE SODIUM 137 MCG TABLET PO SCH (06:09)
[2020-12-06 06:32] LABS: BASOPHILS # (AUTO) 0.1 K/uL (0.0-8.0); BASOPHILS % (AUTO) 0.8 % (0.0-2.0); EOSINOPHILS # (AUTO) 0.1 K/uL (0.0-0.7); EOSINOPHILS % (AUTO) 1.4 % (0.0-7.0); HEMATOCRIT 33.6 % (31.2-41.9); HEMOGLOBIN 10.5 g/dL (10.9-14.3); LYMPHOCYTES # (AUTO) 1.4 K/uL (20.0-40.0); LYMPHOCYTES % (AUTO) 19.6 % (20.5-51.5); MEAN CORPUSCULAR HEMOGLOBIN 28.8 uug (24.7-32.8); MEAN CORPUSCULAR HGB CONC 31 g/dL (32.3-35.6); MEAN CORPUSCULAR VOLUME 92.1 fL (75.5-95.3); MONOCYTES # (AUTO) 0.4 K/uL (2.0-10.0); MONOCYTES % (AUTO) 6.4 % (0.0-11.0); NEUTROPHILS % (AUTO) 71.8 % (38.5-71.5); PLATELET COUNT (AUTO) 133 K/uL (179-408); RED BLOOD CELL COUNT(AUTO) 3.65 MIL/uL (3.63-4.92); WHITE BLOOD COUNT (AUTO) 6.9 K/uL (3.8-11.8)
[2020-12-06 06:40] LABS: CARBON DIOXIDE 35 mmol/L (21-32); CHLORIDE 108 mmol/L (98-107); CREATININE 3.6 mg/dL (0.6-1.3); GLUCOSE 89 mg/dL (74-106); PHOSPHOROUS 2.5 mg/dL (2.5-4.9); POTASSIUM 4.2 mmol/L (3.5-5.1); UREA NITROGEN, BLOOD 21 mg/dL (7-18)
--- NOTE | 2020-12-06 07:05 | NUR ---
PATIENT ASLEEP BUT AROUSABLE, DENIES PAIN AND DISCOMFORT. PATIENT BEHAVIOR OF AGITATION MB TALKING EXCESSIVELY, AND RESISTIVE WITH THE CARE SUBSIDED, MEDS EFFECTIVE. KEPT COMFORTABLE.
--- NOTE | 2020-12-06 07:30 | NUR ---
Received patient in bed awake, alert and oriented times 1. Patient is calm and cooperative. IV line flushes fine. Safety in place. Will continue to monitor.
[2020-12-06] MEDS ORDERED: FLUC200T8 PO (07:34)
[2020-12-06 08:00] VITALS: BP 130/63
[2020-12-06] MEDS: FOLIC ACID/VITAMIN B COMP W-C TABLET PO SCH (08:50)
[2020-12-06] MEDS: CHOLECALCIFEROL 1,000 UNIT TABLET PO SCH (08:50)
[2020-12-06] MEDS: OMEGA-3 FATTY ACIDS/FISH OIL CAPSULE PO SCH (08:50)
[2020-12-06] MEDS: AMLODIPINE 2.5 MG TABLET PO SCH (08:51)
[2020-12-06] MEDS: AZATHIOPRINE 50 MG TABLET PO SCH (08:51)
[2020-12-06] MEDS: CLOTRIMAZOLE 1% CREAM 30 GM TUBE TOP SCH (08:52)
[2020-12-06] MEDS: HEPARIN SODIUM,PORCINE 5,000 UNITS/ML VIAL SQ SCH (08:53)
[2020-12-06] MEDS: PROTEIN SUPPLEMENT (PROSTAT) 30 ML LIQUID PO SCH (08:53)
[2020-12-06] MEDS: MUPIROCIN 2% OINT 22 GM TUBE NS SCH (08:54)
[2020-12-06] MEDS: DOCUSATE SODIUM 100 MG CAPSULE PO SCH (08:54)
[2020-12-06] MEDS: SODIUM CITRATE PO SCH (09:00)
[2020-12-06] MEDS: CITRIC ACID PO SCH (09:00)
[2020-12-06] MEDS: NOVASOURCE RENAL 237 ML LIQUID PO SCH ×2 (09:11→13:09)
[2020-12-06 11:42] VITALS: BP 139/58
[2020-12-06] MEDS ORDERED: CITRIC ACID PO SCH (13:00)
[2020-12-06] MEDS ORDERED: SODIUM CITRATE PO SCH (13:00)
[2020-12-06] MEDS: FLUCONAZOLE 200 MG/NS 100ML IV 100 MG in PREMIXED 1 EACH IV SCH (13:08)
[2020-12-06 14:56] VITALS: BP 133/69
--- NOTE | 2020-12-06 14:58 | NUR ---
Patient being discharged to [facility]. Patient is stable. Vital sign are within normal limits. IV and ID band removed. All belongings given to patient and copy of belongings list given with discharge paper work. Report given to Beto from facility. Left AV shunt and right chest perma-cath are in place. Medications given as ordered.
== END 2020-12-06 15:00 | DRG 673 ==
LOC: ER 21:15 → MEDSURG3 11-30 01:19 → TELE3 11-30 05:12 → MEDSURG3 12-05 08:18
PROVIDERS: ADMIT Nurse Practitioner Family; ATTEND Hospitalist
PROC: 5A1D70Z Performance of Urinary Filtration, Intermittent, Less than 6 Hours Per Day (ICD-10-PCS; principal; 2020-12-03)
PROC: 031C3ZF Bypass Left Radial Artery to Lower Arm Vein, Percutaneous Approach (ICD-10-PCS; 2020-12-04)
DX: T82.41XA Breakdown (mechanical) of vascular dialysis catheter, initial encounter (principal); N18.6 End stage renal disease; E43 Unspecified severe protein-calorie malnutrition; I12.0 Hypertensive chronic kidney disease with stage 5 chronic kidney disease or end stage renal disease; J98.11 Atelectasis; I50.32 Chronic diastolic (congestive) heart failure; I13.2 Hypertensive heart and chronic kidney disease with heart failure and with stage 5 chronic kidney disease, or end stage renal disease; B37.41 Candidal cystitis and urethritis; Z68.1 Body mass index [BMI] 19.9 or less, adult; M31.31 Wegener's granulomatosis with renal involvement; Z99.2 Dependence on renal dialysis; E03.9 Hypothyroidism, unspecified; D63.8 Anemia in other chronic diseases classified elsewhere; E78.5 Hyperlipidemia, unspecified; E87.6 Hypokalemia; J44.9 Chronic obstructive pulmonary disease, unspecified; Z88.0 Allergy status to penicillin; Z88.2 Allergy status to sulfonamides; E88.09 Other disorders of plasma-protein metabolism, not elsewhere classified; F03.90 Unspecified dementia, unspecified severity, without behavioral disturbance, psychotic disturbance, mood disturbance, and anxiety; L98.8 Other specified disorders of the skin and subcutaneous tissue; Y83.8 Other surgical procedures as the cause of abnormal reaction of the patient, or of later complication, without mention of misadventure at the time of the procedure; Y92.129 Unspecified place in nursing home as the place of occurrence of the external cause; Z20.822 Contact with and (suspected) exposure to COVID-19; Y71.2 Prosthetic and other implants, materials and accessory cardiovascular devices associated with adverse incidents
CPT/HCPCS: 36415; 70030-TC; 71045; 83735; 84100; 85025; 85610; 85730; 86850; 86900; 86901; 87086; 90937; 93005; A4649; A4663; G0378; J0360; J1100; J1450; J1644; J2060; J2370; J2405; J2997; J3010; J3480; J3490; J7500

== ENCOUNTER 2021-01-22 14:24 | Emergency (ER) | payer MEDICARE, OTHER ==
[~2021-01-22] VITALS: Ht 167.6 cm; Wt 54.4 kg
[~2021-01-22 14:24] MED LIST changes: +FLUC200T8 PO
[2021-01-22] MEDS ORDERED: BACITRACIN ZINC OINT 15 GM TUBE TOP STA (14:26)
[2021-01-22] MEDS ORDERED: TDAP DIPH,PERTUSS,TET VAC/PF 0.5 ML DISP.SYRIN IM ONE ×2 (14:30→14:40)
[2021-01-22] MEDS ORDERED: LIDOCAINE HCL 1% 20 ML VIAL IJ ONE (14:30)
[2021-01-22] MEDS ORDERED: LIDOCAINE HCL 1% 20 ML VIAL ONE (14:39)
[2021-01-22] MEDS ORDERED: BACITRACIN ZINC OINT 15 GM TUBE ONE (14:40)
--- NOTE | 2021-01-22 14:45 | NUR ---
PT IS IN ROOM #2A. DR SANTIAGO EVALUATED THE PT.
--- NOTE | 2021-01-22 15:45 | NUR ---
[facility] WAS CALLED ([phone]) TO TRANSFER PT BACK TO HER NURSING FACILITY. ROSEANNA IS 45 MINUTES. PT IS RESTING IN BED COMFORTABLY. NO S/S OF BLEEDING, NO S/S OF DISTRESS.
--- NOTE | 2021-01-22 17:20 | NUR ---
REPORT WAS GIVEN TO [facility] PULLER ZOILA. REPORT WAS GIVEN TO AMBULANCE EMT. PT WAS D/C'd TO HER NURSING FACILITY. PT WAS TRANSFERED TO [facility] VIA BLS AMBULANCE. NO S/S OF DISTRESS AT THE TIME OF DISCHARGE. NO BLEEDING. DRESSING IS INTACT.
[2021-01-22 17:29] VITALS: BP 146/77
== END 2021-01-22 17:30 ==
LOC: ER 14:24
DX: S01.81XA Laceration without foreign body of other part of head, initial encounter (principal); W18.30XA Fall on same level, unspecified, initial encounter; Y92.129 Unspecified place in nursing home as the place of occurrence of the external cause; R41.0 Disorientation, unspecified; F03.90 Unspecified dementia, unspecified severity, without behavioral disturbance, psychotic disturbance, mood disturbance, and anxiety; M50.322 Other cervical disc degeneration at C5-C6 level; M25.78 Osteophyte, vertebrae; G31.9 Degenerative disease of nervous system, unspecified; I11.0 Hypertensive heart disease with heart failure; I50.9 Heart failure, unspecified; E03.9 Hypothyroidism, unspecified; H35.30 Unspecified macular degeneration; M13.0 Polyarthritis, unspecified; E78.5 Hyperlipidemia, unspecified; J44.9 Chronic obstructive pulmonary disease, unspecified; Z88.6 Allergy status to analgesic agent; Z88.0 Allergy status to penicillin; Z88.2 Allergy status to sulfonamides; M31.30 Wegener's granulomatosis without renal involvement; Z79.890 Hormone replacement therapy
CPT/HCPCS: 12011; 70450; 71045; 72125; 72170; 90471; 90715; 99285; J3490; A4217; A4663

== ENCOUNTER 2021-03-24 22:38 | Inpatient (IN) | payer MEDICARE, OTHER ==
[~2021-03-24] VITALS: Ht 165.1 cm; Wt 52.6 kg
[~2021-03-24 22:38] MED LIST changes: -OMEP40CA13 PO; +OMEP40CA21 PO
[2021-03-24 23:33] LABS: HEMATOCRIT 26.1 % (31.2-41.9); MEAN CORPUSCULAR HEMOGLOBIN 26.7 uug (24.7-32.8); MEAN CORPUSCULAR VOLUME 82.2 fL (75.5-95.3); PLATELET COUNT (AUTO) 265 K/uL (179-408)
[2021-03-24 23:35] LABS: CARBON DIOXIDE 31 mmol/L (21-32); CHLORIDE 102 mmol/L (98-107); CREATININE 6.1 mg/dL (0.6-1.3); GLUCOSE 118 mg/dL (74-106); POTASSIUM 4.3 mmol/L (3.5-5.1); UREA NITROGEN, BLOOD 58 mg/dL (7-18)
[2021-03-24 23:40] LABS: ALANINE AMINOTRANSFERASE 7 U/L (14-59); ALKALINE PHOSPHATASE 57 U/L (50-136); ASPARTATE AMINOTRANSFERASE 9 U/L (15-37); BILIRUBIN,TOTAL 0.3 mg/dL (0.2-1.0); TOTAL PROTEIN, SERUM 6.2 g/dL (6.4-8.2)
[2021-03-25] MEDS ORDERED: AMIN887L7 PO (01:26)
[2021-03-25] MEDS ORDERED: SEVE800T8 PO (01:26)
[2021-03-25] MEDS ORDERED: LEVO150T8 PO (01:26)
[2021-03-25] MEDS ORDERED: DEXT15DR6 OP (01:26)
[2021-03-25] MEDS ORDERED: OMEG-153 PO (01:26)
[2021-03-25] MEDS ORDERED: FOLI0.8T23 PO (01:26)
--- NOTE | 2021-03-25 01:27 | NUR ---
Dr Garcia spoke to Tushar Sheehan DNP contact lens polisher for [facility] who accepted patient.
[2021-03-25] MEDS ORDERED: ALBUTEROL SULFATE 2.5 MG/ 0.5 ML NEBU NEB PRN (02:15)
[2021-03-25] MEDS ORDERED: hydrALAZINE HCL 25 MG TABLET PO PRN (02:15)
[2021-03-25] MEDS ORDERED: SEVELAMER CARBONATE 800 MG POWD.PACK GT SCH (07:30)
[2021-03-25] MEDS: NOVASOURCE RENAL 237 ML LIQUID PO SCH ×2 (08:00→17:00)
--- NOTE | 2021-03-25 08:35 | NUR ---
Received telephone call from [facility] with coivid vaccine info as follows: Dylan 1st dose: 09/01/20 2nd dose: 10/02/20.
[2021-03-25] MEDS ORDERED: CLONIDINE-TTS 3 PATCH TD SCH (09:00)
[2021-03-25] MEDS ORDERED: AMLODIPINE 2.5 MG TABLET ONE (09:01)
[2021-03-25] MEDS: AZATHIOPRINE 50 MG TABLET PO SCH (09:12)
[2021-03-25] MEDS: AMLODIPINE 2.5 MG TABLET PO SCH (09:13)
[2021-03-25] MEDS: LEVOTHYROXINE SODIUM 150 MCG TABLET PO SCH (09:13)
[2021-03-25] MEDS: FOLIC ACID/VITAMIN B COMP W-C TABLET PO SCH (09:13)
--- NOTE | 2021-03-25 09:15 | NUR ---
maximus jarvis np at bedside.
--- NOTE | 2021-03-25 09:15 | NUR ---
Fermin jackson in [facility] - 03/25/21 at 0916 by HERBIE maximus jarvis np at bedside.
--- NOTE | 2021-03-25 09:16 | NUR ---
Gideon Boyle NP, at bedside.
[2021-03-25] MEDS ORDERED: CLONIDINE-TTS 3 PATCH TD ONE (10:03)
--- NOTE | 2021-03-25 10:30 | NUR ---
picc line rn placed midline gauge [address]
[2021-03-25] MEDS: SEVELAMER CARBONATE 800 MG TABLET PO SCH (11:30)
--- NOTE | 2021-03-25 11:38 | NUR ---
DR. FARTUN ALATORRE CALLED AND SAID TO KEEP THE PT NPO BECAUSE DR. MAURICIO WILL DO THE PERMACATH REPLACEMENT TODAY. NOTIFIED THAT THE PT TOKK AM MEDS ONLY. DR. ALATORRE OKED.
[2021-03-25] MEDS ORDERED: ZOLPIDEM 5 MG TABLET PO PRN (11:45)
[2021-03-25] MEDS ORDERED: ONDANSETRON 4 MG/2 ML VIAL IV PRN (11:45)
[2021-03-25] MEDS ORDERED: ACETAMINOPHEN 325 MG TABLET PO PRN (11:45)
[2021-03-25] MEDS ORDERED: Z GUARD REMEDY PASTE 57 GM TUBE TOP PRN (11:45)
--- NOTE | 2021-03-25 12:00 | NUR ---
CALLED CHANTELLE HOLBROOK, [phone], [facility], TO GET THE CONSENT FOR PERMACATH REPLACEMENT. CHANTELLE GAVE THE CONSENT.
--- NOTE | 2021-03-25 12:29 | NUR ---
OR NURSES AT BEDSIDE FOR ASSESSMENT AND HISTORY. PT WILL GO TO PERMACATH REPLACEMENT AROUND 1500.
--- NOTE | 2021-03-25 12:30 | NUR ---
PT WILL GO TO ROOM 306 AFTER CATH REPLACEMENT.
[2021-03-25 13:42] LABS: HEMATOCRIT 27.8 % (31.2-41.9); MEAN CORPUSCULAR HEMOGLOBIN 26.7 uug (24.7-32.8); MEAN CORPUSCULAR VOLUME 82.4 fL (75.5-95.3); PLATELET COUNT (AUTO) 271 K/uL (179-408)
[2021-03-25 13:49] LABS: CARBON DIOXIDE 30 mmol/L (21-32); CHLORIDE 102 mmol/L (98-107); CREATININE 6.5 mg/dL (0.6-1.3); GLUCOSE 97 mg/dL (74-106); POTASSIUM 4.6 mmol/L (3.5-5.1); UREA NITROGEN, BLOOD 67 mg/dL (7-18)
[2021-03-25] MEDS ORDERED: LIDOCAINE HCL 1% 20 ML VIAL ONE (14:26)
[2021-03-25] MEDS ORDERED: HEPARIN SODIUM,PORCINE 1,000 UNITS/ML VIAL ONE ×2 (14:26→16:32)
[2021-03-25] MEDS ORDERED: HEPARIN/NS 500 ML ONE (14:27)
--- NOTE | 2021-03-25 14:43 | NUR ---
OR CREW AT BEDSIDE TO TAKE THE PT TO OR FOR PERMA CATH REPLACEMENT.
--- NOTE | 2021-03-25 14:48 | NUR ---
PT WILL GO TO ROOM 306 ONCE CLEARED FROM OR.
[2021-03-25] MEDS ORDERED: MIDAZOLAM HCL 2 MG/2 ML VIAL ONE ×2 (16:31→16:51)
[2021-03-25] MEDS ORDERED: IOHEXOL-240 MG , 50 ML VIAL IV ONE (16:51)
[2021-03-25] MEDS ORDERED: CLINDAMYCIN PHOSPHATE 600 MG/4 ML VIAL ONE (17:05)
[2021-03-25] MEDS ORDERED: BACITRACIN ZINC OINT 15 GM TUBE ONE (17:12)
[2021-03-25] MEDS ORDERED: PROPOFOL 200 MG/20 ML BOTTLE IV ONE (17:23)
[2021-03-25 18:19] VITALS: BP 128/62
--- NOTE | 2021-03-25 18:35 | NUR ---
PATIENT ADMITTED TO FLOOR. ALERT AND ORIENTED X2. NO RESPIRATORY DISTRESS NOTED. PERMACATH ON RIGHT IJ INTACT. NO BLEEDING NOTED. VS WNL. WASTE MACHINE OFFBEARER NEAL MADE AWARE OF ADMISSION. SAFETY MEASURES IN PLACE. KEPT COMFORTABLE.
--- NOTE | 2021-03-25 20:00 | NUR ---
Received patient A/O x 1. Farsi speaking. In no acute distress. Surgery incision site on the right neck and chest clean, dry and intact. custodial assessment done, skin is intact. Bilateral foot edema. Safety initiated. Call light within reach. Will continue to monitor.
[2021-03-25] MEDS: SENNOSIDES 1 TABLET PO SCH (20:14)
[2021-03-25] MEDS: MIRTAZAPINE 15 MG TABLET PO SCH (20:14)
[2021-03-25 20:45] VITALS: BP 126/60
[2021-03-26 04:00] VITALS: BP 122/65
[2021-03-26] MEDS: LEVOTHYROXINE SODIUM 150 MCG TABLET PO SCH (06:00)
[2021-03-26] MEDS: SEVELAMER CARBONATE 800 MG TABLET PO SCH ×4 (07:08→17:11)
--- NOTE | 2021-03-26 07:30 | NUR ---
Patient received alert and oriented to self, Farsi-speaking, confused and requires redirection. Patient on RA with no SOB or difficulties breathing. No acute distress noted. Right UA midline intact with no redness or swelling noted at this time. Fall and aspiration precautions in place. Call light within easy reach. Will continue to monitor.
[2021-03-26] MEDS: NOVASOURCE RENAL 237 ML LIQUID PO SCH ×2 (08:00→18:21)
[2021-03-26] MEDS ORDERED: ALPRAZOLAM 0.25 MG TABLET PO PRN (09:00)
[2021-03-26] MEDS: FOLIC ACID/VITAMIN B COMP W-C TABLET PO SCH (10:11)
[2021-03-26] MEDS: AMLODIPINE 2.5 MG TABLET PO SCH (10:14)
[2021-03-26] MEDS: AZATHIOPRINE 50 MG TABLET PO SCH (10:15)
[2021-03-26] MEDS: MUPIROCIN 2% OINT 22 GM TUBE NS SCH ×2 (11:18→20:45)
[2021-03-26 12:00] VITALS: BP 119/68
[2021-03-26 15:49] VITALS: BP 127/69
--- NOTE | 2021-03-26 20:00 | NUR ---
RECEIVED PATIENT ASLEEP IN BED. EASILY AROUSABLE. ALERT TO SELF, FARSI SPEAKING. NO S/S OF ANY PAIN OR DISCOMFORT. NO RESP. DISTRESS NOTED. MID-LINE NOTED TO RIGHT UPPER ARM, INTACT AND PATENT. BED ALARM ON. CALL LIGHT IN REACH. ALL NEEDS ATTENDED. WILL CONTINUE TO MONITOR AND ASSESS.
[2021-03-26 20:05] VITALS: BP 126/84
[2021-03-26] MEDS: MIRTAZAPINE 15 MG TABLET PO SCH (20:44)
[2021-03-26] MEDS: SENNOSIDES 1 TABLET PO SCH (20:45)
[2021-03-27 04:05] VITALS: BP 108/30
--- NOTE | 2021-03-27 06:03 | NUR ---
PATIENT AWAKE IN BED. ALERT TO SELF. SLEPT WELL THROUGHOUT THE NIGHT. VS WNL. BED ALARM ON. CALL LIGHT IN REACH. ALL NEEDS ATTENDED. WILL CONTINUE TO MONITOR AND ASSESS.
[2021-03-27 06:34] LABS: HEMATOCRIT 26.4 % (31.2-41.9); MEAN CORPUSCULAR VOLUME 82.7 fL (75.5-95.3); PLATELET COUNT (AUTO) 307 K/uL (179-408)
[2021-03-27] MEDS: LEVOTHYROXINE SODIUM 150 MCG TABLET PO SCH (06:44)
[2021-03-27 06:51] LABS: CARBON DIOXIDE 27 mmol/L (21-32); CHLORIDE 100 mmol/L (98-107); CREATININE 7.3 mg/dL (0.6-1.3); GLUCOSE 97 mg/dL (74-106); MAGNESIUM 2.4 mg/dL (1.8-2.4); POTASSIUM 4.6 mmol/L (3.5-5.1); UREA NITROGEN, BLOOD 72 mg/dL (7-18)
[2021-03-27] MEDS: SEVELAMER CARBONATE 800 MG TABLET PO SCH ×3 (07:30→16:56)
--- NOTE | 2021-03-27 07:30 | NUR ---
Patient received in bed with eyes closed, but easily arousable. HD taking place. Patient on RA with no SOB or difficulties breathing. No acute distress noted. Right UA midline intact and patent with C/D/I dressing. Fall and aspiration precautions in place. Call light within easy reach. Will continue to monitor.
[2021-03-27] MEDS: NOVASOURCE RENAL 237 ML LIQUID PO SCH ×2 (08:00→17:44)
[2021-03-27] MEDS: MUPIROCIN 2% OINT 22 GM TUBE NS SCH ×2 (09:28→21:12)
[2021-03-27] MEDS: FOLIC ACID/VITAMIN B COMP W-C TABLET PO SCH (09:28)
[2021-03-27] MEDS: AMLODIPINE 2.5 MG TABLET PO SCH (09:28)
[2021-03-27] MEDS: AZATHIOPRINE 50 MG TABLET PO SCH (09:29)
[2021-03-27 11:43] VITALS: BP 96/42
[2021-03-27 16:08] VITALS: BP 124/33
[2021-03-27 20:05] VITALS: BP 135/71
[2021-03-27] MEDS: SENNOSIDES 1 TABLET PO SCH (21:12)
[2021-03-27] MEDS: MIRTAZAPINE 15 MG TABLET PO SCH (21:12)
[2021-03-28 04:06] VITALS: BP 144/60
[2021-03-28 05:07] LABS: HEPATITIS B SURFACE AB Reactive (.); HEPATITIS B SURFACE AG Negative (Negative)
[2021-03-28] MEDS: LEVOTHYROXINE SODIUM 150 MCG TABLET PO SCH (06:50)
--- NOTE | 2021-03-28 07:30 | NUR ---
Patient received in bed with eyes closed, but easily arousable. Patient on RA with no SOB or difficulties breathing. No acute distress noted. Right UA midline intact and patent with C/D/I dressing. Fall and aspiration precautions in place. Call light within easy reach. Will continue to monitor. Plan is to discharge patient back to [facility] today.
[2021-03-28] MEDS: FOLIC ACID/VITAMIN B COMP W-C TABLET PO SCH (08:28)
[2021-03-28] MEDS: AMLODIPINE 2.5 MG TABLET PO SCH (08:28)
[2021-03-28] MEDS: SEVELAMER CARBONATE 800 MG TABLET PO SCH ×2 (08:28→11:45)
[2021-03-28] MEDS: MUPIROCIN 2% OINT 22 GM TUBE NS SCH (08:29)
[2021-03-28] MEDS: AZATHIOPRINE 50 MG TABLET PO SCH (08:29)
[2021-03-28] MEDS: NOVASOURCE RENAL 237 ML LIQUID PO SCH (08:30)
[2021-03-28 11:47] VITALS: BP 128/69
--- NOTE | 2021-03-28 13:38 | NUR ---
Report given to MARK Guerin at [facility]. They are aware of pick-up at 1400 via ambulance.
--- NOTE | 2021-03-28 14:22 | NUR ---
Ambulance here to pick patient up via gurney. Patient was discharged with all her personal belongings in satisfactory condition.
== END 2021-03-28 14:30 | DRG 698 ==
LOC: ER 22:41 → TRANSITION 03-25 06:17 → MEDSURG3 03-25 17:51
PROVIDERS: ADMIT Nurse Practitioner Acute Care; ATTEND Nurse Practitioner Acute Care
PROC: 02HV33Z Insertion of Infusion Device into Superior Vena Cava, Percutaneous Approach (ICD-10-PCS; principal; 2021-03-25)
PROC: B5181ZA Fluoroscopy of Superior Vena Cava using Low Osmolar Contrast, Guidance (ICD-10-PCS; 2021-03-25)
PROC: 02PYX3Z Removal of Infusion Device from Great Vessel, External Approach (ICD-10-PCS; 2021-03-25)
PROC: 05HB33Z Insertion of Infusion Device into Right Basilic Vein, Percutaneous Approach (ICD-10-PCS; 2021-03-25)
PROC: 5A1D70Z Performance of Urinary Filtration, Intermittent, Less than 6 Hours Per Day (ICD-10-PCS; 2021-03-26)
DX: T82.41XA Breakdown (mechanical) of vascular dialysis catheter, initial encounter (principal); N18.6 End stage renal disease; G93.41 Metabolic encephalopathy; I13.2 Hypertensive heart and chronic kidney disease with heart failure and with stage 5 chronic kidney disease, or end stage renal disease; E44.0 Moderate protein-calorie malnutrition; I50.30 Unspecified diastolic (congestive) heart failure; M31.31 Wegener's granulomatosis with renal involvement; Z99.2 Dependence on renal dialysis; J44.9 Chronic obstructive pulmonary disease, unspecified; D63.1 Anemia in chronic kidney disease; E03.9 Hypothyroidism, unspecified; F03.90 Unspecified dementia, unspecified severity, without behavioral disturbance, psychotic disturbance, mood disturbance, and anxiety; E88.09 Other disorders of plasma-protein metabolism, not elsewhere classified; K21.9 Gastro-esophageal reflux disease without esophagitis; H35.30 Unspecified macular degeneration; Y92.128 Other place in nursing home as the place of occurrence of the external cause; M13.0 Polyarthritis, unspecified; Y83.8 Other surgical procedures as the cause of abnormal reaction of the patient, or of later complication, without mention of misadventure at the time of the procedure; Z20.822 Contact with and (suspected) exposure to COVID-19
CPT/HCPCS: 36415; 71045; 83735; 84100; 85025; 85730; 86706; 87340; 93005; A4649; A4663; G0378; J1644; J2250; J3490; J7500; Q9966

== ENCOUNTER 2021-12-02 19:39 | Inpatient (IN) | payer MEDICARE, OTHER ==
[~2021-12-02] VITALS: Ht 162.6 cm; Wt 50.0 kg
[~2021-12-02 19:39] MED LIST changes: -AMIN30LI24 PO; +AMIN887L7 PO; -CHOL10005 PO; -DEXT15DR6 EACHEYE; +DEXT15DR6 OP; -FLUC200T8 PO; -FOLI0.8T2 PO; +FOLI0.8T23 PO; -LEVO137T2 PO; +LEVO150T8 PO; -MENT71OI TOP; +OMEG-153 PO; -OMEG1CAP PO; +SEVE800T8 PO
[2021-12-02] MEDS ORDERED: ALBUTEROL SULFATE 2.5 MG/3 ML NEBU NEB ONE (20:00)
[2021-12-02] MEDS ORDERED: VANCOMYCIN IV 1,000 MG in IV DEXTROSE 5% 250 ML IV ONE (20:15)
[2021-12-02] MEDS ORDERED: CEFTRIAXONE 1 G in IV DEXTROSE 5% 50 ML IV ONE (20:15)
[2021-12-02] MEDS ORDERED: CLON1PAT2 TD (20:16)
[2021-12-02] MEDS ORDERED: LEVO150T8 GT (20:16)
[2021-12-02] MEDS ORDERED: VITA-287 GT (20:16)
[2021-12-02] MEDS ORDERED: ALBU2.5V38 IH (20:16)
[2021-12-02] MEDS ORDERED: FOLI0.8T23 GT (20:16)
[2021-12-02] MEDS ORDERED: CHOL-35 GT (20:16)
[2021-12-02] MEDS ORDERED: AMLO2.5T4 GT (20:16)
[2021-12-02] MEDS ORDERED: MECO10005 GT (20:16)
[2021-12-02] MEDS ORDERED: AZAT50TA18 GT (20:16)
[2021-12-02] MEDS ORDERED: OMEP20TA5 GT (20:16)
[2021-12-02] MEDS ORDERED: HYDR-894 PO (20:16)
[2021-12-02] MEDS ORDERED: MIRT-73 GT (20:16)
[2021-12-02] MEDS ORDERED: [UNRECOGNIZED DRUG - CODE] MC (20:16)
[2021-12-02] MEDS ORDERED: ALBUTEROL SULFATE 2.5 MG/3 ML NEBU ONE (20:32)
[2021-12-02 20:44] LABS: CARBON DIOXIDE 35 mmol/L (21-32); CHLORIDE 101 mmol/L (98-107); CREATININE 4.5 mg/dL (0.6-1.3); GLUCOSE 106 mg/dL (74-106); HEMATOCRIT 24.1 % (31.2-41.9); POTASSIUM 3.7 mmol/L (3.5-5.1); UREA NITROGEN, BLOOD 76 mg/dL (7-18)
[2021-12-02] MEDS ORDERED: CEFTRIAXONE /D5W 50ML IVPB **ER PYXIS IV ONE (20:50)
[2021-12-02 20:57] LABS: MEAN CORPUSCULAR HEMOGLOBIN 33.4 uug (24.7-32.8); MEAN CORPUSCULAR VOLUME 96.1 fL (75.5-95.3); PLATELET COUNT (AUTO) 280 K/uL (179-408)
[2021-12-02 20:59] LABS: ALANINE AMINOTRANSFERASE 10 U/L (14-59); ALKALINE PHOSPHATASE 67 U/L (50-136); ASPARTATE AMINOTRANSFERASE 19 U/L (15-37); BILIRUBIN,DIRECT 0.1 mg/dL (0.0-0.2); BILIRUBIN,TOTAL 0.4 mg/dL (0.2-1.0)
[2021-12-02] MEDS ORDERED: OLANZAPINE 10 MG VIAL IM ONE ×2 (21:00→21:08)
[2021-12-02] MEDS ORDERED: diphenhydrAMINE 50 MG/1 ML VIAL ONE (21:08)
[2021-12-02 21:09] LABS: MAGNESIUM 2.7 mg/dL (1.8-2.4); PHOSPHOROUS 2.4 mg/dL (2.5-4.9)
[2021-12-02] MEDS ORDERED: diphenhydrAMINE 50 MG/1 ML VIAL IV ONE (21:15)
[2021-12-02 21:55] LABS: ABG BASE EXCESS 8.7 mmol/L; ABG HCO3 32.7 mmol/L; ABG PCO2 42.8 mmHg (35.0-45.0); ABG PH 7.501 (7.350-7.450); ABG PO2 67.9 mmHg (75.0-100.0); ABG SITE LEFT RADIAL; ABG TOTAL HEMOGLOBIN 8.4 G/dL (12.0-16.0); COHb 0.4 % (0.5-1.5); MetHb 0.2 % (0.0-1.5); O2Hb 93.6 % (94.0-97.0); VENT MODE Nasal Cannula
[2021-12-02] MEDS ORDERED: VANCOMYCIN IV 200 ML ONE (21:56)
[2021-12-02 22:07] LABS: *BILIRUBIN,URIN NEGATIVE (NEGATIVE); *BLOOD, URINE 3+ (NEGATIVE); *CLARITY,URINE TURBID (CLEAR); *COLOR,URINE Brown (YELLOW); *KETONES,URINE NEGATIVE (NEGATIVE); *UROBILINOGEN,URINE 0.2 E.U./dl (NORMAL); LEUKOCYTE ESTERASE ,URINE 3+ (NEGATIVE); NITRITE, URINE NEGATIVE (NEGATIVE); UGLUCOSE NEGATIVE (NEGATIVE)
--- NOTE | 2021-12-02 22:08 | NUR ---
aspirated G tube. about 5ml of residule. No sign of bleeding
[2021-12-02 22:18] LABS: BACTERIA,URINE MANY /HPF (NONE SEEN); MUCUS,URINE MANY /LPF (0-FEW); RBC,URINE TNTC /HPF (0-3); SQUAMOUS EPITHELIAL CELL,UR MODERATE /HPF (NONE SEEN); WBC,URINE TNTC /HPF (0-3)
--- NOTE | 2021-12-02 22:25 | NUR ---
Called [facility] for panel call.
[2021-12-02] MEDS ORDERED: ACETAMINOPHEN 650 MG SUPP.RECT RC PRN (23:00)
[2021-12-02] MEDS ORDERED: ACETAMINOPHEN 325 MG TABLET PO PRN (23:00)
[2021-12-02] MEDS ORDERED: ONDANSETRON 4 MG/2 ML VIAL IV PRN (23:00)
[2021-12-02] MEDS ORDERED: CLONIDINE TTS 2 PATCH TD SCH (23:15)
[2021-12-02] MEDS ORDERED: ENOXAPARIN SODIUM 60 MG/0.6 ML DISP.SYRIN SQ ONE ×2 (23:45→23:49)
--- NOTE | 2021-12-03 01:15 | NUR ---
report given to Danielle FLORES Tele.
--- NOTE | 2021-12-03 01:44 | NUR ---
pt taken to room 308 via pk.
[2021-12-03 02:06] VITALS: BP 181/80
[2021-12-03] MEDS: AMLODIPINE 2.5 MG TABLET GT SCH ×2 (02:10→09:18)
[2021-12-03 04:29] VITALS: BP 174/77
--- NOTE | 2021-12-03 05:45 | NUR ---
Pt admitted to Tele, SR on monitor. IV site intact. GT in place. Pt has RU chest eddie cath in place. Titrated to 1L NC, satting 98%. Safety protocols maintained, will endorse to day shift.
[2021-12-03] MEDS ORDERED: ACETAMINOPHEN 650 MG/20.3 ML LIQUID UDC GT PRN ×2 (06:00)
[2021-12-03] MEDS: LEVOTHYROXINE SODIUM 150 MCG TABLET GT SCH (06:20)
[2021-12-03] MEDS: hydrALAZINE HCL 20 MG/1 ML VIAL IV PRN (06:20)
[2021-12-03] MEDS ORDERED: VANCOMYCIN IV 500 MG in IV DEXTROSE 5% 100 ML IV PRN (06:45)
[2021-12-03 06:47] LABS: HEMATOCRIT 24.5 % (31.2-41.9); MEAN CORPUSCULAR HEMOGLOBIN 33.8 uug (24.7-32.8); PLATELET COUNT (AUTO) 299 K/uL (179-408)
[2021-12-03 07:09] LABS: CARBON DIOXIDE 34 mmol/L (21-32); CHLORIDE 98 mmol/L (98-107); GLUCOSE 102 mg/dL (74-106); POTASSIUM 3.7 mmol/L (3.5-5.1)
[2021-12-03 07:13] LABS: UREA NITROGEN, BLOOD 82 mg/dL (7-18)
[2021-12-03 07:24] LABS: ALANINE AMINOTRANSFERASE 13 U/L (14-59); ALKALINE PHOSPHATASE 66 U/L (50-136); ASPARTATE AMINOTRANSFERASE 18 U/L (15-37); BILIRUBIN,TOTAL 0.5 mg/dL (0.2-1.0); MAGNESIUM 2.7 mg/dL (1.8-2.4); PHOSPHOROUS 2.5 mg/dL (2.5-4.9); TOTAL PROTEIN, SERUM 6.3 g/dL (6.4-8.2)
[2021-12-03 08:00] LABS: THYROID STIMULATING HORMONE 38.201 mIU/mL (0.358-3.740)
[2021-12-03] MEDS ORDERED: NOVASOURCE RENAL 237 ML LIQUID PO SCH (08:00)
[2021-12-03] MEDS ORDERED: HEPARIN SODIUM,PORCINE 5,000 UNITS/ML VIAL SQ ONE (09:00)
[2021-12-03] MEDS ORDERED: PANTOPRAZOLE SODIUM 40 MG VIAL IV SCH (09:00)
[2021-12-03] MEDS: CHOLECALCIFEROL 1,000 UNIT TABLET GT SCH (09:17)
[2021-12-03] MEDS: AZATHIOPRINE 50 MG TABLET GT SCH (09:18)
[2021-12-03] MEDS: FOLIC ACID/VITAMIN B COMP W-C TABLET GT SCH (09:18)
[2021-12-03] MEDS: CYANOCOBALAMIN 1,000 MCG TABLET GT SCH (09:18)
[2021-12-03] MEDS: VITAMIN B COMPLEX 1 TABLET GT SCH (09:19)
--- NOTE | 2021-12-03 10:05 | NUR ---
hemodialysis started at, patient closely monitored
[2021-12-03] MEDS ORDERED: CLONIDINE TTS 2 PATCH TD SCH (11:00)
[2021-12-03 11:49] VITALS: BP 102/61
[2021-12-03] MEDS: HEPARIN SODIUM,PORCINE 5,000 UNITS/ML VIAL SQ SCH ×2 (12:05→23:14)
--- NOTE | 2021-12-03 13:05 | NUR ---
HEMODIALYSIS COMPLETED REMOVED 2000 ML OF FLUID
--- NOTE | 2021-12-03 13:43 | NUR ---
TOLERATED HEMODIALYSIS WELL. STARTED TUBE FEEDING NEPRO. SEE ORDERS
[2021-12-03] MEDS: NEPRO 1000 ML GT PRN (13:57)
--- NOTE | 2021-12-03 14:23 | NUR ---
Per pharmacy no vancomycin today post dialysis because of high vancomycin level
[2021-12-03] MEDS ORDERED: [UNRECOGNIZED DRUG - CODE] GT (15:04)
[2021-12-03 20:09] VITALS: BP 153/67
[2021-12-03] MEDS ORDERED: MEROPENEM 500 MG in IV NORMAL SALINE 50 ML IV SCH (20:30)
[2021-12-03] MEDS: MIRTAZAPINE 15 MG TAB.RAPDIS GT SCH (20:40)
[2021-12-03] MEDS ORDERED: MEROPENEM 1 G in IV NORMAL SALINE 100 ML IV SCH (21:00)
[2021-12-03] MEDS ORDERED: CEFTRIAXONE 1 G in IV DEXTROSE 5% 50 ML IV SCH (21:00)
[2021-12-03] MEDS ORDERED: MEROPENEM 500 MG VIAL IV ONE (22:42)
[2021-12-03] MEDS: MEROPENEM 500 MG in IV NORMAL SALINE 50 ML IV SCH (22:53)
[2021-12-04 04:09] VITALS: BP 174/84
[2021-12-04] MEDS: hydrALAZINE HCL 20 MG/1 ML VIAL IV PRN (05:56)
[2021-12-04] MEDS: LEVOTHYROXINE SODIUM 150 MCG TABLET GT SCH (06:01)
[2021-12-04 06:49] VITALS: BP 104/35
--- NOTE | 2021-12-04 07:32 | NUR ---
pt refused echo and dulex us
[2021-12-04] MEDS: CHOLECALCIFEROL 1,000 UNIT TABLET GT SCH (10:04)
[2021-12-04] MEDS: FOLIC ACID/VITAMIN B COMP W-C TABLET GT SCH (10:04)
[2021-12-04] MEDS: HEPARIN SODIUM,PORCINE 5,000 UNITS/ML VIAL SQ SCH ×2 (10:05→21:31)
[2021-12-04] MEDS: CYANOCOBALAMIN 1,000 MCG TABLET GT SCH (10:05)
[2021-12-04] MEDS: AMLODIPINE 2.5 MG TABLET GT SCH (10:11)
[2021-12-04] MEDS: PANTOPRAZOLE ORAL SUSPENSION 40 MG SUSPDR.PKT GT SCH (10:22)
[2021-12-04] MEDS: MEROPENEM 500 MG in IV NORMAL SALINE 50 ML IV SCH ×2 (10:22→21:38)
[2021-12-04] MEDS: AZATHIOPRINE 50 MG TABLET GT SCH (10:22)
[2021-12-04] MEDS: VITAMIN B COMPLEX 1 TABLET GT SCH (10:23)
--- NOTE | 2021-12-04 11:00 | NUR ---
Pt is a/o x 1 Farsi speaking. NPO, tolerating Gtube feeding well, no residual volume noted. Medications given via GT. patent and good flow. Will continue to monitor pt.
[2021-12-04 11:56] VITALS: BP 129/53
[2021-12-04 16:00] VITALS: BP 148/61
[2021-12-04 17:15] LABS: HEMATOCRIT 26.7 % (31.2-41.9); MEAN CORPUSCULAR HEMOGLOBIN 33.5 uug (24.7-32.8); MEAN CORPUSCULAR VOLUME 99.6 fL (75.5-95.3); PLATELET COUNT (AUTO) 222 K/uL (179-408)
[2021-12-04 17:22] LABS: CARBON DIOXIDE 29 mmol/L (21-32); CHLORIDE 98 mmol/L (98-107); CREATININE 3.8 mg/dL (0.6-1.3); GLUCOSE 115 mg/dL (74-106); MAGNESIUM 2.6 mg/dL (1.8-2.4); PHOSPHOROUS 2.6 mg/dL (2.5-4.9); POTASSIUM 5.2 mmol/L (3.5-5.1); UREA NITROGEN, BLOOD 57 mg/dL (7-18)
--- NOTE | 2021-12-04 18:03 | NUR ---
Pt was cooperative with care today, she allowed ultrasounds to be completed and after reorienting, she allowed labs to be drawn in the afternoon. Management Instructor was unable to attain adequate blood sample but said they would try to process labs. If unable to process, they will notify staff. Pt has hemodialysis ordered for today, pending dialysis. if labs unable to be completed, will endorse to warehouse shift supervisor to notify lab when dialysis nurse arrives.
[2021-12-04 20:07] VITALS: BP 161/72
[2021-12-04] MEDS: MIRTAZAPINE 15 MG TAB.RAPDIS GT SCH (20:28)
[2021-12-04 20:45] VITALS: BP 147/68
[2021-12-05] MEDS: NEPRO 1000 ML GT PRN (00:02)
[2021-12-05] MEDS: hydrALAZINE HCL 20 MG/1 ML VIAL IV PRN (03:56)
[2021-12-05] MEDS: IPRATROPIUM BROMIDE 0.5 MG/2.5 ML NEBU NEB PRN (03:57)
[2021-12-05] MEDS: ALBUTEROL SULFATE 2.5 MG/3 ML NEBU IH PRN (03:57)
--- NOTE | 2021-12-05 04:00 | NUR ---
PATIENT AWAKE IN BED. BP 183/78. PATIENT GIVEN HYDRALAZINE 10MG IVP PER RN. PATIENT ALSO GIVEN BREATHING TX, SOME WHEEZING NOTED. ALL NEEDS ATTENDED. WILL CONTINUE TO MONITOR AND ASSESS.
[2021-12-05 05:29] VITALS: BP 186/73
[2021-12-05 06:00] VITALS: BP 110/62
[2021-12-05] MEDS: PANTOPRAZOLE ORAL SUSPENSION 40 MG SUSPDR.PKT GT SCH (06:02)
[2021-12-05] MEDS: LEVOTHYROXINE SODIUM 150 MCG TABLET GT SCH (06:05)
[2021-12-05 06:06] LABS: HEPATITIS B SURFACE AG Negative (Negative)
[2021-12-05] MEDS: FOLIC ACID/VITAMIN B COMP W-C TABLET GT SCH (09:10)
[2021-12-05] MEDS: CHOLECALCIFEROL 1,000 UNIT TABLET GT SCH (09:10)
[2021-12-05] MEDS: CYANOCOBALAMIN 1,000 MCG TABLET GT SCH (09:10)
[2021-12-05] MEDS: AMLODIPINE 2.5 MG TABLET GT SCH (09:11)
[2021-12-05] MEDS: MEROPENEM 500 MG in IV NORMAL SALINE 50 ML IV SCH ×2 (09:12→21:18)
[2021-12-05] MEDS: AZATHIOPRINE 50 MG TABLET GT SCH (09:12)
[2021-12-05] MEDS: HEPARIN SODIUM,PORCINE 5,000 UNITS/ML VIAL SQ SCH ×2 (09:12→21:21)
[2021-12-05] MEDS: VITAMIN B COMPLEX 1 TABLET GT SCH (09:13)
--- NOTE | 2021-12-05 10:38 | NUR ---
Pt is alert confused, Speaks some words in Swazi but primarily Farsi speaking. Pt feeding was increased to 60cc during medical associate. Pt had residual of 60cc. Consulted with MD, lowered feeding to 50cc with goal of 60cc/hr. Pt is cooperative with care, labs were attempted but unsuccessful by micro computer data processor. Pt refused to have third attempt at drawing labs, will notify lab to return when hemodialysis in process. Pending cultures with possible discharge back to [facility] post hemodialysis completion. Comfort measures provided, call light within reach. Will continue to monitor.
[2021-12-05 13:11] VITALS: BP 106/56
[2021-12-05 15:51] VITALS: BP 113/68
[2021-12-05 18:37] LABS: HEMATOCRIT 22.4 % (31.2-41.9); MEAN CORPUSCULAR HEMOGLOBIN 33.3 uug (24.7-32.8); MEAN CORPUSCULAR VOLUME 97.9 fL (75.5-95.3); PLATELET COUNT (AUTO) 304 K/uL (179-408)
[2021-12-05 18:48] LABS: CARBON DIOXIDE 34 mmol/L (21-32); CHLORIDE 97 mmol/L (98-107); CREATININE 4.8 mg/dL (0.6-1.3); GLUCOSE 109 mg/dL (74-106); MAGNESIUM 2.5 mg/dL (1.8-2.4); PHOSPHOROUS 2.8 mg/dL (2.5-4.9); POTASSIUM 4.3 mmol/L (3.5-5.1); UREA NITROGEN, BLOOD 72 mg/dL (7-18)
--- NOTE | 2021-12-05 19:40 | NUR ---
Received patient in bed, AAOX1, episodes of confusion, reorientation required. Patient was having scheduled dialysis, with Moustapha RN at bedside. Patient had no IV access, requested for IV access since antibiotics needed to be administered. Patient shows no signs of distress at this time. On 1L O2, saturating at 100%, removed nasal cannula, patient saturating 96%. With Gtube, patent and intact. Safety precautions in place, bed in locked, call light within reach. Will continue to monitor.
[2021-12-05 20:30] VITALS: BP 144/66
--- NOTE | 2021-12-05 20:30 | NUR ---
Advised CRM ANALYST, Susy Hickey, regarding patient having no IV access and difficult veins, Midline insertion was ordered. MACY midline patent and intact.
[2021-12-05] MEDS ORDERED: VANCOMYCIN IV 500 MG in IV DEXTROSE 5% 100 ML IV ONE (21:00)
--- NOTE | 2021-12-05 21:00 | NUR ---
Blood transfusion done, patient shows no signs of acute distress. 2L taken.
[2021-12-05] MEDS: MIRTAZAPINE 15 MG TAB.RAPDIS GT SCH (21:07)
[2021-12-06] MEDS: NEPRO 1000 ML GT PRN (02:19)
[2021-12-06 04:00] VITALS: BP 100/68
[2021-12-06] MEDS: LEVOTHYROXINE SODIUM 150 MCG TABLET GT SCH (06:05)
[2021-12-06] MEDS: PANTOPRAZOLE ORAL SUSPENSION 40 MG SUSPDR.PKT GT SCH (06:05)
--- NOTE | 2021-12-06 06:43 | NUR ---
Patient slept through the night, noted to have been talking in her sleep. MACY Midline patent and intact. G-tube site, cleansed. [facility]er wasn't able to draw AM blood d/t patient having difficult veins, grey iron molder advised he will reattempt at a later time. On room air, saturating at 95%, shows no signs of . Safety precautions maintained. Will endorse to day shift accordingly.
[2021-12-06 09:00] VITALS: BP 160/71
[2021-12-06] MEDS: CHOLECALCIFEROL 1,000 UNIT TABLET GT SCH (09:22)
[2021-12-06] MEDS: FOLIC ACID/VITAMIN B COMP W-C TABLET GT SCH (09:22)
[2021-12-06] MEDS: AZATHIOPRINE 50 MG TABLET GT SCH (09:22)
[2021-12-06] MEDS: MEROPENEM 500 MG in IV NORMAL SALINE 50 ML IV SCH ×2 (09:22→20:47)
[2021-12-06] MEDS: CYANOCOBALAMIN 1,000 MCG TABLET GT SCH (09:22)
[2021-12-06] MEDS: VITAMIN B COMPLEX 1 TABLET GT SCH (09:23)
[2021-12-06] MEDS: HEPARIN SODIUM,PORCINE 5,000 UNITS/ML VIAL SQ SCH ×2 (09:24→20:47)
[2021-12-06] MEDS: AMLODIPINE 2.5 MG TABLET GT SCH (09:36)
--- NOTE | 2021-12-06 10:39 | NUR ---
Pt saturating at 82% on room air, placed oxygen on 2L NC SpO2 increased to 91-92%. Will monitor to maintain between 88-93% per MD order.
--- NOTE | 2021-12-06 11:33 | NUR ---
Plan is to discharge pt back to [facility] today. Estimated worm picker by ambulance around 1500. Will continue to monitor.
[2021-12-06 11:43] VITALS: BP 163/49
[2021-12-06] MEDS: hydrALAZINE HCL 20 MG/1 ML VIAL IV PRN (11:49)
[2021-12-06] MEDS ORDERED: LEVO175T2 PO (12:21)
[2021-12-06] MEDS ORDERED: MERO500V23 IV (12:21)
--- NOTE | 2021-12-06 13:56 | NUR ---
Spoke with Business Risk Analyst. Pt will be discharging tomorrow morning, picker and packer scheduled for 1000. Facility will have isolation bed available for tomorrow. Pt urine came back positive for ESBL, contact precautions.
[2021-12-06] MEDS: IPRATROPIUM BROMIDE 0.5 MG/2.5 ML NEBU NEB PRN ×2 (16:04→21:04)
[2021-12-06] MEDS: ALBUTEROL SULFATE 2.5 MG/3 ML NEBU IH PRN ×2 (16:04→21:04)
--- NOTE | 2021-12-06 16:23 | NUR ---
Pt is receiving PRN breathing treatment. Pt sounded short of breath, congested, and wheezing. MD has been notified. 1 x dose of solu medrol ordered per MD. saturating 93% on 2L NC. Will continue to monitor.
[2021-12-06 16:28] VITALS: BP 119/58
[2021-12-06] MEDS ORDERED: methylPREDNISolone SOD SUCC 40 MG/ML VIAL IV ONE (16:30)
[2021-12-06] MEDS ORDERED: METH4TAB3 PO (16:37)
--- NOTE | 2021-12-06 19:40 | NUR ---
Received patient in bed. Aroused by light touch, appears to be tired. MACY ML patent and intact. On 1.5L O2, saturating at 95%. Patient appears to be a mouth-breather. G-tube patent and intact, no residual noted. Safety precautions initiated. Will continue to monitor.
[2021-12-06 20:00] VITALS: BP 140/56
[2021-12-06] MEDS: MIRTAZAPINE 15 MG TAB.RAPDIS GT SCH (20:46)
--- NOTE | 2021-12-06 21:03 | NUR ---
Patient was noted to be breathing heavily, O2 saturation checked, saturation was 81%, PRN breathing treatment requested. Will continue to monitor.
--- NOTE | 2021-12-06 21:05 | NUR ---
notified by RN about SpO2<92%. PRN treatment given without adverse drug reaction. Suctioned with minimal yellow thick secretions. SpO2 94% on 2lpm NC. 2235 got a call from RN stating that SpO2 85-87%. Patient was then placed on 3L 31% via Venturi mask with SpO2 88-94%. Will continue to monitor
--- NOTE | 2021-12-06 22:45 | NUR ---
Patient noted to be wheezing, O2 saturation at 2L is 84%, breathing treatment requested. Nasal Suctioning done by RT, Will continue to monitor.
[2021-12-07] MEDS: methylPREDNISolone SOD SUCC 40 MG/ML VIAL IV SCH ×2 (01:28→08:36)
[2021-12-07 04:00] VITALS: BP 136/54
[2021-12-07] MEDS: LEVOTHYROXINE SODIUM 150 MCG TABLET GT SCH (06:05)
[2021-12-07] MEDS: PANTOPRAZOLE ORAL SUSPENSION 40 MG SUSPDR.PKT GT SCH (06:06)
--- NOTE | 2021-12-07 06:55 | NUR ---
Patient slept through the night, with episodes of wheezing. On 2.5L O2, via nasal cannula, saturating at 88-92%. G-tube patent and intact. IV access patent and intact. Patient possible D/C to [place] today, D/C information already done. Safety precautions maintained. Will endorse to day shift.
[2021-12-07] MEDS: ALBUTEROL SULFATE 2.5 MG/3 ML NEBU IH PRN (07:57)
[2021-12-07] MEDS: IPRATROPIUM BROMIDE 0.5 MG/2.5 ML NEBU NEB PRN (07:57)
[2021-12-07 08:35] VITALS: BP 126/58
[2021-12-07] MEDS: FOLIC ACID/VITAMIN B COMP W-C TABLET GT SCH (08:35)
[2021-12-07] MEDS: AMLODIPINE 2.5 MG TABLET GT SCH (08:35)
[2021-12-07] MEDS: CYANOCOBALAMIN 1,000 MCG TABLET GT SCH (08:36)
[2021-12-07] MEDS: CHOLECALCIFEROL 1,000 UNIT TABLET GT SCH (08:36)
[2021-12-07] MEDS: MEROPENEM 500 MG in IV NORMAL SALINE 50 ML IV SCH (08:41)
[2021-12-07] MEDS: AZATHIOPRINE 50 MG TABLET GT SCH (08:42)
[2021-12-07] MEDS: VITAMIN B COMPLEX 1 TABLET GT SCH (08:42)
[2021-12-07] MEDS: HEPARIN SODIUM,PORCINE 5,000 UNITS/ML VIAL SQ SCH (09:01)
--- NOTE | 2021-12-07 10:37 | NUR ---
patient will be transferred [facility] ,vital sign stable , report given to Natalie FLORES.
[2021-12-08] MEDS ORDERED: MEROPENEM 500 MG in IV NORMAL SALINE 50 ML IV SCH (09:00)
== END 2021-12-07 10:50 | DRG 871 ==
LOC: ER 19:41 → TELE3 12-03 01:22 → MEDSURG3 12-04 07:59
PROVIDERS: ADMIT Registered Nurse; ATTEND Registered Nurse
PROC: 5A1D70Z Performance of Urinary Filtration, Intermittent, Less than 6 Hours Per Day (ICD-10-PCS; 2021-12-03)
PROC: 05H633Z Insertion of Infusion Device into Left Subclavian Vein, Percutaneous Approach (ICD-10-PCS; principal; 2021-12-05)
PROC: B547ZZA Ultrasonography of Left Subclavian Vein, Guidance (ICD-10-PCS; 2021-12-05)
DX: A41.9 Sepsis, unspecified organism (principal); J96.01 Acute respiratory failure with hypoxia; J18.9 Pneumonia, unspecified organism; N18.6 End stage renal disease; G92.8 Other toxic encephalopathy; N39.0 Urinary tract infection, site not specified; Z16.12 Extended spectrum beta lactamase (ESBL) resistance; I13.2 Hypertensive heart and chronic kidney disease with heart failure and with stage 5 chronic kidney disease, or end stage renal disease; J44.0 Chronic obstructive pulmonary disease with (acute) lower respiratory infection; M31.30 Wegener's granulomatosis without renal involvement; R65.20 Severe sepsis without septic shock; Z20.822 Contact with and (suspected) exposure to COVID-19; Z66 Do not resuscitate; Z99.2 Dependence on renal dialysis; D63.1 Anemia in chronic kidney disease; E03.9 Hypothyroidism, unspecified; E78.5 Hyperlipidemia, unspecified; F03.90 Unspecified dementia, unspecified severity, without behavioral disturbance, psychotic disturbance, mood disturbance, and anxiety; Z88.0 Allergy status to penicillin; Z93.1 Gastrostomy status; R13.10 Dysphagia, unspecified; Z87.440 Personal history of urinary (tract) infections; K21.9 Gastro-esophageal reflux disease without esophagitis; R94.31 Abnormal electrocardiogram [ECG] [EKG]; J44.9 Chronic obstructive pulmonary disease, unspecified; B96.20 Unspecified Escherichia coli [E. coli] as the cause of diseases classified elsewhere; Z88.2 Allergy status to sulfonamides; I50.9 Heart failure, unspecified
CPT/HCPCS: 36415; 36600; 70450; 71045; 83605; 83735; 84100; 84443; 84484; 85025; 85730; 86706; 87040; 87086; 87340; 90937; 93005; 93307; 94640; C1758; C9113; G0378; J0360; J0696; J1200; J1644; J1650; J2185; J2358; J2920; J3370; J3590; J7040; J7500